=== PATIENT | female | born 1930 | race Caucasian/White ===

== ENCOUNTER 2016-03-28 19:09 | Emergency (ER) | payer OTHER, MEDICARE ==
[2016-03-28 19:19] VITALS: BP 140/65
--- NOTE | 2016-03-28 19:51 | ED NOSE COMPLAINT ---
History of Present Illness General Chief Complaint: Epistaxis/Nasal Foreign Body Stated Complaint: EPISTAXIS Source: patient, family, old records Exam Limitations: no limitations Vital Signs & Intake/Output Vital Signs & Intake/Output Vital Signs Date Time Temp Pulse Resp B/P Pulse O2 O2 Flow FiO2 Ox Delivery Rate 03/28 1927 99 Non 10L ReBreather 03/28 1918 97.1 93 18 140/65 99 Non 10L ReBreather Allergies Coded Allergies: cat dander (TRIGGERS ASTHMA 03/28/16) Uncoded Allergies: SMOKE (TRIGGERS ASTHMA 03/28/16) Reconcile Medications Alprazolam (Xanax) 0.5 MG TABLET 1 TAB PO Q8H PRN ANXIETY (Reported) Amoxicillin 500 MG CAPSULE 1 CAP PO BID INFECTION Diltiazem HCl (Cartia Xt) 180 MG CAP.ER.24H 1 CAP PO QAM HEART/BP (Reported) Doxazosin Mesylate 4 MG TABLET 1 TAB PO QPM BP (Reported) Ezetimibe/Simvastatin (Vytorin 10-20 MG Tablet) 10 MG-20 MG TABLET 1 TAB PO QPM CHOLESTEROL (Reported) Fluticasone/Salmeterol (Advair 250-50 Diskus) 250 MCG-50 MCG/DOSE BLST.W.DEV 1 PUF INH BID COPD (Reported) Furosemide (Lasix) 20 MG TABLET 1 TAB PO EOD DIURETIC (Reported) Potassium Chloride (Klor-Con 10) 10 MEQ TABLET.ER 30 MEQ PO AD SUPPLEMENT ( Reported) Potassium Chloride (Klor-Con M20) 20 MEQ TAB.ER.PRT 1 TAB PO AD SUPPLEMENT ( Reported) Spironolactone (Aldactone) 50 MG TABLET 1 TAB PO EOD DIURETIC (Reported) Tiotropium Seymour (Spiriva) 18 MCG CAP.W.DEV 1 CAP INH QAM COPD/ASTHMA/ EMPHYSEMA (Reported) Warfarin Sodium (Unknown Strength) TABLET (Unknown Dose) PO AD BLOOD THINNER (Reported) Triage Note: 85 YEAR OLD FEMALE BIBA FROM [facility] FOR NOSE BLEED ON AND OFF SINCE 1100 AM. PER EMS BLEED WAS UNDER CONTROL UNTIL PT BLEW HER NOSE. PT ARRIVES TO ED ALERT AND ORIENTED X3 WITH DAUGHTER. PT IS O2 DEPENDENT AT 4L. PT PLACED ON NONREBREATHER TO PROTECT NOSE FROM BLEEDING AT THIS TIME. OSCAR CAMACHO TO BEDSIDE FOR EVAL. PT IS ON COUMDADIN WITH HISTORY OF NOSE BLEEDS. Triage Nurses Notes Reviewed? yes HPI: 85-year-old female on Coumadin on supplemental oxygen via nasal cannula with frequent intermittent nosebleeds, no speech started again at 11:00 this morning and has been fairly constant since. No trauma or injury no pain. She does not feel lightheaded dizzy or weak. She's had a constant oozing of blood from the nose, she has minimal blood in the posterior pharynx. She occasionally blows out small amounts of blood clots. She has never had a packing or any surgery of the nose or sinuses. (JAYCEE JUARES) Past History Travel History Traveled to [place] past 21 day No Medical History Any Pertinent Medical History? 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 No (JAYCEE JUARES) Review of Systems Review of Systems Constitutional: Reports: see HPI. EENTM: Reports: see HPI. Respiratory: Reports: no symptoms. Cardiovascular: Reports: no symptoms. GI: Reports: no symptoms. Genitourinary: Reports: no symptoms. Musculoskeletal: Reports: no symptoms. Skin: Reports: no symptoms. Neurological/Psychological: Reports: no symptoms. Hematologic/Endocrine: Reports: no symptoms. Immunologic/Allergic: Reports: no symptoms. All Other Systems: Reviewed and Negative (JAYCEE JUARES) Physical Exam Physical Exam General Appearance: well developed/nourished Nose: active bleeding (right anterior plexus) Comments: Elderly female looks stated age, Well-developed well-nourished no apparent distress. HEENT: Atraumatic, extraocular motion intact Dry blood noted on the face and perioral region and on her clothes. Continuous active bleeding of the anterior plexus right side. No blood noted in the posterior pharynx. Neck: Supple, no lymphadenopathy Back: Nontender Respiratory: No respiratory distress Extremities: No edema, full range of motion Neuro: Alert and oriented x3 Psych: Mood affect normal, normal memory normal judgment. Skin: Warm and dry, no rash on exposed skin (JANICE MOORE,JAYCEE) Progress Differential Diagnoses I considered the following diagnoses in my evaluation of the patient: Plan of Care: Orders Procedure Date/time Status PROTHROMBIN TIME 03/28 1936 Complete COMPREHENSIVE METABOLIC PANEL 03/28 1936 Complete CBC WITHOUT DIFFERENTIAL 03/28 1936 Complete Laboratory Tests 03/28/161945: Anion Gap 13, Estimated GFR 52 L, BUN/Creatinine Ratio 32.0 H, Glucose 143 H, Calcium 9.1, Total Bilirubin 0.7, AST 25, ALT 24, Alkaline Phosphatase 69, Total Protein 6.8, Albumin 3.9, Globulin 2.9, Albumin/Globulin Ratio 1.3, PT 22.6 H, INR 2.17 H, CBC w Diff NO MAN DIFF REQ, RBC 4.16 L, MCV 84.7, MCH 28.0, RDW 15.5 H, MPV 7.8, Gran % 79.3 H, Lymphocytes % 13.1 L, Monocytes % 5.8, Eosinophils % 1.4, Basophils % 0.4, Absolute Granulocytes 7.8 H, Absolute Lymphocytes 1.3, Absolute Monocytes 0.6, Absolute Eosinophils 0.1, Absolute Basophils 0, PUBS MCHC 33.0 Initial ED EKG: none Comments: Shawn-Synephrine and compression used to try to stop the bleeding however there is no success with this. Patient had blood clots removed by blowing and active bleeding noted at the anterior plexus. A 5.5 cm anterior Rhino Rocket was placed and inflated with approximate 4 mL of air to patient's tolerance. Bleeding has stopped at this time. We will obtain labs and check INR check H&H and platelet count and continue to monitor patient. She was placed on supple oxygen via facemask, O2 sat 98% Patient reevaluated multiple times, no further bleeding, Rhino Rocket is in place and Pink stands inflated. Her laboratory values are unremarkable, INR 2.17, platelet count is normal. She will be discharged home with a Rhino Rocket in place recommending follow-up with ENT in the next 3-5 days. She is given antibiotics, amoxicillin 1 tablet by mouth for prophylaxis and prescription as outpatient for prophylaxis of infection due to nasal foreign body. Respiratory was contacted and they have given her a mask to use in place of her nasal cannula to deliver a comparable amount of oxygen as nasal cannula give her. Her daughters comes with taking her home and arrange for follow-up. He'll return with any concerns of worsening bleeding or shortness of breath. (JAYCEE JUARES) Departure Departure Disposition: HOME OR SELF CARE Condition: Stable Clinical Impression Primary Impression: Anterior epistaxis Referrals: CALLI STEPHENS,FAY (PCP/Family) CRISTOFER STEPHENS,KEVIN Poon Additional Instructions: Keep the packing in place for the next 3-5 days and follow-up with ENT to have this removed, call to make an appointment Take antibiotics for prevention of infection Return with worsening bleeding Use the oxygen mask as directed Departure Forms: Customer Survey General Discharge Information Prescriptions: Current Visit Scripts Amoxicillin 1 CAP PO BID #10 CAP (JAYCEE JUARES) PA/CLERGY MEMBER Co-Sign Statement Statement: ED Attending supervision documentation- [] I saw and evaluated the patient. I have also reviewed all the pertinent lab results and diagnostic results. I agree with the findings and the plan of care as documented in the PA's/CLERGY MEMBER's documentation. [x] I have reviewed the ED Record and agree with the PA's/CLERGY MEMBER's documentation. [] Additions or exceptions (if any) to the PAs/CLERGY MEMBER's note and plan are summarized below: [] (LACEY STEPHENS,GABBY Adams) Critical Care Note Critical Care Note Critical Care Time: 30-74 min (JAYCEE JUARES)
[2016-03-28] MEDS ORDERED: ADVAIR 250-501 EACH INH (19:52)
[2016-03-28] MEDS ORDERED: XANAX0.5 M1 PO (19:52)
[2016-03-28] MEDS ORDERED: CARTIA XT180 M1 PO (19:53)
[2016-03-28] MEDS ORDERED: LASIX20 M1 PO (19:54)
[2016-03-28] MEDS ORDERED: DOXAZOSIN MESYLA4 M1 PO (19:54)
[2016-03-28] MEDS ORDERED: KLOR-CON 1010 ME1 PO (19:55)
[2016-03-28] MEDS ORDERED: ALDACTONE50 M1 PO (19:56)
[2016-03-28] MEDS ORDERED: KLOR-CON M2020 ME1 PO (19:56)
[2016-03-28 19:57] LABS: ABSOLUTE BASOPHIL COUNT 0 /CUMM (0.0-0.2); ABSOLUTE EOSINOPHIL COUNT 0.1 /CUMM (0.0-0.7); ABSOLUTE GRANULOCYTE CT 7.8 /CUMM (1.4-6.5); ABSOLUTE LYMPH COUNT 1.3 /CUMM (1.2-3.4); ABSOLUTE MONOCYTE COUNT 0.6 /CUMM (0.10-0.60); BASOPHIL % 0.4 % (0.0-2.0); EOSINOPHIL % 1.4 % (0-5); GRANULOCYTE % 79.3 % (42.2-75.2); HEMATOCRIT 35.2 % (37-47); MEAN CORPUSCULAR VOLUME 84.7 FL (81.0-99.0); MEAN PLATELET VOLUME 7.8 FL (7.4-10.4); PLATELET COUNT 231 /CUMM (130-400); RBC DISTRIBUTION WIDTH 15.5 % (11.5-14.5); RED BLOOD CELL CT 4.16 /CUMM (4.20-5.40); WHITE BLOOD CELL COUNT 9.8 /CUMM (4.8-10.8)
[2016-03-28] MEDS ORDERED: VYTORIN 10-201 EACH PO (19:57)
[2016-03-28] MEDS ORDERED: SPIRIVA18 MCG INH (19:57)
[2016-03-28] MEDS ORDERED: WARFARIN SODIUM3 M1 PO (19:59)
[2016-03-28 20:04] LABS: PT 22.6 SEC (9.4-12.5)
[2016-03-28] MEDS ORDERED: AMOXICILLIN500 M2 PO (20:41)
== END 2016-03-28 21:13 ==
LOC: ERH 19:09
PROVIDERS: Physician Assistant Surgical
DX: R04.0 Epistaxis (principal)

== ENCOUNTER 2016-06-22 15:07 | Inpatient (IN) | payer OTHER, MEDICARE ==
[~2016-06-22] VITALS: Ht 152.4 cm; Wt 83.2 kg
[~2016-06-22 15:07] MED LIST: ADVAIR 250-501 EACH INH; ALDACTONE50 M1 PO; AMOXICILLIN500 M2 PO; CARTIA XT180 M1 PO; DOXAZOSIN MESYLA4 M1 PO; KLOR-CON 1010 ME1 PO; KLOR-CON M2020 ME1 PO; LASIX20 M1 PO; SPIRIVA18 MCG INH; VYTORIN 10-201 EACH PO; WARFARIN SODIUM3 M1 PO; XANAX0.5 M1 PO
--- NOTE | 2016-06-22 15:17 | NUR ---
VITALS TAKEN. DTR STATES PT HAS HAD MASTECTOMY ON LEFT. RESTRICTED ARM BAND PLACED ON LEFT WRIST. DTR STATES WE CANNOT PLACE B/P CUFF ON R UPPER ARM DUE TO PT COMPLAINTS OF PAIN WHEN B/P TAKEN. AUTO BP TAKEN IN RIGHT FOREARM.
--- NOTE | 2016-06-22 15:32 | NUR ---
PT [facility] FOR INCREASED BILATERAL LEG EDEMA SINCE Apr, INCREASED WEIGHT GAIN OF 20 POUNDS SINCE 05/10 AND INCREASED SOB WITH EXERTION. PT BASELINE 4L NC OXYGEN. PT AMBULATED TO BATHROOM ON ARRIVAL WITH ASSIST OF WALKER AND MINIMAL EXERTIONAL DYSPNEA NOTED.
--- NOTE | 2016-06-22 16:13 | NUR ---
DR. RAMIREZ AT BEDSIDE FOR EVAL.
--- NOTE | 2016-06-22 16:18 | NUR ---
LABS SENT (BLUE,SST,LAV)
[2016-06-22 16:25] LABS: ABSOLUTE BASOPHIL COUNT 0 /CUMM (0.0-0.2); ABSOLUTE EOSINOPHIL COUNT 0.1 /CUMM (0.0-0.7); ABSOLUTE GRANULOCYTE CT 4.9 /CUMM (1.4-6.5); ABSOLUTE MONOCYTE COUNT 0.5 /CUMM (0.10-0.60); BASOPHIL % 0.1 % (0.0-2.0); EOSINOPHIL % 1.8 % (0-5); HEMATOCRIT 28.3 % (37-47); MEAN CORPUSCULAR HGB 23.5 PG (27.0-31.0); MEAN CORPUSCULAR HGB CONC 30.5 G/DL (33.0-37.0); PLATELET COUNT 251 /CUMM (130-400); RBC DISTRIBUTION WIDTH 17.4 % (11.5-14.5); RED BLOOD CELL CT 3.67 /CUMM (4.20-5.40); WHITE BLOOD CELL COUNT 6.5 /CUMM (4.8-10.8)
--- NOTE | 2016-06-22 16:31 | RADIOLOGY REPORT ---
EXAMINATION: XR CHEST CLINICAL INFORMATION: Shortness of breath with exertion. COMPARISON: None. TECHNIQUE: 2 views of the chest were obtained. FINDINGS: The lungs are hypoinflated with elevation of the right hemidiaphragm. There is a mild interstitial prominence which may be chronic. No pleural effusion or focal consolidation. Mild cardiomegaly. IMPRESSION: Mild diffuse interstitial prominence which may be chronic. Mild cardiomegaly. Elevation of the right hemidiaphragm.
--- NOTE | 2016-06-22 16:44 | ED GENERAL ADULT ---
History of Present Illness General Chief Complaint: General Adult Stated Complaint: BILAT LEG EDEMA X MONTH Source: patient, family, old records, EMS Exam Limitations: no limitations Vital Signs & Intake/Output Vital Signs & Intake/Output Vital Signs Date Time Temp Pulse Resp B/P Pulse O2 O2 Flow FiO2 Ox Delivery Rate 06/22 1749 97.6 78 24 139/63 98 Nasal 4.0L Cannula 06/22 1613 Nasal 4.0L Cannula 06/22 1516 96.7 78 22 136/64 95 Nasal 4.0L Cannula Allergies Coded Allergies: cat dander (TRIGGERS ASTHMA 03/28/16) Uncoded Allergies: SMOKE (TRIGGERS ASTHMA 03/28/16) Reconcile Medications Alprazolam 0.5 MG TABLET 0.5 TAB PO PRN ANXIETY (Reported) Diltiazem HCl (Cartia Xt) 180 MG CAP.ER.24H 1 CAP PO QAM HEART/BP (Reported) Doxazosin Mesylate 4 MG TABLET 1 TAB PO QPM BP (Reported) Ezetimibe/Simvastatin (Vytorin 10-20 MG Tablet) 10 MG-20 MG TABLET 1 TAB PO QPM CHOLESTEROL (Reported) Fluticasone/Salmeterol (Advair 250-50 Diskus) 250 MCG-50 MCG/DOSE BLST.W.DEV 1 PUF INH QAM COPD (Reported) Furosemide (Lasix) 40 MG TABLET 1 TAB PO AD DIURETIC (Reported) Furosemide (Lasix) 80 MG TABLET 1 TAB PO Tuesday DIURETIC (Reported ) Potassium Chloride (Klor-Con 10) 10 MEQ TABLET.ER 3 TAB PO DAILY SUPPLEMENT ( Reported) Potassium Chloride 20 MEQ TAB.ER.PRT 1.5 TAB PO Tuesday SUPPLEMENT (Reported) Tiotropium Jackson (Spiriva) 18 MCG CAP.W.DEV 1 CAP INH QAM COPD/ASTHMA/ EMPHYSEMA (Reported) Warfarin Sodium (Coumadin) 5 MG TABLET 1 TAB PO DAILY BLOOD THINNER (Reported ) Warfarin Sodium 2 MG TABLET 1 TAB PO Tuesday BLOOD THINNER ( Reported) Core Measure Meds Pre-Hospital coumadin Triage Note: [facility] FOR INCREASED BILATERAL LEG EDEMA SINCE Apr, INCREASED WEIGHT GAIN OF 20 POUNDS SINCE 05/10 AND INCREASED SOB WITH EXERTION. PT BASELINE 4L NC OXYGEN. PT AMBULATED TO BATHROOM ON ARRIVAL WITH ASSIST OF WALKER AND MINIMAL EXERTIONAL DYSPNEA NOTED. Triage Nurses Notes Reviewed? yes Onset: 1 month Duration: week(s):, constant, continues in ED, getting worse Timing: recent history Injury Environment: home Severity: severe Modifying Factors: Worsens With: movement. LMP (ages 10-50): post menopausal : No Patient currently breastfeeds: No HPI: 1 month prior to admission patient developed increasing pedal edema abdominal girth dyspnea on exertion. She was prescribed increasing doses of Lasix with continued edema and dyspnea on exertion improved with rest. There has been no fever chills nausea vomiting diarrhea abdominal pain chest pain headache dysuria rash bleeding. Past History Travel History Traveled to [place] past 21 day No Medical History Any Pertinent Medical History? 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 No Review of Systems Review of Systems Constitutional: Reports: no symptoms. EENTM: Reports: no symptoms. Respiratory: Reports: see HPI, short of breath. Cardiovascular: Reports: see HPI, edema. GI: Reports: no symptoms. Genitourinary: Reports: no symptoms. Musculoskeletal: Reports: no symptoms. Skin: Reports: no symptoms. Neurological/Psychological: Reports: no symptoms. Hematologic/Endocrine: Reports: no symptoms. Immunologic/Allergic: Reports: no symptoms. All Other Systems: Reviewed and Negative Physical Exam Physical Exam General Appearance: well developed/nourished, alert, awake, anxious, mild distress, obese Head: atraumatic, normal appearance Eyes: Bilateral: normal appearance, PERRL, EOMI. Ears, Nose, Throat: normal pharynx, normal ENT inspection Neck: normal inspection, supple, full range of motion, no midline tenderness Respiratory: chest non-tender, no respiratory distress, quiet respiration, rales Cardiovascular: regular rate/rhythm, normal peripheral pulses, norml femoral pulses equa Peripheral Pulses: 4+ carotid (R), 4+ carotid (L) Gastrointestinal: normal bowel sounds, soft, non-tender, no organomegaly Back: normal inspection, normal range of motion Extremities: limited range of motion, pedal edema Neurologic/Psych: no motor/sensory deficits, awake, alert, oriented x 3, normal mood/affect, psychology associate II-XII nml as tested Reflexes: 2+: bicep (R), bicep (L). Skin: intact, normal color Lymphatic: no anterior cervical miguel Core Measures ACS in differential dx? No CVA/TIA Diagnosis: No Severe Sepsis Present: No Septic Shock Present: No Progress Differential Diagnoses I considered the following diagnoses in my evaluation of the patient: volume overload CHF lymphedema Plan of Care: Orders Procedure Date/time Status Regular Diet 06/22 D Active Patient Data 06/22 1709 Active EKG 06/22 170 Active OXYGEN SETUP (GEN) 06/22 161 Active Saline Lock 06/22 1616 Active Admit to inpatient 06/22 1616 Active Add-on Test (ER Only) 06/22 1616 Active Vital Signs 06/22 1616 Active Activity/Ambulation 06/22 1616 Active Code Status 06/22 1616 Active TROPONIN LEVEL 06/22 1545 Complete COMPREHENSIVE METABOLIC PANEL 06/22 1545 Complete CBC WITHOUT DIFFERENTIAL 06/22 1545 Complete B-TYPE NATRIURETIC PEP (BNP) 06/22 1545 Complete Laboratory Tests 06/22/16 1615: Anion Gap 5, Estimated GFR > 60, BUN/Creatinine Ratio 35.7 H, Glucose 88, Calcium 8.8, Total Bilirubin 0.4, AST 31, ALT 32, Alkaline Phosphatase 69, Troponin I 0.02, Kul-K-Pruurtidjqr Pept 2830 H, Total Protein 6.9, Albumin 3.9, Globulin 3.0, Albumin/Globulin Ratio 1.3, CBC w Diff NO MAN DIFF REQ, RBC 3.67 L, MCV 77.0 L, MCH 23.5 L, RDW 17.4 H, MPV 8.0, Gran % 75.0, Lymphocytes % 16.1 L, Monocytes % 7.0, Eosinophils % 1.8, Basophils % 0.1, Absolute Granulocytes 4.9, Absolute Lymphocytes 1.0 L, Absolute Monocytes 0.5, Absolute Eosinophils 0.1, Absolute Basophils 0, PUBS MCHC 30.5 L Diagnostic Imaging: Viewed by Me: Radiology Read. Discussed w/RAD: Radiology Read. CXR Impression: vascular congestion Initial ED EKG: normal axis, normal intervals, normal p-waves, normal QRS complex, normal sinus rhythm, nonspecific ST T wave chg Rhythm Strip: normal sinus rhythm Departure Departure Disposition: STILL A PATIENT Condition: Stable Clinical Impression Primary Impression: Volume overload Qualifiers: Hypervolemia type: other Qualified Code: E87.79 - Other fluid overload Secondary Impressions: Pedal edema Referrals: FAY MCCURDY MD (PCP/Family) Departure Forms: Customer Survey General Discharge Information Admission Note Spoke With: ALEXANDER STOREY MDAngelique Documentation of Exam: Documentation of any treatments & extenuating circumstances including Concerns Regarding Discharge (functional status, medication knowledge or non-compliance, living conditions, etc.) that warrant an admission rather than observation: serial lab exam IV diuresis medication adjustment cardiology evaluation continuing care discharge planning supplemental oxygen physical therapy. Critical Care Note Critical Care Note Critical Care Time: non-applicable
[2016-06-22] MEDS ORDERED: LASIX40 M1 PO (16:48)
[2016-06-22] MEDS ORDERED: LASIX80 M1 PO (16:49)
[2016-06-22] MEDS ORDERED: KLOR-CON 1010 ME1 PO (16:51)
[2016-06-22] MEDS ORDERED: POTASSIUM CHLO20 ME2 PO (16:52)
[2016-06-22] MEDS ORDERED: WARFARIN SODIUM2 M1 PO (16:54)
[2016-06-22] MEDS ORDERED: COUMADIN5 M2 PO (16:54)
[2016-06-22] MEDS ORDERED: ALPRAZOLAM0.5 M4 PO (16:55)
--- NOTE | 2016-06-22 17:22 | NUR ---
EKG DONE BY STUDENT
--- NOTE | 2016-06-22 17:58 | NUR ---
FOOD TRAY PROVIDED. PT AMBUALTED TO CHAIR WITH MINIMAL ASSISTANCE, JUST STAFF AT SIDE FOR PT'S SAFETY.
--- NOTE | 2016-06-22 18:53 | History & Physical ---
МАРИНА MIRELESLUISA 06/22/16 3774: General Information and HPI MD Statement: I have seen and personally examined MARGARITA WEAVER and documented this H&P. The patient is a 85 year old F who presented with a patient stated chief complaint of worsening lower extremity swellings. Source of Information: patient, family Exam Limitations: no limitations History of Present Illness: Ms Weaver is an 85-year-old woman who was known to be in her usual state of health until 6 weeks ago. She has a past history of macular degeneration, arrhythmias (unclear), hypertension hyperlipidemia, pulmonary embolism (dx'ed 2013), emphysema, breast cancer s/p resection, recent multiple hospital admissions for hemorrhages. She was brought to [place] [facility] for evaluation of worsening lower extremity swelling 6 weeks, and worsening shortness of breath 1 week. As per the patient, Ms Weaver had worsening lower extremity swelling, which extended from ankle up to the lower abdomen, relieved on elevation only. No pain, weakness, tingling/numbness in lower extremities. Reports weight gain of approximately 20 pounds in the last 3 months. Was seen by her primary care doctor 2 when alterations in diuretics, with no relief of symptoms. Also was concerned about worsening shortness of breath in the last 1 week, reports worsening shortness of breath upon dressing. Reports palpitations, which are chronic as per the patient. Reports chronic cough. No shortness of breath, chest pain, orthopnea, PND. No lightheadedness, visual changes. No fever, no catarina, no brbpr, no abdominal pain, no nausea, vomiting or diarrha. No urinary symptoms. As per the daughter, Ms Delgadillo was diagnosed with arrhythmias(nature unknown) for which she was on Xarelto and had a GI bleed for which she was admitted to [facility] requiring packed red blood cells transfusion. Subsequently, she subsequently developed a pulmonary embolism (2013) and was started on Coumadin. Sees Dr. Travis Canada (imagery analyst), Dr. Us (film printer), Dr. Mccurdy( primary care physician). No recent echocardiogram[place] Allergies/Medications Allergies: Coded Allergies: cat dander (TRIGGERS ASTHMA 03/28/16) Uncoded Allergies: SMOKE (TRIGGERS ASTHMA 03/28/16) Home Med list Alprazolam 0.5 MG TABLET 0.5 TAB PO PRN ANXIETY (Reported) Diltiazem HCl (Cartia Xt) 180 MG CAP.ER.24H 1 CAP PO QAM HEART/BP (Reported) Doxazosin Mesylate 4 MG TABLET 1 TAB PO QPM BP (Reported) Ezetimibe/Simvastatin (Vytorin 10-20 MG Tablet) 10 MG-20 MG TABLET 1 TAB PO QPM CHOLESTEROL (Reported) Fluticasone/Salmeterol (Advair 250-50 Diskus) 250 MCG-50 MCG/DOSE BLST.W.DEV 1 PUF INH QAM COPD (Reported) Furosemide (Lasix) 40 MG TABLET 1 TAB PO AD DIURETIC (Reported) Furosemide (Lasix) 80 MG TABLET 1 TAB PO Tuesday DIURETIC (Reported ) Potassium Chloride (Klor-Con 10) 10 MEQ TABLET.ER 3 TAB PO DAILY SUPPLEMENT ( Reported) Potassium Chloride 20 MEQ TAB.ER.PRT 1.5 TAB PO Tuesday SUPPLEMENT (Reported) Tiotropium Goodman (Spiriva) 18 MCG CAP.W.DEV 1 CAP INH QAM COPD/ASTHMA/ EMPHYSEMA (Reported) Warfarin Sodium (Coumadin) 5 MG TABLET 1 TAB PO DAILY BLOOD THINNER (Reported ) Warfarin Sodium 2 MG TABLET 1 TAB PO Tuesday BLOOD THINNER ( Reported) Past History Travel History Traveled to [place] past 21 day No Medical History Neurological: PER DAUGHTER, SHORT TERM MEMORY LOSS BROUGHT ON BY STRESS (- mild) EENT: macular degeneration Cardiovascular: hypertension, hyperlipidemia, ARRYTHMIA HEART MURMUR HYPOKALEMIA Respiratory: COPD, emphysema, pulmonary embolism Gastrointestinal: GERD, GI BLEED '14 Musculoskeletal: osteoporosis, L ARM LYMPHEDEMA Psychiatric: anxiety, insomnia Endocrine: DIABETES (DIET CONTROLLED Blood Disorders: NONE Cancer(s): UTERINE CA 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 Ambulation: walker IADLs Needs Assist: shopping, housework, transportation. Review of Systems Review of Systems Constitutional: Denies: fever. EENTM: Denies: blurred vision. Cardiovascular: Reports: edema, palpitations. Denies: chest pain. Respiratory: Reports: cough, short of breath. GI: Denies: diarrhea. Musculoskeletal: Denies: back pain. Neurological/Psychological: Denies: anxiety. Exam & Diagnostic Data Last 24 Hrs of Vital Signs/I&O Vital Signs Date Time Temp Pulse Resp B/P Pulse O2 O2 Flow FiO2 Ox Delivery Rate 06/22 1950 97.8 75 20 177/71 98 Nasal 4.0L Cannula 06/22 1749 97.6 78 24 139/63 98 Nasal 4.0L Cannula 06/22 1613 Nasal 4.0L Cannula 06/22 1516 96.7 78 22 136/64 95 Nasal 4.0L Cannula Intake & Output 06/22 1600 06/22 0800 06/22 0000 Intake Total Output Total Balance Patient 202 lb Weight Physical Exam General Appearance Alert, Oriented X3, Cooperative, No Acute Distress Skin No Rashes, No Breakdown HEENT Atraumatic, PERRLA, EOMI Neck No JVD, No thryomegaly Lymphatic Cervical nl Cardiovascular Normal S1, Normal S2, systolic murmur, no jugular venous distention Lungs decreased air entry bilaterally No rhonchi or rales heard Abdomen Normal Bowel Sounds, Soft, No Tenderness Neurological Normal Speech, Strength at 5/5 X4 Ext, Normal Tone, Sensation Intact, Cranial Nerves 3-12 NL, Reflexes 2+ Extremities No Clubbing, No Cyanosis, bilateral pedal edema, 2+ edema extending from toes up to mid abdomen. Nonpitting, estimated changes with no ulcers or breakdown seen. Warm to touch Vascular Pulses Symmetrical, pulses in lower extremities could not be felt Body Front and Back (Adult) 1) Pedal edema Diagnostic Data EKG Results ST changes in lateral leads Normal sinus rhythm CXR Results Mild diffuse interstitial prominence, with no interstitial edema. Assessment/Plan Assessment: She is an older lady with a past history of hypertension, questionable arrhythmias, pulmonary embolism, emphysema is being evaluated for worsening lower extremity swelling, and shortness of breath likely due to congestive heart failure. At the time of admission, vitals-temperature 96.7, pulse rate 78, respiration 22 , blood pressure 136/64, 95% on nasal cannula (4 L supplemental oxygen-baseline) . Lab findings indicated WBC 6.5, hemoglobin 8.6 (hemoglobin 11.6 04/09/2016), hematocrit 28.3, MCV 77 (microcytic), RDW 17.4. Electrolytes-sodium 134, potassium 3.7, chloride 90, bicarbonate 39 (likely due to furosemide use and/or emphysema). Normal liver function, renal function serum creatinine 0.9, proBNP 2830. INR 2.37 (on Coumadin). Radiological findings-step x-ray did not reveal any interstitial edema. Differential diagnosis: #1 CHF (exacerbation) or new onset CHF #2 pulmonary embolism Below is the problem list and plan: #1 lower extremity swelling, shortness of breath-likely due to new onset CHF and or CHF exacerbation involving the right heart. Patient has a history of pulmonary embolism and emphysema, which could potentially contribution to right heart failure. However, no JVD and/or hepatomegaly seen on clinical examination. Continue furosemide 40 mg IV twice a day at this time. Reassess after obtaining echocardiogram to measure right ventricle pressure. Serial electrocardiograms and echocardiograms to be obtained. Salt restricted diet. Strict ins and outs with daily weights. Other common cause is hypothyroidism for which TSH and free T4 has been ordered. Consult cardiology for advice. Plan to obtain all records from the imagery analyst. #2 anemia-low H&H, microcytic likely due to iron deficiency or blood loss. Check iron studies. Guaiac stools. Anemia could be contributing to worsening CHF. #3 history of pulmonary embolism- INR 2.37. Dose Coumadin. Patient would benefit from a CTA, that would rule out any new possible pulmonary embolism that caused an exacerbation of CHF. #4 emphysema-continue home dose of Spiriva. TRC nebs. Oxygen. #5. Prophylaxis-warfarin. As Ranked By This Provider Problem List: 1. Pedal edema 2. Volume overload Qualifiers Hypervolemia type: other Qualified Code: E87.79 - Other fluid overload Core Measures/Miscellaneous Acute Coronary Syndrome ACS Diagnosis: No Cerebrovascular Accident CVA/TIA Diagnosis: Yes Congestive Heart Failure CHF Diagnosis: Yes Date of most recent Echo: 06/22/16 ERICA/ARB for EF <40%: No Venous Thromboembolism VTE Risk Factors: Acute medical illness, Age > 40 No [facility] VTE prophylaxis d/t: No contraindications No VTE Pharm Prophylaxis d/t: No contraindications VTE Diagnosis: No VTE Type: NONE VTE Confirmed by (Test): NONE Severe Sepsis Severe Sepsis Present: No Septic Shock Septic Shock Present: No Miscellaneous Documentation Attending Case Discussed With: MASTER MARROQUIN MD Primary Care Physician: FAY MCCURDY MD Patient sees these Specialists Label Designer-Dr. Canada Level of Patient Care: Telemetry LAUREN FONSECA 06/22/161951: Past Family/Social History Family History Relations & Conditions if any NON (This patient was adopted no family history). Relation not specified for: *No pertinent family history Psychosocial History Living Will? yes Resident Review Statement Resident Statement: examined this patient, discussed with validation intern, agreed with validation intern, reviewed images, amended to note Other Findings: This is an 85 years old lady with past medical history significant for hypertension, hyperlipidemia, arrhythmia [cannot define], PE, emphysema, diabetes mellitus controlled through diet, breast CA status post mastectomy in 2010 at baseline uses 4 L of oxygen. The patient has never been admitted at [facility] and decided to come after getting recommendation from her friend that she will get good care. She has been having shortness of breath which the patient and the daughter can recall specifically starting from 2016. On the same time duration the patient has been experiencing shortness of breath and acknowledges to significant weight gain about 20 pounds and swelling of the lower limbs within the same duration. This patient has been taking hydrochlorothiazide and upon development of these symptoms was started on Lasix with increased of dose to her PCP but without significant relief of the symptoms. Patient herself is not sure if she has diagnosis of CHF and he cannot recall any echocardiogram parameters done in the near past. The patient reports that she was put on exam to as a blood thinner probably after the PE episode but while she was on this medication she developed massive GI bleeding requiring 5 units with several days admission at [facility]. Subsequently she was put on Coumadin which she has been taking and following up on INR as required. Patient denies any fever chills dysuria change in urine frequency, sick contacts she has been taking all her medications as required. When the patient arrived she was afebrile 96.7 heart rate of 78 respiration of 22 blood pressure 136/64 and was saturating 95% on 4 L physical examination: patient not in acute distress, cooperative alert and oriented 3 seated on the bed eating her dinner HEENT: No distended neck vessels, with mucous membranes no cyanosis RS: No wheezes, crackles most dominant on the bases CVS: RRR, 3/6 systolic murmur loudest at the aortic area Abdomen: Obese nontender Extremities: Pitting edema bilaterally to just below the knee, healing wounds, very thin shiny skin no obvious sign of infection Labs: Anemia 8.6/28.3, hypokalemia 3.7, bicarbonate of 39, increased proBNP 2830 , INR 2.37 Imaging: Mild diffuse interstitial prominence with mild cardiomegaly, elevated right hemidiaphragm EKG: Normal sinus rhythm regular, right bundle branch block, ST depression, T- wave inversion on multiple leads [no previous EKG to compare] Assessment and plan: Problem list CHF exacerbation Anemia Rule out ACS Admitted the patient to telemetry floor, vitals every shift, continuous assessment consultant Fall precautions Daily weights, strict I&O's CHF diet Troponin and EKG at 11 PM and 6 AM Echocardiogram to get baseline parameters Iron studies TSH T4 Daily INR and dose and Coumadin to maintain INR of 2-3 History of emphysema: TRC nebs, restart home inhalers Spiriva and Advair, oxygen to maintain saturation above 92%, Patient is DNR/DNI DVT prophylaxis through home dose warfarin RALEIGH STEPHENS, [facility] 06/22/162004: Attending MD Review Statement Attending Statement Attending MD Statement: examined this patient, discuss w/resident/PA/FISCAL AGENT, agreed w/resident/PA/FISCAL AGENT, discussed with family Attending Assessment/Plan: 85 yo morbidly obese F from assisted living, with h/o chronic hypoxic respiratory failure, COPD on 4L O2, ?afib/flutter and PE on coumadin, HTN, GERD, endometrial cancer, left breast carcinoma s/o mastectomy, diet controlled DM, unclear history of CHF on high doses of lasix, is here with 6-week h/o worsening lower extremity edema with 16-17 lb weight gain, and 1-week h/o exertional dyspnea. Lightheadedness+, weakness, fatigue, no LOC. Patient lives with a 24 hour aide, is compliant with her lasix per daughter. Given worsening LE edema, in May this year, her PCP increased the dose of lasix from 40 daily with 80 mg on //, then to 80 mg daily. On June 10, she was taken off the HCTZ by her imagery analyst. Patient follows Dr. Travis Canada (Cardiology) and Dr. Us ( Pulm). Patient denies cough, chest pain, wheezing, fever/chills, increasing O2 requirement, orthopnea or PND. Of note, patient was diagnosed with ?Afib/flutter in 2013 and initiated on xarelto --> developed lower GI bleed (admitted to [place] Feb 2014), xarelto was held --> sent to [facility] --> subsequently developed PE (2014) - admitted to [facility] and was initiated on coumadin. Vitals stable, sats 94-98% on 4L. Exam: AAO, mild respiratory distress when attempting to sit up from lying down position, JVD not appreciated, Chest bibasilar crackles+, no wheeze, Extremities: b/l LE 3+ pitting pedal edema upto abdomen, chronic venous stasis changes, no evidence of cellulitis. Multiple bruises noted to LE. Labs: H/H 8.6/28.3 (11.6/35.22 Mar 2016), microcytosis, INR 2.37, bicarb 39, BUN 25, creat 0.7, trop neg, proBNP 2830, TSH 4.450, Free T4 0.77. CXR: mild diffuse interstitial prominence likely chronic, mild cardiomegaly. EKG: SR, RBBB, first degree heart block, TWI inferior leads, Qtc 543. 1. Exertional dyspnea with b/l LE edema, weight gain, fatigue, could be multifactorial in the setting of acute exacerbation vs. 'new onset' CHF ( systolic vs. diastolic), anemia and hypothyroidism. No evidence of COPD exacerbation or pneumonia. Tele admit, strict I/O's, daily weight, IV lasix 40 BID, Echo, rule out ACS, Cardio consult. Work up anemia guaiac all stookls, check iron studies, B12, folic acid, type and crossmatch, keep Hb > 8.0. Patient denies melena, BRBPR, hematuria or hematemesis. Daughter reports patient had colonoscopy (many years ago) which was essentially negative. Outpatient vs. ? inpatient GI consult. With regards to her borderline thyroid functions, concern is raised for underlying hypothyroidism, we will recheck TSH and free T4 in AM, initiate low dose levothyroxine 25 mcg (given elderly patient with arrhythmias, no CAD), obtain Endo consult. 2. h/o ?arrhythmia (afib/flutter) and PE on coumadin. INR therapeutic, dose coumadin. Continue cardizem. 3. Anxiety. Ct. Xanax. DVT ppx coumadin. DNR/I. Daughter reports, patient has short term memory loss. Daughter and patient both are very particular that BP cuff should not be placed over right upper arm, but only right forearm to be used. Concern for recurrent bruising and severe pain per daughter. Both got anxious and I had to discuss about the need to get accurate BP reading.
--- NOTE | 2016-06-22 18:59 | NUR ---
HOUSE STAFF AT BEDSIDE FOR EVAL.
--- NOTE | 2016-06-22 19:22 | NUR ---
DR STOREY AT BEDSIDE FOR EVAL. PT AND DAUGHTER REFUSING FOR BP TO BE TAKEN, PT STATES "IT IS JUST PAINFUL." PT'S DAUGHTER TEARS BP CUFF OFF OF PT'S ARM. PT AND MOTHER EDUCATED ON IMPORTANCE OF OBTAINING AN ACCURATE BP. DR STOREY REMAINS AT BEDSIDE FOR EDUCATION.
--- NOTE | 2016-06-22 19:31 | NUR ---
PT'S RM ASSIGNMENT 185 BED 2
--- NOTE | 2016-06-22 19:41 | NUR ---
REPORT GIVEN TO CAMILO ON TELEMETRY.
[2016-06-22 19:50] LABS: PT 24.7 SEC (9.4-12.5)
--- NOTE | 2016-06-22 20:07 | Admission Certification ---
Admission Certification Certification Statement - As attending physician, I certify that at the time of - admission, based on clinical presentation, severity of - symptoms, need for further diagnostic testing and - therapeutic interventions, and risk of adverse outcomes - without in-hospital treatment, in my clinical assessment, - this patient requires an acute hospital stay for a minimum - of two nights or longer. I have also considered psychsocial - factors such as support system, advanced age, financial - issues, cognitive issues, and failed out-patient treatments, - past re-admission history, safety of patient, and lack of - compliance as applicable. Specific rationale supporting this admission is: Congestive heart failure, new diagnosis of 'hypothyroidism', acute symptomatic microcytic anemia.
[2016-06-22 20:50] VITALS: BP 114/62
--- NOTE | 2016-06-22 22:00 | NUR ---
NURSING ADMISSION NOTE; PT ADMITTED TO FLOOR. A+OX3. VSS. O2 DEPENDENT ON 4L. CURRENTLY WEARING 4L NC. +4 LE EDEMA. PT RECEIVED 80 MG IV LASIX IN THE ER. VOIDING LARGE AMOUNTS. NSR 70-80'S.
[2016-06-23 01:01] VITALS: BP 118/70
[2016-06-23 08:17] VITALS: BP 126/68
[2016-06-23 08:20] LABS: PT 25.9 SEC (9.4-12.5)
[2016-06-23 08:36] LABS: ABSOLUTE BASOPHIL COUNT 0 /CUMM (0.0-0.2); ABSOLUTE EOSINOPHIL COUNT 0.2 /CUMM (0.0-0.7); ABSOLUTE GRANULOCYTE CT 4.4 /CUMM (1.4-6.5); ABSOLUTE MONOCYTE COUNT 0.5 /CUMM (0.10-0.60); BASOPHIL % 0.2 % (0.0-2.0); EOSINOPHIL % 3.8 % (0-5); MEAN CORPUSCULAR HGB CONC 31.4 G/DL (33.0-37.0); MEAN CORPUSCULAR VOLUME 76.7 FL (81.0-99.0); MEAN PLATELET VOLUME 8.8 FL (7.4-10.4); PLATELET COUNT 212 /CUMM (130-400); RBC DISTRIBUTION WIDTH 17.6 % (11.5-14.5); RED BLOOD CELL CT 3.52 /CUMM (4.20-5.40); WHITE BLOOD CELL COUNT 6.2 /CUMM (4.8-10.8)
--- NOTE | 2016-06-23 10:25 | Cons- Cardiology ---
General Information and HPI Consulting Request Date of Consult: 06/23/16 Requested By: MASTER MARROQUIN MD Reason for Consult: Peripheral edema, question CHF. Source of Information: patient, old records Exam Limitations: poor historian History of Present Illness: Ms. Weaver is an 85-year-old female who presents with increasing peripheral edema for approximately one month and also weight gain.. According to the records she has a past history of pulmonary embolism and is on anticoagulation. There is a history of questionable arrhythmias, details not known. The patient states that she has a known heart murmur but is not aware of any other details. She also has COPD and is on chronic oxygen at home in assisted living. She has chronic shortness of breath but states it is not necessarily any worse than previously. She denies any chest pain. She was sent to the emergency department for increasing edema and given IV Lasix and has been started on twice-daily IV Lasix regimen. The patient is on Lasix and diltiazem at home from a cardiac standpoint. She has no previous records here at [facility]. Allergies/Medications Allergies: Coded Allergies: cat dander (TRIGGERS ASTHMA 03/28/16) Uncoded Allergies: SMOKE (TRIGGERS ASTHMA 03/28/16) Home Med List: Alprazolam 0.5 MG TABLET 0.5 TAB PO PRN ANXIETY (Reported) Diltiazem HCl (Cartia Xt) 180 MG CAP.ER.24H 1 CAP PO QAM HEART/BP (Reported) Doxazosin Mesylate 4 MG TABLET 1 TAB PO QPM BP (Reported) Ezetimibe/Simvastatin (Vytorin 10-20 MG Tablet) 10 MG-20 MG TABLET 1 TAB PO QPM CHOLESTEROL (Reported) Fluticasone/Salmeterol (Advair 250-50 Diskus) 250 MCG-50 MCG/DOSE BLST.W.DEV 1 PUF INH QAM COPD (Reported) Furosemide (Lasix) 40 MG TABLET 1 TAB PO AD DIURETIC (Reported) Furosemide (Lasix) 80 MG TABLET 1 TAB PO Tuesday DIURETIC (Reported ) Potassium Chloride (Klor-Con 10) 10 MEQ TABLET.ER 3 TAB PO DAILY SUPPLEMENT ( Reported) Potassium Chloride 20 MEQ TAB.ER.PRT 1.5 TAB PO Tuesday SUPPLEMENT (Reported) Tiotropium [place] (Spiriva) 18 MCG CAP.W.DEV 1 CAP INH QAM COPD/ASTHMA/ EMPHYSEMA (Reported) Warfarin Sodium (Coumadin) 5 MG TABLET 1 TAB PO DAILY BLOOD THINNER (Reported ) Warfarin Sodium 2 MG TABLET 1 TAB PO Tuesday BLOOD THINNER ( Reported) Current Medications: Current Medications Sig/Olga Start time Last Medication Dose Route Stop Time Status Admin Acetaminophen 650 MG Q6P PRN 06/23 0930 AC PO Albuterol Sulfate 3 ML Q4P PRN 06/22 2300 AC INH Alprazolam 0.5 MG TID PRN 06/22 2044 AC 06/23 PO 06/30 2043 1011 Budesonide/ 1 PUF DAILY 06/23 1000 AC 06/23 Formoterol Fumarate INH 0957 Diltiazem HCl 180 MG DAILY 06/23 1000 AC 06/23 PO 0956 Doxazosin Mesylate 4 MG QPM 06/22 2200 AC 06/22 PO 2324 Furosemide 40 MG 0800 & 1700 06/23 0800 AC 06/23 IV 0956 Furosemide 0 .STK-MED ONE 06/22 1904 DC IV Furosemide 80 MG ONCE ONE 06/22 184 DC 06/22 IV 06/22 184 1925 Ibuprofen 600 MG Q6P PRN 06/23 0930 AC PO Levothyroxine Sodium 0.025 MG DAILY AC 06/23 0700 AC 06/23 PO 0640 Morphine Sulfate 1 MG Q6P PRN 06/23 0930 AC IV Non-Formulary 0 SEE ADMIN CRITERIA 06/22 2044 CAN Medication ANY Potassium Chloride 30 MEQ 06/23 1000 AC 06/23 PO 0956 Potassium Chloride 30 MEQ DAILY 06/23 1000 AC 06/23 PO 0956 Tiotropium [place] 1 PUF QAM 06/23 1000 AC 06/23 INH 0957 Warfarin Sodium 5 MG COUMADIN 1700 ONE 06/22 2044 DC 06/22 PO 06/22 2045 2159 Review of Systems Review of Systems: She has no other complaints in the review of systems Past History Travel History Traveled to [place] past 21 day No Medical History Neurological: PER DAUGHTER, SHORT TERM MEMORY LOSS BROUGHT ON BY STRESS (- mild) EENT: macular degeneration Cardiovascular: hypertension, hyperlipidemia, ARRYTHMIA HEART MURMUR HYPOKALEMIA Respiratory: COPD, emphysema, pulmonary embolism Gastrointestinal: GERD, GI BLEED '14 Hepatic: NONE Renal: NONE Musculoskeletal: osteoporosis, L ARM LYMPHEDEMA Psychiatric: anxiety, insomnia Endocrine: DIABETES (DIET CONTROLLED Blood Disorders: NONE Cancer(s): UTERINE CA LEFT BREAST CA 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 Relation not specified for: *No pertinent family history Psychosocial History Where Do You Live? Assisted Living Smoking Status: Former Smoker Living Will? yes Functional Ability ADLs Needs Assist: dressing, eating, toileting, bathing. Ambulation: walker IADLs Needs Assist: shopping, housework, transportation. Exam & Diagnostic Data Vital Signs and I&O Vital Signs Date Time Temp Pulse Resp B/P Pulse O2 O2 Flow FiO2 Ox Delivery Rate 06/23 0857 97 Nasal 4.0L Cannula 06/23 0817 97.8 70 18 126/68 97 Nasal 4.0L Cannula 06/23 0101 98.7 78 18 118/70 97 Nasal Cannula 06/23 0000 Nasal 4.0L Cannula 06/22 2241 Nasal 4.0L Cannula 06/220 Nasal 4.0L Cannula 06/22 220 98 Nasal 4.0L Cannula 06/220 98.5 84 18 114/62 94 Nasal 4.0L Cannula 06/22 1950 97.8 75 20 177/71 98 Nasal 4.0L Cannula 06/22 1749 97.6 78 24 139/63 98 Nasal 4.0L Cannula 06/22 1613 Nasal 4.0L Cannula 06/22 1516 96.7 78 22 136/64 95 Nasal 4.0L Cannula Intake & Output 06/23 1600 06/23 0800 06/23 0000 06/22 1600 06/22 0800 06/22 0000 Intake Total 320 400 Output Total 550 1700 Balance -230 -1300 Intake, Oral 320 400 Output, Urine 550 1700 Patient 194 lb 202 lb 202 lb Weight Physical Exam: This is an elderly overweight female sitting in a chair in no acute distress. She is conversant but cannot recall details. HEENT exam is normal Neck veins are not distended Carotids are very difficult to feel. There are no bruits. Chest is clear to percussion and auscultation Heart reveals a grade 3-4/6 harsh high-pitched late peaking systolic ejection murmur heard best at the base but radiating to the apex as well. Abdomen is nontender Extremities reveal 3-4+ pitting edema and tenderness to palpation of the lower extremities. Labs/Scotty Results: Laboratory Tests 06/23 06/23 06/22 06/22 0944 0710 2330 1615 Chemistry Sodium (137 - 145 mmol/L) Pending 134 L Potassium (3.5 - 5.1 mmol/L) Pending 3.7 Chloride (98 - 107 mmol/L) Pending 90 L Carbon Dioxide (22 - 30 mmol/L) Pending 39 H Anion Gap (5 - 16) Pending 5 BUN (7 - 17 mg/dL) Pending 25 H Creatinine (0.5 - 1.0 mg/dL) Pending 0.7 Estimated GFR (>60 ml/min) > 60 BUN/Creatinine Ratio (7 - 25 %) Pending 35.7 H Glucose (65 - 99 mg/dL) 88 Calcium (8.4 - 10.2 mg/dL) 8.8 Magnesium (1.6 - 2.3 mg/dL) 2.3 Iron (37 - 170 ug/dL) 22 L TIBC (265 - 497 ug/dL) 421 Ferritin (11.1 - 264 ng/mL) 16.3 Total Bilirubin (0.2 - 1.3 mg/dL) 0.4 AST (14 - 36 U/L) 31 ALT (9 - 52 U/L) 32 Alkaline Phosphatase (<127 U/L) 69 Troponin I (< 0.11 ng/ml) 0.04 0.02 Idi-I-Ofjwxztufpf Pept (<125 pg/mL) 2830 H Total Protein (6.3 - 8.2 g/dL) 6.9 Albumin (3.5 - 5.0 g/dL) 3.9 Globulin (1.9 - 4.2 gm/dL) 3.0 Albumin/Globulin Ratio (1.1 - 2.2 %) 1.3 TSH (0.270 - 4.200 uIU/mL) Pending 4.450 H Free T4 (0.85 - 1.93 ng/dL) Pending 0.77 L Coagulation PT (9.4 - 12.5 SEC) 25.9 H 24.7 H INR (0.90 - 1.19) 2.49 H 2.37 H Hematology CBC w Diff Pending NO MAN DIFF REQ WBC (4.8 - 10.8 /CUMM) Pending 6.5 RBC (4.20 - 5.40 /CUMM) Pending 3.67 L Hgb (12.0 - 16.0 G/DL) Pending 8.6 L Hct (37 - 47 %) Pending 28.3 L MCV (81.0 - 99.0 FL) Pending 77.0 L MCH (27.0 - 31.0 PG) Pending 23.5 L RDW (11.5 - 14.5 %) Pending 17.4 H Plt Count (130 - 400 /CUMM) Pending 251 MPV (7.4 - 10.4 FL) Pending 8.0 Gran % (42.2 - 75.2 %) Pending 75.0 Lymphocytes % (20.5 - 51.1 %) Pending 16.1 L Monocytes % (1.7 - 9.3 %) Pending 7.0 Eosinophils % (0 - 5 %) Pending 1.8 Basophils % (0.0 - 2.0 %) Pending 0.1 Absolute Granulocytes (1.4 - 6.5 /CUMM) Pending 4.9 Absolute Lymphocytes (1.2 - 3.4 /CUMM) Pending 1.0 L Absolute Monocytes (0.10 - 0.60 /CUMM) Pending 0.5 Absolute Eosinophils (0.0 - 0.7 /CUMM) Pending 0.1 Absolute Basophils (0.0 - 0.2 /CUMM) Pending 0 PUBS MCHC (33.0 - 37.0 G/DL) Pending 30.5 L Diagnostic Data EKG Results EKG on presentation showed sinus rhythm at a rate of 78. There is right bundle branch block and inferior ST T abnormalities. Several repeat EKGs have been done which are similar. CXR Results PATIENT: MARGARITA WEAVER PRESENT AGE: 85 PATIENT ACCOUNT NO: [id number] : [birth year] LOCATION: [facility] ORDERING PHYSICIAN: MARY RAMIREZ MD SERVICE DATE: 06/22/164612 EXAM TYPE: RAD - XRY-CHEST XRAY, PA AND LATERAL EXAMINATION: XR CHEST CLINICAL INFORMATION: Shortness of breath with exertion. COMPARISON: None. TECHNIQUE: 2 views of the chest were obtained. FINDINGS: The lungs are hypoinflated with elevation of the right hemidiaphragm. There is a mild interstitial prominence which may be chronic. No pleural effusion or focal consolidation. Mild cardiomegaly. IMPRESSION: Mild diffuse interstitial prominence which may be chronic. Mild cardiomegaly. Elevation of the right hemidiaphragm. DICTATED BY: JAYA RICHTER MD DATE/TIME DICTATED:06/22/161623 BOBCAT OPERATOR:NAOMI DATE/TIME TRANSCRIBED:06/22/161623 CONFIDENTIAL, DO NOT COPY WITHOUT APPROPRIATE AUTHORIZATION. <Electronically signed in Other Vendor System> SIGNED BY: JAYA RICHTER MD 07/05 1631 Assessment/Plan Assessment/Plan The patient is an 85-year-old female who presents with increasing edema, weight gain. She has underlying COPD and is on oxygen. She has a known heart murmur but no other details are currently available. On physical examination she has a marked systolic murmur consistent with aortic stenosis which is probably severe by examination. Her carotid arteries are difficult to feel probably also related to aortic stenosis. 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 Obviously echocardiography will be critical in evaluating her cardiac status, especially the aortic valve and left ventricular function, as well as right heart function and pulmonary artery pressure. We will get this study done as soon as possible. In terms of treatment I would continue with intravenous diuretics and monitor I' s and O's carefully. 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 Consult Acknowledgment - Thank you for your consult request.
--- NOTE | 2016-06-23 11:20 | PN- Housestaff ---
Subjective Follow-up For: Lower extremity edema Anemia Tele-Events Since Last Visit: Normal sinus rhythm, heart rate 69-84, first-degree AV block, no overnight telemetry events. Subjective: She was comfortable. He remained afebrile. Leg swelling decreased compared to yesterday. No chest pain, shortness of breath, palpitations. Requested records from the console operator. Declined digital rectal exam, but would have guaic all stools. If she does not have any bowel movement later this p.m., she would be okay to get a REINALDO done. Review of Systems Constitutional: Reports: see HPI. Objective Last 24 Hrs of Vital Signs/I&O Vital Signs Date Time Temp Pulse Resp B/P Pulse O2 O2 Flow FiO2 Ox Delivery Rate 06/23 0857 97 Nasal 4.0L Cannula 06/23 0817 97.8 70 18 126/68 97 Nasal 4.0L Cannula 06/23 0101 98.7 78 18 118/70 97 Nasal Cannula 06/23 0000 Nasal 4.0L Cannula 06/22 2241 Nasal 4.0L Cannula 06/22 2200 Nasal 4.0L Cannula 06/22 2200 98 Nasal 4.0L Cannula 06/22 2050 98.5 84 18 114/62 94 Nasal 4.0L Cannula 06/22 1950 97.8 75 20 177/71 98 Nasal 4.0L Cannula 06/22 1749 97.6 78 24 139/63 98 Nasal 4.0L Cannula 06/22 1613 Nasal 4.0L Cannula 06/22 1516 96.7 78 22 136/64 95 Nasal 4.0L Cannula Intake & Output 06/23 1600 /05 0800 0405 0000 Intake Total 320 400 Output Total 550 1700 Balance -230 -1300 Intake, Oral 320 400 Output, Urine 550 1700 Patient 194 lb 202 lb Weight Physical Exam General Appearance: No Acute Distress Other Physical Findings: General Exam: AAOx3, No acute distress, Skin: No rashes, no breakdown HEENT: PERRLA, EOMI Neck: Supple, No JVD No cervical lymphadenopathy CVS: Reg Rate, Normal S1,S2, No MGR Resp: Normal air entry, no ronchi/rales Abdomen: Soft, No tenderness, Normal Bowel Sounds Neuro: Normal Speech, Strength 5/5 b/l x 4 extremities, Sensation intact, CN III -XII NL, Reflexes 2+ Extremities: No cyanosis, 2+ pedal edema extending up to abdomen. Current Medications: Current Medications Sig/Olga Start time Last Medication Dose Route Stop Time Status Admin Acetaminophen 650 MG Q6P PRN 06/23 0930 AC PO Albuterol Sulfate 3 ML Q4P PRN 06/22 2300 AC INH Alprazolam 0.5 MG TID PRN 06/22 2044 AC 06/23 PO 06/30 2043 1011 Budesonide/ 1 PUF DAILY 06/23 1000 AC 06/23 Formoterol Fumarate INH 0957 Diltiazem HCl 180 MG DAILY 06/23 1000 AC 06/23 PO 0956 Doxazosin Mesylate 4 MG QPM 06/22 2200 AC 06/22 PO 2324 Furosemide 40 MG 0800 & 1700 06/23 0800 AC 06/23 IV 0956 Furosemide 0 .STK-MED ONE 06/22 1904 DC IV Furosemide 80 MG ONCE ONE 06/22 184 DC 06/22 IV 06/22 184 1925 Ibuprofen 600 MG Q6P PRN 06/23 0930 AC PO Levothyroxine Sodium 0.025 MG DAILY AC 06/23 0700 AC 06/23 PO 0640 Morphine Sulfate 1 MG Q6P PRN 06/23 0930 AC IV Non-Formulary 0 SEE ADMIN CRITERIA 06/22 2044 CAN Medication ANY Potassium Chloride 30 MEQ TUESDAY WED FRIDAY 06/23 1000 AC 06/23 PO 0956 Potassium Chloride 30 MEQ DAILY 06/23 1000 AC 06/23 PO 0956 Tiotropium [place] 1 PUF QAM 06/23 1000 AC 06/23 INH 0957 Warfarin Sodium 5 MG COUMADIN 1700 ONE 06/22 2044 DC 06/22 PO 06/22 2045 2159 Last 24 Hrs of Lab/Scotty Results Last 24 Hrs of Labs/Mics: Laboratory Tests 06/23/16 0944: Sodium Pending, Potassium Pending, Chloride Pending, Carbon Dioxide Pending, Anion Gap Pending, BUN Pending, Creatinine Pending, BUN/Creatinine Ratio Pending , TSH Pending, Free T4 Pending 06/23/16 0710: PT 25.9 H, INR 2.49 H, CBC w Diff NO MAN DIFF REQ, RBC 3.52 L, MCV 76.7 L, MCH 24.0 L, RDW 17.6 H, MPV 8.8, Gran % 71.0, Lymphocytes % 16.2 L, Monocytes % 8.8, Eosinophils % 3.8, Basophils % 0.2, Absolute Granulocytes 4.4, Absolute Lymphocytes 1.0 L, Absolute Monocytes 0.5, Absolute Eosinophils 0.2, Absolute Basophils 0, PUBS MCHC 31.4 L 06/22/16 2330: Troponin I 0.04 06/22/16 1615: Anion Gap 5, Estimated GFR > 60, BUN/Creatinine Ratio 35.7 H, Glucose 88, Calcium 8.8, Magnesium 2.3, Iron 22 L, TIBC 421, Ferritin 16.3, Total Bilirubin 0.4, AST 31, ALT 32, Alkaline Phosphatase 69, Troponin I 0.02, Qtj-W-Krxzncdjsmw Pept 2830 H, Total Protein 6.9, Albumin 3.9, Globulin 3.0, Albumin/Globulin Ratio 1.3, TSH 4.450 H, Free T4 0.77 L, PT 24.7 H, INR 2.37 H, CBC w Diff NO MAN DIFF REQ, RBC 3.67 L, MCV 77.0 L, MCH 23.5 L, RDW 17.4 H, MPV 8.0, Gran % 75.0, Lymphocytes % 16.1 L, Monocytes % 7.0, Eosinophils % 1.8, Basophils % 0.1, Absolute Granulocytes 4.9, Absolute Lymphocytes 1.0 L, Absolute Monocytes 0.5, Absolute Eosinophils 0.1, Absolute Basophils 0, PUBS MCHC 30.5 L Assessment/Plan Assessment: She is an older lady with a past history of hypertension, questionable arrhythmias, pulmonary embolism, emphysema is being evaluated for worsening lower extremity swelling, and shortness of breath likely due to congestive heart failure. Differential diagnosis: #1 CHF (exacerbation) or new onset CHF #2 pulmonary embolism Below is the problem list and plan: #1 lower extremity swelling, shortness of breath-likely due to CHF exacerbation involving the right heart. Severe aortic stenosis likely contributing to left heart failure also. Continue furosemide 40 mg IV twice a day at this time. Echocardiogram pending. Serial electrocardiograms negative. Salt restricted diet. Strict ins and outs with daily weights. Other common cause is hypothyroidism for which TSH and free T4 has been ordered. TSH slightly elevated, free T4 low. Endocrinology consulted for advice. #2 anemia-low H&H, microcytic likely due to iron deficiency or blood loss. Iron studies revealed iron deficiency anemia. (Mixed). Guaiac stools. Anemia could be contributing to worsening CHF. #3 history of pulmonary embolism- INR 2.37. Dose Coumadin. #4 emphysema-continue home dose of Spiriva. TRC nebs. Oxygen. #5. Prophylaxis-warfarin. Problem List: 1. Pedal edema 2. Volume overload Pain Ratin Pain Location: Lower extremities Pain Goal: Pain 4 or less Pain Plan: Tylenol when necessary Tomorrow's Labs & Rationales: CBC, BMP to monitor for anemia and kidney function.
--- NOTE | 2016-06-23 15:23 | NUR ---
Physical Therapy. PT consult received and chart reviewed. Pt and pt's dgt politely refusing PT evaluation at this time, report pt did not sleep well last night and she wishes to sleep now. PT will f/u as appropriate in the AM.
--- NOTE | 2016-06-23 16:17 | PN- Att Addend ---
Attending MD Review Statement Attending Statement Attending MD Statement: examined this patient, discuss w/resident/PA/SUPERVISOR DUMPING, agreed w/resident/PA/SUPERVISOR DUMPING, reviewed EMR data (avail), discussed w/nursing, discussed w/ case mgmt Attending Assessment/Plan: Laboratory Tests 06/23/16 0944: Anion Gap 10, Estimated GFR 59 L, BUN/Creatinine Ratio 32.2 H, TSH 4.260 H, Free T4 0.72 L, Thyroglobulin Antibody < 15, Thyroid Peroxidase Ab < 28 06/23/16 0710: PT 25.9 H, INR 2.49 H, CBC w Diff NO MAN DIFF REQ, RBC 3.52 L, MCV 76.7 L, MCH 24.0 L, RDW 17.6 H, MPV 8.8, Gran % 71.0, Lymphocytes % 16.2 L, Monocytes % 8.8, Eosinophils % 3.8, Basophils % 0.2, Absolute Granulocytes 4.4, Absolute Lymphocytes 1.0 L, Absolute Monocytes 0.5, Absolute Eosinophils 0.2, Absolute Basophils 0, PUBS MCHC 31.4 L 06/22/16 2330: Troponin I 0.04 06/22/16 1615: Anion Gap 5, Estimated GFR > 60, BUN/Creatinine Ratio 35.7 H, Glucose 88, Calcium 8.8, Magnesium 2.3, Iron 22 L, TIBC 421, Ferritin 16.3, Total Bilirubin 0.4, AST 31, ALT 32, Alkaline Phosphatase 69, Troponin I 0.02, Clp-X-Xswzugxtbgz Pept 2830 H, Total Protein 6.9, Albumin 3.9, Globulin 3.0, Albumin/Globulin Ratio 1.3, TSH 4.450 H, Free T4 0.77 L, PT 24.7 H, INR 2.37 H, CBC w Diff NO MAN DIFF REQ, RBC 3.67 L, MCV 77.0 L, MCH 23.5 L, RDW 17.4 H, MPV 8.0, Gran % 75.0, Lymphocytes % 16.1 L, Monocytes % 7.0, Eosinophils % 1.8, Basophils % 0.1, Absolute Granulocytes 4.9, Absolute Lymphocytes 1.0 L, Absolute Monocytes 0.5, Absolute Eosinophils 0.1, Absolute Basophils 0, PUBS MCHC 30.5 L Vital Signs Date Time Temp Pulse Resp B/P Pulse O2 O2 Flow FiO2 Ox Delivery Rate 06/23 0857 97 Nasal 4.0L Cannula 06/23 0817 97.8 70 18 126/68 97 Nasal 4.0L Cannula 06/23 0101 98.7 78 18 118/70 97 Nasal Cannula 06/23 0000 Nasal 4.0L Cannula 06/22 2241 Nasal 4.0L Cannula 06/220 Nasal 4.0L Cannula 06/22 220 98 Nasal 4.0L Cannula 06/220 98.5 84 18 114/62 94 Nasal 4.0L Cannula 06/22 1950 97.8 75 20 177/71 98 Nasal 4.0L Cannula 06/22 1749 97.6 78 24 139/63 98 Nasal 4.0L Cannula 06/22 1613 Nasal 4.0L Cannula Patient seen and examined at bedside. Discussed with patient the care plan. 85 -year-old female with past medical history of COPD on 4 L home oxygen, hypertension, hyperlipidemia, pulmonary embolism in 2013 on warfarin. Patient was admitted with chief complaint of bilateral lower extremity edema going on for a few weeks prior to admission along with shortness of breath for one week and weight gain of about 20 pounds over the last 3 months. 6 Patient is being treated for acute on chronic congestive heart failure with IV Lasix 40 twice a day. We will see how she does with that and follow her renal functions closely. Patient also has anemia with hemoglobin of 8.6 which is microcytic with MCV of 77. She also has low serum iron of 22. We will start her on iron supplementation. We will do a stool guaiac. Deconditioning we will get the physical therapy consult to see the patient.
--- NOTE | 2016-06-23 17:00 | PN- Student ---
Subjective Subjective: Kalani Meyer is 85 yo female admitted to us for extensive bilateral edema of the ankles extending into lower abdomen as well as chronic shortness of breath ( NC 4.0L at home) which has worsened over the past week. She reports a 20 lb wt. gain over past 3 months although she has been on furosemide 40mg. She states that she has history of arrhythmias and cardiac murmur but wasnt sure type or extent. She also has a history of a pulmonary embolism in 2013 for which she is taking warfarin. She reports not pain or discomfort and only feels short of breath on exertion. Objective Objective: Patient doesnt appear to be in distress, she is alert an oriented x4 and appears in good spirits. Vitals: temp- 98.7, HR-78, RR-18, BP-118/70, pulse ox.- 97(NC 4.0L), Weight- 194 lb Overnight telemetry showed sinus rhythm 70-84bpm with no events. Current labs: H/H-8.5/27, MCV-76.7, INR-2.49, bicarb-39 On cardiac auscultation a systolic murmur was heard over the aortic area suggesting aortic stenosis, no carotid bruit was heard. There were slight crackles heard bilaterally in lower lung lobes on auscultation. Bowel sounds were heard on abdominal auscultation and no pain or tenderness to abdominal palpation was noted. Examination of the extremities revealed 3+ pitting edema bilaterally of the legs up to hypogastric area. Neither post. Tib. nor dorsalis pedis pulses could be felt bilaterally however cap refill was present bilaterally. A contusion to the dorsum of the right foot was noted visually. Assessment/Plan Assessment: Patient appears to be in CHF, possibly cor pulmonale which is causing the edema. Her reporting of previous cardiac problems also supports this however documentation from her credit risk officer and primary care physicians would help to confirm the diagnosis as well as determine severity. She is also suffering from a microcytic anemia supported by her low H/H and MCV values. Early labs show low serum Fe so I suspect this to be the cause. Plan: Requested medical records from both primary care and cardiologists. Order echo if needed following review of records. Plan to initiate iron supplementation to help correct the anemia as well as continue with furosemide therapy to try and get rid of edema. Consult with Physical Therapy to prevent deconditioning. Dr. Gavin has discontinued warfarin therapy to correct INR. Following review of the cardiology and Primary care notes will educate patient on her diagnosis as well as severity, treatment, risks and answer any questions she may have. Will follow up in the morning of 06/24/16.
[2016-06-23 17:22] VITALS: BP 100/58
--- NOTE | 2016-06-23 18:55 | Cons- Endocrinology ---
General Information and HPI Consulting Request Date of Consult: 06/23/16 Requested By: medical team Reason for Consult: evaluation and management of hypothyroidism. Source of Information: patient, old records Exam Limitations: no limitations History of Present Illness: 85-year-old woman who was known to be in her usual state of health until 6 weeks ago. She has a past history of macular degeneration, arrhythmias, hypertension hyperlipidemia, pulmonary embolism (dx'ed 2013), emphysema, breast cancer s/p resection, was brought to [place] [facility] for evaluation of worsening lower extremity swelling 6 weeks, and worsening shortness of breath 1 week. She denied having hx of thyroid disorder. She doesn't have family hx of thyroid disorders. Blood work showed TSH 4.45 and free T4 was 0.77. Levothyroxine 25 mcg daily was initiated. Allergies/Medications Allergies: Coded Allergies: cat dander (TRIGGERS ASTHMA 03/28/16) Uncoded Allergies: SMOKE (TRIGGERS ASTHMA 03/28/16) Home Med List: Alprazolam 0.5 MG TABLET 0.5 TAB PO PRN ANXIETY (Reported) Diltiazem HCl (Cartia Xt) 180 MG CAP.ER.24H 1 CAP PO QAM HEART/BP (Reported) Doxazosin Mesylate 4 MG TABLET 1 TAB PO QPM BP (Reported) Ezetimibe/Simvastatin (Vytorin 10-20 MG Tablet) 10 MG-20 MG TABLET 1 TAB PO QPM CHOLESTEROL (Reported) Fluticasone/Salmeterol (Advair 250-50 Diskus) 250 MCG-50 MCG/DOSE BLST.W.DEV 1 PUF INH QAM COPD (Reported) Furosemide (Lasix) 40 MG TABLET 1 TAB PO AD DIURETIC (Reported) Furosemide (Lasix) 80 MG TABLET 1 TAB PO Tuesday DIURETIC (Reported ) Potassium Chloride (Klor-Con 10) 10 MEQ TABLET.ER 3 TAB PO DAILY SUPPLEMENT ( Reported) Potassium Chloride 20 MEQ TAB.ER.PRT 1.5 TAB PO Tuesday SUPPLEMENT (Reported) Tiotropium [place] (Spiriva) 18 MCG CAP.W.DEV 1 CAP INH QAM COPD/ASTHMA/ EMPHYSEMA (Reported) Warfarin Sodium (Coumadin) 5 MG TABLET 1 TAB PO DAILY BLOOD THINNER (Reported ) Warfarin Sodium 2 MG TABLET 1 TAB PO Tuesday BLOOD THINNER ( Reported) Review of Systems Review of Systems Constitutional: Reports: see HPI. Cardiovascular: Reports: orthopena, peripheral edema. Respiratory: Reports: short of breath. GI: Denies: abdominal pain. 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 Relation not specified for: *No pertinent family history Psychosocial History Where Do You Live? Assisted Living Smoking Status: Former Smoker Living Will? yes Functional Ability ADLs Needs Assist: dressing, eating, toileting, bathing. Ambulation: walker IADLs Needs Assist: shopping, housework, transportation. Exam & Diagnostic Data Last 24 Hrs of Vital Signs/I&O Vital Signs Date Time Temp Pulse Resp B/P Pulse O2 O2 Flow FiO2 Ox Delivery Rate 06/23 1722 97.9 78 20 100/58 95 Nasal Cannula 06/23 1700 95 Nasal 4.0L Cannula 06/23 0857 97 Nasal 4.0L Cannula 06/23 0817 97.8 70 18 126/68 97 Nasal 4.0L Cannula 06/23 0800 Nasal 4.0L Cannula 06/23 0101 98.7 78 18 118/70 97 Nasal Cannula 06/23 0000 Nasal 4.0L Cannula 06/22 2241 Nasal 4.0L Cannula 06/22 2200 Nasal 4.0L Cannula 06/22 2200 98 Nasal 4.0L Cannula 06/22 2049 98.5 84 18 114/62 94 Nasal 4.0L Cannula 06/22 1950 97.8 75 20 177/71 98 Nasal 4.0L Cannula Intake & Output 06/23 1600 04/05 0800 04/05 0000 Intake Total 320 400 Output Total 185 948 8332 Balance -400 -230 -1300 Intake, Oral 320 400 Output, Urine 438 279 6485 Patient 194 lb 202 lb Weight Physical Exam General Appearance: mild distress, obese Respiratory: crackles, rhonchi Cardiovascular: edema, murmur Gastrointestinal: soft, non-tender Extremities: swelling Labs/Scotty Results: Laboratory Tests 06/23 06/23 06/22 0944 0710 2330 Chemistry Sodium (137 - 145 mmol/L) 134 L Potassium (3.5 - 5.1 mmol/L) 3.6 Chloride (98 - 107 mmol/L) 85 L Carbon Dioxide (22 - 30 mmol/L) 39 H Anion Gap (5 - 16) 10 BUN (7 - 17 mg/dL) 29 H Creatinine (0.5 - 1.0 mg/dL) 0.9 Estimated GFR (>60 ml/min) 59 L BUN/Creatinine Ratio (7 - 25 %) 32.2 H Troponin I (< 0.11 ng/ml) 0.04 TSH (0.270 - 4.200 uIU/mL) 4.260 H Free T4 (0.85 - 1.93 ng/dL) 0.72 L Coagulation PT (9.4 - 12.5 SEC) 25.9 H INR (0.90 - 1.19) 2.49 H Hematology CBC w Diff NO MAN DIFF REQ WBC (4.8 - 10.8 /CUMM) 6.2 RBC (4.20 - 5.40 /CUMM) 3.52 L Hgb (12.0 - 16.0 G/DL) 8.5 L Hct (37 - 47 %) 27.0 L MCV (81.0 - 99.0 FL) 76.7 L MCH (27.0 - 31.0 PG) 24.0 L RDW (11.5 - 14.5 %) 17.6 H Plt Count (130 - 400 /CUMM) 212 MPV (7.4 - 10.4 FL) 8.8 Gran % (42.2 - 75.2 %) 71.0 Lymphocytes % (20.5 - 51.1 %) 16.2 L Monocytes % (1.7 - 9.3 %) 8.8 Eosinophils % (0 - 5 %) 3.8 Basophils % (0.0 - 2.0 %) 0.2 Absolute Granulocytes (1.4 - 6.5 /CUMM) 4.4 Absolute Lymphocytes (1.2 - 3.4 /CUMM) 1.0 L Absolute Monocytes (0.10 - 0.60 /CUMM) 0.5 Absolute Eosinophils (0.0 - 0.7 /CUMM) 0.2 Absolute Basophils (0.0 - 0.2 /CUMM) 0 PUBS MCHC (33.0 - 37.0 G/DL) 31.4 L Immunology Thyroglobulin Antibody (< 61 U/mL) < 15 Thyroid Peroxidase Ab (< 61 U/mL) < 28 Assessment/Plan Assessment/Plan 85-year-old woman who was known to be in her usual state of health until 6 weeks ago. She has a past history of macular degeneration, arrhythmias, hypertension hyperlipidemia, pulmonary embolism (dx'ed 2013), emphysema, breast cancer s/p resection, was brought to [place] ER for evaluation of worsening lower extremity swelling 6 weeks, and worsening shortness of breath 1 week. She was admitted for CHF exacerbation. Blood work showed TSH 4.45 and free T4 was 0.77. Her thyroid antibody panel was negative. Levothyroxine 25 mcg daily was initiated. I agree with the current Levothyroxine 25 mcg daily for now; I will recommend having repeat TSH, free T4 on 3-4 days to look for a trend. will follow. Consult Acknowledgment - Thank you for your consult request.
[2016-06-24 00:06] VITALS: BP 100/52
--- NOTE | 2016-06-24 00:28 | NUR ---
PT IS A+O. BLE TENDER TO TOUCH WITH PITTING EDEMA +4. CRACKLES TO BLL. SAFETY MAINTAINED. CALL LIGHT IN REACH. BED IN LOWEST POSITION. BED ALARM ON.
--- NOTE | 2016-06-24 04:48 | NUR ---
06/24/16 0425 HEART MONITOR SHOWED ACCELERATED JUNCTIONAL RHYTHM ALTERNATING FROM SINUS RHYTHM. 2 TO 1 HEART BLOCK ALSO ALTERNATING FROM SINUS RHYTHM. PATIENT WAS ASLEEP WHEN ATTEMTED TO ASSESS. SHE WAS ALERT BUT LETHARGIC. I ASKED THE PATIENT TO SQUEEZE MY HAND WHICH SHE DID. SHE ALSO MOVED HER FEET AWAY WHEN I LIGHTLY TOUCHED THE SOLE OF HER FEET. MD KULDEEP Chaudhary WAS NOTIFIED AND SHE ORDERED EKG AND A SET OF VITAL SIGNS.
--- NOTE | 2016-06-24 07:31 | NUR ---
06/24/16 0435 EKG WAS DONE AND IN THE CHART. VSS BP 140/80, TEMP 96.8, PULSE 74, O2 SAT 95% RESP 18. PATIENT CONTINUES TO BE ASYMPTOMATIC. WILL CONTINUE TO MONITOR.
[2016-06-24 08:01] VITALS: BP 118/62
--- NOTE | 2016-06-24 08:20 | PN- Housestaff ---
Subjective Follow-up For: CHF exacerbation Complaints: no complaints Tele-Events Since Last Visit: Normal sinus rhythm, heart rate 66-71, junctional beat was found overnight. Subsequent EKG did not reveal any junctional beats. Subjective: She was comfortable this morning. Did not have any complaints. Leg swelling improved compared to yesterday 20-25% reduction, no shortness of breath or chest pain noted. Vitals were stable overnight. He remained afebrile temperature 97.7. Review of Systems Constitutional: Reports: see HPI. Objective Last 24 Hrs of Vital Signs/I&O Vital Signs Date Time Temp Pulse Resp B/P Pulse O2 O2 Flow FiO2 Ox Delivery Rate 06/24 0801 97.7 70 20 118/62 96 Nasal 4.0L Cannula 06/24 0006 98.0 76 20 100/52 94 Nasal Cannula 06/24 0000 Nasal 4.0L Cannula 06/23 1722 97.9 78 20 100/58 95 Nasal Cannula 06/23 1700 95 Nasal 4.0L Cannula 06/23 1600 94 Nasal 4.0L Cannula 06/23 0857 97 Nasal 4.0L Cannula Intake & Output 06/24 1600 06/24 0800 04/ 0000 Intake Total 300 240 Output Total 1100 Balance -800 240 Intake, Oral 300 240 Output, Urine 1100 Patient 196 lb Weight Physical Exam General Appearance: No Acute Distress Other Physical Findings: General Exam: AAOx3, No acute distress, Skin: No rashes, no breakdown HEENT: PERRLA, EOMI Neck: Supple, No JVD No cervical lymphadenopathy CVS: Reg Rate, Normal S1,S2, systolic murmur Resp: Normal air entry, no ronchi/rales Abdomen: Soft, No tenderness, Normal Bowel Sounds Neuro: Normal Speech, Strength 5/5 b/l x 4 extremities, Sensation intact, CN III -XII NL, Reflexes 2+ Extremities: No cyanosis, pedal edema 2+, nonpitting Current Medications: Current Medications Sig/Olga Start time Last Medication Dose Route Stop Time Status Admin Acetaminophen 650 MG Q6P PRN 06/23 0930 AC PO Albuterol Sulfate 3 ML Q4P PRN 06/22 2300 AC INH Alprazolam 0.5 MG TID PRN 06/22 2044 AC /05 PO 06/29 Budesonide/ 1 PUF DAILY 06/23 1000 AC 06/23 Formoterol Fumarate INH 0957 Diltiazem HCl 180 MG DAILY 06/23 1000 AC 06/23 PO 0956 Doxazosin Mesylate 4 MG QPM 06/22 2200 AC 06/23 PO 211 Furosemide 40 MG 0800 & 1700 06/23 0800 AC 06/23 IV 1849 Ibuprofen 600 MG Q6P PRN 06/23 0830 DC PO Levothyroxine Sodium 0.025 MG DAILY AC 06/23 0700 AC 06/24 PO 0535 Morphine Sulfate 1 MG Q6P PRN 06/23 0830 AC IV Potassium Chloride 30 MEQ TUESDAY WED FRIDAY 06/23 1000 AC 06/23 PO 0956 Potassium Chloride 30 MEQ DAILY 06/23 1000 AC 06/23 PO 0956 Senna/Docusate Sodium 1 TAB DAILY NEEDED PRN 06/23 1530 AC PO Tiotropium [place] 1 PUF QAM 06/23 1000 AC 06/23 INH 0957 Warfarin Sodium 2 MG COUMADIN 1700 ONE 06/23 1700 DC 06/23 PO 06/23 1701 1806 Last 24 Hrs of Lab/Scotty Results Last 24 Hrs of Labs/Mics: Laboratory Tests 06/24/16 0633: Sodium Pending, Potassium Pending, Chloride Pending, Carbon Dioxide Pending, Anion Gap Pending, BUN Pending, Creatinine Pending, BUN/Creatinine Ratio Pending , PT Pending, INR Pending, CBC w Diff Pending, WBC Pending, RBC Pending, Hgb Pending, Hct Pending, MCV Pending, MCH Pending, RDW Pending, Plt Count Pending, MPV Pending, PUBS MCHC Pending 06/23/16 0944: Anion Gap 10, Estimated GFR 59 L, BUN/Creatinine Ratio 32.2 H, TSH 4.260 H, Free T4 0.72 L, Thyroglobulin Antibody < 15, Thyroid Peroxidase Ab < 28 Assessment/Plan Assessment: She is an older lady with a past history of hypertension, questionable arrhythmias, pulmonary embolism, emphysema is being evaluated for worsening lower extremity swelling, and shortness of breath likely due to congestive heart failure. Differential diagnosis: #1 CHF (exacerbation) or new onset CHF #2 pulmonary embolism Below is the problem list and plan: #1 lower extremity swelling, shortness of breath-likely due to CHF exacerbation involving the right heart. Severe aortic stenosis likely contributing to left heart failure also. Continue furosemide 40 mg IV twice a day at this time. Echocardiogram pending. Serial electrocardiograms negative. Salt restricted diet. Strict ins and outs with daily weights. Other common cause is hypothyroidism for which TSH and free T4 has been ordered. TSH slightly elevated, free T4 low. Endocrinology consulted for advice. Continue levothyroxine. Last echocardiogram done in 2014 to be moderate to severe aortic stenosis (as per e learning specialist's note). #2 anemia-low H&H, microcytic likely due to iron deficiency or blood loss. Iron studies revealed iron deficiency anemia. (Mixed). Guaiac stools. Anemia could be contributing to worsening CHF. #3 history of pulmonary embolism- INR 2. 51. Dose Coumadin. #4 emphysema-continue home dose of Spiriva. TRC nebs. Oxygen. #5. Prophylaxis-warfarin. Problem List: 1. Pedal edema 2. Volume overload Pain Ratin Pain Location: None Pain Goal: Pain 4 or less Pain Plan: Tylenol when necessary Tomorrow's Labs & Rationales: C BC-to monitor for low H&H. DVT/Prophylaxis: pharmacological
[2016-06-24 08:25] LABS: PT 26.1 SEC (9.4-12.5)
--- NOTE | 2016-06-24 08:26 | PN- Endocrinology ---
Assessment/Plan Assessment: 85-year-old woman who was known to be in her usual state of health until 6 weeks ago. She has a past history of macular degeneration, arrhythmias, hypertension hyperlipidemia, pulmonary embolism (dx'ed 2013), emphysema, breast cancer s/p resection, was brought to [place] ER for evaluation of worsening lower extremity swelling 6 weeks, and worsening shortness of breath 1 week. She was admitted for CHF exacerbation. Blood work showed TSH 4.45 and free T4 was 0.77. Her thyroid antibody panel was negative. Levothyroxine 25 mcg daily was initiated. Plan: continue Levothyroxine 25 mcg daily for now. recommend repeating TSH, free T4 on 06/26/2016. Subjective Subjective: She feels slightly better; LE swelling remains significant. Objective Last 24 Hrs of Vital Signs/I&O Vital Signs Date Time Temp Pulse Resp B/P Pulse O2 O2 Flow FiO2 Ox Delivery Rate 06/24 0801 97.7 70 20 118/62 96 Nasal 4.0L Cannula 06/24 0006 98.0 76 20 100/52 94 Nasal Cannula 06/24 0000 Nasal 4.0L Cannula 06/23 1722 97.9 78 20 100/58 95 Nasal Cannula 06/23 1700 95 Nasal 4.0L Cannula 06/23 1600 94 Nasal 4.0L Cannula 06/23 0857 97 Nasal 4.0L Cannula Intake & Output 06/24 1600 06/24 0800 06/24 0000 Intake Total 300 240 Output Total 1100 Balance -800 240 Intake, Oral 300 240 Output, Urine 1100 Patient 196 lb Weight Results Pertinent Lab/Scotty Results: Laboratory Tests 06/24 06/23 0633 0944 Chemistry Sodium (137 - 145 mmol/L) 135 L 134 L Potassium (3.5 - 5.1 mmol/L) 3.7 3.6 Chloride (98 - 107 mmol/L) 87 L 85 L Carbon Dioxide (22 - 30 mmol/L) 40 H 39 H Anion Gap (5 - 16) 8 10 BUN (7 - 17 mg/dL) 26 H 29 H Creatinine (0.5 - 1.0 mg/dL) 0.9 0.9 Estimated GFR (>60 ml/min) 59 L 59 L BUN/Creatinine Ratio (7 - 25 %) 28.9 H 32.2 H TSH (0.270 - 4.200 uIU/mL) 4.260 H Free T4 (0.85 - 1.93 ng/dL) 0.72 L Coagulation PT Pending INR Pending Hematology CBC w Diff Pending WBC Pending RBC Pending Hgb Pending Hct Pending MCV Pending MCH Pending RDW Pending Plt Count Pending MPV Pending PUBS MCHC Pending Immunology Thyroglobulin Antibody (< 61 U/mL) < 15 Thyroid Peroxidase Ab (< 61 U/mL) < 28
[2016-06-24 08:29] LABS: ABSOLUTE BASOPHIL COUNT 0 /CUMM (0.0-0.2); ABSOLUTE EOSINOPHIL COUNT 0.2 /CUMM (0.0-0.7); ABSOLUTE GRANULOCYTE CT 4.6 /CUMM (1.4-6.5); ABSOLUTE LYMPH COUNT 1.1 /CUMM (1.2-3.4); ABSOLUTE MONOCYTE COUNT 0.6 /CUMM (0.10-0.60); BASOPHIL % 0 % (0.0-2.0); EOSINOPHIL % 3.6 % (0-5); GRANULOCYTE % 70.8 % (42.2-75.2); HEMATOCRIT 28.4 % (37-47); MEAN CORPUSCULAR HGB 23.8 PG (27.0-31.0); MEAN CORPUSCULAR HGB CONC 30.9 G/DL (33.0-37.0); MEAN CORPUSCULAR VOLUME 77.2 FL (81.0-99.0); MEAN PLATELET VOLUME 8.6 FL (7.4-10.4); PLATELET COUNT 240 /CUMM (130-400); RBC DISTRIBUTION WIDTH 17.4 % (11.5-14.5); RED BLOOD CELL CT 3.68 /CUMM (4.20-5.40); WHITE BLOOD CELL COUNT 6.5 /CUMM (4.8-10.8)
--- NOTE | 2016-06-24 12:47 | PN- Cardiology ---
Subjective Subjective: Patient is feeling fatigued. She has no chest pain or excessive shortness of breath. She states she is started diuresing. According to intake and output she is negative about 3000 mL. Records from [facility] were reviewed. She had a recent office visit on 06/10/2016. This documented paroxysmal atrial fibrillation, pulmonary embolism, aortic stenosis. She was on Lasix 40 mg 4 times a week and 80 mg Tuesday, Tuesday and Tuesday. She was also on spironolactone. A 02/17/2015 echocardiogram was referenced which showed "at least moderate and possibly severe" aortic stenosis. Objective Vital Signs and I&Os Vital Signs Date Time Temp Pulse Resp B/P Pulse O2 O2 Flow FiO2 Ox Delivery Rate 06/24 0909 99 Nasal Cannula 06/24 0801 97.7 70 20 118/62 96 Nasal 4.0L Cannula 06/24 0800 Nasal 4.0L Cannula 06/24 0006 98.0 76 20 100/52 94 Nasal Cannula 06/24 0000 Nasal 4.0L Cannula 06/23 1722 97.9 78 20 100/58 95 Nasal Cannula 06/23 1700 95 Nasal 4.0L Cannula 06/23 1600 94 Nasal 4.0L Cannula Intake & Output 06/24 1600 / 0800 04/ 0000 / 1600 06/23 0800 04/ 0000 Intake Total 240 300 240 320 400 Output Total 700 1100 233 009 4692 Balance -460 -800 240 -400 -230 -1300 Intake, Oral 240 300 240 320 400 Output, Urine 700 1100 661 318 3801 Patient 196 lb 194 lb 202 lb Weight Physical Exam: HEENT exam is normal Chest reveals a few bibasilar rales Heart reveals prominent harsh systolic ejection murmur at the base and apex Extremities reveal 2-3+ edema but perhaps a little less than yesterday. Current Medications: Current Medications Sig/Olga Start time Last Medication Dose Route Stop Time Status Admin Acetaminophen 650 MG Q6P PRN 06/23 0930 AC PO Albuterol Sulfate 3 ML Q4P PRN 06/22 2300 AC INH Alprazolam 0.5 MG TID PRN 06/22 2044 AC 06/23 PO 06/296 Budesonide/ 1 PUF DAILY 06/23 1000 AC 06/24 Formoterol Fumarate INH 1237 Diltiazem HCl 180 MG DAILY 06/23 1000 AC 06/24 PO 1240 Doxazosin Mesylate 4 MG QPM 06/22 2200 AC 06/23 PO 2113 Furosemide 40 MG 0800 & 1700 06/23 0800 AC 06/24 IV 0814 Levothyroxine Sodium 0.025 MG DAILY AC 06/23 0700 AC 06/24 PO 0535 Morphine Sulfate 1 MG Q6P PRN 06/23 0930 AC IV Polyethylene Glycol 17 GM DAILY 06/24 1127 AC 06/24 PO 1241 Potassium Chloride 30 MEQ TUESDAY WED FRIDAY 06/23 1000 AC 06/23 PO 0956 Potassium Chloride 30 MEQ DAILY 06/23 1000 AC 06/24 PO 1240 Senna/Docusate Sodium 1 TAB DAILY NEEDED PRN 06/23 1530 AC PO Tiotropium [place] 1 PUF QAM 06/23 1000 AC 06/24 INH 1236 Warfarin Sodium 2 MG COUMADIN 1700 ONE 06/24 1700 AC PO 06/24 1701 Warfarin Sodium 2 MG COUMADIN 1700 ONE 06/23 1700 DC 06/23 PO 06/23 1701 1806 Results Last 48 Hrs of Labs/Mics: Laboratory Tests 06/24/16 0633: Anion Gap 8, Estimated GFR 59 L, BUN/Creatinine Ratio 28.9 H, PT 26.1 H, INR 2.51 H, CBC w Diff NO MAN DIFF REQ, RBC 3.68 L, MCV 77.2 L, MCH 23.8 L, RDW 17.4 H, MPV 8.6, Gran % 70.8, Lymphocytes % 16.9 L, Monocytes % 8.7, Eosinophils % 3.6, Basophils % 0 L, Absolute Granulocytes 4.6, Absolute Lymphocytes 1.1 L, Absolute Monocytes 0.6, Absolute Eosinophils 0.2, Absolute Basophils 0, PUBS MCHC 30.9 L 06/23/16 0944: Anion Gap 10, Estimated GFR 59 L, BUN/Creatinine Ratio 32.2 H, TSH 4.260 H, Free T4 0.72 L, Thyroglobulin Antibody < 15, Thyroid Peroxidase Ab < 28 06/23/16 0710: PT 25.9 H, INR 2.49 H, CBC w Diff NO MAN DIFF REQ, RBC 3.52 L, MCV 76.7 L, MCH 24.0 L, RDW 17.6 H, MPV 8.8, Gran % 71.0, Lymphocytes % 16.2 L, Monocytes % 8.8, Eosinophils % 3.8, Basophils % 0.2, Absolute Granulocytes 4.4, Absolute Lymphocytes 1.0 L, Absolute Monocytes 0.5, Absolute Eosinophils 0.2, Absolute Basophils 0, PUBS MCHC 31.4 L 06/22/16 2330: Troponin I 0.04 06/22/16 1615: Anion Gap 5, Estimated GFR > 60, BUN/Creatinine Ratio 35.7 H, Glucose 88, Calcium 8.8, Magnesium 2.3, Iron 22 L, TIBC 421, Ferritin 16.3, Total Bilirubin 0.4, AST 31, ALT 32, Alkaline Phosphatase 69, Troponin I 0.02, Oex-L-Okxcojunjra Pept 2830 H, Total Protein 6.9, Albumin 3.9, Globulin 3.0, Albumin/Globulin Ratio 1.3, TSH 4.450 H, Free T4 0.77 L, PT 24.7 H, INR 2.37 H, CBC w Diff NO MAN DIFF REQ, RBC 3.67 L, MCV 77.0 L, MCH 23.5 L, RDW 17.4 H, MPV 8.0, Gran % 75.0, Lymphocytes % 16.1 L, Monocytes % 7.0, Eosinophils % 1.8, Basophils % 0.1, Absolute Granulocytes 4.9, Absolute Lymphocytes 1.0 L, Absolute Monocytes 0.5, Absolute Eosinophils 0.1, Absolute Basophils 0, PUBS MCHC 30.5 L Assessment/Plan Assessment/Plan The patient seems improved. She is diuresing somewhat. Her echocardiogram should be done today. I believe her aortic stenosis is probably very severe and is probably responsible for her congestive heart failure. I would continue her current regimen of IV diuresis. I will review her echocardiogram when it is done. Continue telemetry? Yes
--- NOTE | 2016-06-24 14:13 | PN- Student ---
Subjective Subjective: Patient is "feeling much better". Her SOB has improved and still has no chest pain. Edema is still present and is causing some stiffness of both lower extremeties but no pain was reported. Still no abdominal pain and no problems with urination or defecation. She has reported that she is diuresing (24 hr fluid balance of -870, urine output 1800) Objective Objective: Patient seems to have improved, she is ambulating with assistance w/o difficulty or SOB exacerbation. She seems to be in Vitals: temp- 97.7, HR-76, RR-20, BP-118/62, Pulse ox.-99 Telemetry: Overnight she alternated between sinus rhythm around 75 bpm and accelerated junctional rhythm in the 60s bpm. (EKG was ordered and reviewed to be normal) Note: Medical records received from Dr. Canada (work from home) and are in chart. Still awaiting records from primary care. Dr. Canada's records reveal an echo completed on that mentions "moderate to possibly severe" aortic stenosis. Also had mild diastolic dysfunction, mild L atrial dilation, LVH 1.6- 1.3cm, NML LV function. A previous note mentions aortic valve area of 0.5 documented in 2013. PE: 3+ edema that is improved since yesterday and has receded from the abdomen to mid thigh bilaterally. Distal lower ext. pulses still not felt but cap refill normal bilaterally. Cardiac auscultation same as yesterday with systolic aortic murmur, nml s1 and s2, no thrills or heaves felt and no carotid bruits heard. Slight crackles heard bilaterally in lower lung lobes on auscultation. Bowel sounds present with no pain or tenderness to palpation. Results Results: Current Medications Sig/Olga Start time Last Medication Dose Route Stop Time Status Admin Acetaminophen 650 MG Q6P PRN 06/23 0930 AC PO Albuterol Sulfate 3 ML Q4P PRN 06/22 2300 AC INH Alprazolam 0.5 MG TID PRN 06/22 2044 AC 06/23 PO 06/29 Budesonide/ 1 PUF DAILY 06/23 1000 AC 06/24 Formoterol Fumarate INH 1237 Diltiazem HCl 180 MG DAILY 06/23 1000 AC 06/24 PO 1240 Doxazosin Mesylate 4 MG QPM 06/22 2200 AC 06/23 PO 2113 Furosemide 40 MG 0800 & 1700 06/23 0800 AC 06/24 IV 0814 Levothyroxine Sodium 0.025 MG DAILY AC 06/23 0700 AC 06/24 PO 0535 Morphine Sulfate 1 MG Q6P PRN 06/23 0930 AC IV Patient Medication 1 ED ONE ONE 06/24 1400 DC Teaching ED 06/24 1401 Polyethylene Glycol 17 GM DAILY 06/24 1127 AC 06/24 PO 1241 Potassium Chloride 30 MEQ 06/23 1000 AC 06/23 PO 0956 Potassium Chloride 30 MEQ DAILY 06/23 1000 AC 06/24 PO 1240 Senna/Docusate Sodium 1 TAB DAILY NEEDED PRN 06/23 1530 AC PO Tiotropium [place] 1 PUF QAM 06/23 1000 AC 06/24 INH 1236 Warfarin Sodium 2 MG COUMADIN 1700 ONE 06/24 1700 AC PO 06/24 1701 Warfarin Sodium 2 MG COUMADIN 1700 ONE 06/23 1700 DC 06/23 PO 06/23 1701 1806 Laboratory Tests Laboratory Tests 06/24/16 0633: Anion Gap 8, Estimated GFR 59 L, BUN/Creatinine Ratio 28.9 H, PT 26.1 H, INR 2.51 H, CBC w Diff NO MAN DIFF REQ, RBC 3.68 L, MCV 77.2 L, MCH 23.8 L, RDW 17.4 H, MPV 8.6, Gran % 70.8, Lymphocytes % 16.9 L, Monocytes % 8.7, Eosinophils % 3.6, Basophils % 0 L, Absolute Granulocytes 4.6, Absolute Lymphocytes 1.1 L, Absolute Monocytes 0.6, Absolute Eosinophils 0.2, Absolute Basophils 0, PUBS MCHC 30.9 L 06/23/16 0944: Anion Gap 10, Estimated GFR 59 L, BUN/Creatinine Ratio 32.2 H, TSH 4.260 H, Free T4 0.72 L, Thyroglobulin Antibody < 15, Thyroid Peroxidase Ab < 28 06/23/16 0710: PT 25.9 H, INR 2.49 H, CBC w Diff NO MAN DIFF REQ, RBC 3.52 L, MCV 76.7 L, MCH 24.0 L, RDW 17.6 H, MPV 8.8, Gran % 71.0, Lymphocytes % 16.2 L, Monocytes % 8.8, Eosinophils % 3.8, Basophils % 0.2, Absolute Granulocytes 4.4, Absolute Lymphocytes 1.0 L, Absolute Monocytes 0.5, Absolute Eosinophils 0.2, Absolute Basophils 0, PUBS MCHC 31.4 L 06/22/16 2330: Troponin I 0.04 06/22/16 1615: Anion Gap 5, Estimated GFR > 60, BUN/Creatinine Ratio 35.7 H, Glucose 88, Calcium 8.8, Magnesium 2.3, Iron 22 L, TIBC 421, Ferritin 16.3, Total Bilirubin 0.4, AST 31, ALT 32, Alkaline Phosphatase 69, Troponin I 0.02, [place]-W-Bqpr[place] Pept 2830 H, Total Protein 6.9, Albumin 3.9, Globulin 3.0, Albumin/Globulin Ratio 1.3, TSH 4.450 H, Free T4 0.77 L, PT 24.7 H, INR 2.37 H, CBC w Diff NO MAN DIFF REQ, RBC 3.67 L, MCV 77.0 L, MCH 23.5 L, RDW 17.4 H, MPV 8.0, Gran % 75.0, Lymphocytes % 16.1 L, Monocytes % 7.0, Eosinophils % 1.8, Basophils % 0.1, Absolute Granulocytes 4.9, Absolute Lymphocytes 1.0 L, Absolute Monocytes 0.5, Absolute Eosinophils 0.1, Absolute Basophils 0, PUBS MCHC 30.5 L Assessment/Plan Assessment: Edema is improving. She was a solid 3+ yesterday but could be considered 2+ to 3 + today. Crackles are more prominent today but she states her SOB as improved. She also didnt show any signs of respiratory difficulty. Microcytic anemia still present w/ Hb of 8.8 and MCV of 77.2. Echo and guaiac test ordered for today and results are pending. Plan: Problem list: Edema-continue furosemide 40mg bid and monitor fluid levels. salt free diet and educate patient on the importance of the diet in getting rid of the fluid. Continue to promote light exercise and ambulation to help remove fluid from tissue. Microcytic anemia- add iron supplementation and educate on role of proper diet and iron absorption. Emphysema- continue current medications and doses and monitor pulse ox. note- review echo report when available
--- NOTE | 2016-06-24 15:31 | PN- Att Addend ---
Attending MD Review Statement Attending Statement Attending MD Statement: examined this patient, discuss w/resident/PA/MICROARRAY SPECIALIST, agreed w/resident/PA/MICROARRAY SPECIALIST, discussed with family, reviewed EMR data (avail), discussed w/ nursing Attending Assessment/Plan: Laboratory Tests 06/24/16 0633: Anion Gap 8, Estimated GFR 59 L, BUN/Creatinine Ratio 28.9 H, PT 26.1 H, INR 2.51 H, CBC w Diff NO MAN DIFF REQ, RBC 3.68 L, MCV 77.2 L, MCH 23.8 L, RDW 17.4 H, MPV 8.6, Gran % 70.8, Lymphocytes % 16.9 L, Monocytes % 8.7, Eosinophils % 3.6, Basophils % 0 L, Absolute Granulocytes 4.6, Absolute Lymphocytes 1.1 L, Absolute Monocytes 0.6, Absolute Eosinophils 0.2, Absolute Basophils 0, PUBS MCHC 30.9 L Vital Signs Date Time Temp Pulse Resp B/P Pulse O2 O2 Flow FiO2 Ox Delivery Rate 06/24 0909 99 Nasal Cannula 06/24 0801 97.7 70 20 118/62 96 Nasal 4.0L Cannula 06/24 0800 Nasal 4.0L Cannula 06/24 0006 98.0 76 20 100/52 94 Nasal Cannula 06/24 0000 Nasal 4.0L Cannula 06/23 1722 97.9 78 20 100/58 95 Nasal Cannula 06/23 1700 95 Nasal 4.0L Cannula 06/23 1600 94 Nasal 4.0L Cannula Patient seen and examined at bedside. Discussed with patient's daughter at bedside the care plan. Daughter does not think that the patient's leg swelling is any better. She also says that the patient is having constipation. We started her on MiraLAX. Next Acute on chronic CHF likely secondary to severe aortic stenosis and diastolic heart failure. Will continue with Lasix the 40 mg IV twice a day for now. She has been having negative intake and output. We'll continue to monitor that closely. I reviewed the records sent from patient's multi share program coordinator from her last visit over there about few weeks back. It does mention that the patient may have moderate to severe aortic stenosis but I did not see echocardiogram report. We did repeat an echocardiogram here we will follow up on its results. Anemia with iron deficiency. We started her on iron supplementation and we will continue to monitor her hemoglobin which is stable. Patient is refusing rectal exam.
[2016-06-24 17:41] VITALS: BP 120/62
--- NOTE | 2016-06-24 18:02 | ECHOCARDIOGRAM REPORT ---
MARGARITA WEAVER Age: 85 : 1930 Gender: F Exam Date: 06/24/2016 13:20 Exam Location: [address] [facility] Ht (in): 60 Wt (lb): 196 BSA: 1.99 BP: 110 / 70 Ordering Physician: LAUREN FONSECA MD Referring Physician: LAUREN FONSECA MD Technologist: Artie Leonardo [facility] Room Number: 185-2 Indications: AORTIC STENOSIS, EVALUATION OF LV FUNCTION Rhythm: Sinus Technical Quality: Fair FINDINGS Left Ventricle Normal size left ventricle. Moderate to severe concentric left ventricular hypertrophy. Normal left ventricular ejection fraction visually estimated at >65 %. No obvious regional wall motion abnormalities. Abnormal relaxation filling pattern of the left ventricle for age (stage 1 diastolic dysfunction). Right Ventricle Right ventricle not well visualized, grossly normal. Right Atrium Normal right atrial size. Left Atrium Mild to moderate left atrial dilatation. Mitral Valve Moderate thickening/calcification of the mitral valve leaflets. Moderate mitral annular calcification. Mild mitral regurgitation. Aortic Valve Diffuse thickening of the aortic valve cusps with reduced excursion. Critical aortic stenosis. Mild aortic regurgitation. Tricuspid Valve Tricuspid valve is normal in structure and function. Mild tricuspid regurgitation. Right ventricular systolic pressure estimated to be elevated at 45-50 mmHg. Pulmonic Valve Pulmonic valve not well visualized, grossly normal. Trace pulmonic regurgitation. Pericardium No pericardial or pleural effusion. Great Vessels Normal size aortic root. CONCLUSIONS Moderate to severe concentric left ventricular hypertrophy. Normal left ventricular ejection fraction visually estimated at >65 Abnormal relaxation filling pattern of the left ventricle for age (stage 1 diastolic dysfunction). Mild to moderate left atrial dilatation. Moderate thickening/calcification of the mitral valve leaflets. Moderate mitral annular calcification. Mild mitral regurgitation. Diffuse thickening of the aortic valve cusps with reduced excursion. Critical aortic stenosis. Mild aortic regurgitation. Right ventricular systolic pressure estimated to be elevated at 45- 50 mmHg. Lauri Avila M.D. (Electronically Signed) Final Date: 24 June 2016 18:01 MEASUREMENTS (Male / Female) Normal Values 2D ECHO LV Diastolic Diameter PLAX 4.6 cm 4.2 - 5.9 / 3.9 - 5.3 cm LV Systolic Diameter PLAX 2.8 cm 2.1 - 4.0 cm LV Fractional Shortening PLAX 39.1 % 25 - 46 % LV Ejection Fraction 2D Teich 69.6 % IVS Diastolic Thickness 1.7 cm LVPW Diastolic Thickness 1.4 cm LV Relative Wall Thickness 0.7 RV Internal Dim ED PLAX 3.9 cm 1.9 - 3.8 cm LVOT Diameter 2.3 cm Aortic Root Diameter 2.6 cm LA Systolic Diameter LX 5.9 cm 3.0 - 4.0 / 2.7 - 3.8 cm LA Volume 80.0 cm 18 - 58 / 22 - 52 cm Ascending Aorta Diameter 3.1 cm DOPPLER AV Peak Velocity 557.0 cm/s AV Peak Gradient 124.1 mmHg AV Mean Velocity 388.0 cm/s AV Mean Gradient 71.0 mmHg AV Velocity Time Integral 128.0 cm LVOT Peak Velocity 105.0 cm/s LVOT Peak Gradient 4.4 mmHg LVOT Mean Velocity 77.3 cm/s LVOT Mean Gradient 3.0 mmHg LVOT Velocity Time Integral 27.4 cm LVOT Stroke Volume 113.8 cm AV Area Cont Eq vti 0.9 cm AV Area Cont Eq pk 0.8 cm MV Peak Velocity 137.0 cm/s MV Peak Gradient 7.5 mmHg MV Mean Velocity 77.5 cm/s MV Mean Gradient 3.0 mmHg Mitral E Point Velocity 97.7 cm/s Mitral A Point Velocity 142.0 cm/s Mitral E to A Ratio 0.7 MV PHT Velocity 110.0 cm/s MV Deceleration [place] 519.0 cm/s MV Pressure Half Time 63.6 ms MV Area PHT 3.5 cm MV Deceleration Time 162.0 ms TR Peak Velocity 331.0 cm/s TR Peak Gradient 43.8 mmHg Right Atrial Pressure 5.0 mmHg Pulmonary Artery Systolic Pressu 48.8 mmHg Right Ventricular Systolic Press 48.8 mmHg PV Peak Velocity 121.0 cm/s PV Peak Gradient 5.9 mmHg PV Mean Velocity 83.9 cm/s PV Mean Gradient 3.0 mmHg PV Velocity Time Integral 18.9 cm
[2016-06-25 01:54] VITALS: BP 116/70
--- NOTE | 2016-06-25 07:32 | PN- Housestaff ---
Subjective Follow-up For: - chf exacerbation Complaints: no complaints Tele-Events Since Last Visit: Normal sinus rhythm, first-degree heart block NC interval 0.24. Heart rate ranged in between 70-88. She had accelerated junctional rhythm with heart rate 71-76. Subjective: She was comfortable this morning. Did not have any complaints. Leg swelling is improved compared to yesterday. Did not have any shortness of breath chest pain or palpitations. She was -2900 mL in output. Discussed with Dr. Avila, and anticoagulation (Coumadin has been discontinued ) and no IV heparin is required at this time. Patient currently is in normal sinus rhythm. The patient would be transferred to [place] for possible transcatheter aortic valve replacement on 06/28/2016. Patient to be made nothing by mouth on 06/27/2016 at midnight. Informed the family. Review of Systems Constitutional: Reports: see HPI. Objective Last 24 Hrs of Vital Signs/I&O Vital Signs Date Time Temp Pulse Resp B/P Pulse O2 O2 Flow FiO2 Ox Delivery Rate 06/25 0154 98.0 82 20 116/70 93 Nasal Cannula / 0000 95 Nasal 4.0L Cannula / 1918 94 Nasal 4.0L Cannula / 1741 120/62 04/06 1630 98.7 76 20 94 Nasal 3.0L Cannula / 1600 94 Nasal 4.0L Cannula / 0909 99 Nasal Cannula / 0801 97.7 70 20 118/62 96 Nasal 4.0L Cannula / 0800 Nasal 4.0L Cannula Intake & Output / 0800 04/ 0000 04/ 1600 Intake Total 640 600 Output Total 1450 1600 Balance -810 -1000 Intake, Oral 640 600 Number 0 Bowel Movements Output, Urine 1450 1600 Patient 194 lb Weight Physical Exam General Appearance: No Acute Distress Other Physical Findings: General Exam: AAOx3, No acute distress, Skin: No rashes, no breakdown HEENT: PERRLA, EOMI Neck: Supple, No JVD No cervical lymphadenopathy CVS: Reg Rate, Normal S1,S2, No MGR Resp: Normal air entry, no ronchi/rales Abdomen: Soft, No tenderness, Normal Bowel Sounds Neuro: Normal Speech, Strength 5/5 b/l x 4 extremities, Sensation intact, CN III -XII NL, Reflexes 2+ Extremities: No cyanosis, pedal edema 2+ Current Medications: Current Medications Sig/Olga Start time Last Medication Dose Route Stop Time Status Admin Acetaminophen 650 MG Q6P PRN 06/23 0930 AC PO Albuterol Sulfate 3 ML Q4P PRN 06/22 2300 AC INH Alprazolam 0.5 MG TID PRN 06/22 2045 AC 06/24 PO 06/29 204 2206 Budesonide/ 1 PUF DAILY 06/23 1000 AC 06/24 Formoterol Fumarate INH 1237 Diltiazem HCl 180 MG DAILY 06/23 1000 AC 06/24 PO 1240 Doxazosin Mesylate 4 MG QPM 06/22 2200 AC 06/24 PO 2206 Furosemide 40 MG 0800 & 1700 06/23 0800 AC 06/24 IV 1744 Levothyroxine Sodium 0.025 MG DAILY AC 06/23 0700 AC 06/25 PO 0601 Morphine Sulfate 1 MG Q6P PRN 06/23 0930 AC IV Patient Medication 1 ED ONE ONE 06/24 1400 DC Teaching ED 06/24 1401 Polyethylene Glycol 17 GM DAILY 06/24 1127 AC 06/24 PO 1241 Potassium Chloride 30 MEQ TUESDAY WED FRIDAY 06/23 1000 AC 06/23 PO 0956 Potassium Chloride 30 MEQ DAILY 06/23 1000 AC 06/24 PO 1240 Senna/Docusate Sodium 1 TAB DAILY 06/25 1000 AC PO Senna/Docusate Sodium 1 TAB DAILY NEEDED PRN 06/23 1530 DC PO Tiotropium [place] 1 PUF QAM 06/23 1000 AC 06/24 INH 1236 Warfarin Sodium 2 MG COUMADIN 1700 ONE 06/24 1700 DC 06/24 PO 06/24 1701 1745 Last 24 Hrs of Lab/Scotty Results Last 24 Hrs of Labs/Mics: Laboratory Tests 06/25/16 0630: Sodium Pending, Potassium Pending, Chloride Pending, Carbon Dioxide Pending, Anion Gap Pending, BUN Pending, Creatinine Pending, BUN/Creatinine Ratio Pending , CBC w Diff Pending, WBC Pending, RBC Pending, Hgb Pending, Hct Pending, MCV Pending, MCH Pending, RDW Pending, Plt Count Pending, MPV Pending, PUBS MCHC Pending Assessment/Plan Assessment: She is an older lady with a past history of hypertension, questionable arrhythmias, pulmonary embolism, emphysema is being evaluated for worsening lower extremity swelling, and shortness of breath likely due to congestive heart failure. Differential diagnosis: #1 CHF (exacerbation) or new onset CHF #2 pulmonary embolism Below is the problem list and plan: #1 lower extremity swelling, shortness of breath-likely due to CHF exacerbation. Severe aortic stenosis likely contributing to left heart failure. Continue furosemide 40 mg IV twice a day at this time. Echocardiogram revealed critical aortic stenosis with gradient above 150, and valve area Less than 1. Likely to get a TAVR next week. Salt restricted diet. Strict ins and outs with daily weights. Other common cause is hypothyroidism for which TSH and free T4 has been ordered. TSH slightly elevated, free T4 low. Endocrinology consulted for advice. Continue levothyroxine. #2 anemia-low H&H, microcytic likely due to iron deficiency or blood loss. Iron studies revealed iron deficiency anemia. (Mixed). Guaiac stools. #3 history of pulmonary embolism and paroxysmal atrial fibrillation- INR 2. 06. Dose Coumadin. #4 emphysema-continue home dose of Spiriva. TRC nebs. Oxygen. #5. Prophylaxis-warfarin. Problem List: 1. Pedal edema 2. Volume overload Pain Ratin Pain Location: none Pain Goal: Pain 4 or less Pain Plan: tylenol prn Tomorrow's Labs & Rationales: cbc- pt has low H&H inr- on coumadinm
[2016-06-25 08:03] LABS: ABSOLUTE BASOPHIL COUNT 0 /CUMM (0.0-0.2); ABSOLUTE EOSINOPHIL COUNT 0.2 /CUMM (0.0-0.7); ABSOLUTE GRANULOCYTE CT 4.4 /CUMM (1.4-6.5); ABSOLUTE LYMPH COUNT 1.2 /CUMM (1.2-3.4); ABSOLUTE MONOCYTE COUNT 0.6 /CUMM (0.10-0.60); BASOPHIL % 0.5 % (0.0-2.0); EOSINOPHIL % 2.4 % (0-5); GRANULOCYTE % 69.1 % (42.2-75.2); HEMATOCRIT 26.8 % (37-47); MEAN CORPUSCULAR HGB 23.7 PG (27.0-31.0); MEAN CORPUSCULAR HGB CONC 30.7 G/DL (33.0-37.0); MEAN CORPUSCULAR VOLUME 77.3 FL (81.0-99.0); MEAN PLATELET VOLUME 8.6 FL (7.4-10.4); PLATELET COUNT 244 /CUMM (130-400); RBC DISTRIBUTION WIDTH 17.5 % (11.5-14.5); RED BLOOD CELL CT 3.46 /CUMM (4.20-5.40); WHITE BLOOD CELL COUNT 6.4 /CUMM (4.8-10.8)
--- NOTE | 2016-06-25 08:14 | PN- Endocrinology ---
Assessment/Plan Assessment: 85-year-old woman who was known to be in her usual state of health until 6 weeks ago. She has a past history of macular degeneration, arrhythmias, hypertension hyperlipidemia, pulmonary embolism (dx'ed 2013), emphysema, breast cancer s/p resection, was brought to [place] ER for evaluation of worsening lower extremity swelling 6 weeks, and worsening shortness of breath 1 week. She was admitted for CHF exacerbation. Blood work showed TSH 4.45 and free T4 was 0.77. Her thyroid antibody panel was negative. Levothyroxine 25 mcg daily was initiated. She is on IV lasix 40 mg twice a day. Swelling has been improving. Plan: continue Levothyroxine 25 mcg daily for now; monitor TSH, free T4 tomorrow am. will follow. Subjective Subjective: She feels slightly better this morning. Objective Last 24 Hrs of Vital Signs/I&O Vital Signs Date Time Temp Pulse Resp B/P Pulse O2 O2 Flow FiO2 Ox Delivery Rate 06/25 0154 98.0 82 20 116/70 93 Nasal Cannula 06/25 0000 95 Nasal 4.0L Cannula 06/24 1918 94 Nasal 4.0L Cannula 06/24 1741 120/62 06/24 1630 98.7 76 20 94 Nasal 3.0L Cannula 06/24 1600 94 Nasal 4.0L Cannula 06/24 0909 99 Nasal Cannula Intake & Output 06/25 1600 06/25 0800 06/25 0000 Intake Total 420 640 Output Total 725 1450 Balance -305 -810 Intake, Oral 420 640 Number 0 Bowel Movements Output, Urine 725 1450 Patient 194 lb Weight Results Pertinent Lab/Scotty Results: Laboratory Tests 06/25 0630 Chemistry Sodium (137 - 145 mmol/L) 137 Potassium (3.5 - 5.1 mmol/L) 3.7 Chloride (98 - 107 mmol/L) 87 L Carbon Dioxide (22 - 30 mmol/L) 43 H Anion Gap (5 - 16) 7 BUN (7 - 17 mg/dL) 31 H Creatinine (0.5 - 1.0 mg/dL) 1.0 Estimated GFR (>60 ml/min) 52 L BUN/Creatinine Ratio (7 - 25 %) 31.0 H Hematology CBC w Diff Pending WBC Pending RBC Pending Hgb Pending Hct Pending MCV Pending MCH Pending RDW Pending Plt Count Pending MPV Pending PUBS MCHC Pending
[2016-06-25 08:29] VITALS: BP 142/70
--- NOTE | 2016-06-25 09:17 | PN- Student ---
Subjective Subjective: this morning patient reports feeling well. she had no complaints overnight regarding sleeping and did not have any breathing difficulties out of her norm. Objective Objective: Vital Signs Date Time Temp Pulse Resp B/P Pulse O2 O2 Flow FiO2 Ox Delivery Rate 06/25 828 97.7 74 20 142/70 92 Nasal 4.0L Cannula 06/25 0825 95 Nasal 4.0L Cannula 06/25 0154 98.0 82 20 116/70 93 Nasal Cannula 06/25 0000 95 Nasal 4.0L Cannula 06/24 1918 94 Nasal 4.0L Cannula 06/24 1741 120/62 06/24 1630 98.7 76 20 94 Nasal 3.0L Cannula 06/24 1600 94 Nasal 4.0L Cannula 06/24 0909 99 Nasal Cannula Telemetry: sinus 70-82, accelerated junctional 70-86 w/PVC, MS interval of 0.24 Echo report 06/24/2016: critical aortic stenosis, mild aortic regurgitation, mod-severe LVH w/ nml EF estimated at >65, abnormal relaxation filling pattern LV (stage 1 diastolic dysfunction), mitral regurgitation, elevated RV systolic pressure (45-50 mmHg) PE: No acute distress. Ext- edema seems to have improved slightly to 2+, no pain/tenderness to palpation pulmonary- crackles in lower lung fournier bilaterally cardiac- s1 and s2, systolic murmur abd- bowel sounds present, no pain or tenderness to palpation, edema has decreased Results Results: Laboratory Tests Laboratory Tests 06/25/1655: PT 21.5 H, INR 2.06 H 06/25/16 0630: Anion Gap 7, Estimated GFR 52 L, BUN/Creatinine Ratio 31.0 H, CBC w Diff NO MAN DIFF REQ, RBC 3.46 L, MCV 77.3 L, MCH 23.7 L, RDW 17.5 H, MPV 8.6, Gran % 69.1, Lymphocytes % 19.4 L, Monocytes % 8.6, Eosinophils % 2.4, Basophils % 0.5, Absolute Granulocytes 4.4, Absolute Lymphocytes 1.2, Absolute Monocytes 0.6 , Absolute Eosinophils 0.2, Absolute Basophils 0, PUBS MCHC 30.7 L 06/25/16 0630: Anion Gap 7, Estimated GFR 52 L, BUN/Creatinine Ratio 31.0 H, CBC w Diff Pending, WBC Pending, RBC Pending, Hgb Pending, Hct Pending, MCV Pending, MCH Pending, RDW Pending, Plt Count Pending, MPV Pending, Gran % Pending, Lymphocytes % Pending, Monocytes % Pending, Eosinophils % Pending, Basophils % Pending, Absolute Granulocytes Pending, Absolute Lymphocytes Pending, Absolute Monocytes Pending, Absolute Eosinophils Pending, Absolute Basophils Pending, PUBS MCHC Pending 06/24/16 0633: Anion Gap 8, Estimated GFR 59 L, BUN/Creatinine Ratio 28.9 H, PT 26.1 H, INR 2.51 H, CBC w Diff NO MAN DIFF REQ, RBC 3.68 L, MCV 77.2 L, MCH 23.8 L, RDW 17.4 H, MPV 8.6, Gran % 70.8, Lymphocytes % 16.9 L, Monocytes % 8.7, Eosinophils % 3.6, Basophils % 0 L, Absolute Granulocytes 4.6, Absolute Lymphocytes 1.1 L, Absolute Monocytes 0.6, Absolute Eosinophils 0.2, Absolute Basophils 0, PUBS MCHC 30.9 L 06/23/16 0944: Anion Gap 10, Estimated GFR 59 L, BUN/Creatinine Ratio 32.2 H, TSH 4.260 H, Free T4 0.72 L, Thyroglobulin Antibody < 15, Thyroid Peroxidase Ab < 28 06/23/16 0710: PT 25.9 H, INR 2.49 H, CBC w Diff NO MAN DIFF REQ, RBC 3.52 L, MCV 76.7 L, MCH 24.0 L, RDW 17.6 H, MPV 8.8, Gran % 71.0, Lymphocytes % 16.2 L, Monocytes % 8.8, Eosinophils % 3.8, Basophils % 0.2, Absolute Granulocytes 4.4, Absolute Lymphocytes 1.0 L, Absolute Monocytes 0.5, Absolute Eosinophils 0.2, Absolute Basophils 0, PUBS MCHC 31.4 L 06/22/16 2330: Troponin I 0.04 06/22/16 1615: Anion Gap 5, Estimated GFR > 60, BUN/Creatinine Ratio 35.7 H, Glucose 88, Calcium 8.8, Magnesium 2.3, Iron 22 L, TIBC 421, Ferritin 16.3, Total Bilirubin 0.4, AST 31, ALT 32, Alkaline Phosphatase 69, Troponin I 0.02, Com-[id number]-Ktrbknvrqxb Pept 2830 H, Total Protein 6.9, Albumin 3.9, Globulin 3.0, Albumin/Globulin Ratio 1.3, TSH 4.450 H, Free T4 0.77 L, PT 24.7 H, INR 2.37 H, CBC w Diff NO MAN DIFF REQ, RBC 3.67 L, MCV 77.0 L, MCH 23.5 L, RDW 17.4 H, MPV 8.0, Gran % 75.0, Lymphocytes % 16.1 L, Monocytes % 7.0, Eosinophils % 1.8, Basophils % 0.1, Absolute Granulocytes 4.9, Absolute Lymphocytes 1.0 L, Absolute Monocytes 0.5, Absolute Eosinophils 0.1, Absolute Basophils 0, PUBS MCHC 30.5 L Assessment/Plan Assessment: Patient improving from acute exacerbation of CHF. Diuresis is occuring. Echo showed critical aortic stenosis. Patient is still able to ambulate with assistance and has been benefitting from exercise program problem list below. 1- Edema 2- SOB/crackles in lungs 3- Aortic stenosis Plan: Transfer to [place] for TAVR likely today. Edema- dose lasix to 40 mg once per day at home, recommended PT exercise program at home. Crackles/Sob- continue medicine regimen for COPD Aortic Stenosis- follow up with [facility] industrial methods consultant to discuss TAVR
--- NOTE | 2016-06-25 09:41 | PN- Cardiology ---
Subjective Subjective: Patient is continuing to diurese. She is feeling better. Her edema has improved. She has no chest pains. Her echocardiogram documented a peak gradient of 124 mmHg and a mean gradient of 71 mmHg across the aortic valve. Left ventricular systolic function was good. Objective Vital Signs and I&Os Vital Signs Date Time Temp Pulse Resp B/P Pulse O2 O2 Flow FiO2 Ox Delivery Rate 06/25 0829 97.7 74 20 142/70 92 Nasal 4.0L Cannula 06/25 0825 95 Nasal 4.0L Cannula 06/25 0154 98.0 82 20 116/70 93 Nasal Cannula 06/25 0000 95 Nasal 4.0L Cannula 06/24 1918 94 Nasal 4.0L Cannula 06/24 1741 120/62 06/24 1630 98.7 76 20 94 Nasal 3.0L Cannula 06/24 1600 94 Nasal 4.0L Cannula Intake & Output 06/25 1600 06/25 0800 06/25 0000 06/24 1600 06/24 0800 06/24 0000 Intake Total 420 640 600 300 240 Output Total 725 1450 1600 1100 Balance -305 -810 -1000 -800 240 Intake, Oral 420 640 600 300 240 Number 0 Bowel Movements Output, Urine 725 1450 1600 1100 Patient 194 lb 196 lb Weight Physical Exam: She is in no distress Chest is clear Heart reveals loud systolic ejection murmur at the apex and base Extremities reveal 2+ edema which is resolving Current Medications: Current Medications Sig/Olga Start time Last Medication Dose Route Stop Time Status Admin Acetaminophen 650 MG Q6P PRN 06/23 0930 AC PO Albuterol Sulfate 3 ML Q4P PRN 06/22 2300 AC INH Alprazolam 0.5 MG TID PRN 06/22 2044 AC 06/25 PO 06/30 2043 0915 Budesonide/ 1 PUF DAILY 06/23 1000 AC 06/25 Formoterol Fumarate INH 0916 Diltiazem HCl 180 MG DAILY 06/23 1000 AC 06/25 PO 0916 Doxazosin Mesylate 4 MG QPM 06/22 2200 AC 06/24 PO 2206 Furosemide 40 MG 0800 & 1700 06/23 0800 AC 06/25 IV 0915 Levothyroxine Sodium 0.025 MG DAILY AC 06/23 0700 AC 06/25 PO 0601 Morphine Sulfate 1 MG Q6P PRN 06/23 0930 AC IV Patient Medication 1 ED ONE ONE 06/24 1400 DC Teaching ED 06/24 1401 Polyethylene Glycol 17 GM DAILY 06/24 1127 AC 06/25 PO 0916 Potassium Chloride 30 MEQ 06/23 1000 AC 06/23 PO 0956 Potassium Chloride 30 MEQ DAILY 06/23 1000 AC 06/25 PO 0916 Senna/Docusate Sodium 1 TAB DAILY 06/25 1000 AC 06/25 PO 0916 Senna/Docusate Sodium 1 TAB DAILY NEEDED PRN 06/23 1530 DC PO Tiotropium Wilson 1 PUF QAM 06/23 1000 AC 06/25 INH 0916 Warfarin Sodium 2 MG COUMADIN 1700 ONE 06/24 1700 DC 06/24 PO 06/24 1701 1745 Results Last 48 Hrs of Labs/Mics: Laboratory Tests 06/25/16 0630: Anion Gap 7, Estimated GFR 52 L, BUN/Creatinine Ratio 31.0 H, CBC w Diff NO MAN DIFF REQ, RBC 3.46 L, MCV 77.3 L, MCH 23.7 L, RDW 17.5 H, MPV 8.6, Gran % 69.1, Lymphocytes % 19.4 L, Monocytes % 8.6, Eosinophils % 2.4, Basophils % 0.5, Absolute Granulocytes 4.4, Absolute Lymphocytes 1.2, Absolute Monocytes 0.6 , Absolute Eosinophils 0.2, Absolute Basophils 0, PUBS MCHC 30.7 L 06/24/16 0633: Anion Gap 8, Estimated GFR 59 L, BUN/Creatinine Ratio 28.9 H, PT 26.1 H, INR 2.51 H, CBC w Diff NO MAN DIFF REQ, RBC 3.68 L, MCV 77.2 L, MCH 23.8 L, RDW 17.4 H, MPV 8.6, Gran % 70.8, Lymphocytes % 16.9 L, Monocytes % 8.7, Eosinophils % 3.6, Basophils % 0 L, Absolute Granulocytes 4.6, Absolute Lymphocytes 1.1 L, Absolute Monocytes 0.6, Absolute Eosinophils 0.2, Absolute Basophils 0, PUBS MCHC 30.9 L 06/23/16 0944: Anion Gap 10, Estimated GFR 59 L, BUN/Creatinine Ratio 32.2 H, TSH 4.260 H, Free T4 0.72 L, Thyroglobulin Antibody < 15, Thyroid Peroxidase Ab < 28 Recent Imaging Studies: CONCLUSIONS Moderate to severe concentric left ventricular hypertrophy. Normal left ventricular ejection fraction visually estimated at >65% Abnormal relaxation filling pattern of the left ventricle for age (stage 1 diastolic dysfunction). Mild to moderate left atrial dilatation. Moderate thickening/calcification of the mitral valve leaflets. Moderate mitral annular calcification. Mild mitral regurgitation. Diffuse thickening of the aortic valve cusps with reduced excursion. Critical aortic stenosis. Mild aortic regurgitation. Right ventricular systolic pressure estimated to be elevated at 45- 50 mmHg. Lauri Avila M.D. (Electronically Signed) Final Date: 24 June 2016 18:01 Assessment/Plan Assessment/Plan The patient seems improved. She is diuresing somewhat. She has critical aortic stenosis. I suggested that the patient have a transcatheter aortic valve replacement. She seems amenable to this. Her daughters are not currently present but we will talk to them. I suggested that we transfer her to [facility] for this on Tuesday. The patient seems okay with this. I have asked Dr. Reynolds to try to effectuate a transfer. Continue telemetry? Yes
[2016-06-25 10:55] LABS: PT 21.5 SEC (9.4-12.5)
--- NOTE | 2016-06-25 16:01 | PN- Att Addend ---
Attending MD Review Statement Attending Statement Attending MD Statement: examined this patient, discuss w/resident/PA/CENTRAL STERILIZATION TECHNICIAN, agreed w/resident/PA/CENTRAL STERILIZATION TECHNICIAN, discussed with family, reviewed EMR data (avail), discussed w/ nursing, discussed w/case mgmt Attending Assessment/Plan: Laboratory Tests 06/25/16 0955: PT 21.5 H, INR 2.06 H 06/25/16 0630: Anion Gap 7, Estimated GFR 52 L, BUN/Creatinine Ratio 31.0 H, CBC w Diff NO MAN DIFF REQ, RBC 3.46 L, MCV 77.3 L, MCH 23.7 L, RDW 17.5 H, MPV 8.6, Gran % 69.1, Lymphocytes % 19.4 L, Monocytes % 8.6, Eosinophils % 2.4, Basophils % 0.5, Absolute Granulocytes 4.4, Absolute Lymphocytes 1.2, Absolute Monocytes 0.6 , Absolute Eosinophils 0.2, Absolute Basophils 0, PUBS MCHC 30.7 L Vital Signs Date Time Temp Pulse Resp B/P Pulse O2 O2 Flow FiO2 Ox Delivery Rate 06/25 1142 92 Nasal 4.0L Cannula 06/25 0829 97.7 74 20 142/70 92 Nasal 4.0L Cannula 06/25 0825 95 Nasal 4.0L Cannula 06/25 0154 98.0 82 20 116/70 93 Nasal Cannula 06/25 0000 95 Nasal 4.0L Cannula 06/24 1918 94 Nasal 4.0L Cannula 06/24 1741 120/62 06/24 1630 98.7 76 20 94 Nasal 3.0L Cannula 06/24 1600 94 Nasal 4.0L Cannula Patient seen and examined at bedside. Discussed with patient's 2 daughters at bedside the care plan. Patient with acute CHF exacerbation secondary to severe aortic stenosis. Discussed with the cardiology the care plan. I had a lengthy discussion with patient's daughter about the valve replacement with TAVR. They understands the risks with the procedure and are willing to go ahead with that procedure. Cardiology is going to arrange for transfer to [place] for the procedure on Tuesday. We will continue the Lasix for time being and will monitor her bicarbonate and renal functions. If her bicarbonate is getting worse we will start her on Diamox. Total time spent 1 hour, more than 50% of the time was spent coordination and counseling.
[2016-06-25 16:33] VITALS: BP 118/68
--- NOTE | 2016-06-25 19:27 | Discharge Summary ---
Visit Information Visit Dates Admission Date: 06/22/16 Discharge Date: 07/05/16 Hospital Course Course Attending Physician: Dr. STEVENS Primary Care Physician: CALLI STEPHENS,[facility] Course: Ms Weaver is an 85-year-old woman with PMH of macular degeneration, atrial fibrillation, hypertension hyperlipidemia, pulmonary embolism (diagnosed 2013), emphysema, breast cancer s/p resection, recent multiple hospital admissions for hemorrhages, who was known to be in her usual state of health until 6 weeks prior to admission. She was brought to [facility] ED for evaluation of worsening lower extremity swelling 6 weeks, and worsening shortness of breath 1 week prior to admission. VS afebrile 96.7 heart rate of 78 respiration of 22 blood pressure 136/64 and was saturating 95% on 4 L physical examination: patient not in acute distress, cooperative alert and oriented 3 seated on the bed eating her dinner HEENT: No distended neck vessels, with mucous membranes no cyanosis RS: No wheezes, crackles most dominant on the bases CVS: RRR, 3/6 systolic murmur loudest at the aortic area Abdomen: Obese nontender Extremities: Pitting edema bilaterally to just below the knee, healing wounds, very thin shiny skin no obvious sign of infection Labs: Anemia 8.6/28.3, hypokalemia 3.7, bicarbonate of 39, increased proBNP 2830 , INR 2.37 Imaging: Mild diffuse interstitial prominence with mild cardiomegaly, elevated right hemidiaphragm EKG: Normal sinus rhythm regular, right bundle branch block, ST depression, T- wave inversion on multiple leads [no previous EKG to compare] PATIENT ADMITTED TO TELEMETRY FLOOR AND TREATED for these conditions: #CHF exacerbation patient had lower extremity swelling, shortness of breath. She received intravenous furosemide 40 mg twice a day, with slight improvement in symptoms and negative fluid balance initially. Serial electrocardiograms and cardiac enzymes did not reveal any abnormalities. On day 4, of the stay in the hospital, respiratory status deteriorated. She was found to be hypoxic and hypercarbic, for which she was placed on BiPAP. After discussing with the boat hoist operator and supervisor felling bucking it was deemed prudent for the patient to be transferred to intensive care unit for closer monitoring. Patient was initially kept on bipap which has been gradually tapered down to her baseline level (4L NC). patient eventually was transfered back to telemetry and Considering her severe aortic stenosis and other risk factors, arrangements were made to be transferred to [facility] for a TAVR. We continued 40 Mg IV lasix BID History of pulmonary embolism patient was continued on Coumadin. Since the patient remained in normal sinus rhythm while in the stay in the hospital, Coumadin was discontinued briefly in anticipation of procedure. When the patient was in respiratory distress, a CTA was obtained which did not reveal any evidence of pulmonary embolism. Coumadin was on hold upon discharge. Pneumonia- Abnormal CT findings-suggestive of consolidation upon ICU transfer, but seems unlikely. Patient did not have any fever, nor mount an acute immune response. She was started on ceftazidime and vancomycin on 06/28/16 and switched to IV unasyn on the 06/30/2016 till 07/05/2016 upon discharge. blood cultures were unremarkable. patient got total 7 days of abx therapy. Anemia Micorocytic Anemia, hg aournd 8.5, stable during hopspitalization Hypothyrodisim patient was found to be hypothyorid during hospitalization. she was pupt on low dpse levothyroxine and should follow up with outpatient endocrine office. Allergies: Coded Allergies: cat dander (TRIGGERS ASTHMA 03/28/16) Uncoded Allergies: SMOKE (TRIGGERS ASTHMA 03/28/16) Pertinent Lab Results: Intake & Output 07/05 1600 07/05 0800 07/05 0000 Intake Total 150 490 Output Total 750 650 Balance -600 -160 Intake, IV 100 10 Intake, Oral 50 480 Number 1 1 Bowel Movements Output, Urine 750 650 Patient 183 lb Weight Laboratory Tests 07/05 07/04 0700 1750 Chemistry Sodium (137 - 145 mmol/L) 138 Potassium (3.5 - 5.1 mmol/L) 3.6 Chloride (98 - 107 mmol/L) 89 L Carbon Dioxide (22 - 30 mmol/L) 38 H Anion Gap (5 - 16) 12 BUN (7 - 17 mg/dL) 25 H Creatinine (0.5 - 1.0 mg/dL) 0.9 Estimated GFR (>60 ml/min) 59 L BUN/Creatinine Ratio (7 - 25 %) 27.8 H Magnesium (1.6 - 2.3 mg/dL) 2.0 Hematology CBC w Diff NO MAN DIFF REQ NO MAN DIFF REQ WBC (4.8 - 10.8 /CUMM) 7.3 7.9 RBC (4.20 - 5.40 /CUMM) 3.47 L 3.34 L Hgb (12.0 - 16.0 G/DL) 8.3 L 7.7 L Hct (37 - 47 %) 26.4 L 25.6 L MCV (81.0 - 99.0 FL) 76.2 L 76.6 L MCH (27.0 - 31.0 PG) 24.0 L 23.0 L RDW (11.5 - 14.5 %) 18.3 H 19.1 H Plt Count (130 - 400 /CUMM) 266 254 MPV (7.4 - 10.4 FL) 8.3 8.3 Gran % (42.2 - 75.2 %) 72.7 66.1 Lymphocytes % (20.5 - 51.1 %) 14.3 L 17.5 L Monocytes % (1.7 - 9.3 %) 9.8 H 11.5 H Eosinophils % (0 - 5 %) 3.0 4.5 Basophils % (0.0 - 2.0 %) 0.2 0.4 Absolute Granulocytes (1.4 - 6.5 /CUMM) 5.3 5.2 Absolute Lymphocytes (1.2 - 3.4 /CUMM) 1.0 L 1.4 Absolute Monocytes (0.10 - 0.60 /CUMM) 0.7 H 0.9 H Absolute Eosinophils (0.0 - 0.7 /CUMM) 0.2 0.4 Absolute Basophils (0.0 - 0.2 /CUMM) 0 0 PUBS MCHC (33.0 - 37.0 G/DL) 31.5 L 30.0 L 07/04 1547 Blood Gas pH (7.35 - 7.45 PH) 7.41 pCO2 (35 - 45 TORR) 60 *H pO2 (80 - 100 TORR) 82 HCO3 (21 - 28 MEQ/L) 38 H ABG O2 Sat (Measured) (>96.0 %) 96.0 Carboxyhemoglobin (1.5 - 5.0 %) 0.9 L O2 Concentration % 4L O2 Delivery Method NC Miscellaneous Phlebotomy Draw Site RIGHT RADIAL PATIENT: MARGARITA WEAVER PRESENT AGE: 85 PATIENT ACCOUNT NO: [id number] : [birth year] LOCATION: [facility] ORDERING PHYSICIAN: LAUREN FONSECA MD SERVICE DATE: 06/24/16 EXAM TYPE: CARD - ECHOCARDIOGRAM MARGARITA WEAVER Age: 85 : 1930 Gender: F Exam Date: 06/24/2016 13:20 Exam Location: [address] [place] [address] Ht (in): 60 Wt (lb): 196 BSA: 1.99 BP: 110 / 70 Ordering Physician: LAUREN FONSECA MD Referring Physician: LAUREN FONSECA MD Technologist: Artie Leonardo [facility] Room Number: [id number] Indications: AORTIC STENOSIS, EVALUATION OF LV FUNCTION Rhythm: Sinus Technical Quality: Fair FINDINGS Left Ventricle Normal size left ventricle. Moderate to severe concentric left ventricular hypertrophy. Normal left ventricular ejection fraction visually estimated at >65 %. No obvious regional wall motion abnormalities. Abnormal relaxation filling pattern of the left ventricle for age (stage 1 diastolic dysfunction). Right Ventricle Right ventricle not well visualized, grossly normal. Right Atrium Normal right atrial size. Left Atrium Mild to moderate left atrial dilatation. Mitral Valve Moderate thickening/calcification of the mitral valve leaflets. Moderate mitral annular calcification. Mild mitral regurgitation. Aortic Valve Diffuse thickening of the aortic valve cusps with reduced excursion. Critical aortic stenosis. Mild aortic regurgitation. Tricuspid Valve Tricuspid valve is normal in structure and function. Mild tricuspid regurgitation. Right ventricular systolic pressure estimated to be elevated at 45-50 mmHg. Pulmonic Valve Pulmonic valve not well visualized, grossly normal. Trace pulmonic regurgitation. Pericardium No pericardial or pleural effusion. Great Vessels Normal size aortic root. CONCLUSIONS Moderate to severe concentric left ventricular hypertrophy. Normal left ventricular ejection fraction visually estimated at >65 Abnormal relaxation filling pattern of the left ventricle for age (stage 1 diastolic dysfunction). Mild to moderate left atrial dilatation. Moderate thickening/calcification of the mitral valve leaflets. Moderate mitral annular calcification. Mild mitral regurgitation. Diffuse thickening of the aortic valve cusps with reduced excursion. Critical aortic stenosis. Mild aortic regurgitation. Right ventricular systolic pressure estimated to be elevated at 45- 50 mmHg. Rodrick Avila M.D. (Electronically Signed) Final Date: 24 June 2016 18:01 MEASUREMENTS (Male / Female) Normal Values 2D ECHO LV Diastolic Diameter PLAX 4.6 cm 4.2 - 5.9 / 3.9 - 5.3 cm LV Systolic Diameter PLAX 2.8 cm 2.1 - 4.0 cm LV Fractional Shortening PLAX 39.1 % 25 - 46 % LV Ejection Fraction 2D Teich 69.6 % IVS Diastolic Thickness 1.7 cm LVPW Diastolic Thickness 1.4 cm LV Relative Wall Thickness 0.7 RV Internal Dim ED PLAX 3.9 cm 1.9 - 3.8 cm LVOT Diameter 2.3 cm Aortic Root Diameter 2.6 cm LA Systolic Diameter LX 5.9 cm 3.0 - 4.0 / 2.7 - 3.8 cm LA Volume 80.0 cm 18 - 58 / 22 - 52 cm Ascending Aorta Diameter 3.1 cm DOPPLER AV Peak Velocity 557.0 cm/s AV Peak Gradient 124.1 mmHg AV Mean Velocity 388.0 cm/s AV Mean Gradient 71.0 mmHg AV Velocity Time Integral 128.0 cm LVOT Peak Velocity 105.0 cm/s LVOT Peak Gradient 4.4 mmHg LVOT Mean Velocity 77.3 cm/s LVOT Mean Gradient 3.0 mmHg LVOT Velocity Time Integral 27.4 cm LVOT Stroke Volume 113.8 cm AV Area Cont Eq vti 0.9 cm AV Area Cont Eq pk 0.8 cm MV Peak Velocity 137.0 cm/s MV Peak Gradient 7.5 mmHg MV Mean Velocity 77.5 cm/s MV Mean Gradient 3.0 mmHg Mitral E Point Velocity 97.7 cm/s Mitral A Point Velocity 142.0 cm/s Mitral E to A Ratio 0.7 MV PHT Velocity 110.0 cm/s MV Deceleration Finney 519.0 cm/s MV Pressure Half Time 63.6 ms MV Area PHT 3.5 cm MV Deceleration Time 162.0 ms TR Peak Velocity 331.0 cm/s TR Peak Gradient 43.8 mmHg Right Atrial Pressure 5.0 mmHg Pulmonary Artery Systolic Pressu 48.8 mmHg Right Ventricular Systolic Press 48.8 mmHg PV Peak Velocity 121.0 cm/s PV Peak Gradient 5.9 mmHg PV Mean Velocity 83.9 cm/s PV Mean Gradient 3.0 mmHg PV Velocity Time Integral 18.9 cm DICTATED BY: RODRICK AVILA MD, V. DATE/TIME DICTATED:06/24/161800 TELEVISION NEWS REPORTER:NAOMI DATE/TIME TRANSCRIBED:06/24/161800 CONFIDENTIAL, DO NOT COPY WITHOUT APPROPRIATE AUTHORIZATION. <Electronically signed in Other Vendor System> SIGNED BY: RODRICK AVILA MD, V. 06/24/16 1802 PATIENT: MARGARITA WEAVER PRESENT AGE: 85 PATIENT ACCOUNT NO: [id number] : [birth year] LOCATION: [facility] ORDERING PHYSICIAN: BAN SPAIN MD SERVICE DATE: 06/28/16 EXAM TYPE: CAT - CTA CHEST-PULMONARY EMBOLISM EXAMINATION: CT PULMONARY EMBOLISM STUDY CLINICAL INFORMATION: Shortness of breath. Desaturation. COMPARISON: 06/27/2016. TECHNIQUE: Contiguous helical images of the chest were obtained following the administration of IV contrast. Multiplanar reconstructions were performed. MIPS were obtained and reviewed. DLP: 535 mGy-cm. CONTRAST: 75 mL of Optiray 350 were marine firer without incident. FINDINGS: The examination is limited secondary to the patient's limited ability to cooperate for the exam. The heart is mildly enlarged, but stable. There is no pericardial effusion. The great vessels are unremarkable. Specifically, there is no pulmonary arterial filling defect. There is no CT evidence for pulmonary embolism. There are no chest wall masses. Review of lung windows demonstrates that there are neither pleural effusions nor pneumothoraces. There is marked elevation of the right hemidiaphragm. There is right middle and lower lobe atelectasis. There is a retrocardiac consolidation. Limited evaluation of the upper abdomen demonstrates that the liver is of normal size and attenuation without focal lesions. Normal adrenal glands are identified. IMPRESSION: No CT evidence for pulmonary embolism. Left lower lobe consolidation. Marked elevation to the right hemidiaphragm with right lower and middle lobe atelectasis. DICTATED BY: CHANI GUTIERRES MD DATE/TIME DICTATED:06/28/16349 TELEVISION NEWS REPORTER:NAOMI DATE/TIME TRANSCRIBED:06/28/16349 CONFIDENTIAL, DO NOT COPY WITHOUT APPROPRIATE AUTHORIZATION. <Electronically signed in Other Vendor System> SIGNED BY: CHANI GUTIERRES MD 06/28/16 0401 PATIENT: MARGARITA WEAVER PRESENT AGE: 85 PATIENT ACCOUNT NO: [id number] : [birth year] LOCATION: [facility] ORDERING PHYSICIAN: KULDEEP ARANA MD SERVICE DATE: 07/01/16124 EXAM TYPE: RAD - XRY-PORTABLE CHEST XRAY EXAMINATION: XR PORTABLE CHEST CLINICAL INFORMATION: Shortness of breath. Suspected pneumonia. COMPARISON: Chest done on 06/27/2016 and CTA of the chest done on 06/28/2016. TECHNIQUE: Portable AP view of the chest was obtained. FINDINGS: Asymmetric low lung volume is noted within the right hemithorax. The aerated lung fournier bilaterally appear clear. The cardiomediastinal silhouette is moderately enlarged. There is no pleural effusion present. IMPRESSION: No acute cardiopulmonary disease. DICTATED BY: NICKO PEDRO MD DATE/TIME DICTATED:07/01/161302 TELEVISION NEWS REPORTER:NAOMI DATE/TIME TRANSCRIBED:07/01/161302 CONFIDENTIAL, DO NOT COPY WITHOUT APPROPRIATE AUTHORIZATION. <Electronically signed in Other Vendor System> SIGNED BY: NICKO PEDRO MD 07/01/16 1308 PATIENT: MARGARITA WEAVER PRESENT AGE: 85 PATIENT ACCOUNT NO: [id number] : [birth year] LOCATION: [facility] ORDERING PHYSICIAN: LAUREN FONSECA MD SERVICE DATE: 06/24/16 EXAM TYPE: CARD - ECHOCARDIOGRAM MARGARITA WEAVER Age: 85 : 1930 Gender: F Exam Date: 06/24/2016 13:20 Exam Location: [place] Ht (in): 60 Wt (lb): 196 BSA: 1.99 BP: 110 / 70 Ordering Physician: LAUREN FONSECA MD Referring Physician: LAUREN FONSECA MD Technologist: Artie Leonardo [facility] Room Number: [id number] Indications: AORTIC STENOSIS, EVALUATION OF LV FUNCTION Rhythm: Sinus Technical Quality: Fair FINDINGS Left Ventricle Normal size left ventricle. Moderate to severe concentric left ventricular hypertrophy. Normal left ventricular ejection fraction visually estimated at >65 %. No obvious regional wall motion abnormalities. Abnormal relaxation filling pattern of the left ventricle for age (stage 1 diastolic dysfunction). Right Ventricle Right ventricle not well visualized, grossly normal. Right Atrium Normal right atrial size. Left Atrium Mild to moderate left atrial dilatation. Mitral Valve Moderate thickening/calcification of the mitral valve leaflets. Moderate mitral annular calcification. Mild mitral regurgitation. Aortic Valve Diffuse thickening of the aortic valve cusps with reduced excursion. Critical aortic stenosis. Mild aortic regurgitation. Tricuspid Valve Tricuspid valve is normal in structure and function. Mild tricuspid regurgitation. Right ventricular systolic pressure estimated to be elevated at 45-50 mmHg. Pulmonic Valve Pulmonic valve not well visualized, grossly normal. Trace pulmonic regurgitation. Pericardium No pericardial or pleural effusion. Great Vessels Normal size aortic root. CONCLUSIONS Moderate to severe concentric left ventricular hypertrophy. Normal left ventricular ejection fraction visually estimated at >65 Abnormal relaxation filling pattern of the left ventricle for age (stage 1 diastolic dysfunction). Mild to moderate left atrial dilatation. Moderate thickening/calcification of the mitral valve leaflets. Moderate mitral annular calcification. Mild mitral regurgitation. Diffuse thickening of the aortic valve cusps with reduced excursion. Critical aortic stenosis. Mild aortic regurgitation. Right ventricular systolic pressure estimated to be elevated at 45- 50 mmHg. Rodrick Avila M.D. (Electronically Signed) Final Date: 24 June 2016 18:01 MEASUREMENTS (Male / Female) Normal Values 2D ECHO LV Diastolic Diameter PLAX 4.6 cm 4.2 - 5.9 / 3.9 - 5.3 cm LV Systolic Diameter PLAX 2.8 cm 2.1 - 4.0 cm LV Fractional Shortening PLAX 39.1 % 25 - 46 % LV Ejection Fraction 2D Teich 69.6 % IVS Diastolic Thickness 1.7 cm LVPW Diastolic Thickness 1.4 cm LV Relative Wall Thickness 0.7 RV Internal Dim ED PLAX 3.9 cm 1.9 - 3.8 cm LVOT Diameter 2.3 cm Aortic Root Diameter 2.6 cm LA Systolic Diameter LX 5.9 cm 3.0 - 4.0 / 2.7 - 3.8 cm LA Volume 80.0 cm 18 - 58 / 22 - 52 cm Ascending Aorta Diameter 3.1 cm DOPPLER AV Peak Velocity 557.0 cm/s AV Peak Gradient 124.1 mmHg AV Mean Velocity 388.0 cm/s AV Mean Gradient 71.0 mmHg AV Velocity Time Integral 128.0 cm LVOT Peak Velocity 105.0 cm/s LVOT Peak Gradient 4.4 mmHg LVOT Mean Velocity 77.3 cm/s LVOT Mean Gradient 3.0 mmHg LVOT Velocity Time Integral 27.4 cm LVOT Stroke Volume 113.8 cm AV Area Cont Eq vti 0.9 cm AV Area Cont Eq pk 0.8 cm MV Peak Velocity 137.0 cm/s MV Peak Gradient 7.5 mmHg MV Mean Velocity 77.5 cm/s MV Mean Gradient 3.0 mmHg Mitral E Point Velocity 97.7 cm/s Mitral A Point Velocity 142.0 cm/s Mitral E to A Ratio 0.7 MV PHT Velocity 110.0 cm/s MV Deceleration Finney 519.0 cm/s MV Pressure Half Time 63.6 ms MV Area PHT 3.5 cm MV Deceleration Time 162.0 ms TR Peak Velocity 331.0 cm/s TR Peak Gradient 43.8 mmHg Right Atrial Pressure 5.0 mmHg Pulmonary Artery Systolic Pressu 48.8 mmHg Right Ventricular Systolic Press 48.8 mmHg PV Peak Velocity 121.0 cm/s PV Peak Gradient 5.9 mmHg PV Mean Velocity 83.9 cm/s PV Mean Gradient 3.0 mmHg PV Velocity Time Integral 18.9 cm DICTATED BY: RODRICK AVILA MD, V. DATE/TIME DICTATED:06/24/161800 TELEVISION NEWS REPORTER:NAOMI DATE/TIME TRANSCRIBED:06/24/161800 CONFIDENTIAL, DO NOT COPY WITHOUT APPROPRIATE AUTHORIZATION. <Electronically signed in Other Vendor System> SIGNED BY: RODRICK AVILA MD, V. 06/24/161801 Disposition Summary Disposition Principal Diagnosis: CHF exacerbation Additional Diagnosis: severe atrial fibrillation, hypertension hyperlipidemia, pulmonary embolism Discharge Disposition: other general hospital Discharge Instructions General Discharge Information Code Status: Do Not Resucitate/Intubat Patient's Diet: heart healthy Patient's Activity: as tolerated Follow-Up Instructions/Appts: we are transferring you to [facility] for TAVR Procedure. 1. Please follow up with your boat hoist operator Dr. Avila, after discharge. 2. Please note that your warfarin was held in order to minimize risk for your valve replacement. Please restart it once cleared by the team at [facility]. 3. Please follow up with Dr. Nunez, endocrinology, for continued management of your new hypothyroidism. Please follow up with her in 4 weeks approximately. 4. Please follow up with Dr. Russell in 1-2 weeks of discharge for continued care. Medications at Discharge Discharge Medications: Stop taking the following medications: Furosemide (Lasix) 40 MG TABLET ORAL As Directed Furosemide (Lasix) 80 MG TABLET ORAL TUESDAY, TUESDAY AND TUESDAY Warfarin Sodium (Coumadin) 5 MG TABLET ORAL DAILY Warfarin Sodium (Warfarin Sodium) 2 MG TABLET ORAL TUESDAY, TUESDAY AND TUESDAY Continue taking these medications: Fluticasone/Salmeterol (Advair 250-50 Diskus) 250 MCG-50 MCG/DOSE BLST.W.DEV 1 Puff Inhale through mouth Every Morning Comments: not given Diltiazem HCl (Cartia Xt) 180 MG CAP.ER.24H 1 Capsule ORAL Every Morning Comments: given 07/05/16 @ 0900 Doxazosin Mesylate (Doxazosin Mesylate) 4 MG TABLET 1 Tablet ORAL Every night Comments: given 07/04/16 @ 2130 Tiotropium [place] (Spiriva) 18 MCG CAP.W.DEV 1 Capsule Inhale through mouth Every Morning Comments: given 07/05/16 @ 0900 Ezetimibe/Simvastatin (Vytorin 10-20 MG Tablet) 10 MG-20 MG TABLET 1 Tablet ORAL Every night Comments: given atorvastatin only 07/04/16 @ 1630 Potassium Chloride (Klor-Con 10) 10 MEQ TABLET.ER 3 Tablet ORAL DAILY Comments: given 07/05/16 @ 0900 Potassium Chloride (Potassium Chloride) 20 MEQ TAB.ER.PRT 1.5 Tablet ORAL TUESDAY, TUESDAY AND TUESDAY Comments: given 07/05/16 @ 0900 Alprazolam (Alprazolam) 0.5 MG TABLET 0.5 Tablet ORAL as needed for ANXIETY Comments: given Xanax 0.25 mg 07/05/16 @ 1115 Start taking the following new medications: Magnesium Chloride (Slow-Mag) 71.5 MG TABLET.DR 64 Milligram ORAL TWICE DAILY Days = 7 No Refills Comments: given 07/05/16 @ 0900 Furosemide (Furosemide) 10 MG/ML VIAL 40 Milligram INTRAVEN 8am & 5pm Days = 7 No Refills Comments: given 07/05/16 @ 0900 Levothyroxine Sodium (Synthroid) 25 MCG TABLET 0.025 Milligram ORAL DAILY BEFORE BREAKFAST Qty = 30 No Refills Comments: given 07/04/16 @ 0630 Copies To: FAY RUSSELL MD; AMANDA STEPHENS,Pb LANDON; MAC STEPHENS,RODRICK Joshi; JESÚS STEPHENS,EDIE Attending MD Review Statement Documenting Attending: RODNEY STEPHENS,HUMPHREY Alex Other Findings: please see my attending note for more details.
[2016-06-25 22:00] VITALS: BP 110/60
[2016-06-26 07:43] VITALS: BP 130/80
[2016-06-26 07:53] LABS: ABSOLUTE BASOPHIL COUNT 0 /CUMM (0.0-0.2); ABSOLUTE EOSINOPHIL COUNT 0.1 /CUMM (0.0-0.7); ABSOLUTE GRANULOCYTE CT 5.1 /CUMM (1.4-6.5); ABSOLUTE MONOCYTE COUNT 0.7 /CUMM (0.10-0.60); BASOPHIL % 0 % (0.0-2.0); EOSINOPHIL % 1.7 % (0-5); GRANULOCYTE % 74.5 % (42.2-75.2); HEMATOCRIT 25.6 % (37-47); MEAN CORPUSCULAR HGB 23.9 PG (27.0-31.0); MEAN CORPUSCULAR VOLUME 77.3 FL (81.0-99.0); MEAN PLATELET VOLUME 8.3 FL (7.4-10.4); PLATELET COUNT 228 /CUMM (130-400); RBC DISTRIBUTION WIDTH 17.7 % (11.5-14.5); RED BLOOD CELL CT 3.31 /CUMM (4.20-5.40); WHITE BLOOD CELL COUNT 6.8 /CUMM (4.8-10.8)
[2016-06-26 08:32] LABS: PT 17.5 SEC (9.4-12.5)
--- NOTE | 2016-06-26 09:17 | PN- Endocrinology ---
Assessment/Plan Assessment: 85-year-old woman who was known to be in her usual state of health until 6 weeks ago. She has a past history of macular degeneration, arrhythmias, hypertension hyperlipidemia, pulmonary embolism (dx'ed 2013), emphysema, breast cancer s/p resection, was brought to [facility] for evaluation of worsening lower extremity swelling 6 weeks, and worsening shortness of breath 1 week. She was admitted for CHF exacerbation. Blood work showed TSH 4.45 and free T4 was 0.77. Her thyroid antibody panel was negative. Levothyroxine 25 mcg daily was initiated. She is on IV lasix 40 mg twice a day. Swelling has been improving. On 06/26/2016, repeat TSH 2.210 and free T4 0.68. Plan: continue the current Levothyroxine 25 mcg daily repeat TFT in 4-6 weeks. f/u in office after discharge. Subjective Subjective: She has no special complaints this morning. Objective Last 24 Hrs of Vital Signs/I&O Vital Signs Date Time Temp Pulse Resp B/P Pulse O2 O2 Flow FiO2 Ox Delivery Rate 06/26 0743 98.2 94 130/80 94 06/26 0000 Nasal 4.0L Cannula 06/25 2200 98.0 77 20 110/60 96 Room Air 06/25 1701 94 Nasal 4.0L Cannula 06/25 1633 98.5 76 20 118/68 92 Nasal 4.0L Cannula 06/25 1142 92 Nasal 4.0L Cannula Intake & Output 06/26 1600 06/26 0800 06/26 0000 Intake Total 100 Output Total 400 500 Balance -300 -500 Intake, Oral 100 Output, Urine 400 500 Results Pertinent Lab/Scotty Results: Laboratory Tests 06/26 06/25 0605 0955 Chemistry Sodium (137 - 145 mmol/L) 133 L Potassium (3.5 - 5.1 mmol/L) 3.8 Chloride (98 - 107 mmol/L) 85 L Carbon Dioxide (22 - 30 mmol/L) 40 H Anion Gap (5 - 16) 8 BUN (7 - 17 mg/dL) 31 H Creatinine (0.5 - 1.0 mg/dL) 0.9 Estimated GFR (>60 ml/min) 59 L BUN/Creatinine Ratio (7 - 25 %) 34.4 H TSH (0.270 - 4.200 uIU/mL) 2.210 Free T4 (0.85 - 1.93 ng/dL) 0.68 L Coagulation PT (9.4 - 12.5 SEC) 17.5 H 21.5 H INR (0.90 - 1.19) 1.68 H 2.06 H Hematology CBC w Diff NO MAN DIFF REQ WBC (4.8 - 10.8 /CUMM) 6.8 RBC (4.20 - 5.40 /CUMM) 3.31 L Hgb (12.0 - 16.0 G/DL) 7.9 L Hct (37 - 47 %) 25.6 L MCV (81.0 - 99.0 FL) 77.3 L MCH (27.0 - 31.0 PG) 23.9 L RDW (11.5 - 14.5 %) 17.7 H Plt Count (130 - 400 /CUMM) 228 MPV (7.4 - 10.4 FL) 8.3 Gran % (42.2 - 75.2 %) 74.5 Lymphocytes % (20.5 - 51.1 %) 13.9 L Monocytes % (1.7 - 9.3 %) 9.9 H Eosinophils % (0 - 5 %) 1.7 Basophils % (0.0 - 2.0 %) 0 L Absolute Granulocytes (1.4 - 6.5 /CUMM) 5.1 Absolute Lymphocytes (1.2 - 3.4 /CUMM) 1.0 L Absolute Monocytes (0.10 - 0.60 /CUMM) 0.7 H Absolute Eosinophils (0.0 - 0.7 /CUMM) 0.1 Absolute Basophils (0.0 - 0.2 /CUMM) 0 PUBS MCHC (33.0 - 37.0 G/DL) 31.0 L
--- NOTE | 2016-06-26 09:18 | PN- Housestaff ---
DIMAS STEPHENS,JAYLEN 06/26/16 0917: Subjective Follow-up For: chf exacerbation Tele-Events Since Last Visit: Sinus rhythm, accelerated junctional rhythm 69-74bpm Subjective: I saw and examined the patient today morning She is sitting comfortably on chair, sleepy, hard of hearing. Denies any concerns/complaints at this movement. Review of Systems Constitutional: Reports: see HPI. Comments: ROS negatieve except the above. Objective Last 24 Hrs of Vital Signs/I&O Vital Signs Date Time Temp Pulse Resp B/P Pulse O2 O2 Flow FiO2 Ox Delivery Rate 06/26 0743 98.2 94 130/80 94 06/26 0000 Nasal 4.0L Cannula 06/25 2200 98.0 77 20 110/60 96 Room Air 06/25 1701 94 Nasal 4.0L Cannula 06/25 1633 98.5 76 20 118/68 92 Nasal 4.0L Cannula 06/25 1142 92 Nasal 4.0L Cannula Intake & Output 06/26 1600 06/26 0800 06/26 0000 Intake Total 100 Output Total 400 500 Balance -300 -500 Intake, Oral 100 Output, Urine 400 500 Physical Exam General Appearance: Alert, Oriented X3, Cooperative, No Acute Distress Skin: No Breakdown, multiple bruising - secondary to anticoagulation HEENT: Atraumatic, PERRLA Cardiovascular: Normal S1, Normal S2, systolic murmur with carotid upstroke Lungs: Clear to Auscultation, Normal Air Movement Abdomen: Normal Bowel Sounds, Soft, No Tenderness Neurological: intact Extremities: No Clubbing, No Cyanosis, 3+ pitting edema Vascular: Normal Pulses Current Medications: Current Medications Sig/Olga Start time Last Medication Dose Route Stop Time Status Admin Acetaminophen 650 MG Q6P PRN 06/23 0930 AC PO Albuterol Sulfate 3 ML Q4P PRN 06/22 2300 DC INH Alprazolam 0.5 MG TID PRN 06/22 2044 AC 06/25 PO 06/29 Budesonide/ 1 PUF DAILY 06/23 1000 AC 06/25 Formoterol Fumarate INH 0916 Diltiazem HCl 180 MG DAILY 06/23 1000 AC 06/25 PO 16 Doxazosin Mesylate 4 MG QPM 06/22 220 AC 06/25 PO 2051 Furosemide 40 MG 0800 & 1700 04/05 0800 AC 06/25 IV 1550 Heparin Sodium 5,000 UNIT Q8 06/26 0600 AC 06/26 (Porcine) SC 0550 Heparin Sodium 5,000 UNIT Q8 06/25 2200 DC (Porcine) SC Levothyroxine Sodium 0.025 MG DAILY AC 06/23 0700 AC 06/26 PO 0550 Morphine Sulfate 1 MG Q6P PRN 06/23 0930 AC IV Polyethylene Glycol 17 GM DAILY 06/24 1127 AC 06/25 PO 0916 Potassium Chloride 30 MEQ 06/23 1000 AC 06/23 PO 0956 Potassium Chloride 30 MEQ DAILY 06/23 1000 AC 06/25 PO 0916 Senna/Docusate Sodium 1 TAB DAILY 06/25 1000 AC 06/25 PO 0916 Tiotropium [place] 1 PUF QAM 06/23 1000 AC 06/25 INH 0916 Warfarin Sodium 2 MG COUMADIN 1700 ONE 06/25 1700 CAN PO 06/25 1701 Last 24 Hrs of Lab/Scotty Results Last 24 Hrs of Labs/Mics: Laboratory Tests 06/26/16 0605: Anion Gap 8, Estimated GFR 59 L, BUN/Creatinine Ratio 34.4 H, TSH 2.210, Free T4 0.68 L, PT 17.5 H, INR 1.68 H, CBC w Diff NO MAN DIFF REQ, RBC 3.31 L, MCV 77.3 L, MCH 23.9 L, RDW 17.7 H, MPV 8.3, Gran % 74.5, Lymphocytes % 13.9 L, Monocytes % 9.9 H, Eosinophils % 1.7, Basophils % 0 L, Absolute Granulocytes 5.1, Absolute Lymphocytes 1.0 L, Absolute Monocytes 0.7 H, Absolute Eosinophils 0.1, Absolute Basophils 0, PUBS MCHC 31.0 L Assessment/Plan Assessment: She is an older lady with a past history of hypertension, questionable arrhythmias, pulmonary embolism, emphysema is being evaluated for worsening lower extremity swelling, and shortness of breath likely due to congestive heart failure. Differential diagnosis: #1 CHF (exacerbation) or new onset CHF #2 pulmonary embolism Below is the problem list and plan: #1 lower extremity swelling, shortness of breath-likely due to CHF exacerbation. Severe aortic stenosis likely contributing to left heart failure. Continue furosemide 40 mg IV twice a day at this time. Echocardiogram revealed critical aortic stenosis with gradient above 150, and valve area Less than 1. Likely to get a TAVR next week. Salt restricted diet. Strict ins and outs with daily weights. Other common cause is hypothyroidism for which TSH and free T4 has been ordered. TSH slightly elevated, free T4 low. Started on simvastatin 20mg today. Endocrinology consulted for advice. Continue levothyroxine. #2 anemia-low H&H, microcytic likely due to iron deficiency or blood loss. Iron studies revealed iron deficiency anemia. (Mixed). Guaiac stools. #3 history of pulmonary embolism and paroxysmal atrial fibrillation- INR -1.6 #4 emphysema-continue home dose of Spiriva. TRC nebs. Oxygen. #5. Prophylaxis-warfarin. Problem List: 1. Anterior epistaxis 2. Volume overload 3. Pedal edema 4. No pertinent family history Pain Ratin Pain Location: N/A Pain Goal: Pain 4 or less Pain Plan: TYLENOL PRN Tomorrow's Labs & Rationales: BEP CBC MASTER MARROQUIN MD 06/26/16 1147: Attending MD Review Statement Attending Statement Attending MD Statement: examined this patient, discuss w/resident/PA/LUMBER SORTER MACHINE, agreed w/resident/PA/LUMBER SORTER MACHINE, reviewed EMR data (avail) Attending Assessment/Plan: Patient doing well today. She complained of shortness of breath this morning and was given her Lasix and a breathing treatment. She denies pain and is not tachycardic. Still requiring 4L NC. Plan - Continue IV Lasix - Continue TRC/nebulizer treatments - Start Simvastatin 20mg daily (patient was on at home) - Continue Spiriva in the morning - Change Symbicort to PM (as taken at home) - Follow cardiology recommendations - Coumadin has been stopped as patient has been in sinus rhythm - Continue to monitor INR - If patient continues with shortness of breath despite treatment consider CTA for PE, as patient has had a PE in the past and is now off Coumadin
[2016-06-26 16:00] VITALS: BP 122/60
--- NOTE | 2016-06-26 20:08 | PN- Cardiology ---
Subjective Subjective: Complains of feeling short of breath, but thinks it may be a little better than it was yesterday. Objective Vital Signs and I&Os Vital Signs Date Time Temp Pulse Resp B/P Pulse O2 O2 Flow FiO2 Ox Delivery Rate 06/26 1600 98.3 79 20 122/60 93 Nasal 4.0L Cannula 06/26 1036 93 Nasal 4.0L Cannula 06/26 0800 96 Nasal 4.0L Cannula 06/26 0743 98.2 94 130/80 94 06/26 0000 Nasal 4.0L Cannula 06/25 2200 98.0 77 20 110/60 96 Room Air Intake & Output 06/26 1600 06/26 0800 / 0000 06/25 1600 06/25 0806/25 0000 Intake Total 1050 100 430 420 640 Output Total 1200 400 500 369 946 5950 Balance -150 -300 -500 -320 -305 -810 Intake, IV 30 Intake, Oral 1050 100 400 420 640 Number 1 0 Bowel Movements Output, Urine 1200 400 500 338 729 1223 Patient 194 lb 194 lb Weight Physical Exam: Well-developed, overweight elderly female in no acute distress with nasal oxygen in place. Vital signs: See above. Lungs: Bibasilar crackles. Heart: S1, diminished S2, Grade 2-3/6 systolic ejection type murmur heard over the precordium and test at the base. Extremities: 2+ bilateral lower extremity edema. Assessment/Plan Assessment/Plan Symptomatic critical aortic stenosis in this elderly female with preserved left ventricular systolic function. The plan is for transfer to [facility] on Tuesday (06/28/2016) for TAVR. Fortunately, Mrs. Meyer remains hemodynamically stable with stable renal function, but slightly worsening anemia that needs close follow-up given her high likelihood of concomitant coronary artery disease. Replete potassium and follow-up magnesium given her continued diuresis. Continue telemetry? Yes
[2016-06-26 22:00] VITALS: BP 110/60
[2016-06-27 07:36] LABS: ABSOLUTE BASOPHIL COUNT 0 /CUMM (0.0-0.2); ABSOLUTE EOSINOPHIL COUNT 0.1 /CUMM (0.0-0.7); ABSOLUTE GRANULOCYTE CT 5.7 /CUMM (1.4-6.5); ABSOLUTE LYMPH COUNT 0.8 /CUMM (1.2-3.4); ABSOLUTE MONOCYTE COUNT 0.5 /CUMM (0.10-0.60); BASOPHIL % 0 % (0.0-2.0); EOSINOPHIL % 1.6 % (0-5); GRANULOCYTE % 80.3 % (42.2-75.2); HEMATOCRIT 26.5 % (37-47); MEAN CORPUSCULAR HGB CONC 30.7 G/DL (33.0-37.0); MEAN CORPUSCULAR VOLUME 78.2 FL (81.0-99.0); MEAN PLATELET VOLUME 8.4 FL (7.4-10.4); PLATELET COUNT 242 /CUMM (130-400); RBC DISTRIBUTION WIDTH 17.4 % (11.5-14.5); RED BLOOD CELL CT 3.39 /CUMM (4.20-5.40); WHITE BLOOD CELL COUNT 7.1 /CUMM (4.8-10.8)
[2016-06-27 08:13] VITALS: BP 120/60
--- NOTE | 2016-06-27 09:53 | PN- Housestaff ---
YADI STEPHENS,ROSALIE 06/27/16 0952: Subjective Follow-up For: Acute CHF exacerbation Complaints: no complaints Tele-Events Since Last Visit: Normal sinus rhythm, junctional rhythm, heart rate between 67-75, no any overnight events Subjective: Patient is seen, vital signs stable, she was short of breath in the morning and we increase the dose of Lasix. Review of Systems Constitutional: Reports: weakness. Respiratory: Reports: short of breath. Objective Last 24 Hrs of Vital Signs/I&O Vital Signs Date Time Temp Pulse Resp B/P Pulse O2 O2 Flow FiO2 Ox Delivery Rate 06/27 1640 93 Nasal 5.0L Cannula 06/27 1600 97.8 76 20 112/62 90 Nasal 5.0L Cannula 06/27 1017 87 Nasal 4.0L Cannula 06/27 0813 97.3 71 18 120/60 97 Nasal 4.0L Cannula 06/27 0800 94 Nasal 4.0L Cannula 06/27 0000 Nasal 4.0L Cannula 06/26 2200 98.0 75 20 110/60 95 Nasal 4.0L Cannula Intake & Output 06/27 1600 06/27 0800 / 0000 Intake Total 1100 300 Output Total 1900 600 700 Balance -800 -300 -700 Intake, Oral 1100 300 Number 1 Bowel Movements Output, Urine 1900 600 700 Patient 89.414 kg Weight Physical Exam General Appearance: Alert, Oriented X3, Cooperative Cardiovascular: Normal S1, Normal S2, murmur present Lungs: bilateral basilar crackles Abdomen: Soft, No Tenderness Extremities: No Clubbing, No Cyanosis, mild bilateral pedal edema Current Medications: Current Medications Sig/Olga Start time Last Medication Dose Route Stop Time Status Admin Acetaminophen 650 MG Q6P PRN 06/23 0930 AC PO Albuterol Sulfate 3 ML Q4H PRN 06/26 1030 AC 06/27 INH 1645 Alprazolam 0.5 MG TID PRN 06/22 204 AC 06/27 PO 06/29 Atorvastatin Calcium 20 MG 1700 06/26 1700 AC 06/27 PO 1643 Budesonide/ 1 PUF 1700 06/26 1700 AC 06/27 Formoterol Fumarate INH 1640 Diltiazem HCl 180 MG DAILY 06/23 1000 AC 06/27 PO 1127 Doxazosin Mesylate 4 MG QPM 06/22 2200 AC 06/27 PO 2118 Furosemide 20 MG ONCE ONE 06/27 1914 DC 06/27 IV 06/27 Furosemide 40 MG 0800 & 1700 06/23 0800 AC 06/27 IV 1641 Heparin Sodium 5,000 UNIT Q8 06/26 0600 AC 06/27 (Porcine) SC 212 Levothyroxine Sodium 0.025 MG DAILY AC 06/23 0700 AC 06/27 PO 0629 Morphine Sulfate 1 MG Q6P PRN 06/23 0930 AC IV Polyethylene Glycol 17 GM DAILY 06/24 1127 AC 06/27 PO 1127 Potassium Chloride 30 MEQ 06/23 1000 AC 06/23 PO 0956 Potassium Chloride 30 MEQ DAILY 06/23 1000 AC 06/27 PO 1126 Senna/Docusate Sodium 1 TAB DAILY 06/25 1000 AC 06/27 PO 1127 Tiotropium [place] 1 PUF QAM 06/23 1000 AC 06/27 INH 1126 Last 24 Hrs of Lab/Scotty Results Last 24 Hrs of Labs/Mics: Laboratory Tests 06/27/16 0642: Anion Gap 4 L, Estimated GFR > 60, BUN/Creatinine Ratio 35.0 H, Magnesium 2.2, CBC w Diff NO MAN DIFF REQ, RBC 3.39 L, MCV 78.2 L, MCH 24.0 L, RDW 17.4 H, MPV 8.4, Gran % 80.3 H, Lymphocytes % 10.6 L, Monocytes % 7.5, Eosinophils % 1.6, Basophils % 0 L, Absolute Granulocytes 5.7, Absolute Lymphocytes 0.8 L, Absolute Monocytes 0.5, Absolute Eosinophils 0.1, Absolute Basophils 0, PUBS MCHC 30.7 L Assessment/Plan Assessment: She is an older lady with a past history of hypertension, questionable arrhythmias, pulmonary embolism, emphysema is being evaluated for worsening lower extremity swelling, and shortness of breath likely due to congestive heart failure. plan: CHF exacerbation due to Severe aortic stenosis - * We added an extra dose of injection Lasix 20 milligrams on evening dose. * Continue furosemide 40 mg IV twice a day * Echocardiogram revealed critical aortic stenosis with gradient above 150, and valve area Less than 1. Likely to get a TAVR * Salt restricted diet. * Strict ins and outs with daily weights. * Continue tablet simvastatin 20mg. * Continue levothyroxine. Iron deficiency anemia - * Consider to start patient on iron pills history of pulmonary embolism and paroxysmal atrial fibrillation * INR -1.6 * Not on warfarin , as patient is in normal sinus rhythm emphysema * continue Spiriva. * TRC nebs. * Oxygen to keep SPO2 more than 92% DVT prophylaxis -ALP S/heparin Problem List: 1. Acute on chronic diastolic CHF (congestive heart failure) 2. Severe aortic stenosis 3. Bilateral lower extremity edema 4. Emphysema of lung Pain Ratin Pain Location: Not applicable Pain Goal: Remain pain free Pain Plan: Avoid NSAIDs Tomorrow's Labs & Rationales: CBC- Follow-up hemoglobin [id number] creatinine, electrolyte PT/INR-to follow-up coagulation profile DVT/Prophylaxis: mechanical, pharmacological MASTER MARROQUIN MD 06/27/16 1416: Attending MD Review Statement Attending Statement Attending MD Statement: examined this patient, discuss w/resident/PA/DROSS SKIMMER, agreed w/resident/PA/DROSS SKIMMER, reviewed EMR data (avail) Attending Assessment/Plan: Patient is more sleepy today. She reports shortness of breath, and lung exam has crackles to mid-lung bilaterally. Still requiring 4L NC. Plan - Continue IV Lasix, would increase afternoon dose today to 60mg IV and continue 40mg IV BID tomorrow - Continue TRC/nebulizer treatments - Continue Zocor - Continue Spiriva in the morning - Continue Symbicort - Follow cardiology recommendations - Coumadin has been stopped as patient has been in sinus rhythm - Continue to monitor INR - If patient continues with shortness of breath despite treatment consider CTA for PE, as patient has had a PE in the past and is now off Coumadin
--- NOTE | 2016-06-27 11:17 | PN- Student ---
Subjective Subjective: This morning Mrs. Meyer complains of difficulty breathing. She stated that its hard to take in a deep breath. She also stated that she had slight soreness around both ankles of 3/10 pain scale. No chest pain or abdominal pain was reported. She stated that she was still able to ambulate with assistance without difficulty and that she was having no problem with urination. Objective Objective: No acute distress, slightly SOB, somewhat groggy (just awoke from sleep). Telemetry: sinus rythm to accel. junctional 67-75 bpm w/ 1st AV block Cardio- s1 and s2 heard, systolic murmur present at aortic and mitral areas Lungs- crackles still heard in LLF that are slightly more prominent Abd- bowel sounds present, no pain/tenderness to palpation Skin- bruising noted on extremeties, most notably lower ext. around the ankles Extremeties- edema seems similar to last eval. possibly slight improvement, soreness noted to palpation of ankles bilaterally. Results Results: Intake & Output 06/27 1600 06/27 0800 06/27 0000 Intake Total 300 Output Total 600 700 Balance -300 -700 Intake, Oral 300 Output, Urine 600 700 Patient 197 lb Weight Laboratory Tests 06/27/16 0642: Anion Gap 4 L, Estimated GFR > 60, BUN/Creatinine Ratio 35.0 H, Magnesium 2.2, CBC w Diff NO MAN DIFF REQ, RBC 3.39 L, MCV 78.2 L, MCH 24.0 L, RDW 17.4 H, MPV 8.4, Gran % 80.3 H, Lymphocytes % 10.6 L, Monocytes % 7.5, Eosinophils % 1.6, Basophils % 0 L, Absolute Granulocytes 5.7, Absolute Lymphocytes 0.8 L, Absolute Monocytes 0.5, Absolute Eosinophils 0.1, Absolute Basophils 0, PUBS MCHC 30.7 L 06/26/16 0605: Anion Gap 8, Estimated GFR 59 L, BUN/Creatinine Ratio 34.4 H, TSH 2.210, Free T4 0.68 L, PT 17.5 H, INR 1.68 H, CBC w Diff NO MAN DIFF REQ, RBC 3.31 L, MCV 77.3 L, MCH 23.9 L, RDW 17.7 H, MPV 8.3, Gran % 74.5, Lymphocytes % 13.9 L, Monocytes % 9.9 H, Eosinophils % 1.7, Basophils % 0 L, Absolute Granulocytes 5.1, Absolute Lymphocytes 1.0 L, Absolute Monocytes 0.7 H, Absolute Eosinophils 0.1, Absolute Basophils 0, PUBS MCHC 31.0 L 06/25/16 0955: PT 21.5 H, INR 2.06 H 06/25/16 0630: Anion Gap 7, Estimated GFR 52 L, BUN/Creatinine Ratio 31.0 H, CBC w Diff NO MAN DIFF REQ, RBC 3.46 L, MCV 77.3 L, MCH 23.7 L, RDW 17.5 H, MPV 8.6, Gran % 69.1, Lymphocytes % 19.4 L, Monocytes % 8.6, Eosinophils % 2.4, Basophils % 0.5, Absolute Granulocytes 4.4, Absolute Lymphocytes 1.2, Absolute Monocytes 0.6 , Absolute Eosinophils 0.2, Absolute Basophils 0, PUBS MCHC 30.7 L Noted: Bicarb elevated to 45, 24 hr fluid balance is 1450, Mg 2.2 Assessment/Plan Assessment: Mrs. Meyer was admitted for sob and LE edema as a complication to CHF. She is currently awaiting transfer to [facility] for TAVR. She has been receiving heparin SQ to prep (INR-1.68). New pertinent complaint of difficulty breathing could be due to increase in fluid in lungs or possibly due to eval being done prior to nebulizer tx. will assess again after neb. Soreness in ankles most likely associated with bruises on LE bilaterally which patient attributed to possibly bumping her legs. Given she is on heparin it is likely. Patient was also noted to have elevated bicarb of 45 most likely attributed to emphysema. Problem List: 1. CHF/edema/SOB 2. Anemia 3. Emphysema 4. Bruising/soreness Plan: Pt. is awaiting transfer and possibly TAVR next week. Current tx plan is to prepare for the procedure as well as keeping her stable by monitoring I&Os, labs (INR,H/H), and physical symptoms. Problem List: 1. CHF/edema/SOB- pt. will most likely benefit from TAVR to relieve the pulmonary congestion and strain on the Right heart. She is still diuresing and the edema seems to be improving. Continue current breathing tx and monitor lung sounds and patients reports. continue bedside exercises/PT to aid in venous return. Continue Lasix dosage. 2. Anemia- H/H low but consistent with previous measurments, guaiac stools, continue to monitor labs and continue with iron supplementation. 3. Emphysema- continue previous tx plan 4. Bruising/soreness- monitor INR/PT/PTT. continue heparin dosing. soreness attributed to bruising but monitor for any increase in pain.
[2016-06-27 16:00] VITALS: BP 112/62
--- NOTE | 2016-06-27 22:53 | PN- Cardiology ---
Subjective Subjective: No new complaints. Remains short of breath but slightly less so. Objective Vital Signs and I&Os Vital Signs Date Time Temp Pulse Resp B/P Pulse O2 O2 Flow FiO2 Ox Delivery Rate 06/27 2200 92 Nasal 5.0L Cannula 06/27 1640 93 Nasal 5.0L Cannula 06/27 1600 97.8 76 20 112/62 90 Nasal 5.0L Cannula 06/27 1017 87 Nasal 4.0L Cannula 06/27 0813 97.3 71 18 120/60 97 Nasal 4.0L Cannula 06/27 0800 94 Nasal 4.0L Cannula 06/27 0000 Nasal 4.0L Cannula Intake & Output 06/27 1600 06/27 0806/27 0000 06/26 1600 06/26 0806/26 0000 Intake Total 2702 909 0159 100 Output Total 1900 351 371 3948 400 500 Balance -800 -300 -700 -150 -300 -500 Intake, Oral 3443 733 0330 100 Number 1 1 Bowel Movements Output, Urine 1900 749 368 1586 400 500 Patient 197 lb 194 lb Weight Physical Exam: Well-developed, overweight elderly female in no acute distress with nasal oxygen in place. Vital signs: See above. Lungs: Bibasilar crackles. Heart: S1, diminished S2, Grade 2-3/6 systolic ejection type murmur heard over the precordium and test at the base. Extremities: 2+ bilateral lower extremity edema. Assessment/Plan Assessment/Plan Symptomatic critical aortic stenosis in this elderly female with preserved left ventricular systolic function. The plan is for transfer to [facility] on Tuesday (06/28/2016) for TAVR. Fortunately, Mrs. Meyer remains hemodynamically stable with improved renal function and slightly improved anemia that needs close follow-up, given her high likelihood of concomitant coronary artery disease. Continue to follow-up H/H, BUN /creatinine, potassium and magnesium given her continued diuresis. Continue telemetry? Yes
--- NOTE | 2016-06-27 23:02 | RADIOLOGY REPORT ---
EXAMINATION: XR PORTABLE CHEST CLINICAL INFORMATION: Shortness of breath COMPARISON: 06/22/2016 TECHNIQUE: Portable portable AP view of the chest was obtained. FINDINGS: Examination is significantly limited secondary to obscuration of the upper chest by the patient's head and chin. No repeat film obtained. There is persistent elevation of the right hemidiaphragm. There is obscuration of the right hemidiaphragm. The contours of the cardiac silhouette are not well-visualized. Left lower lobe consolidation versus atelectasis is present. The left upper lobe, visualized portions, appears well aerated. IMPRESSION: Severely limited exam. Left lower lobe consolidation versus atelectasis. Right lower lobe consolidation versus atelectasis.
[2016-06-28 01:16] VITALS: BP 122/58
--- NOTE | 2016-06-28 02:20 | Event Note ---
Event Note Event Note: P.T desat after she received Nebs treatment, her O2 sat was 87-88 % on 4L O2, on exam there are fine crackles, RT came and p.t was placed on non-rebreather and CXR stat. her O2 sat improve to be >94%. the CXR showed Left lower lobe consolidation versus atelectasis. Right lower lobe consolidation versus atelectasis. Intensive spirometry. after reassessment the patient breathing status did not improve and she was still on non-rebreather so we order CTA to R/ O PE. ABG done. she was placed on Bipap will repeat ABG. the CTA came back -ve for PE. it showed Left lower lobe consolidation. Marked elevation to the right hemidiaphragm with right lower and middle lobe atelectasis. she was started on Vanc + Ceftaz Abx. blood and sputum Cx orderd.
--- NOTE | 2016-06-28 04:01 | CT SCAN REPORT ---
EXAMINATION: CT PULMONARY EMBOLISM STUDY CLINICAL INFORMATION: Shortness of breath. Desaturation. COMPARISON: 06/27/2016. TECHNIQUE: Contiguous helical images of the chest were obtained following the administration of IV contrast. Multiplanar reconstructions were performed. MIPS were obtained and reviewed. DLP: 535 mGy-cm. CONTRAST: 75 mL of Optiray 350 were strategy manager without incident. FINDINGS: The examination is limited secondary to the patient's limited ability to cooperate for the exam. The heart is mildly enlarged, but stable. There is no pericardial effusion. The great vessels are unremarkable. Specifically, there is no pulmonary arterial filling defect. There is no CT evidence for pulmonary embolism. There are no chest wall masses. Review of lung windows demonstrates that there are neither pleural effusions nor pneumothoraces. There is marked elevation of the right hemidiaphragm. There is right middle and lower lobe atelectasis. There is a retrocardiac consolidation. Limited evaluation of the upper abdomen demonstrates that the liver is of normal size and attenuation without focal lesions. Normal adrenal glands are identified. IMPRESSION: No CT evidence for pulmonary embolism. Left lower lobe consolidation. Marked elevation to the right hemidiaphragm with right lower and middle lobe atelectasis.
[2016-06-28 05:27] LABS: ABSOLUTE BASOPHIL COUNT 0 /CUMM (0.0-0.2); ABSOLUTE EOSINOPHIL COUNT 0.1 /CUMM (0.0-0.7); ABSOLUTE GRANULOCYTE CT 5.7 /CUMM (1.4-6.5); ABSOLUTE LYMPH COUNT 0.5 /CUMM (1.2-3.4); ABSOLUTE MONOCYTE COUNT 0.5 /CUMM (0.10-0.60); BASOPHIL % 0 % (0.0-2.0); EOSINOPHIL % 1.7 % (0-5); GRANULOCYTE % 83.6 % (42.2-75.2); HEMATOCRIT 24.6 % (37-47); MEAN CORPUSCULAR HGB 23.6 PG (27.0-31.0); MEAN CORPUSCULAR HGB CONC 30.6 G/DL (33.0-37.0); MEAN CORPUSCULAR VOLUME 77.1 FL (81.0-99.0); MEAN PLATELET VOLUME 7.8 FL (7.4-10.4); PLATELET COUNT 246 /CUMM (130-400); RBC DISTRIBUTION WIDTH 17.3 % (11.5-14.5); RED BLOOD CELL CT 3.19 /CUMM (4.20-5.40); WHITE BLOOD CELL COUNT 6.8 /CUMM (4.8-10.8)
[2016-06-28 05:33] LABS: PT 12.9 SEC (9.4-12.5)
--- NOTE | 2016-06-28 07:28 | PN- Housestaff ---
Subjective Follow-up For: - Severe aortic stenosis - CHF Complaints: no complaints Tele-Events Since Last Visit: Normal sinus rhythm, heart rate 60s-80s, no overnight events were noted. Subjective: The patient was in mild distess this am. She was resposive to verbal stimuli, but was more sleepy compared to Tuesday. Currently on BiPAP. Vital signs stable overnight. She was afebrile, MAXIMUM TEMPERATURE 99.1, and blood pressure was stable. Oxygen saturation above 94% on BiPAP. As per the note, she was found to be hypoxic during the night, and required the use of BiPAP. Continues to be on BiPAP this a.m. Review of Systems Constitutional: Reports: see HPI. Objective Last 24 Hrs of Vital Signs/I&O Vital Signs Date Time Temp Pulse Resp B/P Pulse O2 O2 Flow FiO2 Ox Delivery Rate 06/28 0605 66 92 06/28 0340 75 93 06/28 0116 99.1 87 24 122/58 94 Aerosol Mask 06/28 0000 98 Non 10L ReBreather 06/27 2235 84 Nasal 5.0L Cannula 06/27 2200 92 Nasal 5.0L Cannula 06/27 1640 93 Nasal 5.0L Cannula 06/27 1600 97.8 76 20 112/62 90 Nasal 5.0L Cannula 06/27 1017 87 Nasal 4.0L Cannula 06/27 0813 97.3 71 18 120/60 97 Nasal 4.0L Cannula 06/27 0800 94 Nasal 4.0L Cannula Intake & Output 06/28 0800 06/28 0000 06/27 1600 Intake Total 200 1100 Output Total 040 567 6875 Balance -300 -250 -800 Intake, Oral 200 1100 Number 1 Bowel Movements Output, Urine 558 289 0282 Physical Exam General Appearance: No Acute Distress Other Physical Findings: General Exam: AAOx1, Mild distress, sleepy Skin: No rashes, no breakdown HEENT: PERRLA, EOMI Neck: Supple, No JVD No cervical lymphadenopathy CVS: Reg Rate, Normal S1,S2, systolic murmur Resp: Normal air entry, crackles b/l Abdomen: Soft, No tenderness, Normal Bowel Sounds Neuro: Normal Speech, Strength 5/5 b/l x 4 extremities, Sensation intact, CN III -XII NL, Reflexes 2+ Extremities: No cyanosis, pedal edema2+ Current Medications: Current Medications Sig/Olga Start time Last Medication Dose Route Stop Time Status Admin Acetaminophen 650 MG Q6P PRN 06/23 0830 AC PO Albuterol Sulfate 3 ML Q4H PRN 06/26 1030 AC 06/27 INH 2209 Alprazolam 0.5 MG TID PRN 06/22 2044 AC 06/27 PO 06/29 Atorvastatin Calcium 20 MG 1700 06/26 1700 AC 06/27 PO 1643 Budesonide/ 1 PUF 1700 06/26 1700 AC 06/27 Formoterol Fumarate INH 1640 Ceftazidime 1,000 MG Q8H 06/28 0500 AC 06/28 IV 0614 Diltiazem HCl 180 MG DAILY 06/23 1000 AC 06/27 PO 1127 Doxazosin Mesylate 4 MG QPM 06/22 2200 AC 06/27 PO 2118 Furosemide 20 MG ONCE ONE 06/27 1914 DC 06/27 IV 06/28 1915 195 Furosemide 40 MG 0800 & 1700 06/23 0800 AC 06/27 IV 1641 Heparin Sodium 5,000 UNIT Q8 06/26 0600 AC 06/28 (Porcine) SC 0615 Levothyroxine Sodium 0.025 MG DAILY AC 06/23 0700 AC 06/27 PO 0629 Morphine Sulfate 1 MG Q6P PRN 06/23 0830 AC IV Polyethylene Glycol 17 GM DAILY 06/24 1127 AC 06/27 PO 1127 Potassium Chloride 30 MEQ TUESDAY WED FRIDAY 06/23 1000 AC 06/23 PO 0956 Potassium Chloride 30 MEQ DAILY 06/23 1000 AC 06/27 PO 1126 Senna/Docusate Sodium 1 TAB DAILY 06/25 1000 AC 06/27 PO 1127 Tiotropium [place] 1 PUF QAM 06/23 1000 AC 06/27 INH 1126 Vancomycin HCl 1,000 MG Q24H 06/28 0500 AC 06/28 Sodium Chloride 250 ML IV 0615 Last 24 Hrs of Lab/Scotty Results Last 24 Hrs of Labs/Mics: Laboratory Tests 06/28/16 0615: pH 7.40, pCO2 70 *H, pO2 79 L, HCO3 42 H, ABG O2 Sat (Measured) 95.0 L, P-50 (Temp Corrected) N, Carboxyhemoglobin 1.5, O2 Concentration % .50, Respiration Rate 24, O2 Delivery Method BIPAP, Vent Mode ST, Expiratory Pressure 6, Inspiratory Pressure 18, Phlebotomy Draw Site RIGHT RADIAL 06/28/16 0500: Anion Gap 7, Estimated GFR > 60, BUN/Creatinine Ratio 32.5 H, PT 12.9 H, INR 1.23 H, CBC w Diff MAN DIFF ORDERED, RBC 3.19 L, MCV 77.1 L, MCH 23.6 L, RDW 17.3 H, MPV 7.8, Gran % 83.6 H, Lymphocytes % 7.7 L, Monocytes % 7.0, Eosinophils % 1.7, Basophils % 0 L, Absolute Granulocytes 5.7, Segmented Neutrophils 84 H, Absolute Lymphocytes 0.5 L, Lymphocytes 7 L, Monocytes 4, Absolute Monocytes 0.5, Eosinophils 3, Absolute Eosinophils 0.1, Basophils 2, Absolute Basophils 0, Nucleated RBCs 1 H, Platelet Estimate ADEQUATE, Polychromasia 1+, Hypochromic-Microcytic 1+, Poikilocytosis 2+, Basophilic Stippling 1+, Anisocytosis 1+, Microcytic Cells 1+, Ovalocytes 1+, Stomatocytes 1+, Elliptocytes FEW, PUBS MCHC 30.6 L, Fld Total RBCs Counted 100 06/28/16 0300: pH 7.26 *L, pCO2 98 *H, pO2 121 H, HCO3 43 H, ABG O2 Sat (Measured) 98.0, P-50 (Temp Corrected) N, Carboxyhemoglobin 0.8 L, O2 Concentration % .60, O2 Delivery Method PRB, Phlebotomy Draw Site RIGHT BRACHIAL Microbiology 06/28 0547 BLOOD: Blood Culture - RECD 06/28 0500 BLOOD: Blood Culture - RECD 06/28 417 LOWER RESP: Respiratory Culture - COLB 06/28 417 LOWER RESP: Gram Stain - COLB Assessment/Plan Assessment: She is an older lady with a past history of hypertension, questionable arrhythmias, pulmonary embolism, emphysema is being evaluated for worsening lower extremity swelling, and shortness of breath likely due to congestive heart failure. Below is the problem list and plan: CHF exacerbation due to Severe aortic stenosis - * Continue furosemide 40 mg IV twice a day * Echocardiogram revealed critical aortic stenosis with gradient above 150, and valve area Less than 1. Likely to get a TAVR * Salt restricted diet. * Strict ins and outs with daily weights. * Continue tablet simvastatin 20mg. * Continue levothyroxine. * May consider rechecking ABG, and disconitue BiPAP. Pulmonary cosult for advice. Iron deficiency anemia - * May start Iron supplementation. history of pulmonary embolism and paroxysmal atrial fibrillation * Not on warfarin , as patient is in normal sinus rhythm emphysema * continue Spiriva. * TRC nebs. * Oxygen to keep SPO2 more than 92% DVT prophylaxis -ALP S/heparin Problem List: 1. Emphysema of lung 2. Bilateral lower extremity edema Pain Ratin Pain Location: unable to assess Pain Goal: Pain 4 or less Pain Plan: tylenol prn Tomorrow's Labs & Rationales: cbc bep
[2016-06-28] MEDS ORDERED: SYNTHROID25 MCG PO (08:01)
[2016-06-28 08:03] VITALS: BP 110/60
--- NOTE | 2016-06-28 08:07 | Patient Discharge Instructions ---
Discharge Instructions General Discharge Information You were seen/treated for: CHF Hypothyroidism Acute respiratory Failure Special Instructions: 1. Please follow up with your telephoto installer Dr. Avila, and your cardiology team at [facility] after your valve replacement. 2. Please note that your warfarin was held in order to minimize risk for your valve replacement. Please restart it once cleared by the team at [facility]. 3. Please follow up with Dr. Nunez, endocrinology, for continued management of your new hypothyroidism. Please follow up with her in 4 weeks approximately. 4. Please follow up with Dr. Russell in 1-2 weeks of discharge for continued care. Diet Continue normal diet: No Recommended Diet: Heart Healthy Acute Coronary Syndrome Inclusion Criteria At DC or during hospital stay patient has or had the following: ACS DIAGNOSIS No Discharge Core Measures Meds if any: Prescribed or Continued at Discharge Meds if any: NOT Prescribed or Continued at Discharge Congestive Heart Failure Inclusion Criteria At DC or during hospital stay patient has or had the following: CHF DIAGNOSIS Yes Discharge Core Measures Meds if any: Prescribed or Continued at Discharge Meds if any: NOT Prescribed or Continued at Discharge Cerebrovascular accident Inclusion Criteria At DC or during hospital stay patient has or had the following: CVA/TIA Diagnosis No Discharge Core Measures Meds if any: Prescribed or Continued at Discharge Meds if any: NOT Prescribed or Continued at Discharge Venous thromboembolism Inclusion Criteria VTE Diagnosis No VTE Type NONE VTE Confirmed by (Test) NONE Discharge Core Measures - Per Current guidelines, there needs to be overlap - treatment for the first 5 days of Warfarin therapy. - If discharged on Warfarin prior to 5 days of - overlap therapy, the patient will need to be - assessed for post discharge needs including - *Post discharge parental anticoagulation - *Warfarin and/or parental anticoagulation education - *Follow up date to check INR post discharge At least 5 days overlap therapy as Inpatient No Meds if any: Prescribed or Continued at Discharge Note: Overlap Therapy is Warfarin and Anticoagulant Meds if any: NOT Prescribed or Continued at Discharge
--- NOTE | 2016-06-28 09:26 | PN- Student ---
Subjective Subjective: patient said she feels worse than yesterday. more difficulty breathing today ( desaturated overnight) Soreness around her ankles has resolved. no complaints of pain elsewhere. Objective Objective: patient seemed somewhat flustered yet not distressed. She was able to speak although muffled somewhat by bipap mask. She desated last night and was placed on bipap, CTA and chest x-ray was ordered which showed left lower lobe consolidation and possible right lower lobe consolidation (started on vancomycin and ceftaz). Blood culture, respiratory culture, and gram stain ordered. awaiting results. Telemetry: 7 beat run around 10pm last night, NS to AJ w/ PAC and PVC 1st degree heart block rate 66-86. Labs: 24 hr fluid- -1650, H/H- 7.5/24.6, PT-12.9, INR-1.23, ABG: pH- 7.4, pO2-79 , pCO2-70, HCO3-42 PE: Skin-bruising noted over extremities but has improved since yesterday Ext- edema 2+, not much improvement, soreness around ankles gone, no pain or tenderness to palpation, Homans negative Heart- S1 and S2, systolic murmurs present in aortic and mitral area Lungs- crackles heard in lower lung lobes bilaterally, no change. Difficult to assess due to bipap Abd.- no pain or tenderness to palpation. Results Results: Vital Signs Date Time Temp Pulse Resp B/P Pulse O2 O2 Flow FiO2 Ox Delivery Rate 06/28 0906 94 BIPAP 50% 06/28 0905 94 06/28 0803 97.7 64 24 110/60 91 BIPAP 06/28 0605 66 92 06/28 0340 75 93 06/28 0116 99.1 87 24 122/58 94 Aerosol Mask 06/28 0000 98 Non 10L ReBreather 06/27 2235 84 Nasal 5.0L Cannula 06/27 2200 92 Nasal 5.0L Cannula 06/27 1640 93 Nasal 5.0L Cannula 06/27 1600 97.8 76 20 112/62 90 Nasal 5.0L Cannula 06/27 1017 87 Nasal 4.0L Cannula Intake & Output 06/28 1600 06/28 0800 06/28 0000 Intake Total 200 Output Total 300 450 Balance -300 -250 Intake, Oral 200 Output, Urine 300 450 Laboratory Tests 06/28/16 0615: pH 7.40, pCO2 70 *H, pO2 79 L, HCO3 42 H, ABG O2 Sat (Measured) 95.0 L, P-50 (Temp Corrected) N, Carboxyhemoglobin 1.5, O2 Concentration % .50, Respiration Rate 24, O2 Delivery Method BIPAP, Vent Mode ST, Expiratory Pressure 6, Inspiratory Pressure 18, Phlebotomy Draw Site RIGHT RADIAL 06/28/16 0500: Anion Gap 7, Estimated GFR > 60, BUN/Creatinine Ratio 32.5 H, PT 12.9 H, INR 1.23 H, CBC w Diff MAN DIFF ORDERED, RBC 3.19 L, MCV 77.1 L, MCH 23.6 L, RDW 17.3 H, MPV 7.8, Gran % 83.6 H, Lymphocytes % 7.7 L, Monocytes % 7.0, Eosinophils % 1.7, Basophils % 0 L, Absolute Granulocytes 5.7, Segmented Neutrophils 84 H, Absolute Lymphocytes 0.5 L, Lymphocytes 7 L, Monocytes 4, Absolute Monocytes 0.5, Eosinophils 3, Absolute Eosinophils 0.1, Basophils 2, Absolute Basophils 0, Nucleated RBCs 1 H, Platelet Estimate ADEQUATE, Polychromasia 1+, Hypochromic-Microcytic 1+, Poikilocytosis 2+, Basophilic Stippling 1+, Anisocytosis 1+, Microcytic Cells 1+, Ovalocytes 1+, Stomatocytes 1+, Elliptocytes FEW, PUBS MCHC 30.6 L, Retic Count 2.40 H, Fld Total RBCs Counted 100 06/28/16 0300: pH 7.26 *L, pCO2 98 *H, pO2 121 H, HCO3 43 H, ABG O2 Sat (Measured) 98.0, P-50 (Temp Corrected) N, Carboxyhemoglobin 0.8 L, O2 Concentration % .60, O2 Delivery Method PRB, Phlebotomy Draw Site RIGHT BRACHIAL 06/27/16 0642: Anion Gap 4 L, Estimated GFR > 60, BUN/Creatinine Ratio 35.0 H, Magnesium 2.2, CBC w Diff NO MAN DIFF REQ, RBC 3.39 L, MCV 78.2 L, MCH 24.0 L, RDW 17.4 H, MPV 8.4, Gran % 80.3 H, Lymphocytes % 10.6 L, Monocytes % 7.5, Eosinophils % 1.6, Basophils % 0 L, Absolute Granulocytes 5.7, Absolute Lymphocytes 0.8 L, Absolute Monocytes 0.5, Absolute Eosinophils 0.1, Absolute Basophils 0, PUBS MCHC 30.7 L 06/26/16 0605: Anion Gap 8, Estimated GFR 59 L, BUN/Creatinine Ratio 34.4 H, TSH 2.210, Free T4 0.68 L, PT 17.5 H, INR 1.68 H, CBC w Diff NO MAN DIFF REQ, RBC 3.31 L, MCV 77.3 L, MCH 23.9 L, RDW 17.7 H, MPV 8.3, Gran % 74.5, Lymphocytes % 13.9 L, Monocytes % 9.9 H, Eosinophils % 1.7, Basophils % 0 L, Absolute Granulocytes 5.1, Absolute Lymphocytes 1.0 L, Absolute Monocytes 0.7 H, Absolute Eosinophils 0.1, Absolute Basophils 0, PUBS MCHC 31.0 L 06/25/16 0955: PT 21.5 H, INR 2.06 H Microbiology 06/28 05 BLOOD: Blood Culture - RECD 06/28 0500 BLOOD: Blood Culture - RECD 06/28 417 LOWER RESP: Respiratory Culture - COLB 06/28 417 LOWER RESP: Gram Stain - COLB Assessment/Plan Assessment: Patient desaturated last night and was placed on bipap. ABG ordered showing hypoxemia and hypercarbia. Left lower lobe consolidation seen on chest xray and CTA, started on abx therapy. Edema has not improved much since yesterday although patient is diuresing well. Still awaiting transfer for TAVR. Problem list: 1.SOB/Lower extremity edema 2.Left lower lobe consolidation 3.Emphysema Plan: since patient desaturated last night she is no longer stable for transfer to [place] for TAVR. She has been transferred to ICU for further monitoring. Patients family has been notified and will be available for discussion of changes to treatment plan. Problem list: 1.SOB/Lower extremity edema- symptoms most likely due to CHF. Patient awaiting transfer for TAVR to correct critical aortic stenosis. Symptoms should improve following procedure. 2.Left lower lobe consolidation- possible Pneumonia, awaiting cultures and gram stain. started abx therapy 3.Emphysema- continue home medication regiment, unless changed in ICU
--- NOTE | 2016-06-28 10:19 | PN- Cardiology ---
Subjective Subjective: Patient has become unstable over the last few hours. She has become hypoxic and hypercapnic. Her CAT scan of the chest shows multiple pulmonary abnormalities but no recurrent pulmonary embolism. I've asked Pb Patel MD to see her and to transfer her to the intensive care unit for more intensive pulmonary evaluation and treatment including possible intubation. The family wishes the patient to be transferred to [facility], and I have arranged this, but we will have to hold her transfer to [place] at this time. Objective Vital Signs and I&Os Vital Signs Date Time Temp Pulse Resp B/P Pulse O2 O2 Flow FiO2 Ox Delivery Rate 06/28 905 94 BIPAP 50% 06/28 09 94 06/28 0803 97.7 64 24 110/60 91 BIPAP 06/28 0605 66 92 06/28 0340 75 93 06/28 0116 99.1 87 24 122/58 94 Aerosol Mask 06/28 0000 98 Non 10L ReBreather 06/27 2235 84 Nasal 5.0L Cannula 06/27 220 92 Nasal 5.0L Cannula 06/27 1640 93 Nasal 5.0L Cannula 06/27 1600 97.8 76 20 112/62 90 Nasal 5.0L Cannula Intake & Output 06/28 1600 06/28 0800 06/28 0000 06/27 1600 06/27 0800 06/27 0000 Intake Total 200 1100 300 Output Total 520 766 6599 600 700 Balance -300 -250 -800 -300 -700 Intake, Oral 200 1100 300 Number 1 Bowel Movements Output, Urine 038 923 9128 600 700 Patient 197 lb Weight Physical Exam: Less responsive than previous Chest reveals poor air movement on BiPAP Heart reveals prominent systolic ejection murmur at base Current Medications: Current Medications Sig/Olga Start time Last Medication Dose Route Stop Time Status Admin Acetaminophen 650 MG Q6P PRN 06/23 0930 AC PO Albuterol Sulfate 3 ML Q4H PRN 06/26 1030 AC 06/27 INH 2209 Alprazolam 0.5 MG TID PRN 06/22 204 AC 06/27 PO 06/29 Atorvastatin Calcium 20 MG 1700 06/26 1700 AC 06/27 PO 1643 Budesonide/ 1 PUF 1700 06/26 1700 AC 06/27 Formoterol Fumarate INH 1640 Ceftazidime 1,000 MG Q8H 06/28 0500 AC 06/28 IV 0614 Diltiazem HCl 180 MG DAILY 06/23 1000 AC 06/27 PO 1127 Doxazosin Mesylate 4 MG QPM 06/22 2200 AC 06/27 PO 2118 Furosemide 20 MG ONCE ONE 06/27 1914 DC 06/27 IV 06/27 Furosemide 40 MG 0800 & 1700 06/23 0800 AC 06/28 IV 0815 Heparin Sodium 5,000 UNIT Q8 06/26 0600 AC 06/28 (Porcine) SC 0615 Levothyroxine Sodium 0.025 MG DAILY AC 06/23 0700 AC 06/27 PO 0629 Morphine Sulfate 1 MG Q6P PRN 06/23 0930 AC IV Polyethylene Glycol 17 GM DAILY 06/24 1127 AC 06/27 PO 1127 Potassium Chloride 30 MEQ TUESDAY WED FRIDAY 06/23 1000 AC 06/23 PO 0956 Potassium Chloride 30 MEQ DAILY 06/23 1000 AC 06/27 PO 1126 Senna/Docusate Sodium 1 TAB DAILY 06/25 1000 AC 06/27 PO 1127 Tiotropium [place] 1 PUF QAM 06/23 1000 AC 06/27 INH 1126 Vancomycin HCl 1,000 MG Q24H 06/28 0500 AC 06/28 Sodium Chloride 250 ML IV 0615 Results Last 48 Hrs of Labs/Mics: Laboratory Tests 06/28/16 0615: pH 7.40, pCO2 70 *H, pO2 79 L, HCO3 42 H, ABG O2 Sat (Measured) 95.0 L, P-50 (Temp Corrected) N, Carboxyhemoglobin 1.5, O2 Concentration % .50, Respiration Rate 24, O2 Delivery Method BIPAP, Vent Mode ST, Expiratory Pressure 6, Inspiratory Pressure 18, Phlebotomy Draw Site RIGHT RADIAL 06/28/16 0500: Anion Gap 7, Estimated GFR > 60, BUN/Creatinine Ratio 32.5 H, PT 12.9 H, INR 1.23 H, CBC w Diff MAN DIFF ORDERED, RBC 3.19 L, MCV 77.1 L, MCH 23.6 L, RDW 17.3 H, MPV 7.8, Gran % 83.6 H, Lymphocytes % 7.7 L, Monocytes % 7.0, Eosinophils % 1.7, Basophils % 0 L, Absolute Granulocytes 5.7, Segmented Neutrophils 84 H, Absolute Lymphocytes 0.5 L, Lymphocytes 7 L, Monocytes 4, Absolute Monocytes 0.5, Eosinophils 3, Absolute Eosinophils 0.1, Basophils 2, Absolute Basophils 0, Nucleated RBCs 1 H, Platelet Estimate ADEQUATE, Polychromasia 1+, Hypochromic-Microcytic 1+, Poikilocytosis 2+, Basophilic Stippling 1+, Anisocytosis 1+, Microcytic Cells 1+, Ovalocytes 1+, Stomatocytes 1+, Elliptocytes FEW, PUBS MCHC 30.6 L, Retic Count 2.40 H, Fld Total RBCs Counted 100 06/28/16 0300: pH 7.26 *L, pCO2 98 *H, pO2 121 H, HCO3 43 H, ABG O2 Sat (Measured) 98.0, P-50 (Temp Corrected) N, Carboxyhemoglobin 0.8 L, O2 Concentration % .60, O2 Delivery Method PRB, Phlebotomy Draw Site RIGHT BRACHIAL 06/27/16 0642: Anion Gap 4 L, Estimated GFR > 60, BUN/Creatinine Ratio 35.0 H, Magnesium 2.2, CBC w Diff NO MAN DIFF REQ, RBC 3.39 L, MCV 78.2 L, MCH 24.0 L, RDW 17.4 H, MPV 8.4, Gran % 80.3 H, Lymphocytes % 10.6 L, Monocytes % 7.5, Eosinophils % 1.6, Basophils % 0 L, Absolute Granulocytes 5.7, Absolute Lymphocytes 0.8 L, Absolute Monocytes 0.5, Absolute Eosinophils 0.1, Absolute Basophils 0, PUBS MCHC 30.7 L Recent Imaging Studies: IMPRESSION: No CT evidence for pulmonary embolism. Left lower lobe consolidation. Marked elevation to the right hemidiaphragm with right lower and middle lobe atelectasis. DICTATED BY: CHANI GUTIERRES MD DATE/TIME DICTATED:06/28/16349 HYPERION ADMINISTRATOR:NAOMI DATE/TIME TRANSCRIBED:06/28/16349 Assessment/Plan Assessment/Plan The patient has deteriorated from a pulmonary standpoint. We are moving her to the intensive care unit and pulmonary is on board. I have the put a hold on the transfer to [place]. Continue telemetry? Not applicable
--- NOTE | 2016-06-28 10:30 | NUR ---
Patient on BIPAP. Per Dr Patel transfer to [facility] for hypercarbic respiratory failure. Family at bedside, Dr Patel reviewed reasoning for the transfer. Patient aware as well. Patient alert oriented x3. On tele, NSR 60's. Report to be given to Lizzy Main RN in [facility]. Family and Patient aware of new room 106.
--- NOTE | 2016-06-28 10:49 | Transfer of Care Summary ---
Hospital Course Course Hospital Course: Ms Meyer is an 85-year-old woman who was known to be in her usual state of health until 6 weeks ago prior to admission. She has a past history of macular degeneration, atrial fibrillation, hypertension hyperlipidemia, pulmonary embolism (dx'ed 2013), emphysema, breast cancer s/p resection, recent multiple hospital admissions for hemorrhages. She was brought to [place] [facility] for evaluation of worsening lower extremity swelling 6 weeks, and worsening shortness of breath 1 week prior to admission. At the time of admission, vitals-temperature 96.7, pulse rate 78, respiration 22 , blood pressure 136/64, 95% on nasal cannula (4 L supplemental oxygen-baseline) . Lab findings indicated WBC 6.5, hemoglobin 8.6 (hemoglobin 11.6 04/09/2016), hematocrit 28.3, MCV 77 (microcytic), RDW 17.4. Electrolytes-sodium 134, potassium 3.7, chloride 90, bicarbonate 39 (likely due to furosemide use and/or emphysema). Normal liver function, renal function serum creatinine 0.9, proBNP 2830. INR 2.37 (on Coumadin). No JVD, or abnormal lung sounds on auscultation. Radiological findings-step x-ray did not reveal any interstitial edema. Echocardiogram revealed severe aortic stenosis, and elevated right ventricular pressure. Differential diagnosis: #1 CHF exacerbation Below is the problem list and plan: #1 lower extremity swelling, shortness of breath-it was likely due to CHF exacerbation. Worsening clinical status could be multifactorial-worsening aortic stenosis, emphysema/pulmonary embolism leading to increased right heart strain. She was continued on intravenous furosemide 40 mg twice a day, with sligh improvement in symptoms and negative fluid balance initially. Serial electrocardiograms and cardiac enzymes did not reveal any abnormalities. Considering her severe aortic stenosis and other risk factors, arrangements to be transferred to [place] for a TAVR. On day 4, of the stay in the hospital, respiratory status deteriorated. She was found to be hypoxic and hypercarbic, for which she was placed on BiPAP. After discussing with the regasification plant operator and stencil printer it was deemed prudent for the patient to be transferred to intensive care unit for closer monitoring. #2 anemia-low H&H, microcytic likely due to iron deficiency or blood loss. Patient has a history of severe aortic stenosis and AVMs are in the differentials. Hemoglobin 8.6--> 7.5. Guaiac negative. #3 history of pulmonary embolism- patient was continued on Coumadin. Since the patient remained in normal sinus rhythm while in the stay in the hospital, Coumadin was discontinued briefly in anticipation of procedure. When the patient was in respiratory distress, a CTA was obtained which did not reveal any evidence of pulmonary embolism. #4 emphysema-she was continued on home dose of Spiriva and Symbicort. Worsening respiratory status, could also be due to emphysema. ABG before and after BiPAP placement pH 7.26, PCO2 98---> pH 7.40, PCO2 70. Slight improvement in respiratory status was observed. #5. Abnormal CT findings-suggestive of consolidation, but seems unlikely. Patient did not have any fever, nor mount an acute immune response. Currently on ceftazidime and vancomycin. Pertinent Lab Results: ECHOCARDIOGRAM Moderate to severe concentric left ventricular hypertrophy. Normal left ventricular ejection fraction visually estimated at >65 Abnormal relaxation filling pattern of the left ventricle for age (stage 1 diastolic dysfunction). Mild to moderate left atrial dilatation. Moderate thickening/calcification of the mitral valve leaflets. Moderate mitral annular calcification. Mild mitral regurgitation. Diffuse thickening of the aortic valve cusps with reduced excursion. Critical aortic stenosis. Mild aortic regurgitation. Right ventricular systolic pressure estimated to be elevated at 45- 50 mmHg CAT - CTA CHEST-PULMONARY EMBOLISM 06/28/[address] evidence for pulmonary embolism. Left lower lobe consolidation. Marked elevation to the right hemidiaphragm with right lower and middle lobe atelectasis. Assessment/Plan: as above Attending MD Review Statement Documenting Attending: RODNEY STEPHENS,HUMPHREY Alex
--- NOTE | 2016-06-28 10:56 | Cons- CRCU ---
KD ZAVALA 06/28/16 1056: General Information and HPI Consulting Request Date of Consult: 06/28/16 Requested By: Dr. Gavin Reason for Consult: hypercarbic respiratory failure History of Present Illness: Ms Meyer is an 85-year-old woman with past history of macular degeneration, atrial fibrillation, hypertension, hyperlipidemia, pulmonary embolism (dx'ed 2013), emphysema, breast cancer s/p resection, recent multiple hospital admissions for hemorrhages was known to be in her usual state of health until 6 weeks prior to admissio and was brought in to [place] ER for worsening LE edema X 6 weeks and worsening SOB X1 week prior to admission alongwith reported weight gain approx 20 pounds in last 3 months. She was previously seen by PCP and her diuretics were adjusted on couple occassions.She also c/o palpitations which were chronic and worsening SOB. However she denied any chest pain, orthopnea, PND,lightheadedness, visual changes,fever, melena, no brbpr, no abdominal pain, no nausea, vomiting or diarrhea or urinary symptoms. As per the daughter, Ms Delgadillo was diagnosed with arrhythmias(nature unknown) for which she was on Xarelto and had a GI bleed for which she was admitted to [facility] requiring packed red blood cells transfusion. Subsequently, she subsequently developed a pulmonary embolism (2013) and was started on Coumadin. [facility] sees Dr. Travis Canada (engineering professionals), Dr. Us (grapple crew leader), Dr. Russell (primary care physician). No recent echocardiogram. Lives at a [facility] [place]. She was intially admitted to telemetry floor for treatment of acute CHF exacerbation, however her respiratory status worsened beggining 06/27/16 and was transferred to ICU 2/ to worsening SOB , laboured breathing and worsening mental status. Allergies/Medications Allergies: Coded Allergies: cat dander (TRIGGERS ASTHMA 03/28/16) Uncoded Allergies: SMOKE (TRIGGERS ASTHMA 03/28/16) Home Med List: Alprazolam 0.5 MG TABLET 0.5 TAB PO PRN ANXIETY (Reported) Diltiazem HCl (Cartia Xt) 180 MG CAP.ER.24H 1 CAP PO QAM HEART/BP (Reported) Doxazosin Mesylate 4 MG TABLET 1 TAB PO QPM BP (Reported) Ezetimibe/Simvastatin (Vytorin 10-20 MG Tablet) 10 MG-20 MG TABLET 1 TAB PO QPM CHOLESTEROL (Reported) Fluticasone/Salmeterol (Advair 250-50 Diskus) 250 MCG-50 MCG/DOSE BLST.W.DEV 1 PUF INH QAM COPD (Reported) Furosemide (Lasix) 40 MG TABLET 1 TAB PO AD DIURETIC (Reported) Furosemide (Lasix) 80 MG TABLET 1 TAB PO Tuesday DIURETIC (Reported ) Potassium Chloride (Klor-Con 10) 10 MEQ TABLET.ER 3 TAB PO DAILY SUPPLEMENT ( Reported) Potassium Chloride 20 MEQ TAB.ER.PRT 1.5 TAB PO Tuesday SUPPLEMENT (Reported) Tiotropium [place] (Spiriva) 18 MCG CAP.W.DEV 1 CAP INH QAM COPD/ASTHMA/ EMPHYSEMA (Reported) Warfarin Sodium (Coumadin) 5 MG TABLET 1 TAB PO DAILY BLOOD THINNER (Reported ) Warfarin Sodium 2 MG TABLET 1 TAB PO Tuesday BLOOD THINNER ( Reported) Current Medications: Current Medications Sig/Olga Start time Last Medication Dose Route Stop Time Status Admin Acetaminophen 650 MG Q6P PRN 06/23 0930 AC PO Albuterol Sulfate 3 ML Q4H PRN 06/26 1030 AC 06/27 INH 2209 Alprazolam 0.5 MG TID PRN 06/22 204 AC 06/27 PO 06/29 Atorvastatin Calcium 20 MG 1700 /08 1700 AC 06/27 PO 1643 Budesonide/ 1 PUF 1700 06/26 1700 AC 06/27 Formoterol Fumarate INH 1640 Ceftazidime 1,000 MG Q8H 06/28 0500 AC 06/28 IV 0614 Diltiazem HCl 180 MG DAILY 06/23 1000 AC 06/27 PO 1127 Doxazosin Mesylate 4 MG QPM 06/22 2200 AC 06/27 PO 2118 Furosemide 20 MG ONCE ONE 06/27 1914 DC 06/27 IV 06/27 191 1959 Furosemide 40 MG 0800 & 1700 06/23 0800 AC 06/28 IV 0815 Heparin Sodium 5,000 UNIT Q8 06/26 0600 AC 06/28 (Porcine) SC 0615 Levothyroxine Sodium 0.025 MG DAILY AC 06/23 0700 AC 06/27 PO 0629 Morphine Sulfate 1 MG Q6P PRN 06/23 0930 AC IV Polyethylene Glycol 17 GM DAILY 06/24 1127 AC 06/27 PO 1127 Potassium Chloride 30 MEQ 06/23 1000 AC 06/23 PO 0956 Potassium Chloride 30 MEQ DAILY 06/23 1000 AC 06/27 PO 1126 Senna/Docusate Sodium 1 TAB DAILY 06/25 1000 AC 06/27 PO 1127 Tiotropium [place] 1 PUF QAM 06/23 1000 AC 06/27 INH 1126 Vancomycin HCl 1,000 MG Q24H 06/28 0500 AC 06/28 Sodium Chloride 250 ML IV 0615 Review of Systems Review of Systems Constitutional: Reports: see HPI. 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 Relation not specified for: *No pertinent family history Psychosocial History Where Do You Live? Assisted Living Smoking Status: Former Smoker Living Will? yes Functional Ability ADLs Needs Assist: dressing, eating, toileting, bathing. Ambulation: walker IADLs Needs Assist: shopping, housework, transportation. Exam & Diagnostic Data Last 24 Hrs of Vital Signs/I&O Vital Signs Date Time Temp Pulse Resp B/P Pulse O2 O2 Flow FiO2 Ox Delivery Rate 06/28 1630 96 BIPAP 50% 06/28 1600 94 BIPAP 50% 06/28 1600 98.4 67 24 116/64 93 BIPAP 50% 06/28 1600 73 95 06/28 1308 84 98 06/28 1100 93 BIPAP 50% 06/28 1100 98.7 65 30 118/60 92 BIPAP 50% 06/28 1050 86 99 06/28 0906 94 BIPAP 50% 06/28 0905 94 06/28 0803 97.7 64 24 110/60 91 BIPAP 04/10 0800 BIPAP 50% 06/28 0605 66 92 06/28 0340 75 93 06/28 0116 99.1 87 24 122/58 94 Aerosol Mask 06/28 0000 98 Non 10L ReBreather 06/275 84 Nasal 5.0L Cannula 06/27 2199 92 Nasal 5.0L Cannula Intake & Output 06/28 1600 06/28 0800 06/28 0000 Intake Total 120 200 Output Total 1950 300 450 Balance -1830 -300 -250 Intake, IV 20 Intake, Oral 100 200 Number 0 Bowel Movements Output, Urine 1950 300 450 Physical Exam General Appearance: alert, awake Head: atraumatic, normal appearance Eyes: Bilateral: PERRL, EOMI. Ears, Nose, Throat: normal pharynx, normal ENT inspection Neck: normal inspection, supple Respiratory: chest non-tender, decreased BS b/l Lower lobes. Cardiovascular: regular rate/rhythm Peripheral Pulses: 2+ radial (R), 2+ radial (L) Gastrointestinal: normal bowel sounds, soft, non-tender Back: normal inspection Extremities: bilateral 2+ edema b/l upto midabdomen. pulses not appreciated in b /l LE Last 48 Hrs of Labs/Scotty: Laboratory Tests 06/28/16 1615: pH 7.57 H, pCO2 49 H, pO2 113 H, HCO3 44 H, ABG O2 Sat (Measured) 96.0, P-50 (Temp Corrected) N, Carboxyhemoglobin 1.8, O2 Concentration % 50%, Temperature 98.0, Respiration Rate 24, O2 Delivery Method FFM, Vent Mode ST, Expiratory Pressure 6, Inspiratory Pressure 18, Phlebotomy Draw Site RIGHT BRACHIAL 06/28/16 1150: Urinalysis LIGHT H, Urine Color STRAW, Urine Clarity HAZY H, Urine pH 8.0, Ur Specific [place] 1.010, Urine Protein NEG, Urine Ketones NEG, Urine Nitrite NEG, Urine Bilirubin NEG, Urine Urobilinogen 0.2, Ur Leukocyte Esterase TRACE H, Ur Microscopic SEDIMENT EXAMINED, Urine RBC RARE, Urine WBC 1-3 H, Ur Epithelial Cells FEW, Urine Bacteria FEW H, Hyaline Casts RARE H, Urine Hemoglobin NEG, Urine Glucose NEG 06/28/16 0615: pH 7.40, pCO2 70 *H, pO2 79 L, HCO3 42 H, ABG O2 Sat (Measured) 95.0 L, P-50 (Temp Corrected) N, Carboxyhemoglobin 1.5, O2 Concentration % .50, Respiration Rate 24, O2 Delivery Method BIPAP, Vent Mode ST, Expiratory Pressure 6, Inspiratory Pressure 18, Phlebotomy Draw Site RIGHT RADIAL 06/28/16 0500: Anion Gap 7, Estimated GFR > 60, BUN/Creatinine Ratio 32.5 H, PT 12.9 H, INR 1.23 H, CBC w Diff MAN DIFF ORDERED, RBC 3.19 L, MCV 77.1 L, MCH 23.6 L, RDW 17.3 H, MPV 7.8, Gran % 83.6 H, Lymphocytes % 7.7 L, Monocytes % 7.0, Eosinophils % 1.7, Basophils % 0 L, Absolute Granulocytes 5.7, Segmented Neutrophils 84 H, Absolute Lymphocytes 0.5 L, Lymphocytes 7 L, Monocytes 4, Absolute Monocytes 0.5, Eosinophils 3, Absolute Eosinophils 0.1, Basophils 2, Absolute Basophils 0, Nucleated RBCs 1 H, Platelet Estimate ADEQUATE, Polychromasia 1+, Hypochromic-Microcytic 1+, Poikilocytosis 2+, Basophilic Stippling 1+, Anisocytosis 1+, Microcytic Cells 1+, Ovalocytes 1+, Stomatocytes 1+, Elliptocytes FEW, PUBS MCHC 30.6 L, Retic Count 2.40 H, Fld Total RBCs Counted 100 06/28/16 0300: pH 7.26 *L, pCO2 98 *H, pO2 121 H, HCO3 43 H, ABG O2 Sat (Measured) 98.0, P-50 (Temp Corrected) N, Carboxyhemoglobin 0.8 L, O2 Concentration % .60, O2 Delivery Method PRB, Phlebotomy Draw Site RIGHT BRACHIAL 06/27/16 0642: Anion Gap 4 L, Estimated GFR > 60, BUN/Creatinine Ratio 35.0 H, Magnesium 2.2, CBC w Diff NO MAN DIFF REQ, RBC 3.39 L, MCV 78.2 L, MCH 24.0 L, RDW 17.4 H, MPV 8.4, Gran % 80.3 H, Lymphocytes % 10.6 L, Monocytes % 7.5, Eosinophils % 1.6, Basophils % 0 L, Absolute Granulocytes 5.7, Absolute Lymphocytes 0.8 L, Absolute Monocytes 0.5, Absolute Eosinophils 0.1, Absolute Basophils 0, PUBS MCHC 30.7 L Microbiology 06/28 115 URINE ROUT: Legionella Antigen - COMP 06/28 115 URINE ROUT: Streptococcus pneumoniae Antigen (M - COMP Diagnostic Data EKG Results EKG Results ST changes in lateral leads Normal sinus rhythm CXR Results Mild diffuse interstitial prominence, with no interstitial edema. Assessment/Plan Impression/Plan: In summary, Ms Meyer is an 85-year-old woman with past history of macular degeneration, atrial fibrillation, hypertension, hyperlipidemia, pulmonary embolism (dx'ed 2013), emphysema, breast cancer s/p resection, recent multiple hospital admissions for hemorrhages was known to be in her usual state of health until 6 weeks prior to admissio and was brought in to [place] ER for worsening LE edema X 6 weeks and worsening SOB X1 week prior to admission alongwith reported weight gain approx 20 pounds in last 3 months. At the time of admission vitals-temperature 96.7, pulse rate 78, respiration 22, blood pressure 136/64, 95% on nasal cannula (4 L supplemental oxygen-baseline). Lab findings indicated WBC 6.5, hemoglobin 8.6 (hemoglobin 11.6 04/09/2016), hematocrit 28.3, MCV 77 (microcytic), RDW 17.4. Electrolytes-sodium 134, potassium 3.7, chloride 90, bicarbonate 39. Normal liver function, renal function serum creatinine 0.9, proBNP 2830. INR 2.37 (on Coumadin). No JVD, or abnormal lung sounds on auscultation. Radiological findings-chest x-ray did not reveal any interstitial edema. Echocardiogram revealed severe aortic stenosis, and elevated right ventricular pressure. shortness of breath-it was likely due to CHF exacerbation. Worsening clinical status could be multifactorial-worsening aortic stenosis, emphysema/pulmonary embolism leading to increased right heart strain. Problem List alongwith Assesment and Plan : #1 Acute hypercapnic + hypoxic respiratory Failure - multifactorial. #2 CHF exacerbation #3 Hospital acquired pnuemonia #4 H/o Emphysema #5 H/o pulmonary embolism on AC. Respiratory * Patient was transferred to icu due to worsening hypoxic and hypercapneic respiratory failure. * last night, she desaturated upto 87 ( 10:19 pm), she was placed on bipap * ABG prior to bipap : 7.26/98/121/43 >>>> ABG today in am after bipap :7.40/70/ 79/42>>>> repeat ABG latter at 415 pm 7.57/49/113/44 ( much improved) * Continue bipap. * Continue trc /nebs. * Repeat Cxr in am and repeat abg in am. * perhabs Ms ankita had acute hypercapnia 2/2 to which respiratory status worsened. * continue Spiriva. ID * Follow blood cultures, urine cultures, strep pnuemonia, legionella, rapid flu and strep throat. * No white count, afebrile, tmax of 99.1 * CTa chest to rule out PE consistent with left lower lobe consolidation. * Patient recieved one time of vanco and ceftz * Will continue it for now * Will reasses tmrw the need for antibiotics. Metabolic * Continue to monitor lytes * keep mg > 2, k > 4 * replete as needed. * Kidney functions within normal limit. Cardiology CHF exacerbation due to Severe aortic stenosis * Continue furosemide 40 mg IV twice a day * Echocardiogram revealed critical aortic stenosis with gradient above 150, and valve area Less than 1. Likely to get a TAVR * NPo for now. * Strict ins and outs with daily weights. * Continue tablet simvastatin 20mg. * Continue levothyroxine. * Patient has history of pulmonary embolism and paroxysmal atrial fibrillation, currently in NSR. * Serial EKG's and cardiac enzymes did not reveal any abnormalities. * Considering her severe aortic stenosis and other risk factors, initially plan was to make arrangements to be transferred to [place] for a TAVR. On day 4, of the stay in the hospital, respiratory status deteriorated and therefore she was not trasferred to [place], TAVR was held off for now. * Also note - on admission, patient was continued on Coumadin. Since the patient remained in normal sinus rhythm while in the stay in the hospital, Coumadin was discontinued briefly in anticipation of TAVR. * When the patient was in respiratory distress, a CTA was obtained which did not reveal any evidence of pulmonary embolism, however patient is NPO now with pednign swallow so will dose coumadin once PO meds are started. * Meanwhile will touch base with cardio if patient needs to be on ?? heparin. Hematology Iron deficiency anemia - * H&H, microcytic likely due to iron deficiency or blood loss. * Patient has a history of severe aortic stenosis and AVMs are in the differentials. * Hemoglobin 8.6--> 7.5. * Guaiac negative. * Can consider to start Iron supplementation. Alimentary Diet NPO while on Bipap. DVT prophylaxis -ALP S/heparin Differential diagnosis: #1 CHF exacerbation Problem List: 1. Volume overload 2. Pedal edema 3. Acute on chronic diastolic CHF (congestive heart failure) 4. Severe aortic stenosis 5. Bilateral lower extremity edema 6. Emphysema of lung Consult Acknowledgment - Thank you for your consult request. Pb PATEL MD 06/28/16 1106: Assessment/Plan Other Findings/Comments: I have personally seen and examined the patient. I agree with the residents assessment and plan as detailed above. Briefly, the patient is an 85 year old female with a past medical history significant for atrial fibrillation, hypertension, hyperlipidemia, pulmonary embolism (2013), emphysema, breast cancer s/p resection, and severe aortic stenosis (requires AVR). The patient was admitted with acute congestive heart failure secondary to severe aortic stenosis. The patient was planned to be transferred today for possible TAVR. The patient was placed on Lasix for diuresis. Earlier however the patient was noted to be obtunded and an ABG was done showing a pH 7.26, PCO2 of 98, PO2 of 121, and a Bicarb or 43. A repeat ABG after BiPAP therapy showed significant improvement. The patient remains on the BiPAP. She is intermittently agitated. Upon my evaluation, I found the patient on BiPAP with increased shortness of breath. She initially was minimally responsive but then agitated. A CT angiogram was done demonstrating left lower lobe consolidation and marketed elevation to the right hemidiaphragm with right lower and middle lobe atelectasis. The patient was pancultured and started on vancomycin and ceftazidime for treatment of pneumonia. For now, the patient will be continued on BiPAP and given breaks off as tolerated. She will continue Spiriva, Symbicort, TRC/nebulizer treatments. We will place a Pink and continue with diuresis as per cardiology. She currently is not wheezing, and I will therefore not place her on IV steroids unless she deteriorates. We will continue all supportive care. Once the patient's respiratory status is stabilized, she will then be reconsidered for transfer for intervention on her aortic stenosis. Consult Acknowledgment - Thank you for your consult request. Consult Acknowledgment - Thank you for your consult request.
[2016-06-28 11:00] VITALS: BP 118/60
--- NOTE | 2016-06-28 11:00 | NUR ---
TRANSFER FROM [facility] FOR HYPERCARBIC RESPIRATORY FAILURE, NEWLY PLACED ON BIPAP RR SET 24, I/E 18/6, LUNGS DI'D UPPERS, CRACKLES BASES, HEART MURMER AUSCULTATED. BP 118/60, HR 65 SR. CATALAN PLACED ORDERED; UA, UC SENT. SCATTERED GENERALIZED BRUISING NOTED TO INTACT SKIN; WITH +3 ANASARCA NOTED. LEFT ARM RESTRICTED EXTREMITY FROM HX LEFT MASTECTOMY. ALL DAUGHTERS AT BEDSIDE, BP CUFF PLACED TO RIGHT FOREARM PER FAMILY AND PT. REQUEST. RESPIRATORY CARE TECHNICIAN OLU AND DR. PATEL MET WITH FAMILY REGARDING PUTING TRANSFER TO [facility] FOR AORTIC VALVE REPLACEMENT ON HOLD FOR NOW DUE TO PT.'S ACUTE RESPIRATORY DECLINE. PT. RESTING COMFORTABLY ON BIPAP, WILL CONTINUE TO MONITOR.
[2016-06-28 16:00] VITALS: BP 116/64
--- NOTE | 2016-06-28 17:26 | NUR ---
DARK HAIRED DAUGHTER GUILHERME SAID TO NURSE; "I MOSTLY TAKE CARE OF MOM, BECAUSE MY SISTER (ARMAND, WITH BLONDE HAIR) AND NIECE (ELISEO WITH BLONDE TERESA HAIRCUT AND GLASSES) ARE INTENSE AND NERVOUS, I'M CALM WHICH KEEPS MY MOTHER CALM, THE YOUNG LADY WITH LONG BROWN HAIR AND DARKER SKIN IS MY MOTHER'S AID AT THE FACILITY, BUT WE CALL HER OUR SISTER BECAUSE SHE'S BEEN CARING FOR MY MOTHER FOR SO LONG, AND HER NAME IS CARLITO.
--- NOTE | 2016-06-28 18:26 | PN- Att Addend ---
Attending MD Review Statement Attending Statement Attending MD Statement: examined this patient, discuss w/resident/PA/HI TEACHER, agreed w/resident/PA/HI TEACHER, discussed with family, reviewed EMR data (avail) Attending Assessment/Plan: Laboratory Tests 06/28/16 1615: pH 7.57 H, pCO2 49 H, pO2 113 H, HCO3 44 H, ABG O2 Sat (Measured) 96.0, P-50 (Temp Corrected) N, Carboxyhemoglobin 1.8, O2 Concentration % 50%, Temperature 98.0, Respiration Rate 24, O2 Delivery Method FFM, Vent Mode ST, Expiratory Pressure 6, Inspiratory Pressure 18, Phlebotomy Draw Site RIGHT BRACHIAL 06/28/16 1150: Urinalysis LIGHT H, Urine Color STRAW, Urine Clarity HAZY H, Urine pH 8.0, Ur Specific [place] 1.010, Urine Protein NEG, Urine Ketones NEG, Urine Nitrite NEG, Urine Bilirubin NEG, Urine Urobilinogen 0.2, Ur Leukocyte Esterase TRACE H, Ur Microscopic SEDIMENT EXAMINED, Urine RBC RARE, Urine WBC 1-3 H, Ur Epithelial Cells FEW, Urine Bacteria FEW H, Hyaline Casts RARE H, Urine Hemoglobin NEG, Urine Glucose NEG 06/28/16 0615: pH 7.40, pCO2 70 *H, pO2 79 L, HCO3 42 H, ABG O2 Sat (Measured) 95.0 L, P-50 (Temp Corrected) N, Carboxyhemoglobin 1.5, O2 Concentration % .50, Respiration Rate 24, O2 Delivery Method BIPAP, Vent Mode ST, Expiratory Pressure 6, Inspiratory Pressure 18, Phlebotomy Draw Site RIGHT RADIAL 06/28/16 0500: Anion Gap 7, Estimated GFR > 60, BUN/Creatinine Ratio 32.5 H, PT 12.9 H, INR 1.23 H, CBC w Diff MAN DIFF ORDERED, RBC 3.19 L, MCV 77.1 L, MCH 23.6 L, RDW 17.3 H, MPV 7.8, Gran % 83.6 H, Lymphocytes % 7.7 L, Monocytes % 7.0, Eosinophils % 1.7, Basophils % 0 L, Absolute Granulocytes 5.7, Segmented Neutrophils 84 H, Absolute Lymphocytes 0.5 L, Lymphocytes 7 L, Monocytes 4, Absolute Monocytes 0.5, Eosinophils 3, Absolute Eosinophils 0.1, Basophils 2, Absolute Basophils 0, Nucleated RBCs 1 H, Platelet Estimate ADEQUATE, Polychromasia 1+, Hypochromic-Microcytic 1+, Poikilocytosis 2+, Basophilic Stippling 1+, Anisocytosis 1+, Microcytic Cells 1+, Ovalocytes 1+, Stomatocytes 1+, Elliptocytes FEW, PUBS MCHC 30.6 L, Retic Count 2.40 H, Fld Total RBCs Counted 100 06/28/16 0300: pH 7.26 *L, pCO2 98 *H, pO2 121 H, HCO3 43 H, ABG O2 Sat (Measured) 98.0, P-50 (Temp Corrected) N, Carboxyhemoglobin 0.8 L, O2 Concentration % .60, O2 Delivery Method PRB, Phlebotomy Draw Site RIGHT BRACHIAL Microbiology 06/28 1149 URINE ROUT: Legionella Antigen - COMP 06/28 1149 URINE ROUT: Streptococcus pneumoniae Antigen (M - COMP Vital Signs Date Time Temp Pulse Resp B/P Pulse O2 O2 Flow FiO2 Ox Delivery Rate 06/28 1630 96 BIPAP 50% 06/28 1600 94 BIPAP 50% 06/28 1600 98.4 67 24 116/64 93 BIPAP 50% 06/28 1600 73 95 06/28 1308 84 98 06/28 1100 93 BIPAP 50% 06/28 1100 98.7 65 30 118/60 92 BIPAP 50% 06/28 1050 86 99 06/28 0906 94 BIPAP 50% 06/28 0905 94 06/28 0803 97.7 64 24 110/60 91 BIPAP 06/28 0800 BIPAP 50% 06/28 0605 66 92 06/28 0340 75 93 06/28 0116 99.1 87 24 122/58 94 Aerosol Mask 06/28 0000 98 Non 10L ReBreather 06/27 2235 84 Nasal 5.0L Cannula 06/27 2199 92 Nasal 5.0L Cannula Patient seen and examined. Discussed with patient's family at bedside the care plan. Discussed with ICU attending Pb Patel MD the care plan. Patient was transferred to ICU for worsening respiratory failure and has underlying severe aortic stenosis. Patient with hypercapnic respiratory failure and currently on BiPAP. Will need close monitoring in ICU for respiratory status as well as repeat ABGs. Patient's family had a lot of questions and I sat with them and answered their questions. They also expressed that in case patient's condition does not improve over the next day or 2 they may consider taking her home on hospice
[2016-06-29] VITALS: BP 112/48
--- NOTE | 2016-06-29 01:44 | NUR ---
PT IS ALERT AND ORIENTED BUT FORGETFUL AT TIMES. PT MOVES ALL EXTREMETIES. PT ON BIPAP 45% 94-97%, WHEN PT DOES COME OFF BIPAP FOR MOUTH CARE QUICKLY DESATURATES TO 80'S ON 5LNC AND SOB NOTED. PT FREQUENTLY REPOSITIONED FOR COMFORT, BUT DOES NOT TOLERATE LAYING FLAT. CATALAN IN PLACE DRAINING ADEQUATE CLEAR YELLOW URINE. PT CURRENTLY RESTING COMFORTABLY.
--- NOTE | 2016-06-29 02:29 | NUR ---
PT C/O OF ACHINESS IN BODY AND FEELING UNCOMFORTABLE, RATED PAIN 7/10, PT HAS MORPHINE FOR PAIN SCALE 7-10 BUT PT DOES NOT WANT MORPHINE. OFFERED PT TYLENOL AND AGREED. PT ALSO REQUESTING TO STAY OFF BIPAP, STATE "I AM MUCH MORE COMFORTABLE ON NASAL". RESPIRATORY TO BEDSIDE, PT BEGAN TO DESAT ON 5L TO 89%, DISCUSSED WITH PT AND DECISION WAS TO PLACE BACK ON BIPAP. WILL CONTINUE TO MONITOR.
[2016-06-29 04:52] LABS: ABSOLUTE BASOPHIL COUNT 0 /CUMM (0.0-0.2); ABSOLUTE GRANULOCYTE CT 4.4 /CUMM (1.4-6.5); ABSOLUTE LYMPH COUNT 1.1 /CUMM (1.2-3.4); ABSOLUTE MONOCYTE COUNT 0.7 /CUMM (0.10-0.60)
[2016-06-29 05:00] LABS: ABSOLUTE EOSINOPHIL COUNT 0.1 /CUMM (0.0-0.7); BASOPHIL % 0.1 % (0.0-2.0); EOSINOPHIL % 1.4 % (0-5); GRANULOCYTE % 69.5 % (42.2-75.2); HEMATOCRIT 23.3 % (37-47); MEAN CORPUSCULAR HGB 23.4 PG (27.0-31.0); MEAN CORPUSCULAR HGB CONC 30.8 G/DL (33.0-37.0); MEAN PLATELET VOLUME 8.3 FL (7.4-10.4); PLATELET COUNT 248 /CUMM (130-400); RBC DISTRIBUTION WIDTH 18.4 % (11.5-14.5); RED BLOOD CELL CT 3.06 /CUMM (4.20-5.40); WHITE BLOOD CELL COUNT 6.3 /CUMM (4.8-10.8)
[2016-06-29 05:02] LABS: PT 12.9 SEC (9.4-12.5)
--- NOTE | 2016-06-29 07:03 | PN- Resident CRCU ---
Subjective HPI/CRCU Issues: Ms Meyer is an 85-year-old lady with past history of macular degeneration, atrial fibrillation, hypertension, hyperlipidemia, pulmonary embolism, emphysema, breast cancer s/p resection, recent multiple hospital admissions for hemorrhages was known to be in her usual state of health until 6 weeks prior to admission and was brought in to [facility] ED for worsening LE edema X 6 weeks and worsening SOB X1 week prior to admission along with reported weight gain approx 20 pounds in last 3 months. She was initially admitted to telemetry floor for treatment of acute CHF exacerbation, however her respiratory status worsened beginning 06/27/16 and was transferred to ICU 2/ to worsening SOB , labored breathing and worsening mental status. CRCU issues: 1. Acute hypercapnic, hypoxic respiratory Failure, multifactorial 2. CHF exacerbation 3. Hospital acquired pneumonia 4. H/o Emphysema 5. H/o pulmonary embolism on AC Last 24 hour vitals and I's&O's: max temp 98.7 hr 68-74 sr systolic bp 97-118 diastolic bp 53-64 + 750 - 2300 Objective Vital Signs & I&O Last 8 Hrs of Vitals and I&O: Vital Signs Date Time Temp Pulse Resp B/P Pulse O2 O2 Flow FiO2 Ox Delivery Rate 06/29 0922 92 Nasal 70% Cannula 06/29 0921 72 92 06/29 0800 98.0 74 74 120/60 96 BIPAP 45% 06/29 0800 96 BIPAP 45% 06/29 0553 80 94 06/29 0400 96 BIPAP 45% 06/29 0227 81 95 06/29 0049 79 96 06/29 0000 98.7 70 24 112/48 96 BIPAP 45% 06/29 0000 96 BIPAP 45% 06/28 2232 77 96 06/28 2000 94 BIPAP 45% 06/28 1957 79 94 06/28 1630 96 BIPAP 50% 06/28 1600 94 BIPAP 50% 06/28 1600 98.4 67 24 116/64 93 BIPAP 50% 06/28 1600 73 95 06/28 1308 84 98 06/28 1100 93 BIPAP 50% 06/28 1100 98.7 65 30 118/60 92 BIPAP 50% 06/28 1050 86 99 Intake & Output 06/29 1600 06/29 0800 06/29 0000 Intake Total 470 170 Output Total 400 850 Balance 70 -680 Intake, IV 250 20 Intake, Oral 220 150 Number 0 0 Bowel Movements Output, Urine 400 850 Patient 87.09 kg Weight Laboratory Tests 06/29 06/28 0425 2130 Blood Gas pH (7.35 - 7.45 PH) 7.54 H pCO2 (35 - 45 TORR) 52 H pO2 (80 - 100 TORR) 93 HCO3 (21 - 28 MEQ/L) 44 H ABG O2 Sat (Measured) (>96.0 %) 96.0 P-50 (Temp Corrected) N Carboxyhemoglobin (1.5 - 5.0 %) 0.8 L O2 Concentration % 45% Temperature (97.0 - 100.0 FARH) 98.2 Respiration Rate (BPM) 18 O2 Delivery Method BIPAP Vent Mode ST Expiratory Pressure (CM H2O P) 6 Inspiratory Pressure (CM H2O P) 14 Chemistry Sodium (137 - 145 mmol/L) 135 L Potassium (3.5 - 5.1 mmol/L) 3.5 Chloride (98 - 107 mmol/L) 85 L Carbon Dioxide (22 - 30 mmol/L) 42 H Anion Gap (5 - 16) 8 BUN (7 - 17 mg/dL) 24 H Creatinine (0.5 - 1.0 mg/dL) 0.8 Estimated GFR (>60 ml/min) > 60 BUN/Creatinine Ratio (7 - 25 %) 30.0 H Magnesium (1.6 - 2.3 mg/dL) 2.0 Coagulation PT (9.4 - 12.5 SEC) 12.9 H INR (0.90 - 1.19) 1.23 H Hematology CBC w Diff NO MAN DIFF REQ WBC (4.8 - 10.8 /CUMM) 6.3 RBC (4.20 - 5.40 /CUMM) 3.06 L Hgb (12.0 - 16.0 G/DL) 7.2 *L Hct (37 - 47 %) 23.3 L MCV (81.0 - 99.0 FL) 76.0 L MCH (27.0 - 31.0 PG) 23.4 L RDW (11.5 - 14.5 %) 18.4 H Plt Count (130 - 400 /CUMM) 248 MPV (7.4 - 10.4 FL) 8.3 Gran % (42.2 - 75.2 %) 69.5 Lymphocytes % (20.5 - 51.1 %) 17.8 L Monocytes % (1.7 - 9.3 %) 11.2 H Eosinophils % (0 - 5 %) 1.4 Basophils % (0.0 - 2.0 %) 0.1 Absolute Granulocytes (1.4 - 6.5 /CUMM) 4.4 Absolute Lymphocytes (1.2 - 3.4 /CUMM) 1.1 L Absolute Monocytes (0.10 - 0.60 /CUMM) 0.7 H Absolute Eosinophils (0.0 - 0.7 /CUMM) 0.1 Absolute Basophils (0.0 - 0.2 /CUMM) 0 PUBS MCHC (33.0 - 37.0 G/DL) 30.8 L Miscellaneous Phlebotomy Draw Site RIGHT BRACHIAL 06/28 06/28 1615 1150 Blood Gas pH (7.35 - 7.45 PH) 7.57 H pCO2 (35 - 45 TORR) 49 H pO2 (80 - 100 TORR) 113 H HCO3 (21 - 28 MEQ/L) 44 H ABG O2 Sat (Measured) (>96.0 %) 96.0 P-50 (Temp Corrected) N Carboxyhemoglobin (1.5 - 5.0 %) 1.8 O2 Concentration % 50% Temperature (97.0 - 100.0 FARH) 98.0 Respiration Rate (BPM) 24 O2 Delivery Method FFM Vent Mode ST Expiratory Pressure (CM H2O P) 6 Inspiratory Pressure (CM H2O P) 18 Miscellaneous Phlebotomy Draw Site RIGHT BRACHIAL Urines Urinalysis LIGHT H Urine Color (YEL,AMB,STR) STRAW Urine Clarity (CLEAR) HAZY H Urine pH (5.0 - 8.0) 8.0 Ur Specific [place] (1.001 - 1.035) 1.010 Urine Protein (NEG,<30 MG/DL) NEG Urine Ketones (NEG) NEG Urine Nitrite (NEG) NEG Urine Bilirubin (NEG) NEG Urine Urobilinogen (0.1 - 1.0 EU/dl) 0.2 Ur Leukocyte Esterase (NEG) TRACE H Ur Microscopic SEDIMENT EXAMINED Urine RBC (0 - 5 /HPF) RARE Urine WBC (0 - 2 /HPF) 1-3 H Ur Epithelial Cells (NONE,FEW) FEW Urine Bacteria (NEG/NONE) FEW H Hyaline Casts (0/LPF) RARE H Urine Hemoglobin (NEG) NEG Urine Glucose (N MG/DL) NEG Exam General Appearance: alert, awake, comfortable, obese Head: atraumatic, normal appearance Ears, Nose, Throat: normal pharynx, hearing grossly normal Neck: supple, full range of motion Respiratory: chest non-tender, no respiratory distress, quiet respiration, decreased breath sounds, no weehzing or rhonchi appreciated Cardiovascular: murmur, 4/6 systolic murmur best heard in the aortic area, crescendo decrescendo Gastrointestinal: soft, non-tender Extremities: dry and fragile skin, trace lower extremity edema Cranial Nerves: normal hearing, normal speech, PERRL Skin: warm/dry Current Medications: Current Medications Sig/Olga Start time Last Medication Dose Route Stop Time Status Admin Acetaminophen 650 MG Q6P PRN 06/23 0930 AC 06/29 PO 0209 Albuterol Sulfate 3 ML EVERY 4 HRS/AWAKE 06/28 1600 AC 06/29 INH 0826 Albuterol Sulfate 3 ML Q4H PRN 06/26 1030 DC 06/27 INH 2209 Alprazolam 0.5 MG ONCE PRN 06/28 2030 AC PO 07/05 1759 Alprazolam 0.5 MG TID PRN 06/22 204 AC 06/28 PO 06/30 2043 2019 Atorvastatin Calcium 20 MG 1700 06/26 1700 AC 06/27 PO 1643 Budesonide/ 1 PUF 1700 06/26 1700 AC 06/28 Formoterol Fumarate INH 1225 Ceftazidime 1,000 MG Q8H 06/28 0500 AC 06/29 IV 0451 Diltiazem HCl 180 MG DAILY 06/23 1000 AC 06/28 PO 1228 Doxazosin Mesylate 4 MG QPM 06/22 2200 AC 06/28 PO 2142 Furosemide 40 MG 0800 & 1700 06/23 0800 AC 06/29 IV 0757 Heparin Sodium 5,000 UNIT Q8 06/26 0600 AC 06/29 (Porcine) SC 0543 Levothyroxine Sodium 0.025 MG DAILY AC 06/23 0700 AC 06/29 PO 0542 Morphine Sulfate 1 MG Q6P PRN 06/23 0930 AC IV Polyethylene Glycol 17 GM DAILY 06/24 1127 AC 06/27 PO 1127 Potassium Chloride 40 MEQ ONCE ONE 06/29 0930 UNVr PO 06/29 0931 Potassium Chloride 40 MEQ ONCE ONE 06/28 1245 DC 06/28 PO 06/28 1246 1236 Potassium Chloride 30 MEQ 06/23 1000 AC 06/23 PO 0956 Potassium Chloride 30 MEQ DAILY 06/23 1000 AC 06/27 PO 1126 Senna/Docusate Sodium 1 TAB DAILY 06/25 1000 AC 06/27 PO 1127 Tiotropium Jasper 1 PUF QAM 06/23 1000 AC 06/28 INH 1224 Vancomycin HCl 1,000 MG Q24H 06/28 0500 AC 06/29 Sodium Chloride 250 ML IV 0451 Impression/Plan Impression/Problem List Impression: Ms Meyer is an 85-year-old lady with past history of macular degeneration, atrial fibrillation, hypertension, hyperlipidemia, pulmonary embolism, emphysema, breast cancer s/p resection, recent multiple hospital admissions for hemorrhages was known to be in her usual state of health until 6 weeks prior to admission and was brought in to [facility] ED for worsening LE edema X 6 weeks and worsening SOB X1 week prior to admission along with reported weight gain approx 20 pounds in last 3 months. She was initially admitted to telemetry floor for treatment of acute CHF exacerbation, however her respiratory status worsened beginning 06/27/16 and was transferred to ICU 2/2 to worsening SOB , labored breathing and worsening mental status. Problem list and Plan : Respiratory Patient was transferred to icu due to worsening hypoxic and hypercapneic respiratory failure. on 06/28/16 overnight she desaturated up to 87, she was placed on bipap. ABG prior to bipap : 7.26/98/121/43 >>>> ABG in am after bipap :7.40/70/79/42>>>> repeat ABG latter at 415 pm 7.57/49/113/44 ( much improved), no change in repeat ABG later at night yesterday, patient is off the bipap today. * Continue trc /nebs. * will hold off on repeat Cxr and abg, respiratory status remains stable * continue Spiriva. ID strep pnuemonia, legionella, rapid flu and strep throat were negative. urine culture shows enterococcus, No white count, afebrile, tmax of 99.1. CTA chest to rule out PE consistent with left lower lobe consolidation. Patient recieved one time of vanco and ceftz * Follow blood cultures * Will continue it for now * Will reassess tmrw the need for antibiotics Metabolic * Continue to monitor lytes * keep mg > 2, k > 4 * replete as needed * Kidney functions within normal limit Cardiology CHF exacerbation due to Severe aortic stenosis * Continue furosemide 40 mg IV twice a day * Echocardiogram revealed critical aortic stenosis with gradient above 150, and valve area Less than 1. Likely to get a TAVR * Started diet today * Strict ins and outs with daily weights. * Continue tablet simvastatin 20mg. * Continue levothyroxine. * Patient has history of pulmonary embolism and paroxysmal atrial fibrillation, currently in NSR. * Serial EKG's and cardiac enzymes did not reveal any abnormalities. * Considering her severe aortic stenosis and other risk factors, initially plan was to make arrangements to be transferred to [facility] for a TAVR. On day 4, of the stay in the hospital, respiratory status deteriorated and therefore she was not trasferred to [facility], TAVR was held off for now. * Also note - on admission, patient was continued on Coumadin. Since the patient remained in normal sinus rhythm while in the stay in the hospital, Coumadin was discontinued briefly in anticipation of TAVR. * When the patient was in respiratory distress, a CTA was obtained which did not reveal any evidence of pulmonary embolism, however patient is NPO now with pednign swallow so will dose coumadin once PO meds are started. * Per cardiology will not start anticoagulation as the patient has been in sinus rhythm Hematology Iron deficiency anemia - * H&H, microcytic likely due to iron deficiency or blood loss. * Patient has a history of severe aortic stenosis and AVMs are in the differentials. * Hemoglobin 8.6--> 7.5 --> 7.2 , 1 unit blood transfusion today * Guaiac negative. * Can consider to start Iron supplementation. Diet - cc3 DVT prophylaxis -ALP S/heparin Differential diagnosis: #1 CHF exacerbation Problem List: 1. Bilateral lower extremity edema 2. Emphysema of lung 3. Severe aortic stenosis 4. Acute on chronic diastolic CHF (congestive heart failure) 5. Pedal edema 6. Volume overload Pain Ratin Pain Location: no pain Tomorrow's Labs & Rationales: CBC, ICU bundle (anemia, hyponatremia) Plan DVT/Prophylaxis: mechanical, pharmacological no pain Tomorrow's Labs & Rationales: CBC, ICU bundle (anemia, hyponatremia) Plan DVT/Prophylaxis: mechanical, pharmacological
[2016-06-29 08:00] VITALS: BP 120/60
--- NOTE | 2016-06-29 08:32 | PN- CRCU ---
Subjective HPI/Critical Care Issues: The patient is awake and alert. She reports feeling improved overall. She remains on BiPAP, noting she becomes short of breath when off for a prolonged period of time. Her oxygenation has improved noting she is now on 45% with saturations in the high 90s. The patient's MAXIMUM TEMPERATURE was 99.2, and she is currently afebrile. She remains hemodynamically stable with good urine output. There were no overnight events. Objective Current Medications: Current Medications Sig/Olga Start time Last Medication Dose Route Stop Time Status Admin Acetaminophen 650 MG Q6P PRN 06/23 0930 AC 06/29 PO 0209 Albuterol Sulfate 3 ML EVERY 4 HRS/AWAKE 06/28 1600 AC 06/28 INH 1630 Albuterol Sulfate 3 ML Q4H PRN 06/26 1030 DC 06/27 INH 2209 Alprazolam 0.5 MG ONCE PRN 06/28 2030 AC PO 07/05 1759 Alprazolam 0.5 MG TID PRN 06/22 204 AC 06/28 PO 06/30 2043 2019 Atorvastatin Calcium 20 MG 1700 06/26 1700 AC 06/27 PO 1643 Budesonide/ 1 PUF 1700 06/26 1700 AC 06/28 Formoterol Fumarate INH 1225 Ceftazidime 1,000 MG Q8H 06/28 0500 AC 06/29 IV 0451 Diltiazem HCl 180 MG DAILY 06/23 1000 AC 06/28 PO 1228 Doxazosin Mesylate 4 MG QPM 06/22 2200 AC 06/28 PO 2142 Furosemide 40 MG 0800 & 1700 06/23 0800 AC 06/29 IV 0757 Heparin Sodium 5,000 UNIT Q8 06/26 0600 AC 06/29 (Porcine) SC 0543 Levothyroxine Sodium 0.025 MG DAILY AC 06/23 0700 AC 06/29 PO 0542 Morphine Sulfate 1 MG Q6P PRN 06/23 0930 AC IV Polyethylene Glycol 17 GM DAILY 06/24 1127 AC 06/27 PO 1127 Potassium Chloride 40 MEQ ONCE ONE 06/28 1245 DC 06/28 PO 06/28 1246 1236 Potassium Chloride 30 MEQ TUESDAY WED FRIDAY 06/23 1000 AC 06/23 PO 0956 Potassium Chloride 30 MEQ DAILY 06/23 1000 AC 06/27 PO 1126 Senna/Docusate Sodium 1 TAB DAILY 06/25 1000 AC 06/27 PO 1127 Tiotropium Buckley 1 PUF QAM 06/23 1000 AC 06/28 INH 1224 Vancomycin HCl 1,000 MG Q24H 06/28 0500 AC 06/29 Sodium Chloride 250 ML IV 0451 Vital Signs & I&O Last 24 Hrs of Vitals and I&O: Vital Signs Date Time Temp Pulse Resp B/P Pulse O2 O2 Flow FiO2 Ox Delivery Rate 06/29 0553 80 94 06/29 0400 96 BIPAP 45% 06/29 0227 81 95 06/29 0049 79 96 06/29 0000 98.7 70 24 112/48 96 BIPAP 45% 06/29 0000 96 BIPAP 45% 06/28 2232 77 96 06/28 2000 94 BIPAP 45% 06/28 1957 79 94 06/28 1630 96 BIPAP 50% 06/28 1600 94 BIPAP 50% 06/28 1600 98.4 67 24 116/64 93 BIPAP 50% 06/28 1600 73 95 06/28 1308 84 98 06/28 1100 93 BIPAP 50% 06/28 1100 98.7 65 30 118/60 92 BIPAP 50% 06/28 1050 86 99 06/28 0906 94 BIPAP 50% 06/28 0905 94 Intake & Output 06/29 1600 06/29 0800 06/29 0000 Intake Total 470 170 Output Total 400 850 Balance 70 -680 Intake, IV 250 20 Intake, Oral 220 150 Number 0 0 Bowel Movements Output, Urine 400 850 Patient 192 lb Weight Physical Exam General Appearance: alert, awake, comfortable Head: atraumatic, normal appearance Eyes: Bilateral: PERRL, EOMI. Neck: normal inspection, supple Respiratory: chest non-tender, diminished breath sounds bilaterally with scattered rhonchi Cardiovascular: regular rate/rhythm Gastrointestinal: normal bowel sounds, soft, non-tender Extremities: bilateral 2+ edema in lower extremities Results Last 24 Hrs of Lab Results: Laboratory Tests 06/29/16 0425: Anion Gap 8, Estimated GFR > 60, BUN/Creatinine Ratio 30.0 H, Magnesium 2.0, PT 12.9 H, INR 1.23 H, CBC w Diff NO MAN DIFF REQ, RBC 3.06 L, MCV 76.0 L, MCH 23.4 L, RDW 18.4 H, MPV 8.3, Gran % 69.5, Lymphocytes % 17.8 L, Monocytes % 11.2 H, Eosinophils % 1.4, Basophils % 0.1, Absolute Granulocytes 4.4, Absolute Lymphocytes 1.1 L, Absolute Monocytes 0.7 H, Absolute Eosinophils 0.1, Absolute Basophils 0, PUBS MCHC 30.8 L 06/28/16 2130: pH 7.54 H, pCO2 52 H, pO2 93, HCO3 44 H, ABG O2 Sat (Measured) 96.0, P-50 ( Temp Corrected) N, Carboxyhemoglobin 0.8 L, O2 Concentration % 45%, Temperature 98.2, Respiration Rate 18, O2 Delivery Method BIPAP, Vent Mode ST, Expiratory Pressure 6, Inspiratory Pressure 14, Phlebotomy Draw Site RIGHT BRACHIAL 06/28/16 1615: pH 7.57 H, pCO2 49 H, pO2 113 H, HCO3 44 H, ABG O2 Sat (Measured) 96.0, P-50 (Temp Corrected) N, Carboxyhemoglobin 1.8, O2 Concentration % 50%, Temperature 98.0, Respiration Rate 24, O2 Delivery Method FFM, Vent Mode ST, Expiratory Pressure 6, Inspiratory Pressure 18, Phlebotomy Draw Site RIGHT BRACHIAL 06/28/16 1150: Urinalysis LIGHT H, Urine Color STRAW, Urine Clarity HAZY H, Urine pH 8.0, Ur Specific Miller 1.010, Urine Protein NEG, Urine Ketones NEG, Urine Nitrite NEG, Urine Bilirubin NEG, Urine Urobilinogen 0.2, Ur Leukocyte Esterase TRACE H, Ur Microscopic SEDIMENT EXAMINED, Urine RBC RARE, Urine WBC 1-3 H, Ur Epithelial Cells FEW, Urine Bacteria FEW H, Hyaline Casts RARE H, Urine Hemoglobin NEG, Urine Glucose NEG Last 24 Hrs of Micro Results: Cultures are negative to date. Impression/Plan Impression/Plan Impression/Plan: 1. Acute hypoxemic and hypercapnic respiratory failure, secondary to left lower lobe pneumonia, cultures negative so far, day 2 of Vanco and ceftazidime. 2. Elevated right hemidiaphragm, rule out paralysis. 3. Critical aortic stenosis, with acute CHF exacerbation - will require intervention. 4. History of atrial fibrillation, currently in sinus rhythm. The patient is off Coumadin in anticipation of a possible TAVR. 5. History of pulmonary embolism in 2013. 6. History of emphysema. 7. Hypothyroidism, on levothyroxine. 8. History of hypertension, on Cardizem and Cardura. 9. History of emphysema, on Symbicort and Spiriva. 10. Anemia without evidence of bleeding. Recommendations: * Continue BiPAP as tolerated. We will change the patient over to high flow oxygen today to determine if she can tolerate being off the BiPAP for an extended period of time. * Advance to cardiac diet. * Will need to discuss x-ray findings with the patient's primary home demonstrator to determine if her right hemidiaphragm paralysis is acute or chronic. Can consider a sniff test if necessary. * Continue TRC/nebs. * Continue Spiriva and Symbicort. * Follow up cultures, continue vancomycin and ceftazidime pending results. * Electrolyte repletion as necessary. * Guaic all stools, monitor for bleeding. * We will discuss the possibility of transfusion with cardiology. * We will also discuss anticoagulation with cardiology - need for IV Heparin? * Continue negative fluid balance. * Continue Xanax for anxiety, but avoid oversedation. * Continue bowel regimen for constipation. * If the patient's respiratory status is stable later today, we will attempt to get her out of bed to the chair. * Continue to monitor in the critical care unit.
--- NOTE | 2016-06-29 09:21 | NUR ---
@0800-PT ALERT AND ORIENTED, COOP. FORGETFUL AND ANXIOUS AT TIMES. APARICIO. PT NOTED TO BE ON BIPAP-R 18, I/E 01/09. FIO2 45%. O2SAT 95%. PT REQUESTING TO COME OFF BIPAP. AWAITING RT TO PLACE ON [place] PER DR PATEL RECOMMENDATIONS. NEBS Q4HRS. NSR/PACS/BBB HR 60-90S. BP STABLE. DENIES CARDIAC DISTRESS. MEDICATED WITH SCHED LASIX 40MG IV THIS AM AT 0800. NPO FOR NOW PENDING REMOVEAL OF BIPAP. NO GI DISTRESS NOTED. CATALAN IN PLACE WITH ADEQUATE OUTPUT NOTED. +2 EDEMA TO BLE, ELEVATED ON PILLOWS. PT NOTED TO HAVE DARKENED SCAB TO R GREAT TOE AND DISCOLORAED AREA TO R 2ND TOE-PT DENIES KNOWING IF SHE HIT TOE AGAINST OBJECT. +PULSES PALPATED. +CMS. IV SITE TO RH WAS PULLED OUT ACCIDENTALLY AND NEW SITE ESTABLISHED. ABO CONFIRMATION DRAWN AND SENT TO LAB. CONT TO MONITOR CLOSELY. CALL LARKIN WITHIN REACH.
--- NOTE | 2016-06-29 10:37 | NUR ---
@1030-REPEAT CBC DRAWN AND SENT TO LAB ORD. QUIK FLU AND STREP THROAT SWAB OBTAINED AND SENT TO MICRO. DAUGHTER ARMAND AT BEDSIDE AND UPDATED ON POC. AM MEDS ADMINISTERED. PT RECIEVED XTRA DOSE OF KLOR POWDER 40MEQ FOR K+3.5. FIO2 TITRATED TO 60% FROM 70% HIFLO PER RT. CONT TO MONITOR CLOSELY. CALL LARKIN WITHIN REACH.
[2016-06-29 10:42] LABS: ABSOLUTE BASOPHIL COUNT 0 /CUMM (0.0-0.2); ABSOLUTE EOSINOPHIL COUNT 0.1 /CUMM (0.0-0.7); ABSOLUTE LYMPH COUNT 1.5 /CUMM (1.2-3.4); ABSOLUTE MONOCYTE COUNT 0.5 /CUMM (0.10-0.60); BASOPHIL % 0 % (0.0-2.0); EOSINOPHIL % 1.6 % (0-5); GRANULOCYTE % 69.8 % (42.2-75.2); HEMATOCRIT 27.5 % (37-47); MEAN CORPUSCULAR HGB 23.8 PG (27.0-31.0); MEAN CORPUSCULAR HGB CONC 31.2 G/DL (33.0-37.0); MEAN CORPUSCULAR VOLUME 76.3 FL (81.0-99.0); MEAN PLATELET VOLUME 7.8 FL (7.4-10.4); PLATELET COUNT 281 /CUMM (130-400); RBC DISTRIBUTION WIDTH 17.8 % (11.5-14.5); WHITE BLOOD CELL COUNT 7.2 /CUMM (4.8-10.8)
--- NOTE | 2016-06-29 11:05 | PN- Cardiology ---
Subjective Subjective: the patient was transferred to the intensive care unit yesterday for hypoxic and hypercapnic respiratory distress. She was found to have left lower lobe pneumonia. She was placed on BiPAP for the last 24 hours and has improved. Today she is awake and alert on high flow oxygen and saturating well. She has no complaints of chest pain. She has taken some nutrition. She looks much better. Objective Vital Signs and I&Os Vital Signs Date Time Temp Pulse Resp B/P Pulse O2 O2 Flow FiO2 Ox Delivery Rate 06/29 1033 95 Nasal 60% Cannula 06/29 921 92 Nasal 70% Cannula 06/29 0921 72 92 06/30 799 98.0 74 74 120/60 96 BIPAP 45% 06/29 08 96 BIPAP 45% 06/29 0553 80 94 06/29 0400 96 BIPAP 45% 06/29 0227 81 95 06/29 0049 79 96 06/29 0000 98.7 70 24 112/48 96 BIPAP 45% 06/29 0000 96 BIPAP 45% 06/28 2232 77 96 06/28 2000 94 BIPAP 45% 06/28 1957 79 94 06/28 1630 96 BIPAP 50% 06/28 1600 94 BIPAP 50% 06/28 1600 98.4 67 24 116/64 93 BIPAP 50% 06/28 1600 73 95 06/28 1308 84 98 Intake & Output 06/29 1600 06/29 0806/29 0000 06/28 1600 06/29 0700 06/28 0000 Intake Total 470 170 120 200 Output Total 027 993 0450 300 450 Balance 70 -680 -1830 -300 -250 Intake, IV 250 20 20 Intake, Oral 220 150 100 200 Number 0 0 0 Bowel Movements Output, Urine 869 777 3831 300 450 Patient 192 lb Weight Physical Exam: HEENT exam is normal Chest reveals bibasilar rales more prominent on the left Heart reveals a loud systolic ejection murmur at the base Extremities reveal resolving edema. Current Medications: Current Medications Sig/Olga Start time Last Medication Dose Route Stop Time Status Admin Acetaminophen 650 MG .STK-MED ONE 06/29 020 DC PO 06/29 020 Acetaminophen 650 MG Q6P PRN 06/23 0930 AC 06/29 PO 0209 Albuterol Sulfate 3 ML EVERY 4 HRS/AWAKE 06/28 1600 AC 06/29 INH 0826 Albuterol Sulfate 3 ML Q4H PRN 06/26 1030 DC 06/27 INH 2209 Alprazolam 0.5 MG ONCE PRN 06/28 2030 AC PO 07/05 175 Alprazolam 0.5 MG TID PRN 06/22 2044 AC 06/28 PO 06/29 Atorvastatin Calcium 20 MG 1700 06/26 1700 AC 06/27 PO 1643 Budesonide/ 1 PUF 1700 06/26 1700 AC 06/28 Formoterol Fumarate INH 1225 Ceftazidime 1,000 MG Q8H 06/28 0500 AC 06/29 IV 0451 Diltiazem HCl 180 MG DAILY 06/23 1000 AC 06/29 PO 1013 Doxazosin Mesylate 4 MG QPM 06/22 2200 AC 06/28 PO 2142 Furosemide 40 MG 0800 & 1700 06/23 0800 AC 06/29 IV 0757 Heparin Sodium 5,000 UNIT Q8 06/26 0600 AC 06/29 (Porcine) SC 0543 Levothyroxine Sodium 0.025 MG DAILY AC 06/23 0700 AC 06/29 PO 0542 Morphine Sulfate 1 MG Q6P PRN 06/23 0930 AC IV Polyethylene Glycol 17 GM DAILY 06/24 1127 AC 06/29 PO 1013 Potassium Chloride 40 MEQ ONCE ONE 06/29 0930 DC 06/29 PO 06/29 0931 1013 Potassium Chloride 40 MEQ ONCE ONE 06/28 1245 DC 06/28 PO 06/28 1246 1236 Potassium Chloride 30 MEQ TUESDAY WED FRIDAY 06/23 1000 AC 06/23 PO 0956 Potassium Chloride 30 MEQ DAILY 06/23 1000 AC 06/29 PO 1013 Senna/Docusate Sodium 1 TAB DAILY 06/25 1000 AC 06/29 PO 1013 Tiotropium [place] 1 PUF QAM 06/23 1000 AC 06/29 INH 1013 Vancomycin HCl 1,000 MG Q24H 06/28 0500 AC 06/29 Sodium Chloride 250 ML IV 0451 Results Last 48 Hrs of Labs/Mics: Laboratory Tests 06/29/16 1029: CBC w Diff NO MAN DIFF REQ, RBC 3.60 L, MCV 76.3 L, MCH 23.8 L, RDW 17.8 H, MPV 7.8, Gran % 69.8, Lymphocytes % 21.3, Monocytes % 7.3, Eosinophils % 1.6, Basophils % 0 L, Absolute Granulocytes 5.0, Absolute Lymphocytes 1.5, Absolute Monocytes 0.5, Absolute Eosinophils 0.1, Absolute Basophils 0, PUBS MCHC 31.2 L 06/29/16 0425: Anion Gap 8, Estimated GFR > 60, BUN/Creatinine Ratio 30.0 H, Magnesium 2.0, PT 12.9 H, INR 1.23 H, CBC w Diff NO MAN DIFF REQ, RBC 3.06 L, MCV 76.0 L, MCH 23.4 L, RDW 18.4 H, MPV 8.3, Gran % 69.5, Lymphocytes % 17.8 L, Monocytes % 11.2 H, Eosinophils % 1.4, Basophils % 0.1, Absolute Granulocytes 4.4, Absolute Lymphocytes 1.1 L, Absolute Monocytes 0.7 H, Absolute Eosinophils 0.1, Absolute Basophils 0, PUBS MCHC 30.8 L 06/28/16 2130: pH 7.54 H, pCO2 52 H, pO2 93, HCO3 44 H, ABG O2 Sat (Measured) 96.0, P-50 ( Temp Corrected) N, Carboxyhemoglobin 0.8 L, O2 Concentration % 45%, Temperature 98.2, Respiration Rate 18, O2 Delivery Method BIPAP, Vent Mode ST, Expiratory Pressure 6, Inspiratory Pressure 14, Phlebotomy Draw Site RIGHT BRACHIAL 06/28/16 1615: pH 7.57 H, pCO2 49 H, pO2 113 H, HCO3 44 H, ABG O2 Sat (Measured) 96.0, P-50 (Temp Corrected) N, Carboxyhemoglobin 1.8, O2 Concentration % 50%, Temperature 98.0, Respiration Rate 24, O2 Delivery Method FFM, Vent Mode ST, Expiratory Pressure 6, Inspiratory Pressure 18, Phlebotomy Draw Site RIGHT BRACHIAL 06/28/16 1150: Urinalysis LIGHT H, Urine Color STRAW, Urine Clarity HAZY H, Urine pH 8.0, Ur Specific [place] 1.010, Urine Protein NEG, Urine Ketones NEG, Urine Nitrite NEG, Urine Bilirubin NEG, Urine Urobilinogen 0.2, Ur Leukocyte Esterase TRACE H, Ur Microscopic SEDIMENT EXAMINED, Urine RBC RARE, Urine WBC 1-3 H, Ur Epithelial Cells FEW, Urine Bacteria FEW H, Hyaline Casts RARE H, Urine Hemoglobin NEG, Urine Glucose NEG 06/28/16 0615: pH 7.40, pCO2 70 *H, pO2 79 L, HCO3 42 H, ABG O2 Sat (Measured) 95.0 L, P-50 (Temp Corrected) N, Carboxyhemoglobin 1.5, O2 Concentration % .50, Respiration Rate 24, O2 Delivery Method BIPAP, Vent Mode ST, Expiratory Pressure 6, Inspiratory Pressure 18, Phlebotomy Draw Site RIGHT RADIAL 06/28/16 0500: Anion Gap 7, Estimated GFR > 60, BUN/Creatinine Ratio 32.5 H, PT 12.9 H, INR 1.23 H, CBC w Diff MAN DIFF ORDERED, RBC 3.19 L, MCV 77.1 L, MCH 23.6 L, RDW 17.3 H, MPV 7.8, Gran % 83.6 H, Lymphocytes % 7.7 L, Monocytes % 7.0, Eosinophils % 1.7, Basophils % 0 L, Absolute Granulocytes 5.7, Segmented Neutrophils 84 H, Absolute Lymphocytes 0.5 L, Lymphocytes 7 L, Monocytes 4, Absolute Monocytes 0.5, Eosinophils 3, Absolute Eosinophils 0.1, Basophils 2, Absolute Basophils 0, Nucleated RBCs 1 H, Platelet Estimate ADEQUATE, Polychromasia 1+, Hypochromic-Microcytic 1+, Poikilocytosis 2+, Basophilic Stippling 1+, Anisocytosis 1+, Microcytic Cells 1+, Ovalocytes 1+, Stomatocytes 1+, Elliptocytes FEW, PUBS MCHC 30.6 L, Retic Count 2.40 H, Fld Total RBCs Counted 100 06/28/16 0300: pH 7.26 *L, pCO2 98 *H, pO2 121 H, HCO3 43 H, ABG O2 Sat (Measured) 98.0, P-50 (Temp Corrected) N, Carboxyhemoglobin 0.8 L, O2 Concentration % .60, O2 Delivery Method PRB, Phlebotomy Draw Site RIGHT BRACHIAL Microbiology 06/29 1000 NASOPHARYN: Influenza Virus A & B Rapid Smear - COMP 06/28 1150 URINE ROUT: Legionella Antigen - COMP 06/28 1150 URINE ROUT: Streptococcus pneumoniae Antigen (M - COMP Assessment/Plan Assessment/Plan The patient is somewhat improved from respiratory standpoint but is still requiring high flow oxygen. She is in sinus rhythm. Her Coumadin has been discontinued. Her H&H were low but on repeat value the hemoglobin is over 8, which is satisfactory. I recommend keeping her off of Coumadin and not starting her on heparin since she has been in sinus rhythm the entire time she has been here. There is no current indication for full anticoagulation. I would monitor her H&H but I don't think she needs transfusion at this time. I would continue treatment for her pneumonia per pulmonary. We will continue to hold on transfer for consideration for TAVR until her respiratory status is much improved. I have explained this to the family and they are in agreement with this plan. Continue telemetry? Yes
[2016-06-29 16:00] VITALS: BP 118/60
[2016-06-30 00:35] VITALS: BP 112/50
[2016-06-30 06:01] LABS: ABSOLUTE BASOPHIL COUNT 0 /CUMM (0.0-0.2); ABSOLUTE EOSINOPHIL COUNT 0.3 /CUMM (0.0-0.7); ABSOLUTE GRANULOCYTE CT 4.7 /CUMM (1.4-6.5); ABSOLUTE LYMPH COUNT 1.6 /CUMM (1.2-3.4); ABSOLUTE MONOCYTE COUNT 0.8 /CUMM (0.10-0.60); BASOPHIL % 0.2 % (0.0-2.0); EOSINOPHIL % 4.5 % (0-5); GRANULOCYTE % 63.5 % (42.2-75.2); HEMATOCRIT 24.9 % (37-47); MEAN CORPUSCULAR HGB 23.6 PG (27.0-31.0); MEAN CORPUSCULAR HGB CONC 31.3 G/DL (33.0-37.0); MEAN CORPUSCULAR VOLUME 75.4 FL (81.0-99.0); MEAN PLATELET VOLUME 8.6 FL (7.4-10.4); PLATELET COUNT 257 /CUMM (130-400); RBC DISTRIBUTION WIDTH 18.6 % (11.5-14.5); WHITE BLOOD CELL COUNT 7.4 /CUMM (4.8-10.8)
--- NOTE | 2016-06-30 07:53 | PN- Resident CRCU ---
Subjective HPI/CRCU Issues: Ms Meyer is an 85-year-old lady with past history of macular degeneration, atrial fibrillation, hypertension, hyperlipidemia, pulmonary embolism, emphysema, breast cancer s/p resection, recent multiple hospital admissions for hemorrhages was known to be in her usual state of health until 6 weeks prior to admission and was brought in to [facility] for worsening LE edema X 6 weeks and worsening SOB X1 week prior to admission along with reported weight gain approx 20 pounds in last 3 months. She was initially admitted to telemetry floor for treatment of acute CHF exacerbation, however her respiratory status worsened beginning 06/27/16 and was transferred to ICU 2/ to worsening SOB , labored breathing and worsening mental status. CRCU issues: 1. Acute hypercapnic, hypoxic respiratory Failure, multifactorial 2. CHF exacerbation 3. Hospital acquired pneumonia 4. H/o Emphysema 5. H/o pulmonary embolism on AC 24 Hour Events: Intake & Output 06/30 1600 06/30 0800 06/30 0000 Intake Total 740 500 Output Total 500 1700 Balance 240 -1200 Intake, IV 280 20 Intake, Oral 460 480 Number 0 0 Bowel Movements Output, Urine 500 1700 Patient 86.381 kg Weight Laboratory Tests 06/30 06/30 1300 0416 Chemistry Sodium (137 - 145 mmol/L) 138 Potassium (3.5 - 5.1 mmol/L) 3.5 Chloride (98 - 107 mmol/L) 87 L Carbon Dioxide (22 - 30 mmol/L) 41 H Anion Gap (5 - 16) 10 BUN (7 - 17 mg/dL) 32 H Creatinine (0.5 - 1.0 mg/dL) 0.9 Estimated GFR (>60 ml/min) 59 L Glucose (65 - 99 mg/dL) 91 Calcium (8.4 - 10.2 mg/dL) 8.8 Phosphorus (2.5 - 4.5 mg/dL) 5.0 H Magnesium (1.6 - 2.3 mg/dL) 2.0 Total Bilirubin (0.2 - 1.3 mg/dL) 0.8 AST (14 - 36 U/L) 27 ALT (9 - 52 U/L) 38 Albumin (3.5 - 5.0 g/dL) 3.3 L Hematology CBC w Diff NO MAN DIFF REQ NO MAN DIFF REQ WBC (4.8 - 10.8 /CUMM) 7.7 7.4 RBC (4.20 - 5.40 /CUMM) 3.59 L 3.30 L Hgb (12.0 - 16.0 G/DL) 8.3 L 7.8 L Hct (37 - 47 %) 27.4 L 24.9 L MCV (81.0 - 99.0 FL) 76.4 L 75.4 L MCH (27.0 - 31.0 PG) 23.2 L 23.6 L RDW (11.5 - 14.5 %) 17.9 H 18.6 H Plt Count (130 - 400 /CUMM) 268 257 MPV (7.4 - 10.4 FL) 8.3 8.6 Gran % (42.2 - 75.2 %) 70.7 63.5 Lymphocytes % (20.5 - 51.1 %) 16.3 L 21.0 Monocytes % (1.7 - 9.3 %) 10.9 H 10.8 H Eosinophils % (0 - 5 %) 2.1 4.5 Basophils % (0.0 - 2.0 %) 0 L 0.2 Absolute Granulocytes (1.4 - 6.5 /CUMM) 5.5 4.7 Absolute Lymphocytes (1.2 - 3.4 /CUMM) 1.3 1.6 Absolute Monocytes (0.10 - 0.60 /CUMM) 0.8 H 0.8 H Absolute Eosinophils (0.0 - 0.7 /CUMM) 0.2 0.3 Absolute Basophils (0.0 - 0.2 /CUMM) 0 0 PUBS MCHC (33.0 - 37.0 G/DL) 30.4 L 31.3 L Vital Signs Date Time Temp Pulse Resp B/P Pulse O2 O2 Flow FiO2 Ox Delivery Rate 06/30 1600 98.0 74 26 100/48 95 Nasal 60% Cannula 06/30 1600 95 Nasal 60% Cannula 06/30 1200 93 Nasal 60% Cannula 06/30 0851 93 Nasal 60% Cannula 06/30 0800 91 Nasal 60% Cannula 06/30 0800 98.1 78 25 140/64 91 Nasal 60% Cannula 06/30 0534 91 Nasal 60% Cannula 06/30 0400 92 Nasal 60% Cannula 06/30 0035 97.0 72 27 112/50 94 Nasal 60% Cannula 06/30 0019 77 95 06/30 0000 95 Nasal 60% Cannula 06/30 1999 95 Nasal 60% Cannula Objective Vital Signs & I&O Last 8 Hrs of Vitals and I&O: Last 8 hour vitals and I's&O's: max temp 97.00 hr 70-74 sr systolic bp 119-135 diastolic bp 58-63 + 1675 - 2200 Exam General Appearance: well developed/nourished, alert, awake, comfortable, mild distress, obese Head: atraumatic, normal appearance Ears, Nose, Throat: normal pharynx, normal ENT inspection Neck: normal inspection, supple Respiratory: chest non-tender, decreased breath sounds, decreased chest expansion Cardiovascular: regular rate/rhythm, systolic murmur (06/24 crescendo decrescendo) Gastrointestinal: soft, non-tender Extremities: normal inspection, normal capillary refill, no edema Cranial Nerves: normal hearing, normal speech Skin: intact Current Medications: Current Medications Sig/Olga Start time Last Medication Dose Route Stop Time Status Admin Acetaminophen 650 MG Q6P PRN 06/23 0930 AC 06/29 PO 0209 Albuterol Sulfate 3 ML EVERY 4 HRS/AWAKE 06/28 1600 AC 06/30 INH 1640 Alprazolam 0.5 MG AT BEDTIME NEED.. 06/29 2115 AC PO 07/06 2114 Alprazolam 0.5 MG ONCE PRN 06/28 2030 DC PO 07/12 1528 Alprazolam 0.5 MG TID PRN 06/22 2045 DC 06/29 PO 06/29 2044 1552 Ampicillin Sodium/ 1,500 MG Q12H 07/01 0400 AC Sulbactam Sodium IV Sodium Chloride 100 ML Ampicillin Sodium/ 1,500 MG Q12 06/30 1019 DC 06/30 Sulbactam Sodium IV 1601 Sodium Chloride 100 ML Atorvastatin Calcium 20 MG 1700 06/26 1700 AC 06/30 PO 1736 Budesonide/ 1 PUF 1700 06/26 1700 AC 06/30 Formoterol Fumarate INH 1736 Ceftazidime 1,000 MG Q8H 06/28 0500 DC 06/30 IV 0423 Diltiazem HCl 180 MG DAILY 04 1000 AC 06/30 PO 0957 Doxazosin Mesylate 4 MG QPM 06/22 2200 AC 06/29 PO 2219 Furosemide 40 MG 0800 & 1700 06/23 0800 AC 06/30 IV 1736 Heparin Sodium 5,000 UNIT Q8 06/26 0600 AC 06/30 (Porcine) SC 1425 Levothyroxine Sodium 0.025 MG DAILY AC 06/23 0700 AC 06/30 PO 0614 Morphine Sulfate 1 MG Q6P PRN 06/23 0930 DC IV Polyethylene Glycol 17 GM DAILY 06/24 1127 AC 06/30 PO 0957 Potassium Chloride 20 MEQ ONCE ONE 06/30 0915 CAN PO 06/30 0916 Potassium Chloride 40 MEQ ONCE ONE 06/30 0745 CAN PO 06/30 0746 Potassium Chloride 30 MEQ 06/23 1000 AC 06/23 PO 0956 Potassium Chloride 30 MEQ DAILY 06/23 1000 AC 06/30 PO 0957 Senna/Docusate Sodium 1 TAB DAILY 06/25 1000 AC 06/30 PO 0957 Sodium Chloride 2 SPRAY Q4P PRN 06/30 1430 AC NICOLE Tiotropium [place] 1 PUF QAM 06/23 1000 AC 06/30 INH 0957 Vancomycin HCl 1,000 MG Q24H 06/28 0500 DC 06/30 Sodium Chloride 250 ML IV 0422 Impression/Plan Impression/Problem List Impression: Ms Meyer is an 85-year-old lady with past history of macular degeneration, atrial fibrillation, hypertension, hyperlipidemia, pulmonary embolism, emphysema, breast cancer s/p resection, recent multiple hospital admissions for hemorrhages was known to be in her usual state of health until 6 weeks prior to admission and was brought in to [facility] ED for worsening LE edema X 6 weeks and worsening SOB X1 week prior to admission along with reported weight gain approx 20 pounds in last 3 months. She was initially admitted to telemetry floor for treatment of acute CHF exacerbation, however her respiratory status worsened beginning 06/27/16 and was transferred to ICU 2/2 to worsening SOB , labored breathing and worsening mental status. Problem list and Plan : Respiratory Patient was transferred to icu due to worsening hypoxic and hypercarbic respiratory failure. on 06/28/16 overnight she desaturated up to 87, she was placed on bipap. ABG prior to bipap : 7.26/98/121/43 >>>> ABG in am after bipap :7.40/70/79/42>>>> repeat ABG latter at 415 pm yesterday 7.57/49/113/44 ( much improved), no change in repeat ABG later at night yesterday, patient is off the bipap since 06/29/16. * Continue trc /nebs. * will hold off on repeat Cxr and abg, respiratory status remains stable * continue Spiriva. Cardiology CHF exacerbation due to Severe aortic stenosis Echocardiogram revealed critical aortic stenosis with gradient above 150, and valve area Less than 1 Likely, needs a TAVR, Serial EKG's and cardiac enzymes did not reveal any abnormalities. Patient has history of pulmonary embolism and paroxysmal atrial fibrillation, currently in NSR. * Continue furosemide 40 mg IV twice a day * Strict ins and outs with daily weights. * Continue tablet simvastatin 20mg. * Continue levothyroxine. * Considering her severe aortic stenosis and other risk factors, initially plan was to make arrangements to be transferred to [facility] for a TAVR. On day 4, of the stay in the hospital, respiratory status deteriorated and therefore she was not transfered to [facility], TAVR was held off for now. * Also note - on admission, patient was continued on Coumadin. Since the patient remained in normal sinus rhythm while in the stay in the hospital, Coumadin was discontinued briefly in anticipation of TAVR. * When the patient was in respiratory distress, a CTA was obtained which did not reveal any evidence of pulmonary embolism, however patient is NPO now with pending swallow so will dose coumadin once PO meds are started. * Per cardiology will not start anticoagulation as the patient has been in sinus rhythm ID strep pneumonia, legionella, rapid flu and strep throat were negative. urine culture shows enterococcus, No white count, afebrile, tmax of 99.1. CTA chest to rule out PE consistent with left lower lobe consolidation. * Follow blood cultures * Switched antibiotics (vanc/ceftaz) to IV unasyn Metabolic * Continue to monitor lytes * keep mg > 2, k > 4 * replete as needed * Kidney functions within normal limit Hematology Iron deficiency anemia * H&H, microcytic likely due to iron deficiency or blood loss. * Patient has a history of severe aortic stenosis and AVMs are in the differentials. * Hemoglobin 8.3 (goal is above 8 and also cautious with transfusion as it may cause volume overload) * Guaiac negative. Guaiac all stool. * Can consider to start Iron supplementation. Diet - cc3 DVT prophylaxis -ALP S/heparin Differential diagnosis: #1 CHF exacerbation Problem List: 1. Acute on chronic diastolic CHF (congestive heart failure) 2. Severe aortic stenosis Pain Ratin Tomorrow's Labs & Rationales: CBC (anemia), ICU bundle (monitor electrolytes) Plan DVT/Prophylaxis: mechanical, pharmacological
[2016-06-30 08:00] VITALS: BP 140/64
--- NOTE | 2016-06-30 08:46 | PN- CRCU ---
Subjective HPI/Critical Care Issues: The patient is awake and alert. She remains on high flow oxygen at 60%. Her saturations remain in the low 90s. She is afebrile. She reports having slept through the night and feels well rested. She has a cough but is not producing sputum. She is eating and drinking well. She has adequate urine output, and is in negative fluid balance over the past 24 hours. Objective Current Medications: Current Medications Sig/Olga Start time Last Medication Dose Route Stop Time Status Admin Acetaminophen 650 MG Q6P PRN 06/23 0930 AC 06/29 PO 0209 Albuterol Sulfate 3 ML EVERY 4 HRS/AWAKE 06/28 1600 AC 06/29 INH 2025 Alprazolam 0.5 MG AT BEDTIME NEED.. 06/29 211 AC PO 07/06 211 Alprazolam 0.5 MG ONCE PRN 06/28 2030 DC PO 07/12 1528 Alprazolam 0.5 MG TID PRN 06/22 2045 DC 06/29 PO 06/29 2044 1552 Atorvastatin Calcium 20 MG 1700 06/26 1700 AC 06/29 PO 1552 Budesonide/ 1 PUF 1700 06/26 1700 AC 06/29 Formoterol Fumarate INH 1552 Ceftazidime 1,000 MG Q8H 06/28 0500 AC 06/30 IV 0423 Diltiazem HCl 180 MG DAILY 06/23 1000 AC 06/29 PO 1013 Doxazosin Mesylate 4 MG QPM 06/22 2200 AC 06/29 PO 2219 Furosemide 40 MG 0800 & 1700 06/23 0800 AC 06/29 IV 1552 Heparin Sodium 5,000 UNIT Q8 06/26 0600 AC 06/30 (Porcine) SC 0614 Levothyroxine Sodium 0.025 MG DAILY AC 06/23 0700 AC 06/30 PO 0614 Morphine Sulfate 1 MG Q6P PRN 06/23 0930 AC IV Polyethylene Glycol 17 GM DAILY 06/24 1127 AC 06/29 PO 1013 Potassium Chloride 40 MEQ ONCE ONE 06/30 0745 DC PO 06/30 0746 Potassium Chloride 40 MEQ ONCE ONE 06/29 0930 DC 06/29 PO 06/29 0931 1013 Potassium Chloride 30 MEQ TUESDAY WED FRIDAY 06/23 1000 AC 06/23 PO 0956 Potassium Chloride 30 MEQ DAILY 06/23 1000 AC 06/29 PO 1013 Senna/Docusate Sodium 1 TAB DAILY 06/25 1000 AC 06/29 PO 1013 Tiotropium [place] 1 PUF QAM 06/23 1000 AC 06/29 INH 1013 Vancomycin HCl 1,000 MG Q24H 06/28 0500 AC 06/30 Sodium Chloride 250 ML IV 0422 Vital Signs & I&O Last 24 Hrs of Vitals and I&O: Vital Signs Date Time Temp Pulse Resp B/P Pulse O2 O2 Flow FiO2 Ox Delivery Rate 06/30 0534 91 Nasal 60% Cannula 06/30 0400 92 Nasal 60% Cannula 06/30 0035 97.0 72 27 112/50 94 Nasal 60% Cannula 06/30 0019 77 95 06/30 0000 95 Nasal 60% Cannula 06/29 2000 95 Nasal 60% Cannula 06/29 1607 93 Nasal 60% Cannula 06/29 1600 91 Nasal 60% Cannula 06/29 1600 98.2 79 24 118/60 94 Nasal 60% Cannula 06/29 1343 94 Nasal 60% Cannula 06/29 1200 93 Nasal 60% Cannula 06/29 1033 95 Nasal 60% Cannula 06/29 0922 92 Nasal 70% Cannula 06/29 0921 72 92 Intake & Output 06/30 1600 06/30 0800 06/30 0000 Intake Total 740 500 Output Total 500 1700 Balance 240 -1200 Intake, IV 280 20 Intake, Oral 460 480 Number 0 0 Bowel Movements Output, Urine 500 1700 Patient 190 lb Weight Physical Exam General Appearance: alert, awake, comfortable Head: atraumatic, normal appearance Eyes: Bilateral: PERRL, EOMI. Neck: normal inspection, supple Respiratory: chest non-tender, diminished breath sounds bilaterally with scattered rhonchi Cardiovascular: regular rate/rhythm Gastrointestinal: normal bowel sounds, soft, non-tender Extremities: decreased edema in lower extremities Results Last 24 Hrs of Lab Results: Laboratory Tests 06/30/16 0416: Anion Gap 10, Estimated GFR 59 L, Glucose 91, Calcium 8.8, Phosphorus 5.0 H, Magnesium 2.0, Total Bilirubin 0.8, AST 27, ALT 38, Albumin 3.3 L, CBC w Diff NO MAN DIFF REQ, RBC 3.30 L, MCV 75.4 L, MCH 23.6 L, RDW 18.6 H, MPV 8.6, Gran % 63.5, Lymphocytes % 21.0, Monocytes % 10.8 H, Eosinophils % 4.5, Basophils % 0.2, Absolute Granulocytes 4.7, Absolute Lymphocytes 1.6, Absolute Monocytes 0.8 H, Absolute Eosinophils 0.3, Absolute Basophils 0, PUBS MCHC 31.3 L 06/29/16 1029: CBC w Diff NO MAN DIFF REQ, RBC 3.60 L, MCV 76.3 L, MCH 23.8 L, RDW 17.8 H, MPV 7.8, Gran % 69.8, Lymphocytes % 21.3, Monocytes % 7.3, Eosinophils % 1.6, Basophils % 0 L, Absolute Granulocytes 5.0, Absolute Lymphocytes 1.5, Absolute Monocytes 0.5, Absolute Eosinophils 0.1, Absolute Basophils 0, PUBS MCHC 31.2 L Impression/Plan Impression/Plan Impression/Plan: 1. Acute hypoxemic and hypercapnic respiratory failure, secondary to left lower lobe pneumonia and atelectasis, cultures negative so far, day 2 of Vanco and ceftazidime. 2. Elevated right hemidiaphragm, rule out paralysis. 3. Critical aortic stenosis, with acute CHF exacerbation - will require TAVR. 4. History of AF, currently in sinus rhythm, no anticoagulation necessary at present. 5. History of pulmonary embolism in 2013. 6. History of emphysema. 7. Hypothyroidism, on levothyroxine. 8. History of hypertension, on Cardizem and Cardura. 9. History of emphysema, on Symbicort and Spiriva. 10. Anemia without evidence of bleeding. 11. Asymptomatic bacteriuria. Recommendations: * Continue high flow oxygen, titrate for saturations greater than 92%. * Will need to discuss x-ray findings with the patient's primary director nurses' registry to determine if her right hemidiaphragm paralysis is acute or chronic. Can consider a sniff test if necessary. * Continue TRC/nebs. * Continue Spiriva and Symbicort. * Change to IV Unasyn. * Electrolyte repletion as necessary. * Guaic all stools, monitor for bleeding. * Check a repeat CBC later today. She will require transfusion if her hgb remains under 8. * Continue negative fluid balance. * Continue Xanax for anxiety, but avoid oversedation. * Continue bowel regimen for constipation. * Out of bed to chair as tolerated. * Incentive spirometry. * Continue to monitor in the critical care unit.
--- NOTE | 2016-06-30 10:19 | PN- Cardiology ---
Subjective Subjective: The patient appears slightly improved. She is still on high flow oxygen. She is saturating in the mid 90s. She is in sinus rhythm and there have been no arrhythmias on the monitor. She is receiving antibiotics. She has no complaints of chest pain. She is taking nutrition adequately. She is off anticoagulation for now. Objective Vital Signs and I&Os Vital Signs Date Time Temp Pulse Resp B/P Pulse O2 O2 Flow FiO2 Ox Delivery Rate 06/30 0851 93 Nasal 60% Cannula 06/30 0534 91 Nasal 60% Cannula 06/30 0400 92 Nasal 60% Cannula 06/30 0035 97.0 72 27 112/50 94 Nasal 60% Cannula 06/30 0019 77 95 06/30 0000 95 Nasal 60% Cannula 06/29 2000 95 Nasal 60% Cannula 06/29 1607 93 Nasal 60% Cannula 06/29 1600 91 Nasal 60% Cannula 06/29 1600 98.2 79 24 118/60 94 Nasal 60% Cannula 06/29 1343 94 Nasal 60% Cannula 06/29 1200 93 Nasal 60% Cannula 06/29 1033 95 Nasal 60% Cannula Intake & Output 06/30 1600 06/30 0800 06/30 0000 06/29 1600 06/29 0800 06/29 0000 Intake Total 740 500 455 470 170 Output Total 500 1700 2450 400 850 Balance 240 -1199 -1994 70 -680 Intake, IV 280 20 55 250 20 Intake, Oral 460 480 400 220 150 Number 0 0 0 0 0 Bowel Movements Output, Urine 500 1700 2450 400 850 Patient 190 lb 192 lb Weight Physical Exam: HEENT exam is normal There are decreased breath sounds and a few posterior rales Heart reveals a prominent systolic ejection murmur at the base Extremities reveal minimal edema at this point Current Medications: Current Medications Sig/Olga Start time Last Medication Dose Route Stop Time Status Admin Acetaminophen 650 MG Q6P PRN 06/23 0930 AC 06/29 PO 0209 Albuterol Sulfate 3 ML EVERY 4 HRS/AWAKE 06/28 1600 AC 06/30 INH 0847 Alprazolam 0.5 MG AT BEDTIME NEED.. 06/29 2114 AC PO 07/06 2113 Alprazolam 0.5 MG ONCE PRN 06/28 2030 DC PO 07/12 1528 Alprazolam 0.5 MG TID PRN 06/22 2044 DC 06/29 PO 06/30 2043 1552 Ampicillin Sodium/ 1,500 MG Q12 06/30 1019 AC Sulbactam Sodium IV Sodium Chloride 100 ML Atorvastatin Calcium 20 MG 1700 06/26 1700 AC 06/29 PO 1552 Budesonide/ 1 PUF 1700 06/26 1700 AC 06/29 Formoterol Fumarate INH 1552 Ceftazidime 1,000 MG Q8H 06/28 0500 DC 06/30 IV 0423 Diltiazem HCl 180 MG DAILY 06/23 1000 AC 06/30 PO 0957 Doxazosin Mesylate 4 MG QPM 06/22 2200 AC 06/29 PO 2219 Furosemide 40 MG 0800 & 1700 06/23 0800 AC 06/30 IV 0839 Heparin Sodium 5,000 UNIT Q8 06/26 0600 AC 06/30 (Porcine) SC 0614 Levothyroxine Sodium 0.025 MG DAILY AC 06/23 0700 AC 06/30 PO 0614 Morphine Sulfate 1 MG Q6P PRN 06/23 0930 DC IV Polyethylene Glycol 17 GM DAILY 06/24 1127 AC 06/30 PO 0957 Potassium Chloride 20 MEQ ONCE ONE 06/30 0915 CAN PO 06/30 0916 Potassium Chloride 40 MEQ ONCE ONE 06/30 0745 CAN PO 06/30 0746 Potassium Chloride 30 MEQ TUESDAY WED FRIDAY 06/23 1000 AC 06/23 PO 0956 Potassium Chloride 30 MEQ DAILY 06/23 1000 AC 06/30 PO 0957 Senna/Docusate Sodium 1 TAB DAILY 06/25 1000 AC 06/30 PO 0957 Tiotropium [place] 1 PUF QAM / 1000 AC 06/30 INH 0957 Vancomycin HCl 1,000 MG Q24H 06/28 0500 DC 06/30 Sodium Chloride 250 ML IV 0422 Results Last 48 Hrs of Labs/Mics: Laboratory Tests 06/30/16 0416: Anion Gap 10, Estimated GFR 59 L, Glucose 91, Calcium 8.8, Phosphorus 5.0 H, Magnesium 2.0, Total Bilirubin 0.8, AST 27, ALT 38, Albumin 3.3 L, CBC w Diff NO MAN DIFF REQ, RBC 3.30 L, MCV 75.4 L, MCH 23.6 L, RDW 18.6 H, MPV 8.6, Gran % 63.5, Lymphocytes % 21.0, Monocytes % 10.8 H, Eosinophils % 4.5, Basophils % 0.2, Absolute Granulocytes 4.7, Absolute Lymphocytes 1.6, Absolute Monocytes 0.8 H, Absolute Eosinophils 0.3, Absolute Basophils 0, PUBS MCHC 31.3 L 06/29/16 1029: CBC w Diff NO MAN DIFF REQ, RBC 3.60 L, MCV 76.3 L, MCH 23.8 L, RDW 17.8 H, MPV 7.8, Gran % 69.8, Lymphocytes % 21.3, Monocytes % 7.3, Eosinophils % 1.6, Basophils % 0 L, Absolute Granulocytes 5.0, Absolute Lymphocytes 1.5, Absolute Monocytes 0.5, Absolute Eosinophils 0.1, Absolute Basophils 0, PUBS MCHC 31.2 L 06/29/16 0425: Anion Gap 8, Estimated GFR > 60, BUN/Creatinine Ratio 30.0 H, Magnesium 2.0, PT 12.9 H, INR 1.23 H, CBC w Diff NO MAN DIFF REQ, RBC 3.06 L, MCV 76.0 L, MCH 23.4 L, RDW 18.4 H, MPV 8.3, Gran % 69.5, Lymphocytes % 17.8 L, Monocytes % 11.2 H, Eosinophils % 1.4, Basophils % 0.1, Absolute Granulocytes 4.4, Absolute Lymphocytes 1.1 L, Absolute Monocytes 0.7 H, Absolute Eosinophils 0.1, Absolute Basophils 0, PUBS MCHC 30.8 L 06/28/16 2130: pH 7.54 H, pCO2 52 H, pO2 93, HCO3 44 H, ABG O2 Sat (Measured) 96.0, P-50 ( Temp Corrected) N, Carboxyhemoglobin 0.8 L, O2 Concentration % 45%, Temperature 98.2, Respiration Rate 18, O2 Delivery Method BIPAP, Vent Mode ST, Expiratory Pressure 6, Inspiratory Pressure 14, Phlebotomy Draw Site RIGHT BRACHIAL 06/28/16 1615: pH 7.57 H, pCO2 49 H, pO2 113 H, HCO3 44 H, ABG O2 Sat (Measured) 96.0, P-50 (Temp Corrected) N, Carboxyhemoglobin 1.8, O2 Concentration % 50%, Temperature 98.0, Respiration Rate 24, O2 Delivery Method FFM, Vent Mode ST, Expiratory Pressure 6, Inspiratory Pressure 18, Phlebotomy Draw Site RIGHT BRACHIAL 06/28/16 1150: Urinalysis LIGHT H, Urine Color STRAW, Urine Clarity HAZY H, Urine pH 8.0, Ur Specific [place] 1.010, Urine Protein NEG, Urine Ketones NEG, Urine Nitrite NEG, Urine Bilirubin NEG, Urine Urobilinogen 0.2, Ur Leukocyte Esterase TRACE H, Ur Microscopic SEDIMENT EXAMINED, Urine RBC RARE, Urine WBC 1-3 H, Ur Epithelial Cells FEW, Urine Bacteria FEW H, Hyaline Casts RARE H, Urine Hemoglobin NEG, Urine Glucose NEG Microbiology 06/29 1000 NASOPHARYN: Influenza Virus A & B Rapid Smear - COMP 06/28 115 URINE ROUT: Legionella Antigen - COMP 06/28 115 URINE ROUT: Streptococcus pneumoniae Antigen (M - COMP 06/28 1050 UPPER RESP: Surveillance Culture - COMP 06/28 105 GI: Surveillance Culture - COMP Assessment/Plan Assessment/Plan The patient is somewhat improved from respiratory standpoint but is still requiring high flow oxygen. She is in sinus rhythm. Her Coumadin has been discontinued. Hemoglobin is stable at 7.8. There is no current indication for full anticoagulation. I would monitor her H&H but I don't think she needs transfusion at this time. I would continue treatment for her pneumonia per pulmonary. We will continue to hold on transfer for consideration for TAVR until her respiratory status is much improved. A family meeting with the 2 daughters and K. Rosy Patel MD was held and we explained that the patient is critically ill although improved slightly, and the course will be prolonged before we can decide on transfer and TAVR. Continue telemetry? Yes
--- NOTE | 2016-06-30 13:46 | NUR ---
PHYSICAL THERAPY. PT RE-EVALUATION RECEIVED. Pt CURRENTLY IN ICU ON 60% HIGH FLOW AND HAS BEEN DESATURATING AT REST. PER DISCUSSION W/ NSG, PT RE-EVAL DEFERRED AT THIS TIME. PT WILL F/U APPROPRIATE.
[2016-06-30 14:06] LABS: ABSOLUTE BASOPHIL COUNT 0 /CUMM (0.0-0.2); ABSOLUTE EOSINOPHIL COUNT 0.2 /CUMM (0.0-0.7); ABSOLUTE GRANULOCYTE CT 5.5 /CUMM (1.4-6.5); ABSOLUTE LYMPH COUNT 1.3 /CUMM (1.2-3.4); ABSOLUTE MONOCYTE COUNT 0.8 /CUMM (0.10-0.60); BASOPHIL % 0 % (0.0-2.0); EOSINOPHIL % 2.1 % (0-5); GRANULOCYTE % 70.7 % (42.2-75.2); HEMATOCRIT 27.4 % (37-47); MEAN CORPUSCULAR HGB 23.2 PG (27.0-31.0); MEAN CORPUSCULAR HGB CONC 30.4 G/DL (33.0-37.0); MEAN CORPUSCULAR VOLUME 76.4 FL (81.0-99.0); MEAN PLATELET VOLUME 8.3 FL (7.4-10.4); PLATELET COUNT 268 /CUMM (130-400); RBC DISTRIBUTION WIDTH 17.9 % (11.5-14.5); RED BLOOD CELL CT 3.59 /CUMM (4.20-5.40); WHITE BLOOD CELL COUNT 7.7 /CUMM (4.8-10.8)
[2016-06-30 16:00] VITALS: BP 100/48
--- NOTE | 2016-06-30 20:40 | NUR ---
PT A/OX3, FOLLOWS COMMANDS. DENIES ANY PAIN AT PRESENT. BREATH SOUNDS CLEAR DIMINISHED AT BASES, SOBOE. NO COUGH NOTED AT PRESENT. ON HIGH FLOW 02 NC AT 60%. SEE FLOW SHEET FOR VS, 02 SATS, I/O'S. MONITOR SHOWS NSR WITH BBB, NO ECTOPY NOTED AT PRESENT. BP STABLE AT PRESENT. ABD SOFT, NONTENDER, NONDISTENDED, POSITIVE BOWEL SOUNDS. CATALAN IN PLACE-DRAINING GOOD AMT OF CLEAR YELLOW URINE AT PRESENT. SKIN INTACT. TRACE BILATERAL LOWER EXTREMITY EDEMA NOTED
[2016-06-30 23:00] VITALS: BP 130/70
[2016-07-01 05:35] LABS: ABSOLUTE BASOPHIL COUNT 0 /CUMM (0.0-0.2); ABSOLUTE EOSINOPHIL COUNT 0.4 /CUMM (0.0-0.7); ABSOLUTE LYMPH COUNT 1.5 /CUMM (1.2-3.4); ABSOLUTE MONOCYTE COUNT 0.6 /CUMM (0.10-0.60); BASOPHIL % 0.2 % (0.0-2.0); EOSINOPHIL % 5.6 % (0-5); GRANULOCYTE % 66.5 % (42.2-75.2); HEMATOCRIT 26.6 % (37-47); MEAN CORPUSCULAR HGB 23.4 PG (27.0-31.0); MEAN CORPUSCULAR HGB CONC 30.6 G/DL (33.0-37.0); MEAN CORPUSCULAR VOLUME 76.4 FL (81.0-99.0); MEAN PLATELET VOLUME 8.2 FL (7.4-10.4); RED BLOOD CELL CT 3.48 /CUMM (4.20-5.40); WHITE BLOOD CELL COUNT 7.6 /CUMM (4.8-10.8)
[2016-07-01 06:21] LABS: PLATELET COUNT 258 /CUMM (130-400)
--- NOTE | 2016-07-01 07:19 | PN- Resident CRCU ---
Subjective HPI/CRCU Issues: Ms Meyer is an 85-year-old lady with past history of macular degeneration, atrial fibrillation, hypertension, hyperlipidemia, pulmonary embolism, emphysema, breast cancer s/p resection, recent multiple hospital admissions for hemorrhages was known to be in her usual state of health until 6 weeks prior to admission and was brought in to [place] ED for worsening LE edema X 6 weeks and worsening SOB X1 week prior to admission along with reported weight gain approx 20 pounds in last 3 months. She was initially admitted to telemetry floor for treatment of acute CHF exacerbation, however her respiratory status worsened beginning 06/27/16 and was transferred to ICU 2/ to worsening SOB , labored breathing and worsening mental status. CRCU issues: 1. Acute hypercapnic, hypoxic respiratory Failure, multifactorial (most likely left lower lobe pneumonia - hospital acquired - as well as atelectasis) 2. CHF exacerbation and LE edema - improved 3. H/o Emphysema - on spiriva and symbicort 5. H/o pulmonary embolism on AC - on hold in anticipation for sx overnight the patient had oe episode of 3 beats of vtach, continues to be on HFNC down to 30% this morning. 24 Hour Events: Laboratory Tests 07/01 06/30 0427 1300 Chemistry Sodium (137 - 145 mmol/L) 135 L Potassium (3.5 - 5.1 mmol/L) 3.6 Chloride (98 - 107 mmol/L) 84 L Carbon Dioxide (22 - 30 mmol/L) 38 H Anion Gap (5 - 16) 13 BUN (7 - 17 mg/dL) 24 H Creatinine (0.5 - 1.0 mg/dL) 0.9 Estimated GFR (>60 ml/min) 59 L Glucose (65 - 99 mg/dL) 139 H Calcium (8.4 - 10.2 mg/dL) 8.8 Phosphorus (2.5 - 4.5 mg/dL) 4.3 Magnesium (1.6 - 2.3 mg/dL) 1.8 Total Bilirubin (0.2 - 1.3 mg/dL) 0.8 AST (14 - 36 U/L) 24 ALT (9 - 52 U/L) 35 Albumin (3.5 - 5.0 g/dL) 3.4 L Hematology CBC w Diff NO MAN DIFF REQ NO MAN DIFF REQ WBC (4.8 - 10.8 /CUMM) 7.6 7.7 RBC (4.20 - 5.40 /CUMM) 3.48 L 3.59 L Hgb (12.0 - 16.0 G/DL) 8.1 L 8.3 L Hct (37 - 47 %) 26.6 L 27.4 L MCV (81.0 - 99.0 FL) 76.4 L 76.4 L MCH (27.0 - 31.0 PG) 23.4 L 23.2 L RDW (11.5 - 14.5 %) 18.0 H 17.9 H Plt Count (130 - 400 /CUMM) 258 268 MPV (7.4 - 10.4 FL) 8.2 8.3 Gran % (42.2 - 75.2 %) 66.5 70.7 Lymphocytes % (20.5 - 51.1 %) 20.0 L 16.3 L Monocytes % (1.7 - 9.3 %) 7.7 10.9 H Eosinophils % (0 - 5 %) 5.6 H 2.1 Basophils % (0.0 - 2.0 %) 0.2 0 L Absolute Granulocytes (1.4 - 6.5 /CUMM) 5.0 5.5 Absolute Lymphocytes (1.2 - 3.4 /CUMM) 1.5 1.3 Absolute Monocytes (0.10 - 0.60 /CUMM) 0.6 0.8 H Absolute Eosinophils (0.0 - 0.7 /CUMM) 0.4 0.2 Absolute Basophils (0.0 - 0.2 /CUMM) 0 0 PUBS MCHC (33.0 - 37.0 G/DL) 30.6 L 30.4 L Vital Signs Date Time Temp Pulse Resp B/P Pulse O2 O2 Flow FiO2 Ox Delivery Rate 07/01 0816 92 Nasal 50% Cannula 07/01 0452 91 Nasal 50% Cannula 07/01 0400 91 Nasal 50% Cannula 07/01 0152 93 Nasal 50% Cannula 07/01 0000 93 Nasal 50% Cannula 06/30 2300 98.6 73 18 130/70 93 Nasal 50% Cannula 06/30 2000 96 Nasal 60% Cannula 06/30 1646 95 Nasal 60% Cannula 06/30 1600 98.0 74 26 100/48 95 Nasal 60% Cannula 06/30 1600 95 Nasal 60% Cannula 06/30 1200 93 Nasal 60% Cannula Intake & Output 07/01 1600 07/01 0800 07/01 0000 Intake Total 420 1103 Output Total 600 3540 Balance -180 -2437 Intake, IV 100 353 Intake, Oral 320 750 Number 0 0 Bowel Movements Output, Urine 600 3540 Objective Vital Signs & I&O Last 8 Hrs of Vitals and I&O: max temp 98.6 hr 65-93 sr systolic bp 112-134 diastolic bp 60-112 HFNC 50% overnight 91-93% + 420 - 600 Exam General Appearance: well developed/nourished, no apparent distress, alert, awake Head: atraumatic, normal appearance Ears, Nose, Throat: normal pharynx Neck: normal inspection, supple, full range of motion Respiratory: chest non-tender, quiet respiration, decreased breath sounds Cardiovascular: regular rate/rhythm, normal peripheral pulses Gastrointestinal: normal bowel sounds, soft, non-tender Extremities: normal capillary refill, normal range of motion, no edema Cranial Nerves: normal hearing, normal speech, PERRL Skin: intact, warm/dry Current Medications: Current Medications Sig/Olga Start time Last Medication Dose Route Stop Time Status Admin Acetaminophen 650 MG Q6P PRN 06/23 0930 AC 06/29 PO 0209 Albuterol Sulfate 3 ML EVERY 4 HRS/AWAKE 06/28 1600 AC 07/01 INH 1617 Alprazolam 0.5 MG AT BEDTIME NEED.. 06/29 2114 AC 06/30 PO 07/06 211 2150 Ampicillin Sodium/ 1,500 MG Q12H 07/01 0400 AC 07/01 Sulbactam Sodium IV 1618 Sodium Chloride 100 ML Atorvastatin Calcium 20 MG 1700 06/26 1700 AC 07/01 PO 1715 Budesonide/ 1 PUF 1700 06/26 1700 AC 07/01 Formoterol Fumarate INH 1715 Diltiazem HCl 180 MG DAILY 06/23 1000 AC 07/01 PO 1127 Doxazosin Mesylate 4 MG QPM 06/22 2200 AC 06/30 PO 2150 Furosemide 40 MG 0800 & 1700 06/23 0800 AC 07/01 IV 1715 Heparin Sodium 5,000 UNIT Q8 06/26 0600 AC 07/01 (Porcine) SC 1400 Levothyroxine Sodium 0.025 MG DAILY AC 06/23 0700 AC 07/01 PO 0630 Magnesium Chloride 64 MG BID 07/01 1000 AC 07/01 PO 1127 Polyethylene Glycol 17 GM DAILY 06/24 1127 AC 07/01 PO 1126 Potassium Chloride 40 MEQ ONCE ONE 07/01 0630 DC 07/01 PO 07/01 0631 0832 Potassium Chloride 30 MEQ 06/23 1000 AC 06/23 PO 0956 Potassium Chloride 30 MEQ DAILY 06/23 1000 AC 07/01 PO 1127 Senna/Docusate Sodium 1 TAB DAILY 06/25 1000 AC 07/01 PO 1126 Sodium Chloride 2 SPRAY Q4P PRN 06/30 1430 AC NICOLE Tiotropium [place] 1 PUF QAM 06/23 1000 AC 07/01 INH 1127 Impression/Plan Impression/Problem List Impression: Ms Meyer is an 85-year-old lady with past history of macular degeneration, atrial fibrillation, hypertension, hyperlipidemia, pulmonary embolism, emphysema, breast cancer s/p resection, recent multiple hospital admissions for hemorrhages was known to be in her usual state of health until 6 weeks prior to admission and was brought in to [place] ED for worsening LE edema X 6 weeks and worsening SOB X1 week prior to admission along with reported weight gain approx 20 pounds in last 3 months. She was initially admitted to telemetry floor for treatment of acute CHF exacerbation, however her respiratory status worsened beginning 06/27/16 and was transferred to ICU 2/2 to worsening SOB , labored breathing and worsening mental status. Problem list and Plan : Respiratory Patient was transferred to icu due to worsening hypoxic and hypercarbic respiratory failure. on 06/28/16 overnight she desaturated up to 87, she was placed on bipap. ABG prior to bipap : 7.26/98/121/43 >>>> ABG in am after bipap :7.40/70/79/42>>>> repeat ABG latter at 415 pm yesterday 7.57/49/113/44 ( much improved), no change in repeat ABG later at night yesterday, patient is off the bipap since 06/29/16. * Continue trc /nebs. * will hold off on repeat Cxr and abg, respiratory status remains stable * continue Spiriva. Cardiology CHF exacerbation due to Severe aortic stenosis Echocardiogram revealed critical aortic stenosis with gradient above 150, and valve area Less than 1 Likely, needs a TAVR, Serial EKG's and cardiac enzymes did not reveal any abnormalities. Patient has history of pulmonary embolism and paroxysmal atrial fibrillation, currently in NSR. * Continue furosemide 40 mg IV twice a day * Strict ins and outs with daily weights. * Continue tablet simvastatin 20mg. * Continue levothyroxine. * Considering her severe aortic stenosis and other risk factors, initially plan was to make arrangements to be transferred to [facility] for a TAVR. On day 4, of the stay in the hospital, respiratory status deteriorated and therefore she was not transfered to [facility], TAVR was held off for now. * Also note - on admission, patient was continued on Coumadin. Since the patient remained in normal sinus rhythm while in the stay in the hospital, Coumadin was discontinued briefly in anticipation of TAVR. * When the patient was in respiratory distress, a CTA was obtained which did not reveal any evidence of pulmonary embolism, however patient is NPO now with pending swallow so will dose coumadin once PO meds are started. * Per cardiology will not start anticoagulation as the patient has been in sinus rhythm ID strep pneumonia, legionella, rapid flu and strep throat were negative. urine culture shows enterococcus, No white count, afebrile, tmax of 99.1. CTA chest to rule out PE consistent with left lower lobe consolidation. * Follow blood cultures * Switched antibiotics (vanc/ceftaz) to IV unasyn Metabolic * Continue to monitor lytes * keep mg > 2, k > 4 * replete as needed * Kidney functions within normal limit Hematology Iron deficiency anemia * H&H, microcytic likely due to iron deficiency or blood loss. * Patient has a history of severe aortic stenosis and AVMs are in the differentials. * Hemoglobin 8.3 (goal is above 8 and also cautious with transfusion as it may cause volume overload) * Guaiac negative. Guaiac all stool. * Can consider to start Iron supplementation. Diet - cc3 DVT prophylaxis -ALP S/heparin Differential diagnosis: #1 CHF exacerbation Problem List: 1. Emphysema of lung 2. Acute on chronic diastolic CHF (congestive heart failure) 3. Severe aortic stenosis Pain Ratin Tomorrow's Labs & Rationales: CBC (anemia), ICU bundle (electrolytes) Plan DVT/Prophylaxis: mechanical, pharmacological
--- NOTE | 2016-07-01 07:35 | NUR ---
PT SLEPT ON AND OFF DURING THE NIGHT. DENIED ANY PAIN THOUGHOUT SHIFT. 02 AT 50%HIGH FLOW-02 SATS-90-95% FOR SHIFT. NSR WITH BBB. BP STABLE THOUGHOUT SHIFT. GOOD URINE OUTPUT FOR SHIFT. NO OTHER CHANGE IN PT ASSESSMENTS THOUGHOUT SHIFT
--- NOTE | 2016-07-01 07:37 | NUR ---
1200ML FLUID RESTRICTION MAINTAINED
[2016-07-01 08:00] VITALS: BP 130/80
--- NOTE | 2016-07-01 08:30 | NUR ---
REC'D THE PT A&OX3 IN BED. OFFERS NO C/O. PT IS IN A NSR WITH A BBB PER THE BLOCK OPERATOR-NO ECTOPY NOTED. INGA BS ARE CLEAR WITH DIMINISHED BS AT THE BASES. PT IS ON A 50% HIGH FLOW NC(HFNC). NONPRODUCTIVE COUGH PRESENT. ABD IS SOFT WITH NORMOACTIVE BOWEL SOUNDS. MAINTAINED ON A CONC CARB 3 DIET. CATALAN IN [place] DRAINING CLEAR YELLOW URINE. RH #[address] FLUSHES EASILY.
--- NOTE | 2016-07-01 08:58 | PN- CRCU ---
Subjective HPI/Critical Care Issues: The patient is awake and alert. She reports feeling significantly improved overall. She is less short of breath. She has a cough but no significant sputum production. She denies chest pain, fever or chills. She is eating and drinking well. She has no constipation or abdominal pain. She is now down to 50% but remains on high flow oxygen. Objective Current Medications: Current Medications Sig/Olga Start time Last Medication Dose Route Stop Time Status Admin Acetaminophen 650 MG Q6P PRN 06/23 0930 AC 06/29 PO 0209 Albuterol Sulfate 3 ML EVERY 4 HRS/AWAKE 06/28 1600 AC 07/01 INH 0756 Alprazolam 0.5 MG AT BEDTIME NEED.. 06/29 2115 AC 06/30 PO 07/06 2114 2150 Ampicillin Sodium/ 1,500 MG Q12H 07/01 0400 AC 07/01 Sulbactam Sodium IV 0428 Sodium Chloride 100 ML Ampicillin Sodium/ 1,500 MG Q12 06/30 1019 DC 06/30 Sulbactam Sodium IV 1601 Sodium Chloride 100 ML Atorvastatin Calcium 20 MG 1700 06/26 1700 AC 06/30 PO 1736 Budesonide/ 1 PUF 1700 06/26 1700 AC 06/30 Formoterol Fumarate INH 1736 Ceftazidime 1,000 MG Q8H 06/28 0500 DC 06/30 IV 0423 Diltiazem HCl 180 MG DAILY 06/23 1000 AC 06/30 PO 0957 Doxazosin Mesylate 4 MG QPM / 2200 AC 06/30 PO 2150 Furosemide 40 MG 0800 & 1700 06/23 0800 AC 07/01 IV 0822 Heparin Sodium 5,000 UNIT Q8 06/26 0600 AC 07/01 (Porcine) SC 0631 Levothyroxine Sodium 0.025 MG DAILY AC 06/23 0700 AC 07/01 PO 0630 Magnesium Chloride 64 MG BID 07/01 1000 AC PO Morphine Sulfate 1 MG Q6P PRN 06/23 0930 DC IV Polyethylene Glycol 17 GM DAILY 06/24 1127 AC 06/30 PO 0957 Potassium Chloride 40 MEQ ONCE ONE 07/01 0630 DC 07/01 PO 07/01 0631 0832 Potassium Chloride 20 MEQ ONCE ONE 06/30 0915 CAN PO 06/30 0916 Potassium Chloride 40 MEQ ONCE ONE 06/30 0745 CAN PO 06/30 0746 Potassium Chloride 30 MEQ 06/23 1000 AC 06/23 PO 0956 Potassium Chloride 30 MEQ DAILY 06/23 1000 AC 06/30 PO 0957 Senna/Docusate Sodium 1 TAB DAILY 06/25 1000 AC 06/30 PO 0957 Sodium Chloride 2 SPRAY Q4P PRN 06/30 1430 AC NICOLE Tiotropium [place] 1 PUF QAM 06/23 1000 AC 06/30 INH 0957 Vancomycin HCl 1,000 MG Q24H 06/28 0500 DC 06/30 Sodium Chloride 250 ML IV 0422 Vital Signs & I&O Last 24 Hrs of Vitals and I&O: Vital Signs Date Time Temp Pulse Resp B/P Pulse O2 O2 Flow FiO2 Ox Delivery Rate 07/01 0816 92 Nasal 50% Cannula 07/01 0452 91 Nasal 50% Cannula 07/01 0400 91 Nasal 50% Cannula 07/01 0152 93 Nasal 50% Cannula 07/01 0000 93 Nasal 50% Cannula 06/30 2300 98.6 73 18 130/70 93 Nasal 50% Cannula 06/30 2000 96 Nasal 60% Cannula 06/30 1646 95 Nasal 60% Cannula 06/30 1600 98.0 74 26 100/48 95 Nasal 60% Cannula 06/30 1600 95 Nasal 60% Cannula 06/30 1200 93 Nasal 60% Cannula Intake & Output 07/01 1600 07/01 0800 07/01 0000 Intake Total 420 1103 Output Total 600 3540 Balance -180 -2437 Intake, IV 100 353 Intake, Oral 320 750 Number 0 0 Bowel Movements Output, Urine 600 3540 Physical Exam General Appearance: alert, awake, comfortable Head: atraumatic, normal appearance Eyes: Bilateral: PERRL, EOMI. Neck: normal inspection, supple Respiratory: chest non-tender, diminished breath sounds bilaterally with scattered rhonchi Cardiovascular: regular rate/rhythm Gastrointestinal: normal bowel sounds, soft, non-tender Extremities: decreased edema in lower extremities Results Last 24 Hrs of Lab Results: Laboratory Tests 07/01/16 0427: Anion Gap 13, Estimated GFR 59 L, Glucose 139 H, Calcium 8.8, Phosphorus 4.3, Magnesium 1.8, Total Bilirubin 0.8, AST 24, ALT 35, Albumin 3.4 L, CBC w Diff NO MAN DIFF REQ, RBC 3.48 L, MCV 76.4 L, MCH 23.4 L, RDW 18.0 H, MPV 8.2, Gran % 66.5, Lymphocytes % 20.0 L, Monocytes % 7.7, Eosinophils % 5.6 H, Basophils % 0.2, Absolute Granulocytes 5.0, Absolute Lymphocytes 1.5, Absolute Monocytes 0.6, Absolute Eosinophils 0.4, Absolute Basophils 0, PUBS MCHC 30.6 L 06/30/16 1300: CBC w Diff NO MAN DIFF REQ, RBC 3.59 L, MCV 76.4 L, MCH 23.2 L, RDW 17.9 H, MPV 8.3, Gran % 70.7, Lymphocytes % 16.3 L, Monocytes % 10.9 H, Eosinophils % 2.1, Basophils % 0 L, Absolute Granulocytes 5.5, Absolute Lymphocytes 1.3, Absolute Monocytes 0.8 H, Absolute Eosinophils 0.2, Absolute Basophils 0, PUBS MCHC 30.4 L Impression/Plan Impression/Plan Impression/Plan: 1. Acute hypoxemic and hypercapnic respiratory failure, secondary to left lower lobe pneumonia and atelectasis, cultures negative so far, day 2 of Vanco and ceftazidime. 2. Elevated right hemidiaphragm, rule out paralysis. 3. Critical aortic stenosis, with acute CHF exacerbation - will require TAVR. 4. History of AF, currently in sinus rhythm, no anticoagulation necessary at present. 5. History of pulmonary embolism in 2013. 6. History of emphysema. 7. Hypothyroidism, on levothyroxine. 8. History of hypertension, on Cardizem and Cardura. 9. History of emphysema, on Symbicort and Spiriva. 10. Anemia without evidence of bleeding. 11. Asymptomatic bacteriuria. Recommendations: * Continue high flow oxygen, titrate for saturations greater than 92%. overlock elastic attacher to nasal cannula if able. * Check a portable chest x-ray this morning. * Continue TRC/nebs. * Continue Spiriva and Symbicort. * Continue to IV Unasyn, follow up cultures. * Electrolyte repletion as necessary. * Guaic all stools, monitor for bleeding. * Continue negative fluid balance. * Continue Xanax for anxiety, but avoid oversedation. * Continue bowel regimen for constipation. * Out of bed to chair today, PT consult today. * Incentive spirometry to continue. * Continue to monitor in the critical care unit.
--- NOTE | 2016-07-01 11:00 | NUR ---
PT CHANGED FORM HIGH FLOW NASAL CANNULA TO A 6LNC AT 1010. MAINTAINING AN O2 SAT OF 94%. NO RESP DISTRESS NOTED.
--- NOTE | 2016-07-01 13:08 | RADIOLOGY REPORT ---
EXAMINATION: XR PORTABLE CHEST CLINICAL INFORMATION: Shortness of breath. Suspected pneumonia. COMPARISON: Chest done on 06/27/2016 and CTA of the chest done on 06/28/2016. TECHNIQUE: Portable AP view of the chest was obtained. FINDINGS: Asymmetric low lung volume is noted within the right hemithorax. The aerated lung fournier bilaterally appear clear. The cardiomediastinal silhouette is moderately enlarged. There is no pleural effusion present. IMPRESSION: No acute cardiopulmonary disease.
--- NOTE | 2016-07-01 14:00 | NUR ---
PT PLACED IN THE RECLINER BY PT AT 1130. TRANSFERRED TO THE BEDSIDE COMMODE WITH MIN ASSIST OF 2 PERSONS AND HAD A LARGE BROWN FORMED BM, HEME NEG. AT THIS TIME THE PT WAS PLACED BACK INTO BED. POSITIONED FOR COMFORT.
[2016-07-01 16:00] VITALS: BP 134/68
--- NOTE | 2016-07-01 16:22 | PN- Cardiology ---
Subjective Subjective: Kalani is somewhat improved at this time. Her oxygen requirements have decreased to about 50%. She wishes to get out of bed. She has no complaints of chest pain. There have been no arrhythmias noted. Her hemoglobin is stable at 8.1. Objective Vital Signs and I&Os Vital Signs Date Time Temp Pulse Resp B/P Pulse O2 O2 Flow FiO2 Ox Delivery Rate 07/01 1222 96 Nasal 6.0L Cannula 07/01 0816 92 Nasal 50% Cannula 07/01 0452 91 Nasal 50% Cannula 07/01 0400 91 Nasal 50% Cannula 07/01 0152 93 Nasal 50% Cannula 07/01 0000 93 Nasal 50% Cannula 06/30 2300 98.6 73 18 130/70 93 Nasal 50% Cannula 06/30 2000 96 Nasal 60% Cannula 06/30 1646 95 Nasal 60% Cannula Intake & Output 07/01 1600 07/01 0800 07/01 0000 06/30 1600 06/30 0800 06/30 0000 Intake Total 420 400 703 740 500 Output Total 600 1710 2020 906 3790 Balance -180 -1310 -1127 240 -1200 Intake, IV 100 100 253 280 20 Intake, Oral 320 300 450 460 480 Number 0 0 0 0 Bowel Movements Output, Urine 600 1710 8668 250 0266 Patient 190 lb Weight Physical Exam: HEENT exam is normal Chest reveals decreased breath sounds Heart reveals prominent systolic ejection murmur at the base Extremities revealed decreasing edema Current Medications: Current Medications Sig/Olga Start time Last Medication Dose Route Stop Time Status Admin Acetaminophen 650 MG Q6P PRN 06/23 0930 AC 06/29 PO 0209 Albuterol Sulfate 3 ML EVERY 4 HRS/AWAKE 06/28 1600 AC 07/01 INH 1219 Alprazolam 0.5 MG AT BEDTIME NEED.. 06/29 2114 AC 06/30 PO 07/06 211 2150 Ampicillin Sodium/ 1,500 MG Q12H 07/01 0400 AC 07/01 Sulbactam Sodium IV 0428 Sodium Chloride 100 ML Atorvastatin Calcium 20 MG 1700 06/26 1700 AC 06/30 PO 1736 Budesonide/ 1 PUF 1700 06/26 1700 AC 06/30 Formoterol Fumarate INH 1736 Diltiazem HCl 180 MG DAILY 06/23 1000 AC 07/01 PO 1127 Doxazosin Mesylate 4 MG QPM 04/04 2200 AC 06/30 PO 2150 Furosemide 40 MG 0800 & 1700 06/23 0800 AC 07/01 IV 0822 Heparin Sodium 5,000 UNIT Q8 06/26 0600 AC 07/01 (Porcine) SC 0631 Levothyroxine Sodium 0.025 MG DAILY AC 06/23 0700 AC 07/01 PO 0630 Magnesium Chloride 64 MG BID 07/01 1000 AC 07/01 PO 1127 Polyethylene Glycol 17 GM DAILY 06/24 1127 AC 07/01 PO 1126 Potassium Chloride 40 MEQ ONCE ONE 07/01 0630 DC 07/01 PO 07/01 0631 0832 Potassium Chloride 30 MEQ 06/23 1000 AC 06/23 PO 0956 Potassium Chloride 30 MEQ DAILY 06/23 1000 AC 07/01 PO 1127 Senna/Docusate Sodium 1 TAB DAILY 06/25 1000 AC 07/01 PO 1126 Sodium Chloride 2 SPRAY Q4P PRN 06/30 1430 AC NICOLE Tiotropium [place] 1 PUF QAM 06/23 1000 AC 07/01 INH 1127 Results Last 48 Hrs of Labs/Mics: Laboratory Tests 07/01/16 0427: Anion Gap 13, Estimated GFR 59 L, Glucose 139 H, Calcium 8.8, Phosphorus 4.3, Magnesium 1.8, Total Bilirubin 0.8, AST 24, ALT 35, Albumin 3.4 L, CBC w Diff NO MAN DIFF REQ, RBC 3.48 L, MCV 76.4 L, MCH 23.4 L, RDW 18.0 H, MPV 8.2, Gran % 66.5, Lymphocytes % 20.0 L, Monocytes % 7.7, Eosinophils % 5.6 H, Basophils % 0.2, Absolute Granulocytes 5.0, Absolute Lymphocytes 1.5, Absolute Monocytes 0.6, Absolute Eosinophils 0.4, Absolute Basophils 0, PUBS MCHC 30.6 L 06/30/16 1300: CBC w Diff NO MAN DIFF REQ, RBC 3.59 L, MCV 76.4 L, MCH 23.2 L, RDW 17.9 H, MPV 8.3, Gran % 70.7, Lymphocytes % 16.3 L, Monocytes % 10.9 H, Eosinophils % 2.1, Basophils % 0 L, Absolute Granulocytes 5.5, Absolute Lymphocytes 1.3, Absolute Monocytes 0.8 H, Absolute Eosinophils 0.2, Absolute Basophils 0, PUBS MCHC 30.4 L 06/30/16 0416: Anion Gap 10, Estimated GFR 59 L, Glucose 91, Calcium 8.8, Phosphorus 5.0 H, Magnesium 2.0, Total Bilirubin 0.8, AST 27, ALT 38, Albumin 3.3 L, CBC w Diff NO MAN DIFF REQ, RBC 3.30 L, MCV 75.4 L, MCH 23.6 L, RDW 18.6 H, MPV 8.6, Gran % 63.5, Lymphocytes % 21.0, Monocytes % 10.8 H, Eosinophils % 4.5, Basophils % 0.2, Absolute Granulocytes 4.7, Absolute Lymphocytes 1.6, Absolute Monocytes 0.8 H, Absolute Eosinophils 0.3, Absolute Basophils 0, PUBS MCHC 31.3 L Recent Imaging Studies: PATIENT: KALANI WEAVER PRESENT AGE: 85 PATIENT ACCOUNT NO: [id number] : [birth year] LOCATION: [facility] ORDERING PHYSICIAN: KULDEEP ARANA MD SERVICE DATE: 07/01/16 EXAM TYPE: RAD - XRY-PORTABLE CHEST XRAY EXAMINATION: XR PORTABLE CHEST CLINICAL INFORMATION: Shortness of breath. Suspected pneumonia. COMPARISON: Chest done on 06/27/2016 and CTA of the chest done on 06/28/2016. TECHNIQUE: Portable AP view of the chest was obtained. FINDINGS: Asymmetric low lung volume is noted within the right hemithorax. The aerated lung fournier bilaterally appear clear. The cardiomediastinal silhouette is moderately enlarged. There is no pleural effusion present. IMPRESSION: No acute cardiopulmonary disease. DICTATED BY: NICKO PEDRO MD DATE/TIME DICTATED:07/01/161302 MOTOR SETTER:NAOMI DATE/TIME TRANSCRIBED:07/01/161302 CONFIDENTIAL, DO NOT COPY WITHOUT APPROPRIATE AUTHORIZATION. <Electronically signed in Other Vendor System> SIGNED BY: NICKO PEDRO MD 07/01/16 8012 Assessment/Plan Assessment/Plan The patient is improved from a respiratory standpoint. Her oxygen requirements are decreasing. Her chest x-ray looks a little better although there is still an elevated right hemidiaphragm and some infiltrate on the left. I would continue treatment for her pneumonia per pulmonary. We will continue to hold on transfer for consideration for TAVR until her respiratory status is much improved. We will continue to monitor her in the intensive care unit until her oxygen requirements are lower. I anticipate trying to transfer her next week if she continues to improve from a respiratory standpoint. Continue telemetry? Yes
--- NOTE | 2016-07-01 16:30 | NUR ---
PT'S NC WAS DECREASED TO 5LNC AT 1500, MAINTAINING AN O2 SAT OF 92% OR GREATER. NO RESP DISTRESS NOTED.
[2016-07-02] VITALS: BP 118/50
--- NOTE | 2016-07-02 01:06 | NUR ---
PT SLEEPY , EASILY AROUSABLE. DENIES PAIN AT HIS TIME. SATURATION 94% ON 5LO2, LUNGS SOUND CLEAR. MANUAL BP 118/50. ABDOMEN SOFT, NORMOACTIVE BS. CATALAN IN PLACE, ADEQUATE UO. ON UNASYN.
[2016-07-02 05:23] LABS: ABSOLUTE BASOPHIL COUNT 0 /CUMM (0.0-0.2); ABSOLUTE EOSINOPHIL COUNT 0.4 /CUMM (0.0-0.7); ABSOLUTE LYMPH COUNT 1.1 /CUMM (1.2-3.4); ABSOLUTE MONOCYTE COUNT 0.7 /CUMM (0.10-0.60); BASOPHIL % 0 % (0.0-2.0); EOSINOPHIL % 5.9 % (0-5); GRANULOCYTE % 69.1 % (42.2-75.2); HEMATOCRIT 25.7 % (37-47); MEAN CORPUSCULAR HGB 23.5 PG (27.0-31.0); MEAN CORPUSCULAR HGB CONC 30.9 G/DL (33.0-37.0); MEAN CORPUSCULAR VOLUME 76.2 FL (81.0-99.0); MEAN PLATELET VOLUME 7.8 FL (7.4-10.4); PLATELET COUNT 274 /CUMM (130-400); RBC DISTRIBUTION WIDTH 18.6 % (11.5-14.5); RED BLOOD CELL CT 3.38 /CUMM (4.20-5.40); WHITE BLOOD CELL COUNT 7.3 /CUMM (4.8-10.8)
--- NOTE | 2016-07-02 05:38 | PN- Resident CRCU ---
Subjective HPI/CRCU Issues: Ms Meyer is an 85-year-old lady with past history of macular degeneration, atrial fibrillation, hypertension, hyperlipidemia, pulmonary embolism, emphysema, breast cancer s/p resection, recent multiple hospital admissions for hemorrhages was known to be in her usual state of health until 6 weeks prior to admission and was brought in to [facility] ED for worsening LE edema X 6 weeks and worsening SOB X1 week prior to admission along with reported weight gain approx 20 pounds in last 3 months. She was initially admitted to telemetry floor for treatment of acute CHF exacerbation, however her respiratory status worsened beginning 06/27/16 and was transferred to ICU 2/ to worsening SOB , labored breathing and worsening mental status. CRCU issues: 1. Acute hypercapnic, hypoxic respiratory Failure, multifactorial (most likely left lower lobe pneumonia - hospital acquired - as well as atelectasis) - resolved 2. CHF exacerbation and LE edema - resolved 3. H/o Emphysema - on spiriva and symbicort 4. H/o pulmonary embolism on AC - on hold in anticipation for sx 5. 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 24 Hour Events: Laboratory Tests 07/02 0500 Chemistry Sodium (137 - 145 mmol/L) 136 L Potassium (3.5 - 5.1 mmol/L) 3.7 Chloride (98 - 107 mmol/L) 89 L Carbon Dioxide (22 - 30 mmol/L) 39 H Anion Gap (5 - 16) 8 BUN (7 - 17 mg/dL) 27 H Creatinine (0.5 - 1.0 mg/dL) 0.8 Estimated GFR (>60 ml/min) > 60 Glucose (65 - 99 mg/dL) 101 H Calcium (8.4 - 10.2 mg/dL) 9.1 Phosphorus (2.5 - 4.5 mg/dL) 3.6 Magnesium (1.6 - 2.3 mg/dL) 2.1 Total Bilirubin (0.2 - 1.3 mg/dL) 0.9 AST (14 - 36 U/L) 27 ALT (9 - 52 U/L) 36 Albumin (3.5 - 5.0 g/dL) 3.4 L Hematology CBC w Diff NO MAN DIFF REQ WBC (4.8 - 10.8 /CUMM) 7.3 RBC (4.20 - 5.40 /CUMM) 3.38 L Hgb (12.0 - 16.0 G/DL) 7.9 L Hct (37 - 47 %) 25.7 L MCV (81.0 - 99.0 FL) 76.2 L MCH (27.0 - 31.0 PG) 23.5 L RDW (11.5 - 14.5 %) 18.6 H Plt Count (130 - 400 /CUMM) 274 MPV (7.4 - 10.4 FL) 7.8 Gran % (42.2 - 75.2 %) 69.1 Lymphocytes % (20.5 - 51.1 %) 14.7 L Monocytes % (1.7 - 9.3 %) 10.3 H Eosinophils % (0 - 5 %) 5.9 H Basophils % (0.0 - 2.0 %) 0 L Absolute Granulocytes (1.4 - 6.5 /CUMM) 5.0 Absolute Lymphocytes (1.2 - 3.4 /CUMM) 1.1 L Absolute Monocytes (0.10 - 0.60 /CUMM) 0.7 H Absolute Eosinophils (0.0 - 0.7 /CUMM) 0.4 Absolute Basophils (0.0 - 0.2 /CUMM) 0 PUBS MCHC (33.0 - 37.0 G/DL) 30.9 L Vital Signs Date Time Temp Pulse Resp B/P Pulse O2 O2 Flow FiO2 Ox Delivery Rate 07/02 0400 96 Nasal 5.0L Cannula 07/02 0035 92 Nasal 5.0L Cannula 07/02 0000 94 Nasal 5.0L Cannula 07/02 0000 97.5 77 18 118/50 94 Nasal 5.0L Cannula 07/01 2000 94 Nasal 5.0L Cannula 07/01 1800 94 Nasal 5.0L Cannula 07/01 1620 95 Nasal 5.0L Cannula 07/01 1600 98.8 71 30 134/68 94 Nasal 5.0L Cannula 07/01 1222 96 Nasal 6.0L Cannula 07/01 0816 92 Nasal 50% Cannula 07/01 0800 98.1 76 23 130/80 95 Nasal 50% Cannula Intake & Output 07/02 0800 07/02 0000 07/01 1600 Intake Total 200 554 434 Output Total 470 1397 1380 Balance -270 -841 -946 Intake, IV 114 14 Intake, Oral 200 440 420 Number 1 Bowel Movements Output, Urine 470 1395 1380 Objective Vital Signs & I&O Last 8 Hrs of Vitals and I&O: Intake & Output 07/03 0800 Intake Total 600 Output Total Balance 600 Intake, Oral 600 Exam General Appearance: well developed/nourished, no apparent distress, alert, awake , comfortable Head: normal appearance Ears, Nose, Throat: normal ENT inspection Neck: supple, full range of motion Respiratory: chest non-tender, no respiratory distress, quiet respiration, lungs clear Cardiovascular: regular rate/rhythm Gastrointestinal: soft, non-tender Extremities: no edema Cranial Nerves: normal speech Skin: intact, warm/dry Current Medications: Current Medications Sig/Olga Start time Last Medication Dose Route Stop Time Status Admin Acetaminophen 650 MG Q6P PRN 06/23 0930 AC 06/29 PO 0209 Albuterol Sulfate 3 ML EVERY 4 HRS/AWAKE 06/28 1600 AC 07/02 INH 2028 Alprazolam 0.5 MG AT BEDTIME NEED.. 06/29 211 AC 07/02 PO 07/06 211 2107 Ampicillin Sodium/ 1,500 MG Q12H 07/01 0400 AC 07/03 Sulbactam Sodium IV 0430 Sodium Chloride 100 ML Atorvastatin Calcium 20 MG 1700 06/26 1700 AC 07/02 PO 1616 Budesonide/ 1 PUF 1700 06/26 1700 AC 07/02 Formoterol Fumarate INH 1616 Diltiazem HCl 180 MG DAILY 06/23 1000 AC 07/02 PO 1246 Doxazosin Mesylate 4 MG QPM 06/22 2200 AC 07/02 PO 205 Furosemide 40 MG 0800 & 1700 06/23 0800 AC 07/02 IV 1616 Glycerin 2 SPRAY Q2P PRN 07/02 0815 AC PO Heparin Sodium 5,000 UNIT Q8 06/26 0600 AC 07/03 (Porcine) SC 0639 Levothyroxine Sodium 0.025 MG DAILY AC 06/23 0700 AC 07/03 PO 0639 Magnesium Chloride 64 MG BID 07/01 1000 AC 07/02 PO 205 Polyethylene Glycol 17 GM DAILY 06/24 1127 AC 07/02 PO 1000 Potassium Chloride 30 MEQ 06/23 1000 AC 07/02 PO 1200 Potassium Chloride 30 MEQ DAILY 06/23 1000 AC 04/14 PO 1245 Senna/Docusate Sodium 1 TAB DAILY 06/25 1000 AC 07/02 PO 1245 Sodium Chloride 2 SPRAY Q4P PRN 06/30 1430 AC NICOLE Tiotropium [place] 1 PUF QAM 06/23 1000 AC 07/02 INH 1248 Impression/Plan Impression/Problem List Impression: Ms Meyer is an 85-year-old lady with past history of macular degeneration, atrial fibrillation, hypertension, hyperlipidemia, pulmonary embolism, emphysema, breast cancer s/p resection, recent multiple hospital admissions for hemorrhages was known to be in her usual state of health until 6 weeks prior to admission and was brought in to [facility] ED for worsening LE edema X 6 weeks and worsening SOB X1 week prior to admission along with reported weight gain approx 20 pounds in last 3 months. She was initially admitted to telemetry floor for treatment of acute CHF exacerbation, however her respiratory status worsened beginning 06/27/16 and was transferred to ICU 2/2 to worsening SOB , labored breathing and worsening mental status. Problem list and Plan : Respiratory Patient was transferred to icu due to worsening hypoxic and hypercarbic respiratory failure. patient is off the bipap since 06/29/16. CXR yesterday did not reveal any consolidation or congestion, shows chronic finding of elevated right hemidiaphragm (it was present in her imagings in 2013 as we checked with her sack sorter, Dr. Us office). Currently down to 4L NC (her baseline at home ), lungs are clear in exam, patient is alert and awake and appear comfortable. * Patient can be monitored on tele at this point * Continue trc /nebs. * continue Spiriva/symbicort/albuterol * continue IV Unasyn Cardiology CHF exacerbation due to Severe aortic stenosis Echocardiogram revealed critical aortic stenosis with gradient above 150, and valve area Less than 1 Likely, needs a TAVR, Serial EKG's and cardiac enzymes did not reveal any abnormalities. Patient has history of pulmonary embolism and paroxysmal atrial fibrillation, currently in NSR. * Continue furosemide 40 mg IV twice a day * Strict ins and outs with daily weights, oasis for moistening the mouth and avoiding excess fluid intake as she reports being thirsty. * Continue tablet simvastatin 20mg. * Continue levothyroxine. * Considering her severe aortic stenosis and other risk factors, initially plan was to make arrangements to be transferred to [place] for a TAVR. On day 4, of the stay in the hospital, respiratory status deteriorated and therefore she was not transfered to [facility], TAVR was held off for now. * Also note - on admission, patient was continued on Coumadin. Since the patient remained in normal sinus rhythm while in the stay in the hospital, Coumadin was discontinued briefly in anticipation of TAVR. * When the patient was in respiratory distress, a CTA was obtained which did not reveal any evidence of pulmonary embolism, however patient is NPO now with pending swallow so will dose coumadin once PO meds are started. * Per cardiology did not start anticoagulation as the patient has been in sinus rhythm * Plan is to transfer to [place] for TAVR on Tuesday, made NPO on Tuesday after midnight ID strep pneumonia, legionella, rapid flu and strep throat were negative. urine culture shows enterococcus, No white count, afebrile, tmax of 99.1. CTA chest to rule out PE consistent with left lower lobe consolidation. * Follow blood cultures * Switched antibiotics (vanc/ceftaz) to IV unasyn (she received vanc/ceftaz for 3 days and today is day 2 of Unasyn. Metabolic * Continue to monitor lytes * keep mg > 2, k > 4 * replete as needed * Kidney functions within normal limit Hematology Iron deficiency anemia * H&H, microcytic likely due to iron deficiency or blood loss. * Patient has a history of severe aortic stenosis and AVMs are in the differentials. * Hemoglobin 8.1 (stable) (goal is above 8, but cautious with transfusion as it may cause volume overload) * Guaiac negative. Guaiac all stool. * Can consider to start Iron supplementation. Diet - cc3 DVT prophylaxis -ALP S/heparin Problem List: 1. Severe aortic stenosis 2. Pneumonia Pain Ratin Tomorrow's Labs & Rationales: BEP (monitor electrolytes) Plan DVT/Prophylaxis: mechanical, pharmacological
[2016-07-02 07:00] VITALS: BP 120/70
--- NOTE | 2016-07-02 10:18 | PN- CRCU ---
Subjective HPI/Critical Care Issues: The patient is awake and alert. She reports feeling markedly improved. She is now on nasal cannula and saturating well on 5 L. She has good urine output. She is sitting out of bed in a chair and tolerating this well. There were no overnight events reported. She slept well. Objective Current Medications: Current Medications Sig/Olga Start time Last Medication Dose Route Stop Time Status Admin Acetaminophen 650 MG Q6P PRN 06/23 0930 AC 06/29 PO 0209 Albuterol Sulfate 3 ML EVERY 4 HRS/AWAKE 06/28 1600 AC 07/02 INH 0837 Alprazolam 0.5 MG AT BEDTIME NEED.. 06/29 2115 AC 07/01 PO 07/06 2114 2156 Ampicillin Sodium/ 1,500 MG Q12H 07/01 0400 AC 07/02 Sulbactam Sodium IV 0324 Sodium Chloride 100 ML Atorvastatin Calcium 20 MG 1700 06/26 1700 AC 07/01 PO 1715 Budesonide/ 1 PUF 1700 06/26 1700 AC 07/01 Formoterol Fumarate INH 1715 Diltiazem HCl 180 MG DAILY 06/23 1000 AC 07/01 PO 1127 Doxazosin Mesylate 4 MG QPM 06/22 2200 AC 07/01 PO 2156 Furosemide 40 MG 0800 & 1700 06/23 0800 AC 07/01 IV 1715 Glycerin 2 SPRAY Q2P PRN 07/02 0815 AC PO Heparin Sodium 5,000 UNIT Q8 06/26 0600 AC 07/02 (Porcine) SC 0545 Levothyroxine Sodium 0.025 MG DAILY AC 06/23 0700 AC 07/02 PO 0616 Magnesium Chloride 64 MG BID 07/01 1000 AC 07/01 PO 2156 Polyethylene Glycol 17 GM DAILY 06/24 1127 AC 07/01 PO 1126 Potassium Chloride 30 MEQ TUESDAY WED FRIDAY 06/23 1000 AC 06/23 PO 0956 Potassium Chloride 30 MEQ DAILY 06/23 1000 AC 07/01 PO 1127 Senna/Docusate Sodium 1 TAB DAILY 06/25 1000 AC 07/01 PO 1126 Sodium Chloride 2 SPRAY Q4P PRN 06/30 1430 AC NICOLE Tiotropium [place] 1 PUF QAM 06/23 1000 AC 07/01 INH 1127 Vital Signs & I&O Last 24 Hrs of Vitals and I&O: Vital Signs Date Time Temp Pulse Resp B/P Pulse O2 O2 Flow FiO2 Ox Delivery Rate 07/02 0838 95 Nasal 4.0L Cannula 07/02 0400 96 Nasal 5.0L Cannula 07/02 0035 92 Nasal 5.0L Cannula 07/02 0000 94 Nasal 5.0L Cannula 07/02 0000 97.5 77 18 118/50 94 Nasal 5.0L Cannula 07/01 2000 94 Nasal 5.0L Cannula 07/01 1800 94 Nasal 5.0L Cannula 07/01 1620 95 Nasal 5.0L Cannula 07/01 1600 98.8 71 30 134/68 94 Nasal 5.0L Cannula 07/01 1222 96 Nasal 6.0L Cannula Intake & Output 07/02 1600 07/02 0800 07/02 0000 Intake Total 200 554 Output Total 470 1395 Balance -270 -841 Intake, IV 114 Intake, Oral 200 440 Output, Urine 470 1395 Physical Exam General Appearance: alert, awake, comfortable Head: atraumatic, normal appearance Eyes: Bilateral: PERRL, EOMI. Neck: normal inspection, supple Respiratory: chest non-tender, diminished breath sounds bilaterally with scattered rhonchi Cardiovascular: regular rate/rhythm Gastrointestinal: normal bowel sounds, soft, non-tender Extremities: decreased edema in lower extremities Results Last 24 Hrs of Lab Results: Laboratory Tests 07/02/16 0500: Anion Gap 8, Estimated GFR > 60, Glucose 101 H, Calcium 9.1, Phosphorus 3.6, Magnesium 2.1, Total Bilirubin 0.9, AST 27, ALT 36, Albumin 3.4 L, CBC w Diff NO MAN DIFF REQ, RBC 3.38 L, MCV 76.2 L, MCH 23.5 L, RDW 18.6 H, MPV 7.8, Gran % 69.1, Lymphocytes % 14.7 L, Monocytes % 10.3 H, Eosinophils % 5.9 H, Basophils % 0 L, Absolute Granulocytes 5.0, Absolute Lymphocytes 1.1 L, Absolute Monocytes 0.7 H, Absolute Eosinophils 0.4, Absolute Basophils 0, PUBS MCHC 30.9 L Last 24 Hrs of Micro Results: Urine positive for enterococcus, asymptomatic. Impression/Plan Impression/Plan Impression/Plan: 1. Acute hypoxemic and hypercapnic respiratory failure, secondary to left lower lobe pneumonia and atelectasis, on IV Unasyn. 2. Elevated right hemidiaphragm, chronic paralysis. 3. Critical aortic stenosis, with acute CHF exacerbation - will require TAVR. 4. History of AF, currently in sinus rhythm, no anticoagulation necessary at present. 5. History of pulmonary embolism in 2013. 6. History of emphysema. 7. Hypothyroidism, on levothyroxine. 8. History of hypertension, on Cardizem and Cardura. 9. History of emphysema, on Symbicort and Spiriva. 10. Anemia without evidence of bleeding. 11. Asymptomatic bacteriuria. Recommendations: * Titrate oxygen for sats greater than 92%. * Continue TRC/nebs. * Continue Spiriva and Symbicort. * Continue to IV Unasyn, follow up cultures. * Electrolyte repletion as necessary. * Guaic all stools, monitor for bleeding. * Continue negative fluid balance. * Continue Xanax for anxiety, but avoid oversedation. * Continue bowel regimen for constipation. * Out of bed to chair, continue PT. * Incentive spirometry to continue. * Downgrade to telemetry.
--- NOTE | 2016-07-02 10:52 | PN- Cardiology ---
Subjective Subjective: The patient appears improved. She is sitting in a chair. She is on nasal oxygen. She is saturating well. She has no complaints of chest pain or shortness of breath. Objective Vital Signs and I&Os Vital Signs Date Time Temp Pulse Resp B/P Pulse O2 O2 Flow FiO2 Ox Delivery Rate 07/02 0838 95 Nasal 4.0L Cannula 07/02 0400 96 Nasal 5.0L Cannula 07/02 0035 92 Nasal 5.0L Cannula 07/02 0000 94 Nasal 5.0L Cannula 07/02 0000 97.5 77 18 118/50 94 Nasal 5.0L Cannula 07/01 2000 94 Nasal 5.0L Cannula 07/01 1800 94 Nasal 5.0L Cannula 07/01 1620 95 Nasal 5.0L Cannula 07/01 1600 98.8 71 30 134/68 94 Nasal 5.0L Cannula 07/01 1222 96 Nasal 6.0L Cannula Intake & Output 07/02 1600 07/02 0800 07/02 0000 07/01 1600 07/01 0800 07/01 0000 Intake Total 200 554 128 206 4113 Output Total 470 1395 0521 786 1878 Balance -270 -841 -946 -180 -2437 Intake, IV 114 14 100 353 Intake, Oral 200 440 420 320 750 Number 1 0 0 Bowel Movements Output, Urine 470 1395 0669 420 4143 Physical Exam: HEENT exam is normal Chest is clear Heart reveals prominent systolic ejection murmur Extremities reveal decreasing edema. Current Medications: Current Medications Sig/[place] Start time Last Medication Dose Route Stop Time Status Admin Acetaminophen 650 MG Q6P PRN 06/23 0930 AC 06/29 PO 0209 Albuterol Sulfate 3 ML EVERY 4 HRS/AWAKE 06/28 1600 AC 07/02 INH 0837 Alprazolam 0.5 MG AT BEDTIME NEED.. 06/29 2114 AC 07/01 PO 07/06 211 2156 Ampicillin Sodium/ 1,500 MG Q12H 07/01 0400 AC 07/02 Sulbactam Sodium IV 0324 Sodium Chloride 100 ML Atorvastatin Calcium 20 MG 1700 06/26 1700 AC 07/01 PO 1715 Budesonide/ 1 PUF 1700 06/26 1700 AC 07/01 Formoterol Fumarate INH 1715 Diltiazem HCl 180 MG DAILY 06/23 1000 AC 07/01 PO 1127 Doxazosin Mesylate 4 MG QPM 06/22 2200 AC 07/01 PO 215 Furosemide 40 MG 0800 & 1700 05 0800 AC 07/01 IV 1715 Glycerin 2 SPRAY Q2P PRN 07/02 0815 AC PO Heparin Sodium 5,000 UNIT Q8 06/26 0600 AC 07/02 (Porcine) SC 0545 Levothyroxine Sodium 0.025 MG DAILY AC 06/23 0700 AC 07/02 PO 0616 Magnesium Chloride 64 MG BID 07/01 1000 AC 07/01 PO 2156 Polyethylene Glycol 17 GM DAILY 06/24 1127 AC 07/01 PO 1126 Potassium Chloride 30 MEQ TUESDAY WED FRIDAY 06/23 1000 AC 06/23 PO 0956 Potassium Chloride 30 MEQ DAILY 06/23 1000 AC 07/01 PO 1127 Senna/Docusate Sodium 1 TAB DAILY 06/25 1000 AC 07/01 PO 1126 Sodium Chloride 2 SPRAY Q4P PRN 06/30 1430 AC NICOLE Tiotropium [place] 1 PUF QAM 06/23 1000 AC 07/01 INH 1127 Results Last 48 Hrs of Labs/Mics: Laboratory Tests 07/02/16 0500: Anion Gap 8, Estimated GFR > 60, Glucose 101 H, Calcium 9.1, Phosphorus 3.6, Magnesium 2.1, Total Bilirubin 0.9, AST 27, ALT 36, Albumin 3.4 L, CBC w Diff NO MAN DIFF REQ, RBC 3.38 L, MCV 76.2 L, MCH 23.5 L, RDW 18.6 H, MPV 7.8, Gran % 69.1, Lymphocytes % 14.7 L, Monocytes % 10.3 H, Eosinophils % 5.9 H, Basophils % 0 L, Absolute Granulocytes 5.0, Absolute Lymphocytes 1.1 L, Absolute Monocytes 0.7 H, Absolute Eosinophils 0.4, Absolute Basophils 0, PUBS MCHC 30.9 L 07/01/16 0427: Anion Gap 13, Estimated GFR 59 L, Glucose 139 H, Calcium 8.8, Phosphorus 4.3, Magnesium 1.8, Total Bilirubin 0.8, AST 24, ALT 35, Albumin 3.4 L, CBC w Diff NO MAN DIFF REQ, RBC 3.48 L, MCV 76.4 L, MCH 23.4 L, RDW 18.0 H, MPV 8.2, Gran % 66.5, Lymphocytes % 20.0 L, Monocytes % 7.7, Eosinophils % 5.6 H, Basophils % 0.2, Absolute Granulocytes 5.0, Absolute Lymphocytes 1.5, Absolute Monocytes 0.6, Absolute Eosinophils 0.4, Absolute Basophils 0, PUBS MCHC 30.6 L 06/30/16 1300: CBC w Diff NO MAN DIFF REQ, RBC 3.59 L, MCV 76.4 L, MCH 23.2 L, RDW 17.9 H, MPV 8.3, Gran % 70.7, Lymphocytes % 16.3 L, Monocytes % 10.9 H, Eosinophils % 2.1, Basophils % 0 L, Absolute Granulocytes 5.5, Absolute Lymphocytes 1.3, Absolute Monocytes 0.8 H, Absolute Eosinophils 0.2, Absolute Basophils 0, PUBS MCHC 30.4 L Assessment/Plan Assessment/Plan The patient is improved from a respiratory standpoint. Her oxygen requirements are decreasing. Her chest x-ray looks a little better although there is still an elevated right hemidiaphragm and some infiltrate on the left. The patient is markedly improved today. She will be downgraded to telemetry. I will make tentative plans for her to be transferred to [place] on Tuesday, assuming she has a good weekend. This will allow her to finish up her antibiotics. Please keep her nothing by mouth after midnight on Tuesday. Continue telemetry? Yes
[2016-07-02 16:00] VITALS: BP 113/63
--- NOTE | 2016-07-02 19:39 | Transfer of Care Summary ---
Hospital Course Course Hospital Course: Ms Meyer is an 85-year-old woman with PMH of macular degeneration, atrial fibrillation, hypertension hyperlipidemia, pulmonary embolism (diagnosed 2013), emphysema, breast cancer s/p resection, recent multiple hospital admissions for hemorrhages, who was known to be in her usual state of health until 6 weeks prior to admission. She was brought to [facility] for evaluation of worsening lower extremity swelling 6 weeks, and worsening shortness of breath 1 week prior to admission. Radiological findings-step x-ray did not reveal any interstitial edema. Echocardiogram revealed severe aortic stenosis, and elevated right ventricular pressure. Patient was admitted to telemetry floor for the treatment of CHF exacerbation. The following were addressed during the hospital course: CHF exacerbation lower extremity swelling, shortness of breath. Worsening clinical status could be multifactorial-most likely the worsening aortic stenosis. She received intravenous furosemide 40 mg twice a day, with slight improvement in symptoms and negative fluid balance initially. Serial electrocardiograms and cardiac enzymes did not reveal any abnormalities. Considering her severe aortic stenosis and other risk factors, arrangements were made to be transferred to [facility] for a TAVR. On day 4, of the stay in the hospital, respiratory status deteriorated. She was found to be hypoxic and hypercarbic, for which she was placed on BiPAP. After discussing with the fruit thinner machine operator and wildlife rehabilitator it was deemed prudent for the patient to be transferred to intensive care unit for closer monitoring. Patient was initially kept on bipap which has been gradually tapered down to her baseline level (4L NC) Anemia Low H&H, microcytic likely due to iron deficiency or blood loss. Patient has a history of severe aortic stenosis and AVMs are in the differentials. H/H has been stable so far, Guaiac negative. History of pulmonary embolism patient was continued on Coumadin. Since the patient remained in normal sinus rhythm while in the stay in the hospital, Coumadin was discontinued briefly in anticipation of procedure. When the patient was in respiratory distress, a CTA was obtained which did not reveal any evidence of pulmonary embolism. Emphysema she was continued on home dose of Spiriva and Symbicort. Worsening respiratory status, could also be due to emphysema. ABG before and after BiPAP placement pH 7.26, PCO2 98---> pH 7.40, PCO2 70. Slight improvement in respiratory status was observed. Pneumonia- possibly hospital acquired Abnormal CT findings-suggestive of consolidation, but seems unlikely. Patient did not have any fever, nor mount an acute immune response. She was started on ceftazidime and vancomycin on 06/28/16 and switched to IV unasyn on the . Assessment/Plan: Ms Meyer is an 85-year-old lady with past history of macular degeneration, atrial fibrillation, hypertension, hyperlipidemia, pulmonary embolism, emphysema, breast cancer s/p resection, recent multiple hospital admissions for hemorrhages was known to be in her usual state of health until 6 weeks prior to admission and was brought in to [facility] for worsening LE edema X 6 weeks and worsening SOB X1 week prior to admission along with reported weight gain approx 20 pounds in last 3 months. She was initially admitted to telemetry floor for treatment of acute CHF exacerbation, however her respiratory status worsened beginning 06/27/16 and was transferred to ICU / to worsening SOB , labored breathing and worsening mental status. Patient is currently on 4L oxygen per NC, her baseline at home and appears in no distress. Respiratory Patient was transferred to icu due to worsening hypoxic and hypercarbic respiratory failure. patient is off the bipap since 06/29/16. CXR yesterday did not reveal any consolidation or congestion, shows chronic finding of elevated right hemidiaphragm (it was present in her imaging in 2013 as we checked with her wildlife rehabilitator, Dr. Us office). Currently down to 4L NC (her baseline at home ), lungs are clear in exam, patient is alert and awake and appear comfortable. * Patient can be monitored on tele at this point * Continue trc /nebs. * continue Spiriva/symbicort/albuterol * continue IV Unasyn Cardiology CHF exacerbation due to Severe aortic stenosis Echocardiogram revealed critical aortic stenosis with gradient above 150, and valve area Less than 1 Likely, needs a TAVR, Serial EKG's and cardiac enzymes did not reveal any abnormalities. Patient has history of pulmonary embolism and paroxysmal atrial fibrillation, currently in NSR. Considering her severe aortic stenosis and other risk factors, initially plan was to make arrangements to be transferred to [facility] for a TAVR. On day 4, of the stay in the hospital, respiratory status deteriorated and transfer was postponed. Per cardiology patient is most likely transferred to [facility] on Tuesday for TAVR * Continue furosemide 40 mg IV twice a day * Strict ins and outs with daily weights, oasis for moistening the mouth and avoiding excess fluid intake as she reports being thirsty. * Continue tablet simvastatin 20mg. * Continue levothyroxine. * Also note - on admission, patient was continued on Coumadin. Since the patient remained in normal sinus rhythm while in the stay in the hospital, Coumadin was discontinued briefly in anticipation of TAVR. * When the patient was in respiratory distress, a CTA was obtained which did not reveal any evidence of pulmonary embolism, however patient is NPO now with pending swallow so will dose coumadin once PO meds are started. * Per cardiology did not start anticoagulation as the patient has been in sinus rhythm * Plan is to transfer to [facility] for TAVR on Tuesday, made NPO on Tuesday after midnight ID strep pneumonia, legionella, rapid flu and strep throat were negative. urine culture shows enterococcus, No white count, afebrile, Tmax of 99.1. CTA chest to rule out PE consistent with left lower lobe consolidation. * Follow blood cultures * Switched antibiotics (vanc/ceftaz) to IV unasyn (she received vanc/ceftaz for 3 days and today is day 2 of Unasyn. Metabolic * Continue to monitor lytes * keep mg > 2, k > 4 * replete as needed * Kidney functions within normal limit Hematology Iron deficiency anemia * H&H, microcytic likely due to iron deficiency or blood loss. * Patient has a history of severe aortic stenosis and AVMs are in the differentials. * Hemoglobin 8.1 (stable) (goal is above 8, but cautious with transfusion as it may cause volume overload) * Guaiac negative. Guaiac all stool. * Can consider to start Iron supplementation. Diet - cc3 DVT prophylaxis -ALP S/heparin DNR DNI
[2016-07-02 20:52] VITALS: BP 130/76
--- NOTE | 2016-07-02 20:56 | NUR ---
DAUGHTER GUILHERME CALLED AND NOTIFIED OF ROOM CHANGE AND IN AGREEMENT
--- NOTE | 2016-07-02 23:27 | NUR ---
PT ARRIVED AT APPROX 2030 FROM ICU; A/0X3; 02 ON 4L VIA NC; PT PLACED ON OUR HEART MONITOR READING NSR; SKIN INTACT; +3 BLE EDEMA; PT ORIENTED TO ROOM, CALL LARKIN PLACED IN HAND; CATALAN IN PLACE AND INTACT; IV IN THE RH IN PLACE AND INTACT;
[2016-07-03 00:03] VITALS: BP 106/60
[2016-07-03 08:28] VITALS: BP 110/60
--- NOTE | 2016-07-03 08:44 | PN- Housestaff ---
ANNELIESE STEPHENS,IMGE 07/03/16 0843: Subjective Follow-up For: Acute CHF in setting of severe aortic stenosis Tele-Events Since Last Visit: Normal sinus rhythm HR 80s No overnight events Subjective: No acute events overnight. Patient seen and examined this morning. She feels well and has no complaints. She is satting well on 4 L NC. Review of Systems Constitutional: Reports: no symptoms. Objective Last 24 Hrs of Vital Signs/I&O Vital Signs Date Time Temp Pulse Resp B/P Pulse O2 O2 Flow FiO2 Ox Delivery Rate 07/03 1612 97 Nasal 4.0L Cannula 07/03 1549 98.8 90 18 108/62 94 07/03 0828 99.1 76 20 110/60 93 Nasal 4.0L Cannula 07/03 0811 95 Nasal 4.0L Cannula 07/03 0800 Nasal 4.0L Cannula 07/03 0003 98.9 84 20 106/60 93 Nasal Cannula 07/03 0000 94 Nasal 4.0L Cannula Intake & Output 07/03 1600 07/03 0800 07/03 0000 Intake Total 700 600 120 Output Total 1999 525 Balance -1300 600 -405 Intake, Oral 700 600 120 Output, Urine 2000 525 Physical Exam General Appearance: Alert, Cooperative, No Acute Distress HEENT: Atraumatic, Mucous Membr. moist/pink Neck: Supple Cardiovascular: Regular Rate, Normal S1, Normal S2, Grade 3/6 Systolic Murmur Lungs: Diminished Breath Sounds Abdomen: Soft, No Tenderness, Positive Bowel Sounds Extremities: No Clubbing, No Cyanosis, Trace Edema on Bilateral Lower Extremities Current Medications: Current Medications Sig/Olga Start time Last Medication Dose Route Stop Time Status Admin Acetaminophen 650 MG Q6P PRN 06/23 0930 AC 06/29 PO 0209 Albuterol Sulfate 3 ML EVERY 4 HRS/AWAKE 06/28 1600 AC 07/03 INH 2050 Alprazolam 0.5 MG AT BEDTIME NEED.. 06/29 2114 AC 07/03 PO 07/06 2113 2140 Ampicillin Sodium/ 1,500 MG Q12H 07/01 0400 AC 07/03 Sulbactam Sodium IV 1722 Sodium Chloride 100 ML Atorvastatin Calcium 20 MG 1700 06/26 1700 AC 07/03 PO 1722 Budesonide/ 1 PUF 1700 06/26 1700 AC 07/03 Formoterol Fumarate INH 1721 Diltiazem HCl 180 MG DAILY 06/23 1000 AC 07/03 PO 0828 Doxazosin Mesylate 4 MG QPM 06/22 2200 AC 07/03 PO 2139 Furosemide 40 MG 0800 & 1700 06/23 0800 AC 07/03 IV 1719 Glycerin 2 SPRAY Q2P PRN 07/02 0815 AC PO Heparin Sodium 5,000 UNIT Q8 06/26 0600 AC 07/03 (Porcine) SC 2140 Levothyroxine Sodium 0.025 MG DAILY AC 06/23 0700 AC 07/03 PO 0639 Magnesium Chloride 64 MG BID 07/01 1000 AC 07/03 PO 2140 Polyethylene Glycol 17 GM DAILY 06/24 1127 AC 07/03 PO 0830 Potassium Chloride 30 MEQ 06/23 1000 AC 07/02 PO 1200 Potassium Chloride 30 MEQ DAILY 06/23 1000 AC 07/03 PO 0833 Senna/Docusate Sodium 1 TAB DAILY 06/25 1000 AC 07/03 PO 0829 Sodium Chloride 2 SPRAY Q4P PRN 06/30 1430 AC NICOLE Tiotropium [place] 1 PUF QAM 06/23 1000 AC 07/03 INH 1135 Assessment/Plan Assessment: 85 y/o F with PMHx of severe aortic stenosis, emphysema and atrial fibrillation who is admitted for acute CHF in the setting of severe aortic stenosis. #Acute CHF: Secondary to severe aortic stenosis. * Cardiology following. Appreciate their recs. * Await transfer to [place] on Tuesday for TAVR. * Continue Lasix 40 mg IV BID. #Acute hypoxemic and hypercapnic respiratory failure: Secondary to left lower lobe pneumonia and atelectasis in the setting of chronic emphysema. Currently on baseline oxygen requirement on 4 L NC. Remains afebrile and without leukocytosis. * Pulmonology following. Appreciate their recs. * Continue Spiriva and Symbicort. * Continue Unasyn 1.5 g IV Q12H. * TRC and nebs. * Wean down oxygen as tolerated. Diet: Consistent Carbohydrate 3 DVT PPx: HSQ and ALPs CODE: DNR/DNI Problem List: 1. Acute CHF 2. Severe aortic stenosis 3. Acute respiratory failure with hypoxia and hypercapnia 4. Left lower lobe pneumonia Pain Ratin Pain Location: N/A Pain Goal: Remain pain free Pain Plan: Tylenol 650 mg PO Q6H Tomorrow's Labs & Rationales: CBC to monitor H/H in the setting of anemia CHANI WOODRUFF MD 07/03/16 1807: Attending MD Review Statement Attending Statement Attending MD Statement: examined this patient, discuss w/resident/PA/SLAGGER, agreed w/resident/PA/SLAGGER, reviewed EMR data (avail), amended to note Attending Assessment/Plan: The patient was seen and discussed with house staff. Agree with the plan of care as outlined. Cardiology input appreciated. Plan for transfer 07/05 to [place] for TAVR.
--- NOTE | 2016-07-03 09:28 | PN- Pulmonary ---
Subjective HPI/Critical Care Issues: Patient is comfortable without complaints of shortness breath awaiting transfer for valve replacement Objective Current Medications: Current Medications Sig/Olga Start time Last Medication Dose Route Stop Time Status Admin Acetaminophen 650 MG Q6P PRN 06/23 0930 AC 06/29 PO 0209 Albuterol Sulfate 3 ML EVERY 4 HRS/AWAKE 06/28 1600 AC 07/03 INH 0809 Alprazolam 0.5 MG AT BEDTIME NEED.. 06/29 2114 AC 07/02 PO 07/06 2113 2107 Ampicillin Sodium/ 1,500 MG Q12H 07/01 0400 AC 07/03 Sulbactam Sodium IV 0430 Sodium Chloride 100 ML Atorvastatin Calcium 20 MG 1700 06/26 1700 AC 07/02 PO 1616 Budesonide/ 1 PUF 1700 06/26 1700 AC 07/02 Formoterol Fumarate INH 1616 Diltiazem HCl 180 MG DAILY 06/23 1000 AC 07/03 PO 0828 Doxazosin Mesylate 4 MG QPM 06/22 2200 AC 07/02 PO 2054 Furosemide 40 MG 0800 & 1700 06/23 0800 AC 07/03 IV 0821 Glycerin 2 SPRAY Q2P PRN 07/02 0815 AC PO Heparin Sodium 5,000 UNIT Q8 06/26 0600 AC 07/03 (Porcine) SC 0639 Levothyroxine Sodium 0.025 MG DAILY AC 06/23 0700 AC 07/03 PO 0639 Magnesium Chloride 64 MG BID 07/01 1000 AC 07/03 PO 0829 Polyethylene Glycol 17 GM DAILY 06/24 1127 AC 07/03 PO 0830 Potassium Chloride 30 MEQ 06/23 1000 AC 07/02 PO 1200 Potassium Chloride 30 MEQ DAILY 06/23 1000 AC 07/03 PO 0833 Senna/Docusate Sodium 1 TAB DAILY 06/25 1000 AC 07/03 PO 0829 Sodium Chloride 2 SPRAY Q4P PRN 06/30 1430 AC NICOLE Tiotropium [place] 1 PUF QAM 06/23 1000 AC 07/02 INH 1248 Vital Signs & I&O Last 24 Hrs of Vitals and I&O: Vital Signs Date Time Temp Pulse Resp B/P Pulse O2 O2 Flow FiO2 Ox Delivery Rate 07/03 0828 99.1 76 20 110/60 93 Nasal 4.0L Cannula 07/03 0811 95 Nasal 4.0L Cannula 07/03 0003 98.9 84 20 106/60 93 Nasal Cannula 07/03 0000 94 Nasal 4.0L Cannula 07/03 2051 98.4 84 22 130/76 94 Nasal 4.0L Cannula 07/02 2000 Nasal 4.0L Cannula 07/02 1700 94 Nasal 4.0L Cannula 07/02 1600 96 Nasal 5.0L Cannula 07/02 1600 97.8 77 18 113/63 96 Nasal 5.0L Cannula Intake & Output 07/03 1600 07/03 0800 07/03 0000 Intake Total 600 120 Output Total 525 Balance 600 -405 Intake, Oral 600 120 Output, Urine 525 Oxygen saturation on 4 L is 93-95% exam for chest shows somewhat diminished breath sounds at the bases cardiac exam shows a loud murmur of aortic stenosis Impression/Plan Impression/Plan Impression/Plan: 85-year-old woman with improving respiratory status awaiting TAVR Recommendations: Continue present respiratory care as outlined by Dr. Patel. Taper FiO2 his saturations allow. Please course of antibiotics. No new pulmonary suggestions
--- NOTE | 2016-07-03 15:01 | PN- Cardiology ---
Subjective Subjective: The patient seems to be doing okay today. She is sitting in the bedside chair resting comfortably. She denies any active symptoms. Objective Vital Signs and I&Os Vital Signs Date Time Temp Pulse Resp B/P Pulse O2 O2 Flow FiO2 Ox Delivery Rate 07/03 0828 99.1 76 20 110/60 93 Nasal 4.0L Cannula 07/03 0811 95 Nasal 4.0L Cannula 07/03 0800 Nasal 4.0L Cannula 07/03 0003 98.9 84 20 106/60 93 Nasal Cannula 07/03 0000 94 Nasal 4.0L Cannula 07/02 205 98.4 84 22 130/76 94 Nasal 4.0L Cannula 07/02 2000 Nasal 4.0L Cannula 07/02 1700 94 Nasal 4.0L Cannula 07/02 1600 96 Nasal 5.0L Cannula 07/02 1600 97.8 77 18 113/63 96 Nasal 5.0L Cannula Intake & Output 07/03 1600 07/03 0800 07/03 0000 07/02 1600 07/02 0800 07/02 0000 Intake Total 600 120 600 200 554 Output Total 1999 525 3586 448 6483 Balance -1999 600 -405 -410 -270 -841 Intake, IV 114 Intake, Oral 600 120 600 200 440 Number 1 Bowel Movements Output, Urine 1999 525 9236 280 7903 Physical Exam: General Appearance: alert, awake, comfortable Head: atraumatic, normal appearance Eyes: Bilateral: PERRL, EOMI. Neck: normal inspection, supple, bilateral delayed carotid upstrokes Respiratory: chest non-tender, diminished breath sounds bilaterally with scattered rhonchi Cardiovascular: regular rate/rhythm; 2 to 3/6 systolic murmur of aortic stenosis Gastrointestinal: normal bowel sounds, soft, non-tender Extremities: decreased edema in lower extremities Current Medications: Current Medications Sig/Olga Start time Last Medication Dose Route Stop Time Status Admin Acetaminophen 650 MG Q6P PRN 06/23 0930 AC 06/29 PO 0209 Albuterol Sulfate 3 ML EVERY 4 HRS/AWAKE 06/28 1600 AC 07/03 INH 1142 Alprazolam 0.5 MG AT BEDTIME NEED.. 06/29 2114 AC 07/02 PO 07/06 211 2107 Ampicillin Sodium/ 1,500 MG Q12H 07/01 0400 AC 07/03 Sulbactam Sodium IV 0430 Sodium Chloride 100 ML Atorvastatin Calcium 20 MG 1700 06/26 1700 AC 07/02 PO 1616 Budesonide/ 1 PUF 1700 06/26 1700 AC 07/02 Formoterol Fumarate INH 1616 Diltiazem HCl 180 MG DAILY 06/23 1000 AC 07/03 PO 0828 Doxazosin Mesylate 4 MG QPM 06/22 2200 AC 07/02 PO 2054 Furosemide 40 MG 0800 & 1700 06/23 0800 AC 07/03 IV 0821 Glycerin 2 SPRAY Q2P PRN 07/02 0815 AC PO Heparin Sodium 5,000 UNIT Q8 06/26 0600 AC 07/03 (Porcine) SC 1459 Levothyroxine Sodium 0.025 MG DAILY AC 06/23 0700 AC 07/03 PO 0639 Magnesium Chloride 64 MG BID 07/01 1000 AC 07/03 PO 0829 Polyethylene Glycol 17 GM DAILY 06/24 1127 AC 07/03 PO 0830 Potassium Chloride 30 MEQ TUESDAY WED FRIDAY 06/23 1000 AC 07/02 PO 1200 Potassium Chloride 30 MEQ DAILY 06/23 1000 AC 07/03 PO 0833 Senna/Docusate Sodium 1 TAB DAILY 06/25 1000 AC 07/03 PO 0829 Sodium Chloride 2 SPRAY Q4P PRN 06/30 1430 AC NICOLE Tiotropium [place] 1 PUF QAM 06/23 1000 AC 07/03 INH 1135 Results Last 48 Hrs of Labs/Mics: Laboratory Tests 07/02/16 1620: Urine Color YEL, Urine Clarity CLEAR, Urine pH 6.0, Ur Specific [place] 1.020, Urine Protein 100 H, Urine Ketones NEG, Urine Nitrite NEG, Urine Bilirubin NEG, Urine Urobilinogen 1.0, Ur Leukocyte Esterase TRACE H, Ur Microscopic SEDIMENT EXAMINED, Urine RBC PACKD H, Urine WBC 5-10 H, Ur Epithelial Cells RARE, Urine Bacteria PACKD H, Urine Mucus RARE, Urine Hemoglobin LARGE H, Urine Glucose NEG 07/02/16 0500: Anion Gap 8, Estimated GFR > 60, Glucose 101 H, Calcium 9.1, Phosphorus 3.6, Magnesium 2.1, Total Bilirubin 0.9, AST 27, ALT 36, Albumin 3.4 L, CBC w Diff NO MAN DIFF REQ, RBC 3.38 L, MCV 76.2 L, MCH 23.5 L, RDW 18.6 H, MPV 7.8, Gran % 69.1, Lymphocytes % 14.7 L, Monocytes % 10.3 H, Eosinophils % 5.9 H, Basophils % 0 L, Absolute Granulocytes 5.0, Absolute Lymphocytes 1.1 L, Absolute Monocytes 0.7 H, Absolute Eosinophils 0.4, Absolute Basophils 0, PUBS MCHC 30.9 L Assessment/Plan Assessment/Plan Impression/Plan: 1. Acute hypoxemic and hypercapnic respiratory failure, secondary to left lower lobe pneumonia and atelectasis, on IV Unasyn. 2. Elevated right hemidiaphragm, chronic paralysis. 3. Critical aortic stenosis, with acute CHF exacerbation - will require TAVR. 4. History of AF, currently in sinus rhythm, no anticoagulation necessary at present. 5. History of pulmonary embolism in 2013. 6. History of emphysema. 7. Hypothyroidism, on levothyroxine. 8. History of hypertension, on Cardizem and Cardura. 9. History of emphysema, on Symbicort and Spiriva. 10. Anemia without evidence of bleeding. 11. Asymptomatic bacteriuria. Recommendations: -For now, I'll continue the current management plan. -Plans for transfer to the for TAVR evaluation on Tuesday Continue telemetry? Yes
[2016-07-03 15:49] VITALS: BP 108/62
[2016-07-04 00:43] VITALS: BP 104/68
[2016-07-04 08:07] LABS: ABSOLUTE LYMPH COUNT 1.4 /CUMM (1.2-3.4)
[2016-07-04 08:14] VITALS: BP 102/58
[2016-07-04 08:34] LABS: ABSOLUTE BASOPHIL COUNT 0.1 /CUMM (0.0-0.2); ABSOLUTE EOSINOPHIL COUNT 0.4 /CUMM (0.0-0.7); ABSOLUTE GRANULOCYTE CT 4.1 /CUMM (1.4-6.5); ABSOLUTE MONOCYTE COUNT 0.7 /CUMM (0.10-0.60); BASOPHIL % 0.8 % (0.0-2.0); EOSINOPHIL % 5.7 % (0-5); GRANULOCYTE % 62.3 % (42.2-75.2); HEMATOCRIT 24.1 % (37-47); MEAN CORPUSCULAR HGB 23.3 PG (27.0-31.0); MEAN CORPUSCULAR HGB CONC 30.6 G/DL (33.0-37.0); MEAN CORPUSCULAR VOLUME 76.2 FL (81.0-99.0); MEAN PLATELET VOLUME 8.3 FL (7.4-10.4); PLATELET COUNT 246 /CUMM (130-400); RBC DISTRIBUTION WIDTH 18.8 % (11.5-14.5); RED BLOOD CELL CT 3.16 /CUMM (4.20-5.40); WHITE BLOOD CELL COUNT 6.6 /CUMM (4.8-10.8)
--- NOTE | 2016-07-04 09:26 | PN- Housestaff ---
MITCH STEPHENS,JANNY 07/04/16 0926: Subjective Follow-up For: CHF exacerbation Complaints: no complaints Tele-Events Since Last Visit: Normal sinus rhythm, first-degree heart block, heart rate 69-77, DC interval has been 0.26, 0.22, 0.20. Subjective: I followed up and examined the patient today. She is resting comfortably in her recliner, is not in any distress, does not have any complaint, vitals as stated above, no overnight events. Of note, patient feels that she is getting better and is awaiting her transfer to [facility] for her aortic valve surgery tomorrow. Review of Systems Constitutional: Reports: no symptoms. Objective Last 24 Hrs of Vital Signs/I&O Vital Signs Date Time Temp Pulse Resp B/P Pulse O2 O2 Flow FiO2 Ox Delivery Rate 07/04 1553 97 Nasal 4.0L Cannula 07/04 0814 98.3 72 18 102/58 95 Nasal 4.0L Cannula 07/04 0813 95 Nasal 4.0L Cannula 07/04 0800 95 Nasal 4.0L Cannula 07/04 0043 97.8 72 18 104/68 95 Nasal 4.0L Cannula Intake & Output 07/04 1600 07/04 0800 07/04 0000 Intake Total 800 510 800 Output Total 1040 983 6894 Balance -200 -115 -850 Intake, IV 110 Intake, Oral 800 400 800 Number 5 Bowel Movements Output, Urine 5854 265 8018 Patient 82.724 kg Weight Physical Exam General Appearance: Alert, Oriented X3, Cooperative, No Acute Distress Other Physical Findings: HEENT: Atraumatic, Mucous Membr. moist/pink Neck: Supple Cardiovascular: Regular Rate, Normal S1, Normal S2, Grade 3/6 Systolic Murmur Lungs: Diminished Breath Sounds Abdomen: Soft, No Tenderness, Positive Bowel Sounds Extremities: No Clubbing, No Cyanosis, Trace Edema on Bilateral Lower Extremities Current Medications: Current Medications Sig/Olga Start time Last Medication Dose Route Stop Time Status Admin Acetaminophen 650 MG Q6P PRN 06/23 0930 AC 07/04 PO 1632 Albuterol Sulfate 3 ML EVERY 4 HRS/AWAKE 06/28 1600 AC 07/04 INH 1551 Alprazolam 0.5 MG ONCE ONE 07/04 0200 DC 07/04 PO 07/04 0201 0308 Alprazolam 0.5 MG AT BEDTIME NEED.. 06/29 2114 AC 07/03 PO 07/06 2114 2140 Ampicillin Sodium/ 1,500 MG Q12H 07/01 0400 AC 07/04 Sulbactam Sodium IV 1638 Sodium Chloride 100 ML Atorvastatin Calcium 20 MG 1700 06/26 1700 AC 07/04 PO 1633 Budesonide/ 1 PUF 1700 06/26 1700 AC 07/04 Formoterol Fumarate INH 1633 Diltiazem HCl 180 MG DAILY 06/23 1000 AC 07/04 PO 1006 Doxazosin Mesylate 4 MG QPM 06/22 2200 AC 07/03 PO 2139 Furosemide 40 MG 0800 & 1700 06/23 0800 AC 07/04 IV 1637 Glycerin 2 SPRAY Q2P PRN 07/02 0815 AC PO Heparin Sodium 5,000 UNIT Q8 06/26 0600 AC 07/04 (Porcine) SC 1428 Levothyroxine Sodium 0.025 MG DAILY AC 06/23 0700 AC 07/04 PO 0626 Magnesium Chloride 64 MG BID 07/01 1000 AC 07/04 PO 1006 Polyethylene Glycol 17 GM DAILY 06/24 1127 AC 07/03 PO 0830 Potassium Chloride 30 MEQ 06/23 1000 AC 07/02 PO 1200 Potassium Chloride 30 MEQ DAILY 06/23 1000 AC 07/04 PO 1006 Senna/Docusate Sodium 1 TAB DAILY 06/25 1000 AC 07/04 PO 1007 Sodium Chloride 2 SPRAY Q4P PRN 06/30 1430 AC NICOLE Tiotropium [place] 1 PUF QAM 06/23 1000 AC 07/04 INH 1005 Last 24 Hrs of Lab/Scotty Results Last 24 Hrs of Labs/Mics: Laboratory Tests 07/04/16 1547: pH 7.41, pCO2 60 *H, pO2 82, HCO3 38 H, ABG O2 Sat (Measured) 96.0, Carboxyhemoglobin 0.9 L, O2 Concentration % 4L, O2 Delivery Method NC, Phlebotomy Draw Site RIGHT RADIAL 07/04/16 0703: CBC w Diff NO MAN DIFF REQ, RBC 3.16 L, MCV 76.2 L, MCH 23.3 L, RDW 18.8 H, MPV 8.3, Gran % 62.3, Lymphocytes % 20.7, Monocytes % 10.5 H, Eosinophils % 5.7 H, Basophils % 0.8, Absolute Granulocytes 4.1, Absolute Lymphocytes 1.4, Absolute Monocytes 0.7 H, Absolute Eosinophils 0.4, Absolute Basophils 0.1, PUBS MCHC 30.6 L 07/04/16 0600: Sodium Cancelled, Potassium Cancelled, Chloride Cancelled, Carbon Dioxide Cancelled, Anion Gap Cancelled, BUN Cancelled, Creatinine Cancelled, BUN/ Creatinine Ratio Cancelled Assessment/Plan Assessment: 85 y/o F with PMHx of severe aortic stenosis, emphysema and atrial fibrillation who is admitted for acute CHF in the setting of severe aortic stenosis. #Acute CHF: Secondary to severe aortic stenosis. * Cardiology following. Appreciate their recs. * Await transfer to [place] on Tuesday for TAVR on Tuesday (tomorrow). * Patient's swelling, and symptoms have significantly decreased since admission. * Continue Lasix 40 mg IV BID. #Acute hypoxemic and hypercapnic respiratory failure: Secondary to left lower lobe pneumonia and atelectasis in the setting of chronic emphysema. Currently on baseline oxygen requirement on 4 L NC. Remains afebrile and without leukocytosis. * Pulmonology following. Appreciate their recs. * Continue Spiriva and Symbicort. * Continue Unasyn 1.5 g IV Q12H. * TRC and nebs. * Wean down oxygen as tolerated. #Severe aortic stenosis Patient is to be transferred to [facility] for TAVR tomorrow morning. Diet: Consistent Carbohydrate 3 DVT PPx: HSQ and ALPs CODE: DNR/DNI Problem List: 1. CHF (congestive heart failure) 2. Severe aortic stenosis Pain Ratin Pain Location: legs b/l Pain Goal: Pain 4 or less Pain Plan: prn Tomorrow's Labs & Rationales: BEP, Mg, CBC CHANI WOODRUFF MD 07/04/161922: Attending MD Review Statement Attending Statement Attending MD Statement: examined this patient, discuss w/resident/PA/BRIAR WOOD SORTER, agreed w/resident/PA/BRIAR WOOD SORTER, reviewed EMR data (avail), discussed with nursing, amended to note Attending Assessment/Plan: The patient was seen and discussed with house staff. Appreciate Cardiology follow-up. Plan to transfer to [facility] tomorrow for TAVR.
--- NOTE | 2016-07-04 09:52 | PN- Pulmonary ---
Subjective HPI/Critical Care Issues: Patient is comfortable denies shortness of breath Objective Current Medications: Current Medications Sig/Olga Start time Last Medication Dose Route Stop Time Status Admin Acetaminophen 650 MG Q6P PRN 06/23 0930 AC 06/29 PO 0209 Albuterol Sulfate 3 ML EVERY 4 HRS/AWAKE 06/28 1600 AC 07/04 INH 0812 Alprazolam 0.5 MG ONCE ONE 07/04 0200 DC 07/04 PO 07/04 0201 0308 Alprazolam 0.5 MG AT BEDTIME NEED.. 06/29 211 AC 07/03 PO 07/06 211 2140 Ampicillin Sodium/ 1,500 MG Q12H 07/01 0400 AC 07/04 Sulbactam Sodium IV 0450 Sodium Chloride 100 ML Atorvastatin Calcium 20 MG 1700 06/26 1700 AC 07/03 PO 1722 Budesonide/ 1 PUF 1700 06/26 1700 AC 07/03 Formoterol Fumarate INH 1721 Diltiazem HCl 180 MG DAILY 06/23 1000 AC 07/03 PO 0828 Doxazosin Mesylate 4 MG QPM 06/22 2200 AC 07/03 PO 2139 Furosemide 40 MG 0800 & 1700 06/23 0800 AC 07/04 IV 0759 Glycerin 2 SPRAY Q2P PRN 07/02 0815 AC PO Heparin Sodium 5,000 UNIT Q8 06/26 0600 AC 07/04 (Porcine) SC 0627 Levothyroxine Sodium 0.025 MG DAILY AC 06/23 0700 AC 07/04 PO 0626 Magnesium Chloride 64 MG BID 07/01 1000 AC 07/03 PO 2140 Polyethylene Glycol 17 GM DAILY 06/24 1127 AC 07/03 PO 0830 Potassium Chloride 30 MEQ TUESDAY WED FRIDAY 06/23 1000 AC 07/02 PO 1200 Potassium Chloride 30 MEQ DAILY 06/23 1000 AC 07/03 PO 0833 Senna/Docusate Sodium 1 TAB DAILY 06/25 1000 AC 07/03 PO 0829 Sodium Chloride 2 SPRAY Q4P PRN 06/30 1430 AC NICOLE Tiotropium [place] 1 PUF QAM 06/23 1000 AC 07/03 INH 1135 Vital Signs & I&O Last 24 Hrs of Vitals and I&O: Vital Signs Date Time Temp Pulse Resp B/P Pulse O2 O2 Flow FiO2 Ox Delivery Rate 07/04 813 98.3 72 18 102/58 95 Nasal 4.0L Cannula 07/04 0813 95 Nasal 4.0L Cannula 07/04 0043 97.8 72 18 104/68 95 Nasal 4.0L Cannula 07/03 1612 97 Nasal 4.0L Cannula 07/03 1549 98.8 90 18 108/62 94 Intake & Output 07/04 1600 07/04 0800 07/04 0000 Intake Total 510 800 Output Total 625 1650 Balance -115 -850 Intake, IV 110 Intake, Oral 400 800 Number 5 Bowel Movements Output, Urine 625 1650 Patient 182 lb Weight Oxygen saturation 4 L 95% exam for chest shows diminished breath sounds are no wheezes cardiac exam shows regular S1 and S2 and murmur of aortic stenosis Impression/Plan Impression/Plan Impression/Plan: 85-year-old woman with improving respiratory status awaiting TAVR Recommendations: Continue present respiratory care as outlined by Dr. Patel. Taper FiO2 his saturations allow. Complete course of antibiotics. Repeat arterial blood gases
--- NOTE | 2016-07-04 10:51 | PN- Student ---
Subjective Subjective: Mrs. Meyer has no complaints overnight. she has been sleeping well and is currently in no acute distress and is resting comfortably in her chair. She reports no problems breathing or going to the restroom. The only pain she reported was around the edematous areas on both lower extremities. Objective Objective: Vital Signs Date Time Temp Pulse Resp B/P Pulse O2 O2 Flow FiO2 Ox Delivery Rate 07/04 0814 98.3 72 18 102/58 95 Nasal 4.0L Cannula 07/04 0813 95 Nasal 4.0L Cannula 07/04 0043 97.8 72 18 104/68 95 Nasal 4.0L Cannula 07/03 1612 97 Nasal 4.0L Cannula 07/03 1549 98.8 90 18 108/62 94 Mrs. Meyer is sitting comfortably in her chair with no signs of distress. She is alert and oriented x 3. She is breathing normally on 4L nasal cannula. Telemetry: NSR, first degree Heart block, 69-77 bpm, CHASE of 0.26, 0.22, 0.20 PE: HEENT- PHU, mucus membranes pink and moist, no thyromegaly or lymphadenopathy, trachea is midline CV- S1 and S2 heard, Aortic stenosis murmur, no rubs or extra sounds appreciated Chest- diminished breath sounds throughout but no crackles noted Ext- 2+ edema noted from mid thigh descending to mid martinez, soreness reported. Abd- bowel sounds present, no distention noted. soft, non-tender to palpation. Skin- well perfused, some minimal bruising noted on lower extremities. Results Results: Laboratory Tests 07/04/16 0703: CBC w Diff NO MAN DIFF REQ, RBC 3.16 L, MCV 76.2 L, MCH 23.3 L, RDW 18.8 H, MPV 8.3, Gran % 62.3, Lymphocytes % 20.7, Monocytes % 10.5 H, Eosinophils % 5.7 H, Basophils % 0.8, Absolute Granulocytes 4.1, Absolute Lymphocytes 1.4, Absolute Monocytes 0.7 H, Absolute Eosinophils 0.4, Absolute Basophils 0.1, PUBS MCHC 30.6 L 07/04/16 0600: Sodium Cancelled, Potassium Cancelled, Chloride Cancelled, Carbon Dioxide Cancelled, Anion Gap Cancelled, BUN Cancelled, Creatinine Cancelled, BUN/ Creatinine Ratio Cancelled 07/02/16 1620: Urine Color YEL, Urine Clarity CLEAR, Urine pH 6.0, Ur Specific [place] 1.020, Urine Protein 100 H, Urine Ketones NEG, Urine Nitrite NEG, Urine Bilirubin NEG, Urine Urobilinogen 1.0, Ur Leukocyte Esterase TRACE H, Ur Microscopic SEDIMENT EXAMINED, Urine RBC PACKD H, Urine WBC 5-10 H, Ur Epithelial Cells RARE, Urine Bacteria PACKD H, Urine Mucus RARE, Urine Hemoglobin LARGE H, Urine Glucose NEG 07/02/16 0500: Anion Gap 8, Estimated GFR > 60, Glucose 101 H, Calcium 9.1, Phosphorus 3.6, Magnesium 2.1, Total Bilirubin 0.9, AST 27, ALT 36, Albumin 3.4 L, CBC w Diff NO MAN DIFF REQ, RBC 3.38 L, MCV 76.2 L, MCH 23.5 L, RDW 18.6 H, MPV 7.8, Gran % 69.1, Lymphocytes % 14.7 L, Monocytes % 10.3 H, Eosinophils % 5.9 H, Basophils % 0 L, Absolute Granulocytes 5.0, Absolute Lymphocytes 1.1 L, Absolute Monocytes 0.7 H, Absolute Eosinophils 0.4, Absolute Basophils 0, PUBS MCHC 30.9 L Microbiology 07/03 1619 URINE ROUT: Urine Culture - RES Assessment/Plan Assessment: Mrs. Meyer is an 85 yo W female with a PMH of critical aortic stenosis, COPD, and atrial fibrillation. She was admitted to us for worsening CHF which was then complicated with acute respiratory failure leading to an ICU admission. She is now back on telemetry in stable condition while she awaits transfer to [place] for TAVR. She is currently on supplemental oxygen at 4L nasal cannula (pulse ox 95) and has diminished breath sounds without any dyspnea, and has LE edema that is greatly improved since her previous admission to telemetry. She reports soreness around the edema when touched as well. Plan: Mrs. Meyer is currently stable and is awaiting transfer to [place] for TAVR. Treatment plan is to be continued as listed below on the recommendations of both Cash Crop Farmer and Personnel Representative until she is transferred tomorrow. #Acute CHF: Secondary to severe aortic stenosis. * Cardiology following. Appreciate their recs. * Await transfer to [place] on Tuesday for TAVR. * Continue Lasix 40 mg IV BID. #Acute hypoxemic and hypercapnic respiratory failure: Secondary to left lower lobe pneumonia and atelectasis in the setting of chronic emphysema. Currently on baseline oxygen requirement on 4 L NC. Remains afebrile and without leukocytosis. * Pulmonology following. Appreciate their recs. * Continue Spiriva and Symbicort. * Continue Unasyn 1.5 g IV Q12H. * TRC and nebs. * Wean down oxygen as tolerated.
[2016-07-04 18:04] VITALS: BP 106/60
[2016-07-04 18:14] LABS: ABSOLUTE BASOPHIL COUNT 0 /CUMM (0.0-0.2); ABSOLUTE EOSINOPHIL COUNT 0.4 /CUMM (0.0-0.7); ABSOLUTE GRANULOCYTE CT 5.2 /CUMM (1.4-6.5); ABSOLUTE LYMPH COUNT 1.4 /CUMM (1.2-3.4); ABSOLUTE MONOCYTE COUNT 0.9 /CUMM (0.10-0.60); BASOPHIL % 0.4 % (0.0-2.0); EOSINOPHIL % 4.5 % (0-5); GRANULOCYTE % 66.1 % (42.2-75.2); HEMATOCRIT 25.6 % (37-47); MEAN CORPUSCULAR VOLUME 76.6 FL (81.0-99.0); MEAN PLATELET VOLUME 8.3 FL (7.4-10.4); PLATELET COUNT 254 /CUMM (130-400); RBC DISTRIBUTION WIDTH 19.1 % (11.5-14.5); RED BLOOD CELL CT 3.34 /CUMM (4.20-5.40); WHITE BLOOD CELL COUNT 7.9 /CUMM (4.8-10.8)
--- NOTE | 2016-07-04 19:11 | PN- Cardiology ---
Subjective Subjective: Doing about the same. Sitting comfortably in chair. Situation and plans discussed with the patient and her daughter Objective Vital Signs and I&Os Vital Signs Date Time Temp Pulse Resp B/P Pulse O2 O2 Flow FiO2 Ox Delivery Rate 07/04 180 98.9 69 18 106/60 94 Nasal Cannula 07/04 1553 97 Nasal 4.0L Cannula 07/04 0814 98.3 72 18 102/58 95 Nasal 4.0L Cannula 07/04 0813 95 Nasal 4.0L Cannula 07/04 0800 95 Nasal 4.0L Cannula 07/04 0043 97.8 72 18 104/68 95 Nasal 4.0L Cannula Intake & Output 07/04 1600 07/04 0800 07/04 0000 07/03 1600 07/03 0800 07/03 0000 Intake Total 800 510 800 700 600 120 Output Total 0421 940 2079 1999 525 Balance -200 -115 -850 -1300 600 -405 Intake, IV 110 Intake, Oral 800 400 800 700 600 120 Number 5 Bowel Movements Output, Urine 7333 142 7490 2000 525 Patient 182 lb Weight Physical Exam: General Appearance: alert, awake, comfortable Head: atraumatic, normal appearance Eyes: Bilateral: PERRL, EOMI. Neck: normal inspection, supple, bilateral delayed carotid upstrokes Respiratory: chest non-tender, diminished breath sounds bilaterally with scattered rhonchi Cardiovascular: regular rate/rhythm; 2 to 3/6 systolic murmur of aortic stenosis Gastrointestinal: normal bowel sounds, soft, non-tender Extremities: decreased edema in lower extremities Current Medications: Current Medications Sig/Olga Start time Last Medication Dose Route Stop Time Status Admin Acetaminophen 650 MG Q6P PRN 06/23 0930 AC 07/04 PO 1632 Albuterol Sulfate 3 ML EVERY 4 HRS/AWAKE 06/28 1600 AC 07/04 INH 1551 Alprazolam 0.5 MG ONCE ONE 07/04 1800 DC PO 07/04 1801 Alprazolam 0.5 MG ONCE ONE 07/04 0200 DC 07/04 PO 07/04 0201 0308 Alprazolam 0.5 MG AT BEDTIME NEED.. 06/29 2114 AC 07/03 PO 07/06 211 2140 Ampicillin Sodium/ 1,500 MG Q12H 07/01 0400 AC 07/04 Sulbactam Sodium IV 1638 Sodium Chloride 100 ML Atorvastatin Calcium 20 MG 1700 04/08 1700 AC 07/04 PO 1633 Budesonide/ 1 PUF 1700 06/26 1700 AC 07/04 Formoterol Fumarate INH 1633 Diltiazem HCl 180 MG DAILY 06/23 1000 AC 07/04 PO 1006 Doxazosin Mesylate 4 MG QPM 06/22 2200 AC 07/03 PO 2139 Furosemide 40 MG 0800 & 1700 06/23 0800 AC 07/04 IV 1637 Glycerin 2 SPRAY Q2P PRN 07/02 0815 AC PO Heparin Sodium 5,000 UNIT Q8 06/26 0600 AC 07/04 (Porcine) SC 1428 Levothyroxine Sodium 0.025 MG DAILY AC 06/23 0700 AC 07/04 PO 0626 Magnesium Chloride 64 MG BID 07/01 1000 AC 07/04 PO 1006 Polyethylene Glycol 17 GM DAILY 06/24 1127 AC 07/03 PO 0830 Potassium Chloride 30 MEQ TUESDAY WED FRIDAY 06/23 1000 AC 07/02 PO 1200 Potassium Chloride 30 MEQ DAILY 06/23 1000 AC 07/04 PO 1006 Senna/Docusate Sodium 1 TAB DAILY 06/25 1000 AC 07/04 PO 1007 Sodium Chloride 2 SPRAY Q4P PRN 06/30 1430 AC NICOLE Tiotropium [place] 1 PUF QAM 06/23 1000 AC 07/04 INH 1005 Results Last 48 Hrs of Labs/Mics: Laboratory Tests 07/04/16 1750: CBC w Diff NO MAN DIFF REQ, RBC 3.34 L, MCV 76.6 L, MCH 23.0 L, RDW 19.1 H, MPV 8.3, Gran % 66.1, Lymphocytes % 17.5 L, Monocytes % 11.5 H, Eosinophils % 4.5, Basophils % 0.4, Absolute Granulocytes 5.2, Absolute Lymphocytes 1.4, Absolute Monocytes 0.9 H, Absolute Eosinophils 0.4, Absolute Basophils 0, PUBS MCHC 30.0 L 07/04/16 1547: pH 7.41, pCO2 60 *H, pO2 82, HCO3 38 H, ABG O2 Sat (Measured) 96.0, Carboxyhemoglobin 0.9 L, O2 Concentration % 4L, O2 Delivery Method NC, Phlebotomy Draw Site RIGHT RADIAL 07/04/16 0703: CBC w Diff NO MAN DIFF REQ, RBC 3.16 L, MCV 76.2 L, MCH 23.3 L, RDW 18.8 H, MPV 8.3, Gran % 62.3, Lymphocytes % 20.7, Monocytes % 10.5 H, Eosinophils % 5.7 H, Basophils % 0.8, Absolute Granulocytes 4.1, Absolute Lymphocytes 1.4, Absolute Monocytes 0.7 H, Absolute Eosinophils 0.4, Absolute Basophils 0.1, PUBS MCHC 30.6 L 07/04/16 0600: Sodium Cancelled, Potassium Cancelled, Chloride Cancelled, Carbon Dioxide Cancelled, Anion Gap Cancelled, BUN Cancelled, Creatinine Cancelled, BUN/ Creatinine Ratio Cancelled Assessment/Plan Assessment/Plan Impression/Plan: 1. Acute hypoxemic and hypercapnic respiratory failure, secondary to left lower lobe pneumonia and atelectasis, on IV Unasyn. 2. Elevated right hemidiaphragm, chronic paralysis. 3. Critical aortic stenosis, with acute CHF exacerbation - will require TAVR. 4. History of AF, currently in sinus rhythm, no anticoagulation necessary at present. 5. History of pulmonary embolism in 2013. 6. History of emphysema. 7. Hypothyroidism, on levothyroxine. 8. History of hypertension, on Cardizem and Cardura. 9. History of emphysema, on Symbicort and Spiriva. 10. Anemia without evidence of bleeding. 11. Asymptomatic bacteriuria. Recommendations: -For now, continue the current management plan. -[facility] T[facility]R [facility] on Tuesday -Discussed in detail with the patient and her daughter. Continue telemetry? Yes
[2016-07-05 00:11] VITALS: BP 120/80
--- NOTE | 2016-07-05 07:21 | PN- Housestaff ---
Subjective Follow-up For: CHF exacerbation Complaints: no complaints Tele-Events Since Last Visit: Sinus rhythm, heart rate ranging from 64-77, multiple PVCs, PACs and PJCs, NV interval 0.24 Subjective: I followed up and examined the patient today. She is resting comfortably in her chair, not in distress, does not have any complaints, vital signs stable, telemetry events noted above, no other issues overnight. Of note, she is waiting to be transferred to [facility] for further evaluation and management of her severe aortic stenosis later today. Review of Systems Constitutional: Reports: no symptoms. Objective Last 24 Hrs of Vital Signs/I&O Vital Signs Date Time Temp Pulse Resp B/P Pulse O2 O2 Flow FiO2 Ox Delivery Rate 07/05 1126 98.9 71 18 120/60 07/05 0838 98.9 71 18 120/60 99 Nasal Cannula 07/05 0800 95 Nasal 4.0L Cannula 07/05 0753 99 Nasal 4.0L Cannula 07/05 0011 98.7 88 20 120/80 97 Nasal 5.0L Cannula 07/05 0000 Nasal 4.0L Cannula Intake & Output 07/05 1600 07/05 0800 07/05 0000 Intake Total 150 490 Output Total 750 650 Balance -600 -160 Intake, IV 100 10 Intake, Oral 50 480 Number 1 1 Bowel Movements Output, Urine 750 650 Patient 83.178 kg Weight Physical Exam General Appearance: Alert, Oriented X3, Cooperative, No Acute Distress Other Physical Findings: HEENT: Atraumatic, Mucous Membr. moist/pink Neck: Supple Cardiovascular: Regular Rate, Normal S1, Normal S2, Grade 3/6 Systolic Murmur Lungs: Diminished Breath Sounds b/l Abdomen: Soft, No Tenderness, Positive Bowel Sounds Extremities: No Clubbing, No Cyanosis, Trace Edema on Bilateral Lower Extremities Current Medications: Current Medications Sig/Olga Start time Last Medication Dose Route Stop Time Status Admin Acetaminophen 650 MG Q6P PRN 06/23 0930 DCD 07/04 PO 1632 Albuterol Sulfate 3 ML EVERY 4 HRS/AWAKE 06/28 1600 DCD 07/05 INH 1132 Alprazolam 0.25 MG ONCE ONE 07/05 1100 DC 07/05 PO 07/05 1101 1112 Alprazolam 0.5 MG AT BEDTIME NEED.. 06/29 2114 DCD 07/05 PO 07/06 2114 0050 Ampicillin Sodium/ 1,500 MG Q12H 07/05 0730 DCD 07/05 Sulbactam Sodium IV 0910 Sodium Chloride 100 ML Ampicillin Sodium/ 1,500 MG Q12H 07/01 0400 DC 07/05 Sulbactam Sodium IV 0341 Sodium Chloride 100 ML Atorvastatin Calcium 20 MG 1700 04/08 1700 DCD 07/04 PO 1633 Budesonide/ 1 PUF 1700 08 1700 DCD 07/04 Formoterol Fumarate INH 1633 Diltiazem HCl 180 MG DAILY 06/23 1000 DCD 07/05 PO 0910 Doxazosin Mesylate 4 MG QPM 06/22 2200 DCD 07/04 PO 2130 Furosemide 40 MG 0800 & 1700 06/23 0800 DCD 07/05 IV 0910 Glycerin 2 SPRAY Q2P PRN 07/02 0815 DCD PO Heparin Sodium 5,000 UNIT Q8 06/26 0600 DCD 07/05 (Porcine) SC 0512 Levothyroxine Sodium 0.025 MG DAILY AC 06/23 0700 DCD 07/04 PO 0626 Magnesium Chloride 64 MG BID 07/01 1000 DCD 07/05 PO 0910 Polyethylene Glycol 17 GM DAILY 06/24 1127 DCD 07/03 PO 0830 Potassium Chloride 30 MEQ 06/23 1000 DCD 07/02 PO 1200 Potassium Chloride 30 MEQ DAILY 06/23 1000 DCD 07/05 PO 0910 Senna/Docusate Sodium 1 TAB DAILY 06/25 1000 DCD 07/04 PO 1007 Sodium Chloride 2 SPRAY Q4P PRN 06/30 1430 DCD NICOLE Tiotropium [place] 1 PUF QAM 06/23 1000 DCD 07/05 INH 0910 Last 24 Hrs of Lab/Scotty Results Last 24 Hrs of Labs/Mics: Laboratory Tests 07/05/16 0700: Anion Gap 12, Estimated GFR 59 L, BUN/Creatinine Ratio 27.8 H, Magnesium 2.0, CBC w Diff NO MAN DIFF REQ, RBC 3.47 L, MCV 76.2 L, MCH 24.0 L, RDW 18.3 H, MPV 8.3, Gran % 72.7, Lymphocytes % 14.3 L, Monocytes % 9.8 H, Eosinophils % 3.0, Basophils % 0.2, Absolute Granulocytes 5.3, Absolute Lymphocytes 1.0 L, Absolute Monocytes 0.7 H, Absolute Eosinophils 0.2, Absolute Basophils 0, PUBS MCHC 31.5 L Assessment/Plan Assessment: 85 y/o F with PMHx of severe aortic stenosis, emphysema and atrial fibrillation who is admitted for acute CHF in the setting of severe aortic stenosis. #Acute CHF: Secondary to severe aortic stenosis. * Cardiology following. Appreciate their recs. * Patient's swelling, and symptoms have significantly decreased since admission. * Continue Lasix 40 mg IV BID. #Acute hypoxemic and hypercapnic respiratory failure: Secondary to left lower lobe pneumonia and atelectasis in the setting of chronic emphysema. Currently on baseline oxygen requirement on 4 L NC. Remains afebrile and without leukocytosis. * Pulmonology following. Appreciate their recs. * Continue Spiriva and Symbicort. * Abx stopped now. * TRC and nebs. * Wean down oxygen as tolerated. #Severe aortic stenosis Awaiting transfer to [place] on Tuesday for TAVR later today. UPDATE: Her interhospital transfer has been confirmed and she is to go to [facility] in [place] and accepting doctor is Dr Longoria, according to Lauri Avila MD. Transfer papers ready. Diet: Consistent Carbohydrate 3 DVT PPx: HSQ and ALPs CODE: DNR/DNI Problem List: 1. CHF (congestive heart failure) 2. Severe aortic stenosis Pain Ratin Pain Location: - Pain Goal: Pain 4 or less Pain Plan: prn Tomorrow's Labs & Rationales: -
[2016-07-05 08:26] LABS: ABSOLUTE BASOPHIL COUNT 0 /CUMM (0.0-0.2); ABSOLUTE EOSINOPHIL COUNT 0.2 /CUMM (0.0-0.7); ABSOLUTE GRANULOCYTE CT 5.3 /CUMM (1.4-6.5); ABSOLUTE MONOCYTE COUNT 0.7 /CUMM (0.10-0.60); BASOPHIL % 0.2 % (0.0-2.0); HEMATOCRIT 26.4 % (37-47); MEAN CORPUSCULAR HGB CONC 31.5 G/DL (33.0-37.0); MEAN CORPUSCULAR VOLUME 76.2 FL (81.0-99.0); MEAN PLATELET VOLUME 8.3 FL (7.4-10.4); RBC DISTRIBUTION WIDTH 18.3 % (11.5-14.5); RED BLOOD CELL CT 3.47 /CUMM (4.20-5.40); WHITE BLOOD CELL COUNT 7.3 /CUMM (4.8-10.8)
[2016-07-05 08:38] VITALS: BP 120/60
[2016-07-05 09:22] LABS: GRANULOCYTE % 72.7 % (42.2-75.2); PLATELET COUNT 266 /CUMM (130-400)
--- NOTE | 2016-07-05 09:27 | Patient Discharge Instructions ---
Discharge Instructions General Discharge Information You were seen/treated for: CHF Hypothyroidism Acute respiratory Failure Special Instructions: we are transferring you to [facility] for TAVR Procedure. 1. Please follow up with your harness cleaner Dr. Avila, after discharge. 2. Please note that your warfarin was held in order to minimize risk for your valve replacement. Please restart it once cleared by the team at [facility]. 3. Please follow up with Dr. Nunez, endocrinology, for continued management of your new hypothyroidism. Please follow up with her in 4 weeks approximately. 4. Please follow up with Dr. Russell in 1-2 weeks of discharge for continued care. Diet Continue normal diet: No Recommended Diet: Heart Healthy Activity Full Activity/No Limits: Yes (as tolerated) Acute Coronary Syndrome Inclusion Criteria At DC or during hospital stay patient has or had the following: ACS DIAGNOSIS No Discharge Core Measures Meds if any: Prescribed or Continued at Discharge Meds if any: NOT Prescribed or Continued at Discharge Congestive Heart Failure Inclusion Criteria At DC or during hospital stay patient has or had the following: CHF DIAGNOSIS Yes Discharge Core Measures Meds if any: Prescribed or Continued at Discharge Meds if any: NOT Prescribed or Continued at Discharge Cerebrovascular accident Inclusion Criteria At DC or during hospital stay patient has or had the following: CVA/TIA Diagnosis No Discharge Core Measures Meds if any: Prescribed or Continued at Discharge Meds if any: NOT Prescribed or Continued at Discharge Venous thromboembolism Inclusion Criteria VTE Diagnosis No VTE Type NONE VTE Confirmed by (Test) NONE Discharge Core Measures - Per Current guidelines, there needs to be overlap - treatment for the first 5 days of Warfarin therapy. - If discharged on Warfarin prior to 5 days of - overlap therapy, the patient will need to be - assessed for post discharge needs including - *Post discharge parental anticoagulation - *Warfarin and/or parental anticoagulation education - *Follow up date to check INR post discharge At least 5 days overlap therapy as Inpatient No Meds if any: Prescribed or Continued at Discharge Note: Overlap Therapy is Warfarin and Anticoagulant Meds if any: NOT Prescribed or Continued at Discharge
--- NOTE | 2016-07-05 09:43 | PN- Cardiology ---
Subjective Subjective: The patient has been stable over the weekend. She is on nasal oxygen and breathing easily and saturating well. She remains on ampicillin and IV Lasix. There have been no arrhythmias or other events. Objective Vital Signs and I&Os Vital Signs Date Time Temp Pulse Resp B/P Pulse O2 O2 Flow FiO2 Ox Delivery Rate 07/05 0838 98.9 71 18 120/60 99 Nasal Cannula 07/05 0753 99 Nasal 4.0L Cannula 07/05 0011 98.7 88 20 120/80 97 Nasal 5.0L Cannula 07/05 0000 Nasal 4.0L Cannula 07/04 1804 98.9 69 18 106/60 94 Nasal Cannula 07/04 1553 97 Nasal 4.0L Cannula Intake & Output 07/05 1600 07/05 0800 07/05 0000 07/04 1600 07/04 0800 07/04 0000 Intake Total 150 490 800 510 800 Output Total 836 377 7737 625 1650 Balance -600 -160 -200 -115 -850 Intake, IV 100 10 110 Intake, Oral 50 480 800 400 800 Number 1 1 5 Bowel Movements Output, Urine 974 284 5768 625 1650 Patient 183 lb 182 lb Weight Physical Exam: She is sitting in a chair in no distress HEENT exam is normal Neck veins not distended Carotids decreased upstroke and volume Chest a few crackles in the left base Heart loud systolic ejection murmur at the base Extremities edema nearly resolved Current Medications: Current Medications Sig/Olga Start time Last Medication Dose Route Stop Time Status Admin Acetaminophen 650 MG Q6P PRN 06/23 0930 AC 07/04 PO 1632 Albuterol Sulfate 3 ML EVERY 4 HRS/AWAKE 06/28 1600 AC 07/05 INH 0750 Alprazolam 0.5 MG ONCE ONE 07/04 1800 DC 07/04 PO 07/04 1801 2130 Alprazolam 0.5 MG AT BEDTIME NEED.. 06/29 2115 AC 07/05 PO 07/06 2114 0050 Ampicillin Sodium/ 1,500 MG Q12H 07/05 0730 AC 07/05 Sulbactam Sodium IV 0910 Sodium Chloride 100 ML Ampicillin Sodium/ 1,500 MG Q12H 07/01 0400 DC 07/05 Sulbactam Sodium IV 0341 Sodium Chloride 100 ML Atorvastatin Calcium 20 MG 1700 06/26 1700 AC 07/04 PO 1633 Budesonide/ 1 PUF 1700 04/08 1700 AC 07/04 Formoterol Fumarate INH 1633 Diltiazem HCl 180 MG DAILY 06/23 1000 AC 07/05 PO 0910 Doxazosin Mesylate 4 MG QPM 06/22 2200 AC 07/04 PO 2130 Furosemide 40 MG 0800 & 1700 06/23 0800 AC 07/05 IV 0910 Glycerin 2 SPRAY Q2P PRN 07/02 0815 AC PO Heparin Sodium 5,000 UNIT Q8 06/26 0600 AC 07/05 (Porcine) SC 0512 Levothyroxine Sodium 0.025 MG DAILY AC 06/23 0700 AC 07/04 PO 0626 Magnesium Chloride 64 MG BID 07/01 1000 AC 07/05 PO 0910 Polyethylene Glycol 17 GM DAILY 06/24 1127 AC 07/03 PO 0830 Potassium Chloride 30 MEQ 06/23 1000 AC 07/02 PO 1200 Potassium Chloride 30 MEQ DAILY 06/23 1000 AC 07/05 PO 0910 Senna/Docusate Sodium 1 TAB DAILY 06/25 1000 AC 07/04 PO 1007 Sodium Chloride 2 SPRAY Q4P PRN 06/30 1430 AC NCIOLE Tiotropium [place] 1 PUF QAM 06/23 1000 AC 07/05 INH 0910 Results Last 48 Hrs of Labs/Mics: Laboratory Tests 07/05/16 0700: Anion Gap 12, Estimated GFR 59 L, BUN/Creatinine Ratio 27.8 H, Magnesium 2.0, CBC w Diff NO MAN DIFF REQ, RBC 3.47 L, MCV 76.2 L, MCH 24.0 L, RDW 18.3 H, MPV 8.3, Gran % 72.7, Lymphocytes % 14.3 L, Monocytes % 9.8 H, Eosinophils % 3.0, Basophils % 0.2, Absolute Granulocytes 5.3, Absolute Lymphocytes 1.0 L, Absolute Monocytes 0.7 H, Absolute Eosinophils 0.2, Absolute Basophils 0, PUBS MCHC 31.5 L 07/04/16 1750: CBC w Diff NO MAN DIFF REQ, RBC 3.34 L, MCV 76.6 L, MCH 23.0 L, RDW 19.1 H, MPV 8.3, Gran % 66.1, Lymphocytes % 17.5 L, Monocytes % 11.5 H, Eosinophils % 4.5, Basophils % 0.4, Absolute Granulocytes 5.2, Absolute Lymphocytes 1.4, Absolute Monocytes 0.9 H, Absolute Eosinophils 0.4, Absolute Basophils 0, PUBS MCHC 30.0 L 07/04/16 1547: pH 7.41, pCO2 60 *H, pO2 82, HCO3 38 H, ABG O2 Sat (Measured) 96.0, Carboxyhemoglobin 0.9 L, O2 Concentration % 4L, O2 Delivery Method NC, Phlebotomy Draw Site RIGHT RADIAL 07/04/16 0703: CBC w Diff NO MAN DIFF REQ, RBC 3.16 L, MCV 76.2 L, MCH 23.3 L, RDW 18.8 H, MPV 8.3, Gran % 62.3, Lymphocytes % 20.7, Monocytes % 10.5 H, Eosinophils % 5.7 H, Basophils % 0.8, Absolute Granulocytes 4.1, Absolute Lymphocytes 1.4, Absolute Monocytes 0.7 H, Absolute Eosinophils 0.4, Absolute Basophils 0.1, PUBS MCHC 30.6 L 07/04/16 0600: Sodium Cancelled, Potassium Cancelled, Chloride Cancelled, Carbon Dioxide Cancelled, Anion Gap Cancelled, BUN Cancelled, Creatinine Cancelled, BUN/ Creatinine Ratio Cancelled Assessment/Plan Assessment/Plan The patient is improved from a respiratory standpoint. She is now on telemetry and on nasal oxygen and doing well. She still is on IV Lasix. She is still on antibiotics for her pneumonia. The patient appears ready for transfer to [place]. The daughter says the family discussed everything with their mother over the weekend and everybody is in agreement to move forward with cardiac catheterization with a plan for possible TAVR. Dr. Longoria has agreed to accept this patient in transfer. Continue telemetry? Not applicable
[2016-07-05] MEDS ORDERED: FUROSEMIDE10 MG/1 M1 IV (10:07)
[2016-07-05] MEDS ORDERED: SLOW-MAG71.5 MG PO (10:07)
[2016-07-05 11:26] VITALS: BP 120/60
--- NOTE | 2016-07-05 15:46 | PN- Att Addend ---
Attending MD Review Statement Attending Statement Attending MD Statement: examined this patient, discuss w/resident/PA/INFORMATION SECURITY SPECIALIST, agreed w/resident/PA/INFORMATION SECURITY SPECIALIST, discussed with family, reviewed EMR data (avail), discussed w/ nursing, discussed w/case mgmt Attending Assessment/Plan: Patient seen and examined at bedside. Discussed with patient's family and patient the care plan. Patient is being transferred out to [facility] for further management and possible evaluation for TAVR. Please see the discharge summary for more details.
== END 2016-07-05 12:22 | disposition short-term general hospital (02) | DRG 291 ==
LOC: ENRESERVTM → ENRESERVDT → ERH 15:07 → ENPENDDIS 16:39 → 1NO 16:39 → ERHI 16:39 → CRI 16:39 → 1NO 20:08 → CRI 06-28 10:49 → 1NO 07-02 20:33
PROVIDERS: Dermatology; Emergency Medicine; Internal Medicine; Internal Medicine Endocrinology, Diabetes & Metabolism; Ophthalmology; Preventive Medicine Public Health & General Preventive Medicine; Radiology Diagnostic Radiology; Student in an Organized Health Care Education/Training Program; ADMIT Internal Medicine
DX: I11.0 Hypertensive heart disease with heart failure (principal); J96.01 Acute respiratory failure with hypoxia; J18.9 Pneumonia, unspecified organism; J96.02 Acute respiratory failure with hypercapnia; Z99.81 Dependence on supplemental oxygen; E11.9 Type 2 diabetes mellitus without complications; I50.33 Acute on chronic diastolic (congestive) heart failure; Z66 Do not resuscitate; J44.9 Chronic obstructive pulmonary disease, unspecified; I35.0 Nonrheumatic aortic (valve) stenosis; E66.01 Morbid (severe) obesity due to excess calories; D50.9 Iron deficiency anemia, unspecified; Z79.01 Long term (current) use of anticoagulants; E78.5 Hyperlipidemia, unspecified; E03.9 Hypothyroidism, unspecified; H35.30 Unspecified macular degeneration; K21.9 Gastro-esophageal reflux disease without esophagitis; M81.0 Age-related osteoporosis without current pathological fracture; Z68.39 Body mass index [BMI] 39.0-39.9, adult; Z85.42 Personal history of malignant neoplasm of other parts of uterus; Z87.891 Personal history of nicotine dependence; Z86.711 Personal history of pulmonary embolism; Z85.3 Personal history of malignant neoplasm of breast
CPT/HCPCS: 1NP; 1NSP; CCU; 36415; 81001; 82436; 86376; 86800; 86920; 87040; 87070; 87086; 87147; 87449; 87450; 87804; 87804-59; 93005; 93010; 93306; 97110-GO; 97116-GO; 97161-GP; 97164-GP; 97165-GO; 97530-GO; J0713; J1644; J1940; J3370; J3490; J7040